=== PATIENT | female | born 1945 | race Caucasian/White ===

== ENCOUNTER 2018-06-12 08:59 | Emergency (ER) | payer MEDICAID ==
[~2018-06-12] VITALS: Ht 152.4 cm; Wt 72.6 kg
[~2018-06-12 08:59] MED LIST: ALBU8.5H2 IH; ALBU8.5H4 INH; ALBUTEROL; ALBUTEROL INH; ALPR1TAB7 PO; ALPR1TAB72 PO; ALPRAZOLAM PO; ARTHROTEC PO; AZTH250C PO; CALC-6 PO; CELE-63 PO; CLN.1T PO; CRESTOR40 MG PO; CYCL10TA9 PO; DICL1TAB27 PO; FENO48TA2 PO; FLUT16SP22 NS; FRSM20T PO; FURO20TA4 PO; FURO40TA4 PO; FUROSEMIDE PO; GEMF600T3 PO; GEMF600T8 PO; GLIM2TAB PO; GLIM4TAB PO; HYDR-3583 PO; INSU100I11 SC; INSU100V7 SQ; INSU300I SC; IRBE300T9 PO; LANS30CA PO; LEVO200T6 PO; LEVOTHYROXIN PO; LRT10T PO; LVT.025T PO; METF-399 PO; METF1000 PO; METO-333 PO; METO100T5 PO; METO25TA2 PO; MTP25TSR PO; NF-LOVAZAC PO; NFCHLORT25 PO; POLY17PO23 PO; PREVACID PO; SERT25TA PO
[2018-06-12] MEDS ORDERED: fentaNYL INJECTION 100 MCG/2 ML AMP IM ONE (09:15)
--- NOTE | 2018-06-12 09:19 | ED Fall/Injury ---
General Chief Complaint: Upper Extremity Stated Complaint: R HAND PAIN/SWELLING AFTER FALL Source: patient, family Exam Limitations: no limitations History of Present Illness Date Seen by Provider: Jun 12, 2018 Time Seen by Provider: 09:03 Initial Comments The patient presents to the ER by private conveyance with her significant other and chief complaint that around 10:00 last night she was getting up and tripped over a rug. She landed on her back and side and is now having some pain and swelling in her right wrist and right hand. She has no limitation to range of motion. She's not having any pain anywhere else. No history of fracture or surgery to the right hand or wrist. She is not on blood thinners but does take aspirin. She has not taken her medicines this morning because when she doesn't eat she wasn't sure she should be nothing by mouth. She has not checked her blood sugar today. She has a history of any cancer and total thyroidectomy. 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 She did take some Tylenol this morning with minimal relief. She's also use ice and elevation. She denies striking her head, loss of consciousness or pain in any of her other joints. Allergies and Home Medications Allergies Coded Allergies: promethazine (Verified Allergy, Severe, SEIZURE, NAUSEA, 07/19/08) duloxetine HCl (Verified Allergy, Mild, 05/28/11) escitalopram oxalate (Verified Allergy, Unknown, 09/22/13) niacin (Verified Allergy, Unknown, 09/22/13) olanzapine (Verified Allergy, Unknown, 09/22/13) ibuprofen (Verified Adverse Reaction, Mild, UNSET STOMACH, 09/22/13) lisinopril (Verified Adverse Reaction, Mild, HEADACHE, 09/22/13) tramadol (Verified Adverse Reaction, Mild, NAUSEATED, 09/22/13) Home Medications Albuterol Sulfate 8.5 Gm Hfa.aer.ad, 2 PUFF INH Q6H PRN for SHORTNESS OF BREATH, (Reported) Alprazolam 1 Mg Tablet, 1 MG PO TID PRN for ANXIETY, (Reported) Calcium Carbonate/Vitamin D3 1 Each Tablet, 1 TAB PO BID, (Reported) Celecoxib 200 Mg Capsule, 200 MG PO BID, (Reported) Fluticasone Propionate 16 Gm Naspr, 2 SPRAYS NS BID PRN for ALLERGIES, (Reported ) Furosemide 40 Mg Tablet, 40 MG PO EVERY OTHER DAY, (Reported) Gemfibrozil 600 Mg Tablet, 600 MG PO BID, (Reported) Glimepiride 4 Mg Tablet, 4 MG PO DAILY, (Reported) Insulin Glargine,Hum.rec.anlog 300 Unit/1 Ml Insuln.pen, 35 UNITS SC HS, ( Reported) Insulin Glulisine 100 Unit/1 Ml Insuln.pen, 10 UNITS SC BREAKFAST & LUNCH, ( Reported) Insulin Glulisine 100 Unit/1 Ml Insuln.pen, 14 UNITS SC WITH EVENING MEAL, ( Reported) Levothyroxine Sodium 200 Mcg Tablet, 200 MCG PO DAILY, (Reported) Metformin HCl 1,000 Mg Tablet, 1,000 MG PO BID, (Reported) Metoprolol Tartrate 25 Mg Tablet, 25 MG PO BID, (Reported) Polyethylene Glycol 17 Gm Pack, 17 GM PO EVERY OTHER DAY, (Reported) Patient Home Medication List Home Medication List Reviewed: Yes Review of Systems Review of Systems Constitutional: No chills, No fever Eyes: Denies Blindness, Denies Blurred Vision Ears, Nose, Mouth, Throat: denies ear pain, denies ear discharge Respiratory: No cough, No short of breath Cardiovascular: No chest pain, No edema Gastrointestinal: No abdominal pain, No constipation, No diarrhea Past Mljxrqi-Xerdff-Giebqp Hx Patient Social History Alcohol Use: Denies Use Recreational Drug Use: No Smoking Status: Never a Smoker Recent Foreign Travel: No Contact w/Someone Who Travel: No Immunizations Up To Date Tetanus Booster (TDap): Less than 5yrs Seasonal Allergies Seasonal Allergies: No Past Medical History 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 8.0oz. 76.213162iv; 33.1 BMI Method:Stated General Appearance: WD/WN, no apparent distress HEENT: PERRL/EOMI, normal ENT inspection, TMs normal, pharynx normal, other ( atraumatic head with negative goncalves sign, raccoon eyes or hemotympanum) Neck: non-tender, full range of motion, supple, normal inspection Cardiovascular: normal peripheral pulses, regular rate, rhythm, no edema Respiratory: chest non-tender, lungs clear, normal breath sounds, no respiratory distress, no accessory muscle use Peripheral Pulses: 2+ Radial Pulses (R), 2+ Radial Pulses (L) Gastrointestinal: normal bowel sounds, non tender, soft Extremities: normal inspection, normal capillary refill Neurologic/Psychiatric: alert, normal mood/affect, oriented x 3 Skin: normal color, warm/dry Progress/Results/Core Measures Results/Orders My Orders Orders - DEBO NOVA Wrist, Right, 3 Views Or More (06/12/18 09:10) Hand, Right, 3 Views (06/12/18 09:10) Fentanyl Injection (Sublimaze Injection (06/12/18 09:15) Medications Given in ED Current Medications Medications Dose Ordered Sig/Davey Route Start Time Stop Time Status Last Admin Dose Admin Fentanyl Citrate 75 mcg ONCE ONCE IM 06/12/18 09:15 06/12/18 09:16 DC 06/12/18 09:16 75 MCG Vital Signs/I&O 06/12/18 09:22 Temp 97.3 Pulse 76 B/P (MAP) 210/100 (136) Pulse Ox 96 O2 Delivery Room Air Progress Progress Note : Time: 09:20 Progress Note Patient remarks that her blood sugars been high in the 400s and 500s but she says been that way for years and she has plans follow up with Dr. ying with it. We've offered to test her blood sugar and check some blood work since this could contribute to falls but she does not think this is contributing since she' s had blood sugars ago up for the past several years like this. She does not always up like that just occasionally they do. She's declined any urine, blood, or Accu-Chek at this time. We've encouraged her to take her blood pressure medicines when she gets home and follow-up with primary care. Ice pack provided. Yamel 75 g since NSAIDs are inadvisable given her history of chronic kidney problems. X-ray of the wrist and hand. Diagnostic Imaging Diagonstic Imaging: Xray Plain Films/CT/US/NM/MRI: hand (right wrist and hand) Comments NAME: SHERI ROTHMAN [facility] REC#: [id number] PHYSICIAN: DEBO NOVA MD CC: TUYET STAFFORD; DEBO NOVA Page 1 of 1 RADIOLOGY REPORT [facility], [facility]. [place], [place] CC: TUYET STAFFORD; DEBO NOVA Page 1 of 1 RADIOLOGY REPORT NAME: SHERI ROTHMAN MED REC#: [id number] PT STATUS: REG ER : 1945 PHYSICIAN: DEBO NOVA MD ADMIT DATE: 06/12/18/ER Signed Date of Exam: 06/12/18 HAND, RIGHT, 3 VIEWS INDICATION: Right hand pain. COMPARISON: None. FINDINGS: 3 views of right hand demonstrate no fracture or dislocation. Articular surfaces are age-appropriate. No foreign body seen. IMPRESSION: No acute fracture or dislocation. Dictated by: Dictated on workstation # [id number] Dict: 06/12/18938 Trans: 06/12/18943 Interpreted by: TUYET STAFFORD Electronically signed by: TUYET STAFFORD 06/12/18943 NAME: SHERI ROTHMAN [facility] REC#: [id number] PHYSICIAN: DEBO NOVA MD CC: MARISA PROCTOR MD; DEBO NOVA Page 1 of 1 RADIOLOGY REPORT [facility]. [place], [place] CC: MARISA PROCTOR MD; DEBO NOVA Page 1 of 1 RADIOLOGY REPORT NAME: SHERI ROTHMAN [facility] REC#: [id number] PT STATUS: REG ER : 1945 PHYSICIAN: DEBO NOVA MD ADMIT DATE: 06/12/18/ER Signed Date of Exam: 06/12/18 WRIST, RIGHT, 3 VIEWS OR MORE EXAMINATION: Right wrist, 3 views. COMPARISON: None. HISTORY: 73-year-old female, right hand and wrist pain. History of fall. FINDINGS: There are advanced triscaphe degenerative changes. There is moderate osteoarthritis of the first carpometacarpal joint. There are mild distal radioulnar degenerative changes. There are vascular calcifications. There is no identified acute fracture. There is no identified abnormal bone alignment. IMPRESSION: 1. No identified acute bony abnormality of the right wrist. Dictated by: Dictated on workstation # [id number] Dict: 06/12/18938 Trans: 06/12/18946 Interpreted by: MARISA PROCTOR MD Electronically signed by: MARISA PROCTOR MD 06/12/18946 Reviewed: Reviewed by Me Departure Impression Primary Impression: Contusion of wrist Qualified Codes: S60.211A - Contusion of right wrist, initial encounter Additional Impression: Fall Qualified Codes: W19.XXXA - Unspecified fall, initial encounter Disposition: HOME, SELF-CARE Condition: Stable Departure-Patient Inst. Decision time for Depature: 10:32 Referrals: ANA MARIA YING MD (PCP/Family) Primary Care Physician Patient Instructions: Common Wrist Injuries (DC) Add. Discharge Instructions: Plan to follow up in 7-10 days for reexamination by the primary care provider. If it still hurting probably be reexamined and possibly reimaged. Use Tylenol for pain. You can use the tramadol 1 tablet every 6 hours as necessary for increased pain. Use ice and elevation as necessary for the first several days to help with swelling and pain. Wear the wrist brace. All discharge instructions reviewed with patient and/or family. Voiced understanding. Scripts Tramadol HCl (Tramadol HCl) 50 Mg Tablet 50 MG PO Q6H PRN for PAIN, #20 TAB 0 Refills Prov: DEBO NOVA 06/12/18 DEBO NOVA Jun 12, 2018 09:19
--- NOTE | 2018-06-12 09:43 | Diagnostic Imaging Report ---
INDICATION: Right hand pain. COMPARISON: None. FINDINGS: 3 views of right hand demonstrate no fracture or dislocation. Articular surfaces are age-appropriate. No foreign body seen. IMPRESSION: No acute fracture or dislocation. Dictated by: Dictated on workstation # [id number]
--- NOTE | 2018-06-12 09:45 | Diagnostic Imaging Report ---
EXAMINATION: Right wrist, 3 views. COMPARISON: None. HISTORY: 73-year-old female, right hand and wrist pain. History of fall. FINDINGS: There are advanced triscaphe degenerative changes. There is moderate osteoarthritis of the first carpometacarpal joint. There are mild distal radioulnar degenerative changes. There are vascular calcifications. There is no identified acute fracture. There is no identified abnormal bone alignment. IMPRESSION: 1. No identified acute bony abnormality of the right wrist. Dictated by: Dictated on workstation # [id number]
[2018-06-12] MEDS ORDERED: TRAM50TA2 PO (10:34)
[2018-06-12 10:42] VITALS: BP 173/92
== END 2018-06-12 10:42 | disposition home or self-care (01) ==
LOC: ER 08:59
DX: S60.211A Contusion of right wrist, initial encounter (principal); E03.9 Hypothyroidism, unspecified; E11.9 Type 2 diabetes mellitus without complications; F41.9 Anxiety disorder, unspecified; F32.9 Major depressive disorder, single episode, unspecified; Z90.89 Acquired absence of other organs; Z85.850 Personal history of malignant neoplasm of thyroid; Z88.8 Allergy status to other drugs, medicaments and biological substances; Z88.6 Allergy status to analgesic agent; Z79.51 Long term (current) use of inhaled steroids; Z79.4 Long term (current) use of insulin; Z87.440 Personal history of urinary (tract) infections; Z87.19 Personal history of other diseases of the digestive system; W01.0XXA Fall on same level from slipping, tripping and stumbling without subsequent striking against object, initial encounter
CPT/HCPCS: 73110; 73130; 96372

== ENCOUNTER 2020-01-03 19:56 | Emergency (ER) | payer MEDICAID ==
[~2020-01-03] VITALS: Ht 152 cm; Wt 73.0 kg
[~2020-01-03 19:56] MED LIST changes: -GLIM4TAB PO; +GLIM4TAB5 PO; +TRM50T PO
[2020-01-03 20:38] LABS: HEMATOCRIT 38 % (35-52); HEMOGLOBIN 12.7 G/DL (11.5-16.0); MEAN CORPUSCULAR HEMOGLOBIN 30 PG (25-34); MEAN CORPUSCULAR HGB CONC 33 G/DL (32-36); MEAN CORPUSCULAR VOLUME 92 FL (80-99); PLATELET COUNT 362 10^3/uL (130-400); WHITE BLOOD COUNT 10.5 10^3/uL (4.3-11.0)
[2020-01-03 20:39] LABS: BASOPHILS # (AUTO) 0.1 10^3/uL (0.0-0.1); BASOPHILS % (AUTO) 1 % (0-10); EOSINOPHILS # (AUTO) 0.1 10^3/uL (0.0-0.3); EOSINOPHILS % (AUTO) 1 % (0-10); LYMPHOCYTES # (AUTO) 3.7 X 10^3 (1.0-4.0); LYMPHOCYTES % (AUTO) 35 % (12-44); MEAN PLATELET VOLUME 10.1 FL (7.4-10.4); MONOCYTES # (AUTO) 0.7 X 10^3 (0.0-1.0); MONOCYTES % (AUTO) 7 % (0-12); NEUTROPHILS # (AUTO) 5.9 X 10^3 (1.8-7.8); NEUTROPHILS % (AUTO) 57 % (42-75)
--- NOTE | 2020-01-03 20:54 | Diagnostic Imaging Report ---
PROCEDURE: CT head wo r/o stroke. TECHNIQUE: Multiple contiguous axial images were obtained through the brain without the use of intravenous contrast. Auto Exposure Controls were utilized during the CT exam to meet ALARA standards for radiation dose reduction. INDICATION: Dizziness onset today confusion FINDINGS: Noncontrast CT scan of the head is compared to exam from 2012. Patient has developed some white matter changes consistent with microvascular disease. No focal areas of infarction are identified. There is no mass effect midline shift hemorrhage or extra-axial fluid collection. No evidence for ribbon sign or hyperdense MCA sign is present. Bone windows appear normal. IMPRESSION: There is a small vessel disease with no acute or focal findings. Dictated by: Dictated on workstation # [id number]
--- NOTE | 2020-01-03 20:59 | ED General ---
General Chief Complaint: Dizziness/Syncope Stated Complaint: DIZZY / NERVOUS Source of Information: Patient History of Present Illness Date Seen by Provider: Jan 03, 2020 Time Seen by Provider: 20:00 Initial Comments PT ARRIVES VIA POV FROM HOME C/O DIZZINESS AND FEELING ANXIOUS STATES "I JUST FEEL WEIRD" STATES SHE HAS BEEN FEELING THIS WAY SINCE 1744 TONIGHT STATES SHE IS TYPE 2 DIABETIC--BLOOD GLUCOSE 159 AT HOME, PRIOR TO ARRIVA. HAS HAD 12 UNITS OF INSULIN TODAY. NO FEVER NO CHEST PAIN NO SHORTNESS OF BREATH NO PALPITATIONS NO HEADACHE NO NAUSEA/VOMITING/DIARRHEA/ABDOMINAL PAIN NO URINARY SYMPTOMS NO SWELLING ANYWHERE NO FEVER/SWEATS/CHILLS NO PALPITATIONS STATES "THE LINES ON THE ROAD MOVED AROUND" PT HAS HISTORY OF HTN ALSO HAS HISTORY OF RENAL CANCER, DX 1985, AND HAS HAD LEFT NEPHRECTOMY. NO CHEMO OR RADIATION. 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 YING, [facility] Allergies and Home Medications Allergies Coded Allergies: promethazine (Verified Allergy, Severe, SEIZURE, NAUSEA, 07/19/08) duloxetine HCl (Verified Allergy, Mild, 05/28/11) escitalopram oxalate (Verified Allergy, Unknown, 09/22/13) niacin (Verified Allergy, Unknown, 09/22/13) olanzapine (Verified Allergy, Unknown, 09/22/13) ibuprofen (Verified Adverse Reaction, Mild, UNSET STOMACH, 09/22/13) lisinopril (Verified Adverse Reaction, Mild, HEADACHE, 09/22/13) tramadol (Verified Adverse Reaction, Mild, NAUSEATED, 09/22/13) Home Medications Albuterol Sulfate 8.5 Gm Hfa.aer.ad, 2 PUFF INH Q6H PRN for SHORTNESS OF BREATH, (Reported) Alprazolam 1 Mg Tablet, 1 MG PO TID PRN for ANXIETY, (Reported) Calcium Carbonate/Vitamin D3 1 Each Tablet, 1 TAB PO BID, (Reported) Celecoxib 200 Mg Capsule, 200 MG PO BID, (Reported) Fluticasone Propionate 16 Gm Naspr, 2 SPRAYS NS BID PRN for ALLERGIES, (Reported) Furosemide 40 Mg Tablet, 40 MG PO EVERY OTHER DAY, (Reported) Gemfibrozil 600 Mg Tablet, 600 MG PO BID, (Reported) Glimepiride 4 Mg Tablet, 4 MG PO DAILY, (Reported) Insulin Glargine,Hum.rec.anlog 300 Unit/1 Ml Insuln.pen, 35 UNITS SC HS, (Reported) Insulin Glulisine 100 Unit/1 Ml Insuln.pen, 10 UNITS SC BREAKFAST & LUNCH, (Reported) Insulin Glulisine 100 Unit/1 Ml Insuln.pen, 14 UNITS SC WITH EVENING MEAL, (Reported) Levothyroxine Sodium 200 Mcg Tablet, 200 MCG PO DAILY, (Reported) Metformin HCl 1,000 Mg Tablet, 1,000 MG PO BID, (Reported) Metoprolol Tartrate 25 Mg Tablet, 25 MG PO BID, (Reported) Polyethylene Glycol 17 Gm Pack, 17 GM PO EVERY OTHER DAY, (Reported) Tramadol HCl 50 Mg Tablet, 50 MG PO Q6H PRN for PAIN Prescribed by: DEOB NOVA on 06/12/18 1034 Patient Home Medication List Home Medication List Reviewed: Yes Review of Systems Review of Systems Constitutional: see HPI; No chills, No diaphoresis; dizziness; No fever, No malaise, No weakness EENTM: see HPI Respiratory: no symptoms reported Cardiovascular: no symptoms reported Gastrointestinal: no symptoms reported Genitourinary: no symptoms reported Musculoskeletal: no symptoms reported Skin: no symptoms reported Psychiatric/Neurological: No Symptoms Reported Hematologic/Lymphatic: No Symptoms Reported Immunological/Allergic: no symptoms reported Past Neavfyg-Okxaon-Tmpasg Hx Past Med/Social Hx: Reviewed and Corrections made Patient Social History Recent Foreign Travel: No Contact w/Someone Who Travel: No Recent Hopitalizations: Yes (HEART CATH) Immunizations Up To Date Tetanus Booster (TDap): Less than 5yrs Seasonal Allergies Seasonal Allergies: No Past Medical History Surgeries: Yes (GALLBLADDER,THYROID,KIDNEY, COLON, BREAST BONE REMOVED) Abdominal, Bowel Surgery, Gallbladder, Nephrectomy, Thyroidectomy Respiratory: Yes (SOB AT TIMES, USES INH) Cardiac: Yes High Cholesterol, Hypertension Neurological: No 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 Disorders: 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 Sexually Transmitted Disease: No Genitourinary: Yes (RENAL CANCER-S/P LEFT NEPHRECTOMY) UTI-Chronic Gastrointestinal: Yes (S/P COLON RESECTION/COLOSTOMY/TAKEDOWN FOR RUPTURED DIVERTICULITIS) Diverticulosis, Pancreatitis Musculoskeletal: Yes Degenerate Disk Disease, Arthritis, Chronic Back Pain Endocrine: Yes Hypothyroidsim, Diabetes, Non-Insulin dep HEENT: Yes Cataract, Glaucoma Cancer: Yes Kidney Did You Recieve Any Treatments: Yes What Type of Treatment Did You: Surgical Intervention Psychosocial: Yes Anxiety, Depression Integumentary: No Blood Disorders: No Adverse Reaction/Blood Tranf: No Family Medical History PSH: -LEFT NEPHRECTOMY 1985 FOR CANCER -COLON RESECTION WITH COLOSTOMY AND LATER TAKEDOWN FOR PERFORATED DIVERTICULITIS -CHOLECYSTECTOMY Physical Exam Vital Signs Vital Signs - First Documented 01/03/20 01/03/20 19:59 21:58 Temp 36.7 Pulse 59 Resp 16 B/P (MAP) 196/103 (134) Pulse Ox 97 O2 Delivery Room Air Capillary Refill : Height, Weight, BMI Height: 5'0.00" Weight: 160lbs. 8.0oz. 72.044746br; 33.1 BMI Method:Stated General Appearance: No Apparent Distress, WD/WN, Anxious HEENT: PERRL/EOMI, Normal ENT Inspection Neck: Normal Inspection Respiratory: Normal Breath Sounds, No Accessory Muscle Use, No Respiratory Distress Cardiovascular: Regular Rate, Rhythm, No Edema, No JVD, No Murmur, Normal Peripheral Pulses Gastrointestinal: Non Tender, Soft Back: Normal Inspection Extremity: Normal Capillary Refill, Normal Inspection, Normal Range of Motion, Non Tender, No Calf Tenderness, No Pedal Edema, Other (+1/4 BILATERAL PEDAL PULSES) Neurologic/Psychiatric: Alert, Oriented x3, No Motor/Sensory Deficits, 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 caro notified Progress Note : Progress Note PT HAD NO FURTHER COMPLAINTS DURING ER STAY 2149--HAVE ADVISED PT OF NEED FOR CT ANGIOGRAM OF HEAD, DUE TO HER SYMPTOMS. PT ADAMANTLY REFUSES ANY OTHER TESTS, AND WANTS TO LEAVE. STATES SHE "HAS ALREADY WAITED LONG ENOUGH AND WAITED TOO LONG, AND NEVER HAD TO WAIT THIS LONG IN AN ER IN MY LIFE" --AMA PAPERS SIGNED. ECG Initial ECG Impression Date: Jan 03, 2020 Initial ECG Impression Time: 20:24 Initial ECG Rate: 57 Initial ECG Rhythm: Normal Sinus Diagnostic Imaging Comments CT HEAD--PER RADIOLOGIST REPORT AT 2058 FINDINGS: Noncontrast CT scan of the head is compared to exam from 2011. Patient has developed some white matter changes consistent with microvascular disease. No focal areas of infarction are identified. There is no mass effect midline shift hemorrhage or extra-axial fluid collection. No evidence for ribbon sign or hyperdense MCA sign is present. Bone windows appear normal. IMPRESSION: There is a small vessel disease with no acute or focal findings Reviewed: Reviewed by Me Departure Impression Primary Impression: Left against medical advice Disposition: 07 AGAINST MEDICAL ADVICE Condition: Against Medical Advice Departure-Patient Inst. Referrals: SELF,ANA MARIA STEPHEN (PCP/Family) Primary Care Physician NICOL CARO DO Jan 03, 2020 20:59
[2020-01-03 21:07] LABS: INR 0.8 (0.8-1.4); PROTHROMBIN TIME PATIENT 11.4 SEC (12.2-14.7)
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
--- OUTSIDE RECORDS SUMMARY | 2020-01-03 21:07 | XMS REPORT | Encounter Summary ---
Author Author [facility] Organization [facility] Address Unknown Phone Unavailable Care Team Providers Care Posting Specialist Name Role Phone Pat Marie MD Unavailable Darrion Pardo MD Unavailable Aaron Caldwell MD Unavailable Santo Shields MD Unavailable Bony Del Toro MD PCP Unavailable Jacy Odonnell RN Unavailable Unavailable Mendez Nuñez MD Unavailable Reason for Visit * Reason Onset Date Comments Pre-Visit Planning 11/22/2019 Encounter Details Care Team Description Date Type Department Darshan Stephens MD [address] [place] [address] Pre-Visit Planning 11/22/2019 Telephone [facility] [address] [address] Social History Date Tobacco Use Types Packs/Day [...] / COVID-19? documented as of this encounter Functional Status Date of Assessment [...] impairment: No documented as of this encounter Plan of Treatment Not on filedocumented as of this encounter Visit Diagnoses Not on filedocumented in this encounter
--- OUTSIDE RECORDS SUMMARY | 2020-01-03 21:07 | XMS REPORT ---
Author Author [place] [employer] [facility] [email or web address]. [facility] [employer] Address [address] [place] [address] Care Team Providers Care Development Administrator Name Role Phone SELF, ANA MARIA Unavailable SELF, ANA MARIA J Unavailable Unavailable DEBO NOVA Unavailable Unavailable SARA STEPHEN, GRACIELA Santillan Unavailable Unavailable BENITA STEPHEN, BALBINA Morgan Unavailable Unavailable BENITA STEPHEN, BALBINA Morgan Unavailable Unavailable FEMI STEPHEN, COOPER Spear Unavailable Unavailable MARSHA STEPHEN, RAUDEL Negro Unavailable Unavailable MARSHA STEPHEN, RAUDEL Negro Unavailable Unavailable SELF, ANA MARIA Unavailable Unavailable Unavailable SELF, ANA MARIA J Unavailable Unavailable ANGIE CRAIG, NICOL Negro Unavailable Unavailable Unavailable Unavailable Unavailable Unavailable Unavailable Unavailable Unavailable Unavailable Allergies The data below is from unstructured sources No Information Encounters Encounter Date Encounter Type Encounter Diagnosis Care Provider Facility Start: Emergency department NICOL ADAMS DO [facility] 01-03-2020 patient visit [facility] Start: Patient encounter ANA MARIA J SELF [facility] 12-30-2019 procedure [facility] Start[facility] Patient encounter NA NA [facility] 11-21-2019 [facility] Start: Patient encounter NA NA [facility] 11-20-2019 procedure [facility] Start: Telephone encounter ANA MARIA SELF [facility] 09-06-2019 MAIN Start: Telephone encounter ANA MARIA SELF [facility] 09-02-2019 MAIN Start: Telephone encounter ANA MARIA SELF [facility] 07-14-2019 MAIN Start: Telephone encounter ANA MARIA SELF [facility] 07-08-2019 MAIN Start: Telephone encounter ANA MARIA SELF [facility] 07-07-2019 MAIN Start: Telephone encounter ANA MARIA SELF [facility] 07-05-2019 MAIN Start: Telephone encounter ANA MARIA SELF [facility] 06-09-2019 MAIN Start: Telephone encounter ANA MARIA SELF [facility] 05-27-2019 MAIN Start: Telephone encounter ANA MARIA SELF [facility] 2019 [facility] Start: [facility] encounter NA [facility] ([id number]) [facility] Acute cystitis ANA MARIA SELF [facility] 04-25-2019 MAIN without hematuria MAIN Start: Telephone encounter Type 2 diabetes ANA MARIA SELF [facility] 04-15-2019 mellitus with MAIN diabetic polyneuropathy Start: [facility] Dysuria MEG BRITT [facility] 03-28-2019 CARE CARE Start: Patient encounter NA NA [facility] ([id number]) Start: Telephone encounter AMITA BELL [facility] 03-22-2019 MAIN Start: Telephone encounter ANA MARIA SELF [facility] 03-14-2019 MAIN Start: Telephone encounter ANA MARIA SELF [facility] 03-10-2019 MAIN Start: Diabetic care Type 2 diabetes AMITA BELL [facility] 03-09-2019 education mellitus with MAIN diabetic polyneuropathy Start: [facility] Periapical abscess TK BERNO T [facility] 03-01-2019 CARE without sinus CARE Start: Patient encounter ANA MARIA SELF [facility] 03-01-2019 [facility] ([id number]) Start: Patient encounter NA NA [facility] 02-22-2019 [facility] ([id number]) Start: Telephone encounter Type 2 diabetes ANA MARIA SELF [facility] 02-17-2019 mellitus with MAIN diabetic polyneuropathy Start: Patient encounter NA NA [facility] 02-16-2019 [facility] ([id number]) [facility] Anxiety disorder, ANA MARIA SELF [facility] 02-16-2019 MAIN unspecified MAIN Start: Telephone encounter ANA MARIA SELF [facility] 02-16-2019 MAIN Start: Patient encounter NA NA [facility] 02-16-2019 [facility] ([id number]) Start: Telephone encounter ANA MARIA SELF [facility] 01-19-2019 MAIN Start: Telephone encounter ANA MARIA SELF [facility] 01-11-2019 MAIN Start: [facility] Other diseases of ANA MARIA SELF [facility] 01-06-2019 MAIN tongue MAIN Start: Patient encounter ANA [facility]ELF [facility] ([id number]) Start: Telephone encounter ANA MARIA SELF [facility] 12-17-2018 MAIN Start: Patient encounter ANA [facility]ELF [facility] 12-11-2018 [facility] ([id number]) Start: Patient encounter ANA MARIA SELF [facility] 12-11-2018 [facility] ([id number]) Start: [facility] Zoster without JOSHUAJin GONZALEZ [facility] 12-11-2018 CARE complications CARE Start: Telephone encounter ANA MARIA SELF [facility] 12-09-2018 MAIN Start: Telephone encounter ANA MARIA SELF [facility] 11-16-2018 MAIN Start: Patient encounter NA NA [facility] 11-04-2018 [facility] ([id number]) Start: [facility] Other abnormal and ANA MARIA SELF [facility] 11-04-2018 MAIN inconclusive findings MAIN on diagnostic imaging of breast Start: Telephone encounter Inconclusive ANA MARIA SELF [facility] 10-25-2018 mammogram MAIN Start: Patient encounter ANA MARIA SELF [facility] 10-20-2018 [facility] ([id number]) Start: Telephone encounter ANA MARIA SELF [facility] 10-19-2018 MAIN Start: Patient encounter ANA MARIA SELF [facility] 09-22-2018 [facility] ([id number]) Start: Diabetic care Type 2 diabetes AMITA BELL [facility] 09-22-2018 education mellitus with MAIN diabetic polyneuropathy Start: Telephone encounter Vitamin A deficiency, AMITA FLANNERY [facility] 09-16-2018 unspecified Start: Telephone encounter AMITA BELL [facility] [place] 09-13-2018 Start: Patient encounter ANA MARIA SELF [facility] 09-08-2018 [facility] ([id number]) Start: Diabetic care Type 2 diabetes AMITA BELL [facility] 09-08-2018 education mellitus with MAIN diabetic polyneuropathy Start: Telephone encounter ANA MARIA SELF [facility] 09-07-2018 MAIN Start: Patient encounter ANA [facility] SELF [facility] 08-[facility]-2018 [facility] ([id number]) Start: [facility] Essential (primary) ANA MARIA SELF [facility] 08-24-2018 MAIN hypertension MAIN Start: Telephone encounter ANA MARIA SELF [facility] 08-16-2018 MAIN Start: Emergency department DEBO NOVA Not Avai lable ([id number]) 06-12-2018 patient visit End: 06-12-2018 Start: Patient encounter DEBO NOVA Not Availab le ([id number]) 06-12-2018 procedure Start: Emergency department DEBO NOVA [facility] 06-12-2018 patient visit [facility] ([id number]) End: 06-12-2018 Start: Patient encounter GRACIELA RUIZ MD Not Availab le ([id number]) 09-21-2015 procedure Start: Patient encounter GRACIELA RUIZ MD [facility] 09-21-2015 procedure [facility] ([id number]) Start: Patient encounter GRACIELA RUIZ MD Not [facility]ail[facility] ([id number]) 09-18-2015 procedure Start: Patient encounter GRACIELA RUIZ MD [facility] 09-18-2015 procedure [facility] ([id number]) Start: Evaluation and RAUDEL LARSON MD [facility] 08-27-2015 management of [facility] inpatient ([id number]) End: 08-29-2015 Start: Patient encounter GRACIELA RUIZ MD Not [facility]ail[facility] ([id number]) 05-21-2015 procedure Start: Patient encounter GRACIELA RUIZ MD [facility] 05-21-2015 procedure [facility] ([id number]) Start: Patient encounter GRACIELA RUIZ MD Not Availab le ([id number]) 02-06-2015 procedure Start: Patient encounter GRACIELA RUIZ MD [facility] 02-06-2015 procedure [facility] ([id number]) Start: Patient encounter COOPER KAHN MD Not Avai lable ([id number]) 01-04-2014 procedure Start: Patient encounter COOPER KAHN MD [facility] 01-04-2014 procedure [facility] ([id number]) Start: Patient encounter COOPER KAHN MD Not [facility]ai lab ([id number]) 09-22-2013 procedure End: 09-22-2013 Start: Patient encounter COOPER KAHN MD [facility] 09-22-2013 procedure [facility] ([id number]) End: 09-22-2013 Start: Patient encounter COOPER KAHN MD Not Avai lable ([id number]) 09-21-2013 procedure Start: Patient encounter COOPER KAHN MD [facility] 09-21-2013 procedure [facility] ([id number]) Start: Evaluation and BALBINA JOY MD Not [facility] lab ([id number]) 05-29-2011 management of inpatient End: 06-04-2011 Start: Evaluation and BALBINA JOY MD [facility] 05-28-2011 management of [facility] inpatient ([id number]) End: 06-04-2011 Pre-operative COOPER KAHN MD [facility] unspecified ([id number]) Medical Equipment No Information Goals No Information Immunizations Immunizatio Immunization Notes Care Provider Facility n Date 06-17-2017 pneumococcal conjugate NA NA [facility] vaccine, 13 valent [facility] ([id number]) vaccine ; ANA MARIA SELF [place] [facility] Translations: [facility] ([id number]) [vaccine] Interventions No Information Medications Medication Drug Dates Sig Sig (Original) Class(es) (Normalized) Albuterol (Albuterol take 1 puff(s) Albuterol (Albu terol Sulfate Hfa) 8.5 Gm Sulfate Hfa) 8.5 Gm by inhalation Hfa.aer.ad 2 Puf f RESPIRATORY Hfa.aer.ad every six hours (INHALATION) Every 6 Hours as needed for (1 source) as needed Shortness Of Breath Albuterol (Proair Hfa) End: Albuterol (Pro air Hfa) 8.5 Gm 8.5 Gm Hfa.aer.ad, 90 06-05-2011 Hfa.aer.ad, 90 Mcg Respiratory Mcg Respiratory (Inhalation) Every 6 Hours as needed (Inhalation) Discontinued (1 source) Albuterol , 2 Puff End: Albuterol , 2 Puff Respiratory Respiratory (Inhalation) 05-29-2011 (Inhalation) As Needed Discontinued (1 source) Albuterol , Not End: Albuterol , Not Juan licable Discontinued Applicable 02-10-2008 (1 source) Alpazolam , 1 Mg Oral End: take 1 mg by Alpazol am , 1 Mg Oral Three Times A Day (1 source) 06-05-2011 mouth three Discontinued times daily calcium carbonate 1500 Vitamin D Calcium Carbona te/Vitamin D3 (Calcium mg / cholecalciferol 200 600 + Vit D 200 Tablet) 1 Each Tablet 1 unt oral tablet Tab ORAL Twice A Day (1 source) Clonidine Hcl (Catapres End: Clonidine Hcl (Catapres Tab) 0.1 Mg Tab, Tab) 0.1 Mg Tab, 1 Each 08-28-2015 1 Each Oral D aily Discontinued Oral (1 source) Cyclobenzaprine Hcl 10 End: Cyclobenzaprin e Hcl 10 Mg Tablet, 1 Each Mg Tablet, 1 Each Oral 09-22-2013 Oral Q8hr Prn Discontinued (1 source) Diclofenac End: take 1 tablet Diclofenac Sodi um/Misoprostol (Arthrotec Sodium/Misoprostol 08-28-2015 by mouth once 50 Ec Tabl et) 1 Each Tablet.dr, 1 Each (Arthrotec 50 Ec Tablet) daily Oral Daily Discontinued 1 Each Tablet.dr, 1 Each Oral (1 source) Fluticasone Propionate Fluticasone Propionate (Fl onase Nasal (Flonase Nasal [place]) 16 [place]) 16 Gm Naspr 2 Spr ays NOT Gm Naspr APPLICABLE Twice A Day as n eeded for (1 source) Allergies Furosemide (Lasix Tab) End: Furosemide (La six Tab) 20 Mg Tab, 20 Mg 20 Mg Tab, 20 Mg Oral 06-05-2011 Oral Q48hrs Dis continued (1 source) Furosemide 20 Mg Tablet, End: Furosemide 2 0 Mg Tablet, 1 Each Oral 1 Each Oral 08-28-2015 Every Other Day Dis continued (1 source) Gemfibrozil 600 Mg End: Gemfibrozil 600 Mg Tablet, 1 Each Oral Tablet, 1 Each Oral 08-28-2015 Twice A Day Disco ntinued (1 source) Lansoprazole (Prevacid) End: Lansoprazole (Prevacid) 30 Mg 30 Mg Capsule.dr 30 Mg 08-28-2015 Capsule.dr, 3 0 Mg Oral Daily Oral Discontinued (1 source) Levothyroxin , 125 Mcg End: take 125 ug by Levoth yroxin , 125 Mcg Oral Daily Oral 06-05-2011 mouth once Discontinued (1 source) daily Levothyroxine Sodium End: Levothyroxine So dium (Synthroid) 25 Mcg (Synthroid) 25 Mcg 06-05-2011 Tablet, 1 Each Ora l Daily Discontinued Tablet, 1 Each Oral (1 source) Levothyroxine Sodium End: Levothyroxine So dium (Synthroid) 25 Mcg (Synthroid) 25 Mcg 09-22-2013 Tablet, 2 Each Ora l Daily Discontinued Tablet, 2 Each Oral (1 source) Loratadine (Claritin) 10 End: Loratadine ( Claritin) 10 Mg Box, 1 Each Mg Box, 1 Each Oral 06-05-2011 Oral Daily Discon tinued (1 source) Metoprolol Succinate End: take 1 tablet Metoprol ol Succinate (Metoprolol (Metoprolol Succinate Xl 09-22-2013 by mouth once Succ inate Xl 100 Mg) 100 Mg Tab.sr.24h, 100 Mg) 100 Mg daily 1 Each Oral Daily D iscontinued Tab.sr.24h, 1 Each Oral (1 source) Metoprolol Succinate End: take 1 tablet Metoprol ol Succinate (Toprol Xl 25MG) 25 (Toprol Xl 25MG) 25 Mg 11-17-2011 by mouth four Mg Tab .sr.24h, 1 Each Oral Four Times Tab.sr.24h, 1 Each Oral times daily Daily Discon tinued (1 source) Cukcs-0-Lhdj Ethyl End: Zehui-3-Phnq Ethyl Esters (Lovaza) 1 Gm Esters (Lovaza) 1 Gm 08-28-2015 Capsule, 1 Each Oral Twice A Day With Capsule, 1 Each Oral Meals Discontinued (1 source) Polyethylene Glycol take 17 g by Polyethylene Gly col (Miralax 17 Gm (Miralax 17 Gm Packet) mouth every Packet) 17 Gm Pack 17 Gm ORAL Every 17 Gm Pack other day, then Other Day (1 source) take 17 g by mouth, then take 17 g by mouth traMADol hydrochloride Opioid Start: take 1 tablet T ramadol Hcl 50 Mg Tablet 50 Mg ORAL 50 mg oral tablet Agonist 06-12-2018 by mouth every Every 6 Hours as needed for Pain 20 Tab (1 source) six hours as 06/12/18 needed for pain Start: 06-12-2018 take 1 Tramadol Hcl tablet by 50 Mg Tablet mouth 50 Mg ORAL every six Every 6 Hours hours as as needed for needed for Pain 20 Tab pain 06/12/18 Payers No Information Plan of Treatment The data below is from unstructured sources Discharge Date 08/29/15 6:00pm Disposition 01 HOME, SELF-CARE Instructions/Education Provided Acut e Abdominal Pain (ED) Forms Provided PDI Medical Prescriptions See Medication Section Referrals (Unspecified) - Reason(s) for Referral: FOLLOW UP WITH YOUR PCP IN ONE WEEK. FOLLOW UP WITH DR RUIZ IN ONE WEEK Discharge Date 08/29/15 6:00pm Disposition 09 ADMITTED INPATIENT Instructions/Education Provided Acut e Abdominal Pain (ED) Forms Provided PDI Medical Prescriptions See Medication Section Referrals (Unspecified) - Reason(s) for Referral: FOLLOW UP WITH YOUR PCP IN ONE WEEK. FOLLOW UP WITH DR RUIZ IN ONE WEEK Discharge Date 06/12/18 10:42am Disposition 01 HOME, SELF-CARE Condition at Discharge Stable Instructions/Education Provided Comm on Wrist Injuries (DC) Prescriptions See Medication Section Referrals ANA MARIA YING MD Order Date: Primary Care Physician Address: [address] [place] [id number] Additional Instructions/Education Pl an to follow up in 7-10 days for reexamination by the primary care provider. If it still hurting probably be reexamined and possibly reimaged. Use Tylenol for pain. You can use the tramadol 1 tablet every 6 hours as necessary for increased pain. Use ice and elevation as necessary for the first several days to help with swelling and pain. Wear the wrist brace. All discharge instructions reviewed with patient and/or family. Voiced understanding. 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 ; Translations: [Malignant O ther Phone: renal pelvis neoplasm of unspecified kidney, [phone] (2 sources) except renal pelvis] 0 Chronic Chronic airway obstruction, not Chronic BALBINA obstructive elsewhere classified BENITA STEPHEN pulmonary disease and bronchiectas is (4 sources) Deficiency Iron deficiency anemia secondary to Chronic BALBINA and other blood loss (chronic) BENITA STEPHEN anemia (2 sources) Deficiency Iron deficiency anemia secondary to Episodic ANA MARIA SELF and other inadequate dietary iron intake ; Ot her Phone: anemia Translations: [Iron deficiency [phone] anemia secondary to inadequate 0 (1 source) dietary iron intake] Deficiency Other iron deficiency anemias ; Episodic ANA MARIA SELF and other Translations: [ - Iron deficiency O ther Phone: anemia anemia secondary to inadequate [phone] dietary iron intake D50.8] 0 (2 sources) Diabetes Diabetes mellitus without mention Chronic BALBINA mellitus of complication, type II or LUPE Spear MD with unspecified type, uncontrol led ; complication Translations: [Polyneuropat hy due s to type 2 diabetes mellitus ] (12 sources) Diabetes Type 2 diabetes mellitus without Chronic COOPER mellitus complications ; Translations: LUCIANO GRIFFIN MD without [Diabetes mellitus without mention complication of complication, type II or (8 sources) unspecified type, not state d as uncontrolled] Diabetes Other abnormal glucose ; Episodic MAX WELL SELF mellitus Translations: [ - Blood glucose Ot er Phone: without labile R73.09] [phone] complication 0 (1 source) Diseases of Other diseases of tongue ; Episodic M AXWELL SELF mouth; Translations: [ - Tongue lesion Ot er Phone: excluding K14.8] [phone] dental 0 (1 source) Disorders of Pure hyperglyceridemia ; Chronic CHELSEA HLEEN lipid Translations: [Hyperlipidemia] LETY GRAY MD metabolism (6 sources) Disorders of Periapical abscess without sinus ; Episodic ANA MARIA SELF teeth and Translations: [ - Tooth abscess Ot er Phone: jaw K04.7] [phone] (1 source) 0 Diverticulos Diverticulosis of colon (without Chronic BALBINA is and mention of hemorrhage) BENITA STEPHEN diverticulit is (4 sources) Esophageal Esophageal reflux ; Translations: Chronic BALBINA disorders [Reflux esophagitis] BENITA STEPHEN (8 sources) Essential Unspecified essential hypertension Chronic BALBINA hypertension ; Translations: [Essential BENITA STEPHEN (8 sources) hypertension] Genitourinar Personal history of urinary (tract) Episodic DEBO ROHINI y symptoms infections ; Translations: and [Dysuria] ill-defined conditions (6 sources) Mood Major depressive disorder, single Chronic RAUDEL disorders episode, unspecified ODGERS MD (2 sources) Mycoses Unspecified mycosis ; Translations: Episodic ANA MARIA SELF (1 source) [ - Fungus infection B49] Other Wander ne: Nutritional Vitamin A deficiency, unspecified ; Episodic ANA MARIA SELF deficiencies Translations: [ - Vitamin A Other P ute: (2 sources) deficiency E50.9] Other Other specified disorders of kidney Chronic RAUDEL diseases of and ureter MARSHA STEPHEN kidney and ureters (2 sources) Other Renal insufficiency ; Translations: Episodic ANA MARIA SELF diseases of [Renal insufficiency] Other Phone: kidney and [phone] ureters 0 (1 source) Other Disorder of kidney and ureter, Episodic ANA MARIA SELF diseases of unspecified ; Translations: [ - Oth er Phone: kidney and Renal insufficiency N28.9] [phone] ureters 0 (1 source) Other Hypoglycemia ; Translations: Chronic ANA MARIA SELF endocrine [Hypoglycemia associated with Other Phone: disorders diabetes] [phone] (1 source) 0 Other Restless legs ; Translations: Chronic ANA MARIA SELF hereditary [Restless leg syndrome] Other Phone : and [phone] degenerative 0 nervous system conditions (1 source) Other Restless legs syndrome ; Chronic MAX WELL SELF hereditary Translations: [ - Restless leg Othe r Phone: and syndrome G25.81] [phone] degenerative 0 nervous system conditions (1 source) Other Erythema annulare centrifugum ; Episodic ANA MARIA SELF inflammatory Translations: [ - Erythema annulare Other Phone: condition of L53.1] [phone] skin 0 (1 source) Other Skin sensation disturbance ; Episodic ANA MARIA SELF nervous Translations: [Tingling of both Oth er Phone: system feet] [phone] disorders 0 (1 source) Other Paresthesia of skin ; Translations: Episodic ANA MARIA SELF nervous [ - Tingling of both feet R20.2] Ot her Phone: system [phone] disorders 0 (2 sources) Other Arthropathy, unspecified, multiple Chronic BALBINA non-traumati sites BENITA STEPHEN c joint disorders (2 sources) Other Other abnormal and inconclusive Episodic ANA MARIA SELF screening findings on diagnostic imaging of O ther Phone: for breast ; Translations: [phone] suspected [Inconclusive mammogram] 0 conditions (not mental disorders or infectious disease) (4 sources) Other upper Unspecified voice and resonance Episodic ANA MARIA SELF respiratory disorder ; Translations: [ - Voice Other Phone: disease complaint R49.9] [phone] (1 source) 0 Pancreatic Chronic pancreatitis ; Chronic KATHL EEN disorders Translations: [Other chronic PATY MEANS MD (not pancreatitis] diabetes) (4 sources) Pancreatic Acute pancreatitis, unspecified ; K ATHLEEN disorders Translations: [Other chronic PATY MEANS MD (not pancreatitis] diabetes) (4 sources) Residual Obstructive sleep apnea Chronic MELISSA LONNIE codes; (adult)(pediatric) BENITA STEPHEN unclassified (2 sources) Residual Acquired absence of kidney ; Episodic GRACIELA SARA codes; Translations: [ - Single kidney unclassified Z90.5] (6 sources) Residual Absent kidney ; Translations: Episodic ANA MARIA SELF codes; [Single kidney] Other Phone: unclassified [phone] (1 source) 0 Residual Other general symptoms and signs ; Episodic ANA MARIA SELF codes; Translations: [ - Sensation of Othe r Phone: unclassified change in temperature R68.89] [phone] (1 source) 0 Spondylosis; Degeneration of intervertebral disc Chronic ANA MARIA SELF intervertebr ; Translations: [DDD (degenerative Other Phone: al disc disc disease), lumbar] [phone] disorders; 0 other back problems (1 source) Thyroid Hypothyroidism, unspecified ; Chronic RAUDEL disorders Translations: [Hypothyroidism] TIANNA PUGH MD (7 sources) Urinary Urinary tract infection, site not Episodic RAUDEL tract specified ; Translations: [Acute OD GRACE STEPHEN infections cystitis without hematuria] (4 sources) Viral Zoster without complications ; Episodic ANA MARIA SELF infection Translations: [ - Herpes zoster Oth er Phone: (1 source) without complication B02.9] [phone] Past or Other Problems Problem Problem Date Last Documented Episodic/Chr Provider Classificati Recorded Date onic on Allergic Allergy status to other drugs, Episodic DEBO ROHINI reactions medicaments and biological (8 sources) substances status ; Transla tions: [Allergy status to analgesic agent status] Cancer of Personal history of other malignant Episodic BALBINA kidney and neoplasm of kidney ; Translations: BENITA STEPHEN renal pelvis [Personal history of malign ant (4 sources) neoplasm of kidney] Cancer of Personal history of malignant Episodic DEBO ROHINI thyroid neoplasm of thyroid (4 sources) External Fall on same level from slipping, Episodic DEBO ROHINI cause codes: tripping and stumbling with out Fall subsequent striking against object, (1 source) initial encounter External Fall ; Translations: [Fall on same DEBO ROHINI cause codes: level from slipping, trippi ng and Fall stumbling without subsequen t (4 sources) striking against object, in itial encounter] Fluid and Hypopotassemia Episodic BALBINA electrolyte BENITA STEPHEN disorders (2 sources) Gastrointest Hemorrhage of rectum and anus Episodic BALBINA inal BENITA STEPHEN hemorrhage (4 sources) Hemorrhoids Internal hemorrhoids without Episodic BALBINA (2 sources) mention of complication BENITA STEPHEN Mood Major depressive disorder, single R ODNEY disorders episode, unspecified MARSHA STEPHEN (4 sources) Other [facility] (current) use of inhaled Episodic DEBO ROHINI aftercare steroids (4 sources) 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 Episodic DEBO ROHINI aftercare (4 sources) Other Long-term (current) use of other Episodic COOPER aftercare medications FEMI STEPHEN (2 sources) Other Cyst of kidney, acquired Episodic RAINA SARA diseases of MD kidney and ureters (6 sources) Other Unspecified disorder of kidney and Episodic GRACIELA SARA diseases of ureter MD kidney and ureters (2 sources) Other Personal history of other diseases Episodic DEBO ROHINI gastrointest of the digestive system inal disorders (4 sources) Other Effusion, left wrist Episodic DEBO W NANCY non-traumati c joint disorders (4 sources) Pancreatic Acute pancreatitis ; Translations: Episodic BALBINA disorders [Acute pancreatitis, unspecified] Beatris KIMBROUGH MD (not diabetes) (2 sources) Residual Acquired absence of other organs Episodic DEBO ROHINI codes; unclassified (4 sources) Residual Acquired absence of kidney Episodic K ATHLEEN codes; BENITA STEPHEN unclassified (2 sources) Residual Family history of malignant Episodic COOPER codes; neoplasm of gastrointestinal tract FEMI STEPHEN unclassified (2 sources) Superficial Contusion of wrist ; Translations: Episodic DEBO ROHINI injury; [Contusion of right wrist, initial contusion encounter] (5 sources) Procedures Date Procedure Procedure Detail Performing Cl inician Start: Mammography ANA MARIA SELF 10-20-2018 Start: Radiography of DEBO NOVA 06-12-2018 hand Work Phone: Start: Radiography of DEBO Bustamante ROHINI 06-12-2018 wrist Work Phone: Start: Colonoscopy BALBINA Tarango 06-04-2011 Start: ESOPHAGOGASTRODUOSukhdeep JOY MD 06-04-2011 ENOSCOPY [EGD] W/CLOSE Colonoscopy BALBINA JOY MD ESOPHAGOGASTRODUOSukhdeep JOY MD ENOSCOPY [EGD] W/CLOSE Results Test Name Value Interpreta Reference Facilit Date tion Range y Time not yet categorized on null BLO trace-intact Invalid Communi Interpreta ty tion Code [facility] (88901) Exp date 07/2019 Invalid Communi Interpreta ty tion Code [facility] (38775) KET clear~dark yellow~none~2+~neg~neg Invalid Communi Interpreta ty tion Code [facility] (91644) KET 04/2019~clear~yellow~no~> = 1000 Invalid Communi mg/dL~neg~neg Interpreta ty tion Code [facility] (43067) HORTENCIA neg~neg Invalid Communi Interpreta ty tion Code [facility] (28879) HORTENCIA Positive Invalid Communi Interpreta ty tion Code [facility] (25460) Lot # [id number] Invalid Communi Interpreta ty tion Code [facility] (64291) Lot # [id number] Invalid Communi Interpreta ty tion Code [facility] (55383) Lot # [id number] Invalid Communi Interpreta ty tion Code [facility] (74472) SG 1.025 Invalid Communi Interpreta ty tion Code [facility] (17096) SG 1.015 Invalid Communi Interpreta ty tion Code [facility] (29946) URO 0.2 Invalid Communi Interpreta ty tion Code [facility] (26959) laboratory on null pH (Bld) 5.5 [pH] Invalid Communi Interpreta ty tion Code [facility] (96834) pH (Bld) 5.0 [pH] Invalid Communi Interpreta ty tion Code [facility] (05142) Protein (U) 2+ Invalid Communi [Mass/Vol] Interpreta ty tion Code [facility] (29230) Protein (U) trace Invalid Communi [Mass/Vol] Interpreta ty tion Code [facility] (85010) laboratory on 2020-01-03 Basophils (Bld) 0.1 10*3/uL Negative 0.0-0.1 PENDING 01-02 [#/Vol] 10*3/uL LOCATIO 020 [facility] 16:17-0 (78800) 400 Basophils/100 WBC 1 % Negative 0-10 % PENDING 01-02 (Bld) [facility]ATIO 020 [facility] 16:17-0 (17764) 400 Eosinophils (Bld) 0.1 10*3/uL Negative 0.0-0.3 PENDING [#/Vol] 10*3/uL [facility]ATIO 020 [facility] 16:17-0 (58179) 400 Eosinophils/100 WBC 1 % Negative 0-10 % PENDING (Bld) LOCATIO 020 [facility] 16:17-0 (81574) 400 Erythrocyte 14.0 % Negative 10.0-14.5 PENDING distribution width % LOCATIO 020 (RBC) [Ratio] N S 16:17-0 (38653) 400 Glucose [Mass/Vol] 103 mg/dL Negative 70-110 PENDING 08- 8-2 mg/dL LOCATIO 020 N [facility] 16:21-0 (54320) 400 Hematocrit (Bld) 38 % Negative 35-52 % PENDING [Volume fraction] LOCATIO 020 [facility] 16:17-0 (28507) 400 Hemoglobin (Bld) 12.7 g/dL Negative 11.5-16.0 PENDING [Mass/Vol] g/dL LOCATIO 020 [facility] 16:17-0 (78451) 400 Lymphocytes (Bld) 3.7 10*3/uL Negative 1.0-4.0 PENDING 18-2 [#/Vol] 10*[address] 16:17-0 (44639) 400 Lymphocytes/100 WBC 35 % Negative 12-44 % PENDING 18-2 (Bld) [address] 16:17-0 (52567) 400 MCH (RBC) [Entitic 30 pg Negative 25-34 pg PENDING 08- 8-2 mass] [address] 16:17-0 (50342) 400 MCHC (RBC) 33 g/dL Negative 32-36 g/dL PENDING 18-2 [Mass/Vol] [address] 16:17-0 (86584) 400 MCV (RBC) [Entitic 92 Negative 80-99 PENDING - 8-2 vol] [foz_us] [address] 16:17-0 (83288) 400 Monocytes (Bld) 0.7 10*3/uL Negative 0.0-1.0 PENDING 01-02 -2 [#/Vol] 10*[address] 16:17-0 (49330) 400 Monocytes/100 WBC 7 % Negative 0-12 % PENDING 01-02 -2 (Bld) [address] 16:17-0 (56056) 400 Neutrophils (Bld) 5.9 10*3/uL Negative 1.8-7.8 PENDING -2 [#/Vol] 10*[address] 16:17-0 (74008) 400 Neutrophils/100 WBC 57 % Negative 42-75 % PENDING -2 (Bld) [address] 16:17-0 (45307) 400 Platelet mean volume 10.1 Negative 7.4-10.4 PENDING 18-2 (Bld) [Entitic vol] [foz_us] [address] 16:17-0 (92352) 400 Platelets (Bld) 362 10*3/uL Negative 130-400 PENDING 18 -2 [#/Vol] 10*3/uL [address] 16:17-0 (57805) 400 RBC (Bld) [#/Vol] 4.17 10*6/uL Low 4.35-5.85 PENDING 10*6/uL LOCATIO 020 N [facility] 16:17-0 (10011) 400 WBC (Bld) [#/Vol] 10.5 10*3/uL Negative 4.3-11.0 PENDING 10*3/uL LOCATIO 020 N [facility] 16:17-0 (70375) 400 laboratory on 2019-11-21 25-hydroxyvitamin D3 20 ng/mL Low 30-100 Commu ni [Mass/Vol] ng/mL [facility] (51298) Albumin DL <= 20 30.2 mg/dL Normal See Note: Communi mg/L (U) [Mass/Vol] mg/dL [facility] (56597) Albumin/Creatinine 115 High <30 mcg/mg Communi (U) [Mass ratio] creat [facility] (68751) Calcium [Mass/Vol] 9.3 mg/dL Normal 8.6-10.4 Communi mg/dL [facility] (50562) Chloride [Moles/Vol] 97 mmol/L Low 98-110 Commu ni mmol/L [facility] (65939) CO2 [Moles/Vol] 24 mmol/L Normal 20-32 Communi mmol/L [facility] (67401) Cobalamin (Vitamin 473 pg/mL Normal 200-1100 Communi B12) [Mass/Vol] pg/mL [facility] (39850) Creatinine (U) 262 mg/dL Normal 20-275 Communi [Mass/Vol] mg/dL [facility] (87165) Creatinine 1.44 mg/dL High 0.60-0.93 Communi [Mass/Vol] mg/dL [facility] (15561) Free T4 [Mass/Vol] 0.5 ng/dL Low 0.8-1.8 Communi ng/dL [facility] (96121) GFR/1.73 sq 41 mL/min/{1.73_m2} Low > OR = 60 Commun i M.predicted among mL/min/1.7 ty blacks MDRD 3m2 Health (S/P/Bld) [Vol Center rate/Area] [facility] (13659) GFR/1.73 sq 35 mL/min/{1.73_m2} Low > OR = 60 Commun i M.predicted MDRD mL/min/1.7 ty (S/P/Bld) [Vol 3m2 Health rate/Area] [facility] (10138) Glucose [Mass/Vol] 241 mg/dL High 65-99 Communi mg/dL ty [facility] (43548) HbA1c (Bld) [Mass 13.2 High <5.7 % of Communi fraction] total Hgb ty [facility] () Potassium 4.5 mmol/L Normal 3.5-5.3 Communi [Moles/Vol] mmol/L ty [facility] (78780) Sodium [Moles/Vol] 134 mmol/L Low 135-146 Communi mmol/L ty [facility] (87281) TSH Qn 40.64 m[IU]/L High 0.40-4.50 Communi mIU/L ty [facility] (84617) Urea nitrogen 23 mg/dL Normal 7-25 mg/dL Communi [Mass/Vol] ty [facility] (41501) Urea 16 mg/mg Normal 6-22 Communi nitrogen/Creatinine (calc) ty [Mass ratio] [facility] (86204) laboratory on 2019-11-20 Bacteria identified SEE NOTE Abnormal Communi Cx Nom (U) ty [facility] (17885) laboratory on 2019-04-25 Bacteria identified SEE NOTE Abnormal Communi Cx Nom (U) ty [facility] (74718) laboratory on 2019-03-28 Bacteria identified SEE NOTE Invalid Communi Cx Nom (U) Interpreta ty tion Code [facility] (60349) laboratory on 2019-02-16 Albumin [Mass/Vol] 3.8 g/dL Normal 3.6-5.1 Communi g/dL ty [facility] (91199) Albumin/Globulin 1.5 {ratio} Normal 1.0-2.5 Communi [Mass ratio] (calc) [facility] (55537) ALP [Catalytic 108 U/L Normal 33-130 U/L Communi activity/Vol] [facility] (21568) ALT [Catalytic 11 U/L Normal 6-29 U/L Communi activity/Vol] [facility] (46742) AST [Catalytic 13 U/L Normal 10-35 U/L Communi activity/Vol] [facility] (86196) Basophils (Bld) 0.064 10*3/uL Normal 0-200 Communi [#/Vol] cells/uL [facility] (82618) Basophils/100 WBC 0.7 % Normal % Communi (Bld) [facility] (84026) Bilirubin [Mass/Vol] 0.4 mg/dL Normal 0.2-1.2 Commu ni mg/dL [facility] (18530) Calcidiol [Mass/Vol] 9 ng/mL Low 30-100 Commu ni ng/mL [facility] (73443) Calcium [Mass/Vol] 9.1 mg/dL Normal 8.6-10.4 Communi mg/dL [facility] (43232) Chloride [Moles/Vol] 102 mmol/L Normal 98-110 Commu ni mmol/L [facility] (86885) Cholesterol 340 mg/dL High <200 mg/dL Communi [Mass/Vol] [facility] (12606) Cholesterol in HDL 45 mg/dL Low >50 mg/dL Communi [Mass/Vol] [facility] (58862) Cholesterol in LDL 0 mg/dL Invalid mg/dL Communi [Mass/Vol] Interpreta (calc) tion [facility] (14843) Cholesterol non HDL 295 mg/dL High <130 mg/dL Commun i [Mass/Vol] (calc) [facility] (45177) Cholesterol.total/Ch 7.6 {ratio} High <5.0 Commu ni olesterol in HDL (calc) ty [Mass ratio] [facility] (20799) CO2 [Moles/Vol] 24 mmol/L Normal 20-32 Communi mmol/L ty [facility] (65774) Cobalamin (Vitamin 380 pg/mL Normal 200-1100 Communi B12) [Mass/Vol] pg/mL ty [facility] (46933) Creatinine 1.42 mg/dL High 0.60-0.93 Communi [Mass/Vol] mg/dL ty [facility] (73632) Eosinophils (Bld) 0.248 10*3/uL Normal 15-500 Commun i [#/Vol] cells/uL ty [facility] (27526) Eosinophils/100 WBC 2.7 % Normal % Commun i (Bld) ty [facility] (47506) Erythrocyte 13.3 % Normal 11.0-15.0 Communi distribution width % ty (RBC) [Ratio] [facility] (74531) GFR/1.73 sq M 42 mL/min/{1.73_m2} Low > OR = 60 Comm uni predicted among mL/min/1.7 ty blacks MDRD 3m2 Health (S/P/Bld) [Vol Center rate/Area] [facility] (36287) GFR/1.73 sq 36 mL/min/{1.73_m2} Low > OR = 60 Commun i M.predicted MDRD mL/min/1.7 ty (S/P/Bld) [Vol 3m2 Health rate/Area] [facility] (99210) Globulin (S) 2.5 g/dL Normal 1.9-3.7 Communi [Mass/Vol] g/dL ty (calc) [facility] (47123) Glucose [Mass/Vol] 261 mg/dL High 65-99 Communi mg/dL ty [facility] (44645) HbA1c (Bld) [Mass 11.4 High <5.7 % of Communi fraction] total Hgb ty [facility] (20061) Hematocrit (Bld) 39.1 % Normal 35.0-45.0 Communi [Volume fraction] % [facility] (25897) Hemoglobin (Bld) 12.7 g/dL Normal 11.7-15.5 Communi [Mass/Vol] g/dL [facility] (89789) Lymphocytes (Bld) 2.245 10*3/uL Normal 850-3900 Commun i [#/Vol] cells/uL [facility] (43225) Lymphocytes/100 WBC 24.4 % Normal % Commun i (Bld) [facility] (65741) MCH (RBC) [Entitic 29.9 pg Normal 27.0-33.0 Communi mass] pg [facility] (19400) MCHC (RBC) 32.5 g/dL Normal 32.0-36.0 Communi [Mass/Vol] g/dL [facility] (76239) MCV (RBC) [Entitic 92.0 fL Normal 80.0-100.0 Communi vol] fL [facility] (65501) Monocytes (Bld) 0.386 10*3/uL Normal 200-950 Communi [#/Vol] cells/uL [facility] (56529) Monocytes/100 WBC 4.2 % Normal % Communi (Bld) [facility] (70685) Neutrophils (Bld) 6.256 10*3/uL Normal 7276-9132 Commun i [#/Vol] cells/uL [facility] (02861) Neutrophils/100 WBC 68 % Normal % Commun i (Bld) [facility] (35723) Platelet mean volume 10.5 fL Normal 7.5-12.5 Commu ni (Bld) [Entitic vol] fL [facility] (60983) Platelets (Bld) 348 10*3/uL Normal 140-400 Communi [#/Vol] Thousand/u ty L [facility] (38896) Potassium 4.6 mmol/L Normal 3.5-5.3 Communi [Moles/Vol] mmol/L ty [facility] (70225) Protein [Mass/Vol] 6.3 g/dL Normal 6.1-8.1 Communi g/dL ty [facility] (51938) RBC (Bld) [#/Vol] 4.25 10*6/uL Normal 3.80-5.10 Communi Million/uL ty [facility] (87326) Sodium [Moles/Vol] 137 mmol/L Normal 135-146 Communi mmol/L ty [facility] (85834) Triglyceride 871 mg/dL High <150 mg/dL Communi [Mass/Vol] [facility] () Urea nitrogen 20 mg/dL Normal 7-25 mg/dL Communi [Mass/Vol] [facility] (49137) Urea 14 mg/mg Normal 6-22 Communi nitrogen/Creatinine (calc) ty [Mass ratio] [facility] (24280) WBC (Bld) [#/Vol] 9.2 10*3/uL Normal 3.8-10.8 Communi Thousand/u ty [facility] () urinalysis on 2018-09-08 Albumin DL <= 20 8.2 mg/dL Normal See Note: Communi mg/L (U) [Mass/Vol] mg/dL [facility] () Creatinine (U) 135 mg/dL Normal 20-275 Communi [Mass/Vol] mg/dL ty [facility] (00801) other on 2018-09-08 % SATURATION 12 Normal 11-50 % Communi (calc) ty [facility] (49854) Calcidiol [Mass/Vol] 10 ng/mL Low 30-100 Commu ni ng/mL [facility] (64430) Cobalamin (Vitamin 303 pg/mL Normal 200-1100 Communi B12) [Mass/Vol] pg/mL [facility] (02017) Ferritin [Mass/Vol] 103 ng/mL Normal 20-288 Commun i ng/mL [facility] (31478) Folate [Mass/Vol] 8.9 ng/mL Normal ng/mL Communi ty [facility] (05861) IRON BINDING 379 Normal 250-450 Communi CAPACITY mcg/dL ty (calc) [facility] (60244) MICROALBUMIN/CREATIN 61 High <30 mcg/mg Commu ni INE RATIO, RANDOM creat ty URINE [facility] (35353) metabolic panel on 2018-09-08 Iron [Mass/Vol] 44 ug/dL Low 45-160 Communi mcg/dL ty [facility] (68428) other on 2018-08-24 Albumin/Globulin 1.7 Normal 1.0-2.5 Communi [Mass ratio] (calc) ty [facility] (01370) GFR/1.73 sq 34 mL/min/{1.73_m2} Low > OR = 60 Commun i M.predicted MDRD mL/min/1.7 ty (S/P/Bld) [Vol 3m2 Health rate/Area] [facility] (45134) Globulin (S) 2.3 Normal 1.9-3.7 Communi [Mass/Vol] g/dL ty (calc) [facility] (56780) metabolic panel on 2018-08-24 Albumin [Mass/Vol] 4.0 g/dL Normal 3.6-5.1 Communi g/dL ty [facility] (44422) ALP [Catalytic 111 U/L Normal 33-130 U/L Communi activity/Vol] ty [facility] (91810) ALT [Catalytic 8 U/L Normal 6-29 U/L Communi activity/Vol] ty [facility] (13731) AST [Catalytic 11 U/L Normal 10-35 U/L Communi activity/Vol] ty [facility] (50766) Bilirubin [Mass/Vol] 0.4 mg/dL Normal 0.2-1.2 Commu ni mg/dL ty [facility] (38546) Calcium [Mass/Vol] 9.1 mg/dL Normal 8.6-10.4 Communi mg/dL ty [facility] (04050) Chloride [Moles/Vol] 99 mmol/L Normal 98-110 Commu ni mmol/L ty [facility] (90274) CO2 [Moles/Vol] 25 mmol/L Normal 20-32 Communi mmol/L ty [facility] () Creatinine 1.51 mg/dL High 0.60-0.93 Communi [Mass/Vol] mg/dL ty [facility] () GFR/1.73 sq M 39 mL/min/{1.73_m2} Low > OR = 60 Comm uni predicted among mL/min/1.7 ty blacks MDRD [facility] (S/P/Bld) [Vol Center rate/Area] [facility] () Glucose [Mass/Vol] 292 mg/dL High 65-139 Communi mg/dL ty [facility] () HbA1c (Bld) [Mass 12.0 High <5.7 % of Communi fraction] total Hgb ty [facility] (51682) Potassium 5.0 mmol/L Normal 3.5-5.3 Communi [Moles/Vol] mmol/L ty [facility] (49022) Protein [Mass/Vol] 6.3 g/dL Normal 6.1-8.1 Communi g/dL ty [facility] (41745) Sodium [Moles/Vol] 133 mmol/L Low 135-146 Communi mmol/L ty [facility] (84780) Urea nitrogen 33 mg/dL High 7-25 mg/dL Communi [Mass/Vol] ty [facility] (02120) Urea 22 mg/mg Normal 6-22 Communi nitrogen/Creatinine (calc) ty [Mass ratio] [facility] (41642) Social History No Information Vital Signs The data below is from unstructured sources Vital Response Date/Time Temperature (Fahrenheit) 97.5 degree s F (97.6 - 99.5) 08/29/2015 7:06pm Temperature (Calculated Celsius) 36. 42760 degrees C (36.4 - 37.5) 08/29/2015 2:32pm Temperature Source Tympanic 08/29/2015 7:06pm Pulse Rate (adult) 54 bpm (60 - 90) 08/29/2015 7:06pm Respiratory Rate 16 bpm (12 - 24) 08/29/2015 7:06pm O2 Sat by Pulse Oximetry 98 % (88 - 100) 08/29/2015 7:06pm Blood Pressure 169/94 mm Hg 08/29/2015 7:06pm Blood Pressure Mean 119 mm Hg 08/29/2015 2:32pm Pain Pain Intensity 0 2015 2:32pm Height (Feet) 5 feet 04/2016 12:30am Height (Inches) 0.00 inches 08/28/2015 12:30am Height (Calculated Centimeters) 152. 300161 cm 08/28/2015 12:30am Weight (Pounds) 169 pounds 08/28/2015 12:30am Weight (Ounces) 8.0 oz 0 08/28/2015 12:30am Weight (Calculated Grams) 68955.907 gm 08/28/2015 12:30am Weight (Calculated Kilograms) 76.883 907 kilograms 08/28/2015 12:30am Calculated BMI 33.1 08/16 12:30am Vital Response Date/Time Temperature (Fahrenheit) 97.3 degree s F (97.6 - 99.5) 06/12/2018 9:22am Temperature (Calculated Celsius) 36. 88754 degrees C (36.4 - 37.5) 06/12/2018 9:22am Pulse Rate (adult) 76 bpm (60 - 90) 06/12/2018 9:22am O2 Sat by Pulse Oximetry 96 % (88 - 100) 06/12/2018 9:22am Blood Pressure 210/100 mm Hg 06/12/2018 9:22am Blood Pressure Mean 136 mm Hg (65 - 110) 06/12/2018 9:22am Pain Numeric Pain Scale 10-Worst Possible Pain 06/12/2018 9:22am Height (Feet) 5 feet 9:22am Height (Calculated Centimeters) 152. 562828 cm 06/12/2018 9:22am Weight (Pounds) 160 pounds 06/12/2018 9:22am Weight (Calculated Grams) 28381.78 gm 06/12/2018 9:22am Weight (Calculated Kilograms) 72.574 780 kilograms 06/12/2018 9:22am Weight Method Stated 9:22am Capillary Refill Capillary Refill Less Than 3 Seconds 06/12/2018 9:22am Height 5 ft 0 in 019 9:22am Weight 160 lb 06/12/2018 9:22am Body Mass Index 31.2 kg/m^2 06/12/2018 9:22am Functional Status The data below is from unstructured sources Query Response Date Fernando rded Patient Orientation Person Place Time Situation August 31, 2015 5:14pm Comprehension Ability Understands Co ncepts August 28, 2015 9:00am Query Response Date Fernando rded Patient Orientation Person Place Time Situation August 29, 2015 7:08pm Comprehension Ability Understands Co ncepts August 28, 2015 9:00am Mental Status No Information History general Narrative - Reported Note Date & Note Facility Type History general Narrative - Reported Type Medical Essential hypertension History Medical Type 2 diabetes mellitus wi th diabetic polyneuropathy, unspecified 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 Medical Anxiety History Medical Esophageal reflux History Medical Hypothyroidism (acquired) History Medical Renal insufficiency History Medical Hyperlipidemia History Medical Renal carcinoma History Medical DDD (degenerative disc dise ase), lumbar History Medical GERD (gastroesophageal refl ux disease) History Surgical cholecystectomy History Surgical colon resection History Surgical kidney left removed History Surgical tubal ligation History Surgical thyroidectomy History [facility] (71282) Advance Directives Directive Response Recor ded Date/Time Advance Directives No 12:30am Health Care Power of Wrapping Machine Operator No 08/28/15 12:30am Organ Donor No 08/28/15 12:30am Resuscitation Status Full Code 08/28/15 12:30am Directive Response Recor ded Date/Time Advance Directives No 9:10am Health Care Power of Wrapping Machine Operator No 06/12/18 9:10am Organ Donor No 06/12/18 9:10am Resuscitation Status Full Code 06/12/18 9:10am Discharge Instructions No hospital discharge instructions.No hospital discharge instructions.No hospital discharge instruction information available. Chief Complaint and Reason for Visit Chief Complaint Upper Extremity Reason for Visit Contusion of wrist Fall Additional Source Comments This clinical document has been generated using [employer] software that has been certified by the Office of the National Coordinator for Health Information Technology (ONC 15.99.04.3023.Diam.31.00.0.865527) and the National Committee for Multimedia Coordinator (NCQA, as an eMeasure certified technology). FOR RECORDS PERTAINING TO PATIENTS WHO ARE OR HAVE BEEN ENROLLED IN A CHEMICAL D EPENDENCY/SUBSTANCE ABUSE PROGRAM, SOME INFORMATION MAY BE OMITTED. This clinica l summary was aggregated from multiple sources. Caution should be exercised in using it in the provision of clinical care. This summary normalizes information from multiple sources, and as a consequence, information in this document may ma terially change the coding, format and clinical context of patient data. In kavon tion, data may be omitted in some cases. CLINICAL DECISIONS SHOULD BE BASED ON T HE PRIMARY CLINICAL RECORDS. [employer] provides no warranty or guara ntee of the accuracy or completeness of information in this document.The followi ng information is based on time limited clinical information UNRECOGNIZED CONTENT PROVIDED BELOW FOR UNRECOGNIZED SECTION REASON FOR VISIT xanax refill
--- OUTSIDE RECORDS SUMMARY | 2020-01-03 21:07 | XMS REPORT | Encounter Summary ---
Author Author [facility] Organization [facility] Address Unknown Phone Unavailable Care Team Providers Care Vendor Quality Supervisor Name Role Phone Pat Marie MD Unavailable Darrion Pardo MD Unavailable Aaron Caldwell MD Unavailable Santo Shields MD Unavailable Bony Del Toro MD PCP Unavailable Jacy Odonnell RN Unavailable Unavailable Mendez Nuñez MD Unavailable Reason for Referral * Radiology Services (Routine) Referred By Contact Referred To Contact Status Reason Specialty Diagnoses / Procedures Darshan Stephens MD [address] [place] [address] New Request Radiology Diagnoses Lumbar radiculopathy P rocedures FLUORO GUIDANCE FOR INJ RAD Reason for Visit * Radiology Services (Routine) Referred By Contact Referred To Contact Status Reason Specialty Diagnoses / Procedures Darshan Stephens MD [address] [place] [address] New Request Radiology Diagnoses Lumbar radiculopathy P rocedures FLUORO GUIDANCE FOR INJ RAD Encounter Details Care Team Description Date Type Department Darshan Stephens MD [address] [place], [place] [id number] 11/23/2019 [facility] [address] [id number] Social History Date Tobacco Use Types Packs/Day [...] impairment: No documented as of this encounter Medications at Time of Discharge Start Date End Date Medication Sig Dispensed Refills albuterol (VENTOLIN HFA, Inhale 2 0 PROAIR HFA) 90 Puffs by mcg/actuation inhaler mouth every 6 hours as needed for Wheezing. ALPRAZolam (XANAX) 1 mg Take 1 mg by 0 tablet mouth at bedtime as needed. aspirin 81 mg chewable Chew 81 mg by 0 tabletIndications: last mouth daily. dose 04/03/19 Take with food. Indications: last dose 04/03/19 11/20/2019 cefdinir (OMNICEF) 300 mg every 12 0 capsule hours. celecoxib (CELEBREX) 200 Take 200 mg 0 mg capsule by mouth twice daily. cyanocobalamin (VITAMIN Take 100 mcg 0 B-12) 100 mcg tablet by mouth daily. dexlansoprazole (+) Take 60 mg by 0 (DEXILANT) 60 mg capsule mouth daily. ergocalciferol (vitamin Take 50,000 0 D2) (VITAMIN D PO) Units by mouth every 7 days. ferrous sulfate (FEOSOL, Take 325 mg 0 FEROSUL) 325 mg (65 mg by mouth iron) tablet every 7 days. Take on an empty stomach at least 1 hour before or 2 hours after food. FLAXSEED OIL (OMEGA 3 PO) Take 4 Caps 0 by mouth daily. fluticasone (FLONASE) 50 Apply 2 0 mcg/actuation nasal spray Sprays to each nostril as directed daily. furosemide (LASIX) 40 mg Take 40 mg by 0 tablet mouth daily. 11/12/2018 gabapentin (NEURONTIN) Take one 90 capsule 1 300 mg capsule by capsuleIndications: mouth every 8 neuropathic pain hours. Pt will need an office appointment before any further refills Indications: Neuropathic Pain gemfibrozil (LOPID) 600 Take 600 mg 0 mg tablet by mouth twice daily. glimepiride (AMARYL) 4 mg Take 4 mg by 0 tablet mouth daily with breakfast. 06/17/2017 HYDROcodone/acetaminophen 0 (NORCO) 5/325 mg tablet 01/25/2018 HYDROcodone/acetaminophen Take one 50 tablet 0 (+) (NORCO) 10/325 mg tablet by tablet mouth every 12 hours as needed for Pain insulin aspart U-100 Inject 12 0 (NOVOLOG FLEXPEN U-100 Units under INSULIN) 100 unit/mL (3 the skin mL) injection PEN twice daily before meals. BEFORE BREAKFAST AND LUNCH insulin aspart U-100 Inject 16 0 (NOVOLOG FLEXPEN U-100 Units under INSULIN) 100 unit/mL (3 the skin mL) injection PEN daily with dinner. Insulin [place] Use as 0 (Disposable) 31 gauge x directed. 07/31" ndle LANCETS MISC Use as 0 directed. 10/19/2015 levothyroxine (SYNTHROID) 0 200 mcg tablet metFORMIN (GLUCOPHAGE) Take 1,000 mg 0 1,000 mg tablet by mouth twice daily with meals. metoclopramide (REGLAN) 5 Take 5 mg by 0 mg tablet mouth four times daily. 09/04/2015 metoprolol (LOPRESSOR) 50 0 mg tablet ondansetron (ZOFRAN) 4 mg Take 4 mg by 0 tablet mouth every 8 hours as needed for Nausea or Vomiting. 10/19/2015 TOUJEO SOLOSTAR 300 0 unit/mL (1.5 mL) inpn documented as of this encounter Plan of Treatment Not on filedocumented as of this encounter Procedures Comments Procedure Name Priority Date/Time Associated Diag nosis FLUORO GUIDANCE FOR INJ Routine 11/23/2019 Lumbar radiculopathy RAD 9:34 AM CDT documented in this encounter Results * FLUORO GUIDANCE FOR INJ RAD (11/23/2019 9:34 AM CDT) Specimen Narrative Performed At This order has been auto finalized and does not conta in a result. [facility] Performing Organization Address City/State/[facility] Ph one Number [facility] documented in this encounter Visit Diagnoses Diagnosis Lumbar radiculopathy Thoracic or lumbosacral neuritis or rad iculitis, unspecified documented in this encounter
--- OUTSIDE RECORDS SUMMARY | 2020-01-03 21:07 | XMS REPORT | Clinical Summary ---
Author Author [facility] Organization [facility] Address Unknown Phone Unavailable Care Team Providers Care Brush Hand Name Role Phone Pat Marie MD Unavailable Darrion Pardo MD Unavailable Aaron Caldwell MD Unavailable Santo Shields MD Unavailable Bony Del Toro MD PCP Unavailable Jacy Odonnell RN Unavailable Unavailable Mendez Nuñez MD Unavailable Source Comments Some departments are not documenting in the electronic medical record. If you d o not see the information that you expected, contact Release of Information in [facility] Information Management department at [phone] for further assistan ce in locating additional records.[facility] Allergies Comments Active Allergy Reactions Severity Noted Date Duloxetine UNKNOWN Low 07/12/2015 Escitalopram UNKNOWN Low 07/12/2015 Lisinopril HEADACHE Low 07/12/2015 Ibuprofen UNKNOWN Low 07/12/2015 Niacin RASH Medium 07/12/2015 Promethazine DIZZINESS Low 07/12/2015 Tramadol HEADACHE Low 07/12/2015 Olanzapine UNKNOWN Low 07/12/2015 Medications End Date Status Medication Sig Dispensed Refills Start Date Active gemfibrozil (LOPID) 600 Take 600 mg 0 mg tablet by mouth twice daily. Active ALPRAZolam (XANAX) 1 mg Take 1 mg by 0 tablet mouth at bedtime as needed. Active celecoxib (CELEBREX) 200 Take 200 mg 0 mg capsule by mouth twice daily. Active Insulin [place] Use as 0 (Disposable) 31 gauge x directed. 3/16" ndle Active LANCETS MISC Use as 0 directed. Active furosemide (LASIX) 40 mg Take 40 mg by 0 tablet mouth daily. Active glimepiride (AMARYL) 4 mg Take 4 mg by 0 tablet mouth daily with breakfast. Active metFORMIN (GLUCOPHAGE) Take 1,000 mg 0 1,000 mg tablet by mouth twice daily with meals. Active albuterol (VENTOLIN HFA, Inhale 2 0 PROAIR HFA) 90 Puffs by mcg/actuation inhaler mouth every 6 hours as needed for Wheezing. Active fluticasone (FLONASE) 50 Apply 2 0 mcg/actuation nasal spray Sprays to each nostril as directed daily. Active TOUJEO SOLOSTAR 300 0 unit/mL (1.5 mL) inpn 6 Active metoprolol (LOPRESSOR) 50 0 09/03/ mg tablet 6 Active FLAXSEED OIL (OMEGA 3 PO) Take 4 Caps 0 by mouth daily. Active levothyroxine (SYNTHROID) 0 200 mcg tablet 6 Active HYDROcodone/acetaminophen 0 (NORCO) 5/325 mg tablet 8 Active metoclopramide (REGLAN) 5 Take 5 mg by 0 mg tablet mouth four times daily. Active aspirin 81 mg chewable Chew 81 mg by 0 tabletIndications: last mouth daily. dose 04/03/19 Take with food. Indications: last dose 04/03/19 Active ondansetron (ZOFRAN) 4 mg Take 4 mg by 0 tablet mouth every 8 hours as needed for Nausea or Vomiting. Active dexlansoprazole (+) Take 60 mg by 0 (DEXILANT) 60 mg capsule mouth daily. Active HYDROcodone/acetaminophen Take one 50 tablet 0 (+) (NORCO) 10/325 mg tablet by 8 tablet mouth every 12 hours as needed for Pain Active gabapentin (NEURONTIN) Take one 90 capsule 1 300 mg capsule by 9 capsuleIndications: mouth every 8 neuropathic pain hours. Pt will need an office appointment before any further refills Indications: Neuropathic Pain Active insulin aspart U-100 Inject 12 0 (NOVOLOG FLEXPEN U-100 Units under INSULIN) 100 unit/mL (3 the skin mL) injection PEN twice daily before meals. BEFORE BREAKFAST AND LUNCH Active insulin aspart U-100 Inject 16 0 (NOVOLOG FLEXPEN U-100 Units under INSULIN) 100 unit/mL (3 the skin mL) injection PEN daily with dinner. Active ferrous sulfate (FEOSOL, Take 325 mg 0 FEROSUL) 325 mg (65 mg by mouth iron) tablet every 7 days. Take on an empty stomach at least 1 hour before or 2 hours after food. Active ergocalciferol (vitamin Take 50,000 0 D2) (VITAMIN D PO) Units by mouth every 7 days. Active cyanocobalamin (VITAMIN Take 100 mcg 0 B-12) 100 mcg tablet by mouth daily. Active cefdinir (OMNICEF) 300 mg every 12 0 07/0 capsule hours. 0 Active Problems Problem Noted Date Lumbar radiculopathy 10/28/2016 Renal cell carcinoma of right kidney 11/05/2015 Overview: 2008 - L radical nephrectomy for RCC ( [id number], FG2, negative margins), Dr. Correa 02/2010 - CT scan without R renal mass 01/24/15 - MRI with non-enhancing (<10HU) 2.8 R renal mass 02/06/15 - Negative DEVIN 05/21/15 - Negative DEVIN 08/27/15 - 2.4cm R renal mass (non-con C T) 08/29/15 - DEVIN with 2.5cm indeterminate R upper pole renal mass 10/01/15 - MRI with 2.8cm exophytic inde terminate mass in upper pole of R kidney concerning for RCC (non-contrast ) 11/05/15 - Referred to [facility]. Dr Shields 01/07/16 - MRI confirms enhancing upper pole mass with no interval growth, but some growth since 2014.01/28/16- Bio psy confirmed RCC, cryoablation performed. 06/19/16- Right upper pole renal mass has retained some shape and size, but MRI with contrast does not demonstrate enhancement. We will plan to keep a close eye on this and repeat an MRI wit h contrast in 3 months. 09/22/16- MRI demonstrates decrease in si ze of mass with no evidence of enhancement. Creatinine stable at 1.4. 12/22/16 - MRI stable, but will need clos e follow-up given questionable nodularity. Creatinine stable at 1.42. No symptoms 06/22/17 -- MRI without tumor recurrence noted. Well-ablated lesion. CXR normal. Creatinine 1.6 01/31/19 -- MRI read pending. Cr 1.61. Last Assessment & Plan: Ms. Newby is overall doing well with sta ble renal function. We reviewed her course and discussed the role of ongoin g surveillance imaging, particular due to her history of pT3a tumor. We wi ll call her with the final read of her MRI. 1. 1 year with MRI, Chest X-ray, BMP Myelopathy 07/12/2015 Spondylolisthesis 07/12/2015 Osteoarthritis of cervical spine with myelopathy Sacroiliitis 07/12/2015 Encounters Care Team Description Date Type Specialty Darshan Stephens MD 11/23/2019 Hospital Radiology Encounter Darshan Stephens MD Lumbar disc disease with radiculopathy 11/23/2019 Procedure visit Anesthesia Pain 11/23/2019 Travel Darshan Stephens MD Pre-Visit Planning 11/22/2019 Telephone Anesthesia Pain Darshan Stephens MD Lumbar radiculopathy (Primary Dx) 11/22/2019 Orders Only Anesthesia Pain from Last 3 Months Family History Medical History Relation Name Comments Cancer Father Hyperlipidemia Mother Stroke Mother Alcohol abuse Other second brother Relation Name Status Comments Brother Alive Father Mother Other second brother Sister Alive Social History Date Tobacco Use Types Packs/Day Years Used Never Smoker Smokeless Tobacco: Never Used Drinks/Week oz/Week Comments Alcohol Use 0 Standard drinks or equivalent 0.0 No Sex Assigned at Date Recorded Not on file Last Filed Vital Signs Reading Time Taken Comments Vital Sign 148/75 11/23/2019 9:52 AM CDT Blood Pressure 68 11/23/2019 9:06 AM CDT Pulse 36.6 C (97.9 F) 11/23/2019 9:06 AM CDT Temperature 15 11/23/2019 9:06 AM CDT Respiratory Rate 99% 11/23/2019 9:52 AM CDT Oxygen Saturation - - Inhaled Oxygen Concentration 75.3 kg (166 lb) 04/04/2019 10:37 AM 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 Weight 152.4 cm (5') 04/04/2019 10:37 AM 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 Height 32.42 04/04/2019 10:37 AM 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 Body Mass Index Plan of Treatment Health Maintenance Due Date Last Done Comments DILATED EYE EXAM 1962 DTAP/TDAP VACCINES (1 - 1962 Tdap) FOOT EXAM 1962 HBA1C 1962 HEPATITIS C SCREENING 1962 MICROALBUMIN 1962 PHYSICAL (COMPREHENSIVE) 1962 EXAM COLORECTAL CANCER 1994 SCREENING SHINGLES RECOMBINANT 1994 VACCINE (1 of 2) OSTEOPOROSIS 2009 SCREENING/MONITORING PNEUMONIA (PPSV23) 2009 VACCINE (1 of 1 - PPSV23) INFLUENZA VACCINE 02/16/2020 Procedures Comments Procedure Name Priority Date/Time Associated Diag nosis FLUORO GUIDANCE FOR INJ Routine 11/23/2019 Lumbar radiculopathy RAD 9:34 AM CDT [place] NJX ANES&/STRD W/IMG Routine 11/23/2019 Lumbar disc disease with TFRML EDRL LMBR/SAC EA LV 9:30 AM CDT radiculopat hy [place] NJX ANES&/STRD W/IMG Routine 11/23/2019 Lumbar disc disease with TFRML EDRL LMBR/SAC 1 LVL 9:30 AM CDT radiculopat hy from Last 3 Months Results * FLUORO GUIDANCE FOR INJ RAD (11/23/2019 9:34 AM CDT) Specimen Narrative Performed At This order has been auto finalized and does not conta in a result. [facility] Performing Organization Address City/State/[facility] Ph one Number [facility] * SNR/TF LMBR/SAC (11/23/2019 9:30 AM CDT) Narrative Performed At Darshan Stephens MD 11/23/2019 9:14 PM OTHER [facility] SNR/TF LMBR/SAC Procedure: transforaminal epidural Laterality: left Location: Lumbar/Sacral - L4-5 and L5-S 1 Consent: Consent obtained: written Consent given by: patient Risks discussed: allergic reaction, ble eding, infection, weakness and no change or worsening in pain Alternatives discussed: alternative pako atment [place] Protocol: Relevant documents: relevant documents present and [...] verify the correct patient, procedure, equipme nt, sales support associate and site/side marked as required Procedures Details: [...] injected at each location Performing Organization Address City/State[facility] Ph [facility] Number OTHER [facility] LAB from Last 3 Months Insurance Type Payer Benefit Subscriber ID Effective Phone Address Plan / Dates Group Medicaid UHC MEDICAID [place] UHC [id number] [id number] COMMUNITY resent PLAN [place] [id number] Advance Directives Patient Cigar Packer Explanation Type Date Recorded Advance 04/19/2015 10:54 AM Directive/DPOA
--- OUTSIDE RECORDS SUMMARY | 2020-01-03 21:07 | XMS REPORT | Encounter Summary ---
Author Author [facility] Organization [facility] Address Unknown Phone Unavailable Care Team Providers Care Merchandising Execution Manager Name Role Phone Pat Marie MD Unavailable Darrion Pardo MD Unavailable Aaron Caldwell MD Unavailable Santo Shields MD Unavailable Bony Del Toro MD PCP Unavailable Jacy Odonnell RN Unavailable Unavailable Mendez Nuñez MD Unavailable Encounter Details Care Team Description Date Type Department 11/23/2019 Travel Social History Date Tobacco Use Types Packs/Day [...]
--- OUTSIDE RECORDS SUMMARY | 2020-01-03 21:08 | XMS REPORT | Encounter Summary ---
Author Author [facility] Organization [facility] Address Unknown Phone Unavailable Care Team Providers Care Parer Name Role Phone Pat Marie MD Unavailable Darrion Pardo MD Unavailable Aaron Caldwell MD Unavailable Santo Shields MD Unavailable Bony Del Toro MD PCP Unavailable Jacy Odonnell RN Unavailable Unavailable Mendez Nuñez MD Unavailable Reason for Referral * Radiology Services (Routine) Referred By Contact Referred To Contact Status Reason Specialty Diagnoses / Procedures Darshan Stephens MD [address] [facility] [place] [address] New Request Radiology Diagnoses Lumbar radiculopathy P rocedures FLUORO GUIDANCE FOR INJ RAD Encounter Details Care Team Description Date Type Department Darshan Stephens MD [address] [place] [address] Lumbar radiculopathy (Primary Dx) 07/12/2019 Orders Only [facility] [address] [id number] Social History Date Tobacco Use Types Packs/Day Years Used Never Smoker Smokeless Tobacco: Never Used Drinks/Week oz/Week Comments Alcohol Use 0 Standard drinks or equivalent 0.0 No Sex Assigned at Date Recorded Not on file documented as of this encounter Functional Status [...] as of this encounter Plan of Treatment Order Schedule Name Type Priority Associated Diag noses Expected: 07/12/2019, Expires: 1 FLUORO GUIDANCE FOR INJ Imaging Routine Lumbar radiculopathy RAD documented as of this encounter Visit Diagnoses Diagnosis Lumbar radiculopathy Thoracic or lumbosacral neuritis or rad iculitis, unspecified documented in this encounter
--- OUTSIDE RECORDS SUMMARY | 2020-01-03 21:08 | XMS REPORT | Continuity of Care Document ---
Author Author [facility] Organization [employer] Address Unknown Phone Unavailable Allergies Active Description Code Type Severity Reaction Onset Reported/Identified Relationship to Patient Clinical Status Yes promethazine [id number] Drug Allergy Severe SEIZURE, NAUSEA 07/19/2008 [address] dulox[address] HCl [id number] Dr car Allergy Mild N/A 05/28/2011 Yes ibuprofen [id number] Drug Allergy Mild UNSET STOMACH 09/22/2013 Yes lisinopril [id number] Drug Allerg y Mild HEADACHE 09/22/2013 Yes tramadol [id number] Drug Allergy Mild NAUSEATED 09/22/2013 Yes escitalopram oxalate [id number] Drug Allergy Unknown N/A 09/22/2013 Yes niacin [id number] Drug Allergy Unknown N/A 09/22/2013 Yes olanzapine [id number] Drug Allerg y Unknown N/A 09/22/2013 Medications There is no data. Problems Date Dx Coded Attending Type Code Diagnosis Diagnosed By 06/04/2011 Ot 250.02 DANDRE B CAMRON WO COMPL, TYPE II OR UNSPEC TY 06/04/2011 Ot 272.1 PURE HYPERGLYCERIDEMIA 06/04/2011 Ot 276.8 HYPO POTASSEMIA 06/04/2011 Ot 280.0 CHR BLOOD LOSS ANEMIA 06/04/2011 Ot 327.23 OBS TRUCTIVE SLEEP APNEA (ADULT) (PEDIATR 06/04/2011 Ot 401.9 HYPE RTENSION NOS 06/04/2011 Ot 455.0 INT HEMORRHOID W/O COMPL 06/04/2011 Ot 496 CHR AI RWAY OBSTRUCT NEC 06/04/2011 Ot 530.81 ESO PHAGEAL REFLUX 06/04/2011 Ot 562.10 DIV ERTICULOSIS COLON (W/O MENT OF HEMORR 06/04/2011 Ot 569.3 RECT AL ANAL HEMORRHAGE 06/04/2011 Ot 577.0 ACUT E PANCREATITIS 06/04/2011 Ot 577.1 PHYSICIAN SUPPORT COORDINATOR DANNY PANCREATITIS 06/04/2011 Ot 716.99 ART HROPATHY NOS- MULT 06/04/2011 Ot V10.52 HX OF KIDNEY MALIGNANCY 06/04/[address] ABSENCE OF KIDNEY 11/17/2011 Ot 250.00 DANDRE B CAMRON WO COMPL, TYPE II OR UNSPEC TY 11/17/2011 Ot 401.9 HYPE RTENSION NOS 11/17/2011 Ot 780.4 DIZZ INESS AND GIDDINESS 11/17/2011 Ot 784.0 HEAD ACHE 11/17/2011 Ot 786.05 WIL RTNESS OF BREATH 11/17/2011 Ot V10.52 HX OF KIDNEY MALIGNANCY 09/22/2013 FEMI STEPHEN, COOPER Spear Ot 250.00 DIAB CAMRON WO COMPL, TYPE II OR UNSPEC TY 09/22/2013 COOPER KAHN MD Ot 272.1 PURE HYPERGLYCERIDEMIA 09/22/2013 COOPER KAHN MD Ot 401.9 HYPERTENSION NOS 09/22/2013 FEMI STEPHEN, COOPER Spear Ot 49 6 CHR AIRWAY OBSTRUCT NEC 09/22/2013 COOPER KAHN MD Ot 530.11 REFLUX ESOPHAGITIS 09/22/2013 COOPER KAHN MD S Ot 530.81 ESOPHAGEAL REFLUX 09/22/2013 COOPER KAHN MD S Ot 562.10 DIVERTICULOSIS COLON (W/O MENT OF HEMORR 09/22/2013 COOPER KAHN MD Ot 569.3 RECTAL ANAL HEMORRHAGE 09/22/2013 COOPER KAHN MD Ot 577.1 CHRONIC PANCREATITIS 09/22/2013 COOPER KAHN MD Ot V16.0 FAMILY HX-GI MALIGNANCY 09/22/2013 COOPER KAHN MD Ot V58.69 OTH MED,LT,CURRENT USE 06/06/2015 GRACIELA RUIZ MD Ot N28.1 06/06/2015 GRACIELA RUIZ MD Ot Z90.5 08/28/2015 RAUDEL LARSON MD Ot K85 .9 08/28/2015 RAUDEL LARSON MD Ot N39 .0 08/29/2015 RAUDEL LARSON MD Ot E03 .9 HYPOTHYROIDISM, UNSPECIFIED 08/29/2015 RAUDEL LARSON MD Ot E11 .9 TYPE 2 DIABETES MELLITUS WITHOUT COMPLIC 08/29/2015 RAUDEL LARSON MD Ot F32 .9 MAJOR DEPRESSIVE DISORDER, SINGLE EPISOD 08/29/2015 RAUDEL LARSON MD Ot F41 .9 ANXIETY DISORDER, UNSPECIFIED 08/29/2015 RAUDEL LARSON MD Ot K85 .9 ACUTE PANCREATITIS, UNSPECIFIED 08/29/2015 RAUDEL LARSON MD Ot K86 .1 OTHER CHRONIC PANCREATITIS 08/29/2015 RAUDEL LARSON MD Ot N28 .1 CYST OF KIDNEY, ACQUIRED 08/29/2015 RAUDEL LARSON MD Ot N28.89 OTHER SPECIFIED DISORDERS OF KIDNEY AND 08/29/2015 RAUDEL LARSON MD Ot N39 .0 URINARY TRACT INFECTION, SITE NOT SPECIF 08/29/2015 RAUDEL LARSON MD Ot Z85.528 PERSONAL HISTORY OF OTHER MALIGNANT NEOP 08/29/2015 RAUDEL LARSON MD Ot Z90 .5 ACQUIRED ABSENCE OF KIDNEY 08/31/2015 RAUDEL LARSNO MD Ot E03 .9 HYPOTHYROIDISM, UNSPECIFIED 08/31/2015 RAUDEL LARSON MD Ot E11 .9 TYPE 2 DIABETES MELLITUS WITHOUT COMPLIC 08/31/2015 RAUDEL LARSON MD Ot F32 .9 MAJOR DEPRESSIVE DISORDER, SINGLE EPISOD 08/31/2015 RAUDEL LARSON MD Ot F41 .9 ANXIETY DISORDER, UNSPECIFIED 08/31/2015 RAUDEL LARSON MD Ot K85 .9 ACUTE PANCREATITIS, UNSPECIFIED 08/31/2015 RAUDEL LARSON MD Ot K86 .1 OTHER CHRONIC PANCREATITIS 08/31/2015 RAUDEL LARSON MD Ot N28 .1 CYST OF KIDNEY, ACQUIRED 08/31/2015 RAUDEL LARSON MD Ot N39 .0 URINARY TRACT INFECTION, SITE NOT SPECIF 08/31/2015 RAUDEL LARSON MD Ot Z85.528 PERSONAL HISTORY OF OTHER MALIGNANT NEOP 08/31/2015 RAUDEL LARSON MD Ot Z90 .5 ACQUIRED ABSENCE OF KIDNEY 09/18/2015 COOPER KAHN MD Ot V72.84 EXAM PRE-OPERATIVE NOS 09/18/2015 COOPER KAHN MD Ot V72.84 EXAM PRE-OPERATIVE NOS 09/18/2015 GRACIELA RUIZ MD Ot 593.9 RENAL URETERAL DIS NOS 09/18/2015 GRACIELA RUIZ MD Ot N28.1 CYST OF KIDNEY, ACQUIRED 09/18/2015 GRACIELA RUIZ MD Ot Z90.5 ACQUIRED ABSENCE OF KIDNEY 10/04/2015 GRACIELA RUIZ MD Ot N28.1 CYST OF KIDNEY, ACQUIRED 10/09/2015 GRACIELA RUIZ MD, Ot N28.1 CYST OF KIDNEY, ACQUIRED 06/12/2018 DEBO NOVA MD Ot E03. 9 HYPOTHYROIDISM, UNSPECIFIED 06/12/2018 DEBO NOVA MD Ot E11. 9 TYPE 2 DIABETES MELLITUS WITHOUT COMPLIC 06/12/2018 DEBO NOVA MD Ot F32. 9 MAJOR DEPRESSIVE DISORDER, SINGLE EPISOD 06/12/2018 DEBO NOVA MD Ot F41. 9 ANXIETY DISORDER, UNSPECIFIED 06/12/2018 DEBO NOVA MD Ot M25.432 EFFUSION, LEFT WRIST 06/12/2018 DEBO NOVA MD Ot S60.211A CONTUSION OF RIGHT WRIST, INITIAL ENCOUN 06/12/2018 DEBO NOVA MD Ot W01.0XXA FALL SAME LEV FROM SLIP/TRIP W/O STRIKE 06/12/2018 DEBO NOVA MD Ot Z79. 4 DETENTION (CURRENT) USE OF INSULIN 06/12/2018 DEBO NOVA MD Ot Z79. 51 RETAIL INVENTORY CONTROL CLERK (CURRENT) USE OF INHALED STERO 06/12/2018 DEBO NOVA MD Ot Z85.850 PERSONAL HISTORY OF MALIGNANT NEOPLASM O 06/12/2018 DEBO NOVA MD Ot Z87. 19 PERSONAL HISTORY OF OTHER DISEASES OF TH 06/12/2018 DEBO NOVA MD Ot Z87.440 PERSONAL HISTORY OF URINARY (TRACT) INFE 06/12/2018 DEBO NOVA MD Ot Z88. 6 ALLERGY STATUS TO ANALGESIC AGENT STATUS 06/12/2018 DEBO NOVA MD Ot Z88. 8 ALLERGY STATUS TO OTH DRUG/MEDS/BIOL SUB 06/12/2018 DEBO NOVA MD Ot Z90. 89 ACQUIRED ABSENCE OF OTHER ORGANS 06/14/2018 COOPER KAHN MD Ot V72.84 EXAM PRE-OPERATIVE NOS 06/14/2018 COOPER KAHN MD Ot V72.84 EXAM PRE-OPERATIVE NOS 06/14/2018 GRACIELA RUIZ MD Ot 593.9 RENAL URETERAL DIS NOS 06/14/2018 GRACIELA RUIZ MD Ot N28.1 CYST OF KIDNEY, ACQUIRED 06/14/2018 GRACIELA RUIZ MD Ot Z90.5 ACQUIRED ABSENCE OF KIDNEY 06/14/2018 SARA STEPHEN, GRACIELA Santillan Ot N28.1 CYST OF KIDNEY, ACQUIRED 06/14/2018 SARA STEPHEN, GRACIELA Santillan Ot N28.1 CYST OF KIDNEY, ACQUIRED 06/15/2018 DEBO NOVA MD Ot E03. 9 HYPOTHYROIDISM, UNSPECIFIED 06/15/2018 DEBO NOVA MD Ot E11. 9 TYPE 2 DIABETES MELLITUS WITHOUT COMPLIC 06/15/2018 DEBO NOVA MD Ot F32. 9 MAJOR DEPRESSIVE DISORDER, SINGLE EPISOD 06/15/2018 DEBO NOVA MD Ot F41. 9 ANXIETY DISORDER, UNSPECIFIED 06/15/2018 DEBO NOVA MD Ot M25.432 EFFUSION, LEFT WRIST 06/15/2018 DEBO NOVA MD Ot S60.211A CONTUSION OF RIGHT WRIST, INITIAL ENCOUN 06/15/2018 DEBO NOVA MD Ot W01.0XXA FALL SAME LEV FROM SLIP/TRIP W/O STRIKE 06/15/2018 DEBO NOVA MD Ot Z79. 4 DETENTION (CURRENT) USE OF INSULIN 06/15/2018 DEBO NOVA MD Ot Z79. 51 RETAIL INVENTORY CONTROL CLERK (CURRENT) USE OF INHALED STERO 06/15/2018 DEBO NOVA MD Ot Z85.850 PERSONAL HISTORY OF MALIGNANT NEOPLASM O 06/15/2018 DEBO NOVA MD Ot Z87. 19 PERSONAL HISTORY OF OTHER DISEASES OF TH 06/15/2018 DEBO NOVA MD Ot Z87.440 PERSONAL HISTORY OF URINARY (TRACT) INFE 06/15/2018 DEBO NOVA MD, Ot Z88. 6 ALLERGY STATUS TO ANALGESIC AGENT STATUS 06/15/2018 DEBO NOVA MD Ot Z88. 8 ALLERGY STATUS TO OTH DRUG/MEDS/BIOL SUB 06/15/2018 DEBO NOVA MD Ot Z90. 89 ACQUIRED ABSENCE OF OTHER ORGANS 06/18/2018 DEBO NOVA MD Ot E03. 9 HYPOTHYROIDISM, UNSPECIFIED 06/18/2018 DEBO NOVA MD Ot E11. 9 TYPE 2 DIABETES MELLITUS WITHOUT COMPLIC 06/18/2018 DEBO NOVA MD Ot F32. 9 MAJOR DEPRESSIVE DISORDER, SINGLE EPISOD 06/18/2018 DEBO NOVA MD Ot F41. 9 ANXIETY DISORDER, UNSPECIFIED 06/18/2018 DEBO NOVA MD Ot M25.432 EFFUSION, LEFT WRIST 06/18/2018 DEBO NOVA MD Ot S60.211A CONTUSION OF RIGHT WRIST, INITIAL ENCOUN 06/18/2018 DEBO NOVA MD Ot W01.0XXA FALL SAME LEV FROM SLIP/TRIP W/O STRIKE 06/18/2018 DEBO NOVA MD, Ot Z79. 4 DETENTION (CURRENT) USE OF INSULIN 06/18/2018 DEBO NOVA MD, Ot Z79. 51 DETENTION (CURRENT) USE OF INHALED STERO 06/18/2018 DEBO NOVA MD, Ot Z85.850 PERSONAL HISTORY OF MALIGNANT NEOPLASM O 06/18/2018 DEBO NOVA MD, Ot Z87. 19 PERSONAL HISTORY OF OTHER DISEASES OF TH 06/18/2018 DEBO NOVA MD, Ot Z87.440 PERSONAL HISTORY OF URINARY (TRACT) INFE 06/18/2018 DEBO NOVA MD, Ot Z88. 6 ALLERGY STATUS TO ANALGESIC AGENT STATUS 06/18/2018 DEBO NOVA MD, Ot Z88. 8 ALLERGY STATUS TO OTH DRUG/MEDS/BIOL SUB 06/18/2018 DEBO NOVA MD, Ot Z90. 89 ACQUIRED ABSENCE OF OTHER ORGANS 11/05/2018 COOPER KAHN MD Ot V72.84 EXAM PRE-OPERATIVE NOS 11/05/2018 COOPER KAHN MD Ot V72.84 EXAM PRE-OPERATIVE NOS 11/05/2018 GRACIELA RUIZ MD Ot 593.9 RENAL URETERAL DIS NOS 11/05/2018 GRACIELA RUIZ MD, Ot N28.1 CYST OF KIDNEY, ACQUIRED 11/05/2018 GRACIELA RUIZ MD Ot Z90.5 ACQUIRED ABSENCE OF KIDNEY 11/05/2018 GRACIELA RUIZ MD Ot N28.1 CYST OF KIDNEY, ACQUIRED 11/05/2018 GRACIELA RUIZ MD, Ot N28.1 CYST OF KIDNEY, ACQUIRED Procedures Code Description Performed By Per formed On 45.16 ESOP HAGOGASTRODUODENOSCOPY [EGD] W/CLOSE 06/04/2011 45.23 COLO NOSCOPY 06/04/2011 Results Test Result Range A1C - 08/24/18 11:00 HEMOGLOBIN A1c 12.0 % of total Hgb <5.7 MICROALBUMIN/CREATININE RATIO, URINE - 0 09/08/18 11:25 CREATININE, RANDOM URINE 135 mg/dL 20-27 5 MICROALBUMIN 8.2 mg/dL See Note: MICROALBUMIN/CREATININE RATIO, RANDOM URINE 61 mcg /mg creat <30 VITAMIN D, 25-H - 09/08/18 11:25 VITAMIN D,25-OH,TOTAL,IA 10 ng/mL 30-10 0 VITAMIN B12/FOLATE, SERUM PANEL - 11:30 VITAMIN B12 303 pg/mL 200-1100 FOLATE, SERUM 8.9 ng/mL NRG LIPID PANEL - 02/16/19 10:57 CHOLESTEROL, TOTAL 340 mg/dL <200 HDL CHOLESTEROL 45 mg/dL >50 TRIGLYCERIDES 871 mg/dL <150 LDL-CHOLESTEROL mg/dL (calc) NRG CHOL/HDLC RATIO 7.6 (calc) <5.0 NON HDL CHOLESTEROL 295 mg/dL (calc) <13 0 CMP - 02/16/19 10:57 GLUCOSE 261 mg/dL 65-99 UREA NITROGEN (BUN) 20 mg/dL 7-25 CREATININE 1.42 mg/dL 0.60-0.93 eGFR NON-AFR. JAPANESE 36 mL/min/1.73m2 > OR = 60 eGFR 42 mL/min/1.73m2 > OR = 60 BUN/CREATININE RATIO 14 (calc) 6-22 SODIUM 137 mmol/L 135-146 POTASSIUM 4.6 mmol/L 3.5-5.3 CHLORIDE 102 mmol/L 98-110 CARBON DIOXIDE 24 mmol/L 20-32 CALCIUM 9.1 mg/dL 8.6-10.4 PROTEIN, TOTAL 6.3 g/dL 6.1-8.1 ALBUMIN 3.8 g/dL 3.6-5.1 GLOBULIN 2.5 g/dL (calc) 1.9-3.7 ALBUMIN/GLOBULIN RATIO 1.5 (calc) 1.0-2. 5 BILIRUBIN, TOTAL 0.4 mg/dL 0.2-1.2 ALKALINE PHOSPHATASE 108 U/L 33-130 AST 13 U/L 10-35 ALT 11 U/L 6-29 CBC - 02/16/19 10:57 WHITE BLOOD CELL COUNT 9.2 Thousand/uL 3 .8-10.8 RED BLOOD CELL COUNT 4.25 Million/uL 3.8 0-5.10 HEMOGLOBIN 12.7 g/dL 11.7-15.5 HEMATOCRIT 39.1 % 35.0-45.0 MCV 92.0 fL 80.0-100.0 MCH 29.9 pg 27.0-33.0 MCHC 32.5 g/dL 32.0-36.0 RDW 13.3 % 11.0-15.0 PLATELET COUNT 348 Thousand/uL 140-400 MPV 10.5 fL 7.5-12.5 ABSOLUTE NEUTROPHILS 6256 cells/uL 1500- 7800 ABSOLUTE LYMPHOCYTES 2245 cells/uL 850-3 900 ABSOLUTE MONOCYTES 386 cells/uL 200-950 ABSOLUTE EOSINOPHILS 248 cells/uL 15-500 ABSOLUTE BASOPHILS 64 cells/uL 0-200 NEUTROPHILS 68 % NRG LYMPHOCYTES 24.4 % NRG MONOCYTES 4.2 % NRG EOSINOPHILS 2.7 % NRG BASOPHILS 0.7 % NRG VITAMIN D, 25-H - 02/16/19 10:57 VITAMIN D,25-OH,TOTAL,IA 9 ng/mL 30-10 0 A1C - 02/16/19 10:57 HEMOGLOBIN A1c 11.4 % of total Hgb <5.7 VITAMIN B12 - 02/16/19 10:57 VITAMIN B12 380 pg/mL 200-1100 CULTURE, URINE - 03/28/19 09:08 CULTURE, URINE, ROUTINE SEE NOTE NRG CULTURE, URINE - 04/25/19 15:24 CULTURE, URINE, ROUTINE SEE NOTE NRG CULTURE, URINE - 11/20/19 15:18 CULTURE, URINE, ROUTINE SEE NOTE NRG A1C - 11/21/19 09:24 HEMOGLOBIN A1c 13.2 % of total Hgb <5.7 VITAMIN B12 - 11/21/19 09:24 VITAMIN B12 473 pg/mL 200-1100 Encounters ACCT No. Visit Date/Time Discharge Status Pt. Type Provider Facility Loc./Unit Complaint [id number] 12/30/2019 09:45:00 12/30/2019 23:59:5 9 CLS Outpatient SELF, ANA MARIA Luna [facility] [id number] 11/21/2019 09:15:00 Document Registration [id number] 11/20/2019 15:00:00 Document Registration [id number] 04/25/2019 14:00:00 Document Registration [id number] 03/28/2019 08:15:00 Document Registration [id number] 02/16/2019 09:30:00 Document Registration [id number] 09/08/2018 10:00:00 Document Registration [id number] 08/24/2018 10:30:00 Document Registration [id number] 11/10/2018 15:32:00 019 23:59:59 CLS Preadmit DAREK STEPHEN, KRISTAN Aguero [facility] SPASMODIC DYSPHONIA [id number] 11/05/2018 08:29:00 019 23:59:59 CLS Preadmit KRISTAN OSWALD MD [facility] RAD FS LEFT NECK MASS [id number] 06/12/2018 08:59:00 10:42:00 DIS Emergency ROHINI STEPHEN, DEBO Bustamante [facility] ER R HAND PAIN/SWELLING AF TER FALL [id number] 09/21/2015 10:34:00 016 23:59:59 CLS Outpatient GRACIELA RUIZ MD [facility] RAD RT RENAL CYST [id number] 09/18/2015 07:39:00 016 23:59:59 CLS Outpatient GRACIELA RUIZ MD [facility] RAD R RENAL CYST [id number] 08/27/2015 23:30:00 016 18:00:00 DIS Inpatient MARSHA STEPHEN, RAUDEL Negro [facility] 4TH ABD PAIN-N/V,PANCREATIT IS,UTI [id number] 05/21/2015 11:56:00 016 23:59:59 CLS Outpatient GRACIELA RUIZ MD [facility] RAD RIGHT RENAL CYST,HISTOR Y OF RENAL CARCENOMA [id number] 02/06/2015 09:15:00 015 23:59:59 CLS Outpatient GRACIELA RUIZ MD [facility] RAD RIGHT RENAL MASS [id number] 01/04/2014 07:35:00 014 23:59:59 CLS Outpatient COOPER KAHN MD [facility] PREOP GERD [id number] 09/22/2013 05:44:00 014 10:00:00 DIS Outpatient FEMI STEPHEN, COOPER [facility] GERD;BLOOD IN STOOL [id number] 09/21/2013 08:56:00 014 23:59:59 CLS Outpatient COOPER KAHN MD [facility] PREOP GERD;BLOOD IN STOOL [id number] 11/17/2011 15:12:00 Document Registration [id number] 05/28/2011 23:15:00 Document Registration
--- OUTSIDE RECORDS SUMMARY | 2020-01-03 21:08 | XMS REPORT ---
Author Author DEONNA Pat ANA MARIA [facility] MAIN Address [address] [place] [address] Care Team Providers Care Poolroom/Poolhall Manager Name Role Phone ANA MARIA YING Unavailable PROBLEMS Type Condition ICD9-CM Code UVW77-WP Code Onset Dates Condition S tatus SNOMED Code Problem Essential hypertension I10 Active 68012108 Problem Esophageal reflux K21.9 Active 24 9645393 Problem Restless leg syndrome G25.81 Active 47779501 Problem Hyperlipidemia E78.5 Active 28865 004 Problem GERD (gastroesophageal reflux disease) K21.9 Active 818989082 Problem Anxiety F41.9 Active 29803150 Problem DDD (degenerative disc disease), lumbar M51.36 Active 57974921 Problem Iron deficiency anemia secondary to inadequate d ietary iron intake D50.8 Active 468342971 Problem Hypothyroidism (acquired) E03.9 Acti ve 80864012 Problem Hypoglycemia associated with diabetes E11.649 Active 985270157 Problem Renal insufficiency N28.9 Active 753410784 Problem Type 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, unspecified penitentiary insulin use status E11.42 Active 7137 34553 Problem Renal carcinoma C64.9 Active 9384 9006 Problem Tingling of both feet R20.2 Active 92745113 Problem Single kidney Z90.5 Active 076184 007 ALLERGIES No Information ENCOUNTERS Encounter Location Date Diagnosis [address] [id number] [place] [address] Aug, [address] [id number] [address] Aug, [address] [id number] [place] [address] Jun, [address] [id number] [place] [address] Jun, [facility] [address] [id number] [place] [address] Jun, [facility] [place] [address] [id number] [place] [address] Jun, [facility] [place] [address] [id number] [place] [address] May, [facility] [address] [id number] [place] [address] May, [facility] [place] [address] [id number] [place] [address] May, [facility] [place] [address] [id number] [place] [address] May, [facility] [address] [id number] [place] [address] May, [facility] [place] [address] [id number] [place] [address] Apr, [facility] [address] [id number] [place] [address] Apr, [facility] [address] [id number] [place] [address] Apr, Acute cystitis without hemat uria N30.00 [facility] [place] [address] [id number], [place] [address] Mar, Type 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, unspecified penitentiary insulin use status E11.42 [facility] [address] [facility] [id number] 100KS [place] [address] Mar, Dysuria R30.0 ; Urinary trac t infection, site not specified N39.0 and Hematuria, unspecified R31.9 [facility] [address] [id number] [place] [address] Mar, [facility] [address] [id number] [place] [address] Feb, [address] [id number] [place] [address] Feb, [address] [id number] [place] [address] Feb, Type 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, unspecified meterman insulin use status E11.42 ; Hypoglycemia associated with diabetes E11.649 ; Blood glucose labile R73.09 ; Renal insufficiency N28.9 ; Renal carcinoma C64.9 ; Single kidney Z90.5 ; Tingling of both feet R20.2 and Erythema annulare L53.1 [facility] [address] [facility] [id number] 100[address] [place] [address] Feb, Tooth abscess K04.[address] 340 [id number] [address] Feb, Type 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, unspecified meterman insulin use status E11.[address] [id number], [place] [address] Feb, [address] [id number], [place] [address] Feb, Anxiety F41.9 ; Type 2 diabe marko mellitus with diabetic polyneuropathy, unspecified meterman insulin use status E11.42 ; Essential hypertension I10 ; Fungus infection B49 ; Vitamin A deficiency E50.9 and Iron deficiency anemia secondary to inadequate dietary iron intake D50.8 [facility] [address] [id number], [place] [address] Jan, [address] [id number], [place] [address] Dec, [address] [id number], [place] [address] Dec, Tongue lesion K14.8 ; Type 2 diabetes mellitus with diabetic polyneuropathy, unspecified meterman insulin use status E11.42 and Essential hypertension I10 [facility] [address] [id number] [place] [address] Dec, [facility] [address] [facility] [id number] 100[address] [place] [address] Nov, Herpes zoster without compli cation B02.9 [facility] [address] [id number] [place] [address] Nov, [facility] [address] [id number] [place] [address] Nov, [address] [id number], [place] [address] Oct, Abnormal mammogram R92.8 [facility] [address] [id number], [place] [address] Oct, Breast density R92.2 and Abn ormal mammogram R92.[address] [id number], [place] [address] Oct, Screening mammogram, encount er for Z12.31 [facility] [address] [id number], [place] [address] Oct, [address] [id number] [place] [address] September, Type 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, unspecified meterman insulin use status E11.42 [facility] [address] [id number] [place] [address] September, Vitamin A deficiency E50.9 and Iron defi ciency anemia secondary to inadequate dietary iron intake D50.8 [facility] [address] [id number] [place] [address] September, [facility] [place] [address] [id number] [place] [address] Aug, [facility] [address] [id number] [address] Aug, Type 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, unspecified penitentiary insulin use status E11.42 ; Single kidney Z90.5 ; Sensation of change in temperature R68.89 ; Tingling of both feet R20.2 and Voice complaint R49.[address] [id number] [place] [address] Aug, [address] [id number] [place] [address] Aug, Essential hypertension I10 ; Type 2 diabetes mellitus with diabetic polyneuropathy, unspecified meterman insulin use status E11.42 ; Hyperlipidemia E78.5 and Restless leg syndrome G25.[address] [id number] [place] [address] Aug, IMMUNIZATIONS No Known Immunizations SOCIAL HISTORY Never Assessed REASON FOR VISIT xanax refill PLAN OF CARE VITAL SIGNS MEDICATIONS Medication Instructions Dosage Frequency Start Date End Date Duration S tatus Xanax 1 MG Orally TID PRN 1 tablet Aug, 28 days Active RESULTS No Results PROCEDURES No Known procedures INSTRUCTIONS MEDICATIONS ADMINISTERED No Known Medications MEDICAL (GENERAL) HISTORY Type Description Date Medical History Essential hypertension Medical History Type 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, unspecified penitentiary insulin use status Medical History Anxiety Medical History Esophageal reflux Medical History Hypothyroidism (acquired) Medical History Renal insufficiency Medical History Hyperlipidemia Medical History Renal carcinoma Medical History DDD (degenerative disc disease), lumbar Medical History GERD (gastroesophageal reflux disease) Surgical History cholecystectomy Surgical History colon resection Surgical History kidney left removed Surgical History tubal ligation Surgical History thyroidectomy
--- OUTSIDE RECORDS SUMMARY | 2020-01-03 21:08 | XMS REPORT | Encounter Summary ---
Author Author [facility] Organization [facility] Address Unknown Phone Unavailable Care Team Providers Care Program Management Intern Name Role Phone Pat Marie MD Unavailable Darrion Pardo MD Unavailable Aaron Caldwell MD Unavailable Santo Shields MD Unavailable Bony Del Toro MD PCP Unavailable Jacy Odonnell RN Unavailable Unavailable Mendez Nuñez MD Unavailable Reason for Referral * Radiology Services (Routine) Referred By Contact Referred To Contact Status Reason Specialty Diagnoses / Procedures Darshan Stephens MD [address] [facility] [place] [address] New Request Radiology Diagnoses Lumbar radiculopathy P rocedures [facility] RAD Encounter Details Care Team Description Date Type Department Darshan Stephens MD [address] [place] [address] Lumbar radiculopathy (Primary Dx) 11/22/2019 Orders Only [facility] [address] [id number] Social History Date Tobacco Use Types Packs/Day [...] Not on filedocumented as of this encounter Results * [facility]O [facility]ANCE FOR INJ RAD (11/23/2019 9:34 AM CDT) Specimen Narrative Performed At This order has been auto finalized and does not conta in a result. [facility] Performing Organization Address City/State/Zipcode Ph one Number [facility] documented in this encounter Visit Diagnoses Diagnosis Lumbar radiculopathy Thoracic or lumbosacral neuritis or rad iculitis, unspecified documented in this encounter
[2020-01-03 21:13] LABS: ALANINE AMINOTRANSFERASE 19 U/L (0-55); ALBUMIN 3.8 GM/DL (3.2-4.5); ALKALINE PHOSPHATASE 112 U/L (40-136); BILIRUBIN,TOTAL 0.3 MG/DL (0.1-1.0); BUN/CREATININE RATIO 19; CALCIUM 8.7 MG/DL (8.5-10.1); CARBON DIOXIDE 23 MMOL/L (21-32); CHLORIDE 103 MMOL/L (98-107); CREATININE SERUM 1.49 MG/DL (0.60-1.30); GFR ESTIMATED 34; GLUCOSE 100 MG/DL (70-105); POTASSIUM 4.3 MMOL/L (3.6-5.0); SODIUM 137 MMOL/L (135-145); TSH (THYROID ANALYZER) 33.69 UIU/ML (0.35-4.94)
[2020-01-03] MEDS ORDERED: hydrALAZINE (APESOLINE) 20 MG/ML VIAL IV ONE (21:15)
[2020-01-03 21:27] LABS: TOTAL PROTEIN 6.9 GM/DL (6.4-8.2)
[2020-01-03 21:30] LABS: BILIRUBIN,URINE NEGATIVE (NEGATIVE); CLARITY,URINE SL CLOUDY; COLOR,URINE YELLOW; GLUCOSE, URINE (UA) 2+ (NEGATIVE); KETONES,URINE NEGATIVE (NEGATIVE); LEUKOCYTE ESTERASE ,URINE 1+ (NEGATIVE); NITRITE,URINE NEGATIVE (NEGATIVE); PH,URINE 5.5 (5-9); PROTEIN,URINE TRACE (NEGATIVE)
--- NOTE | 2020-01-03 21:36 | Diagnostic Imaging Report ---
INDICATION: Confusion with onset today. FINDINGS: Frontal view of the chest demonstrates the lungs to be clear. The heart, mediastinum and pulmonary vascularity are normal. IMPRESSION: Normal portable chest. Dictated by: Dictated on workstation # [id number]
[2020-01-03 21:48] LABS: FREE T4 (FREE THYROXINE) 0.51 NG/DL (0.70-1.48)
[2020-01-03 21:54] LABS: SQUAMOUS EPITHELIAL CELL,UR 25-50 /HPF
[2020-01-03 21:55] LABS: BACTERIA,URINE FEW /HPF
--- NOTE | 2020-01-03 21:55 | NUR ---
DR. ADAMS STATES PT TOLD HER THAT SHE WANTED TO LEAVE AND "HAS NEVER WAITED SO LONG IN AN ER IN HER LIFE." DISCUSSED WITH PT BENEFITS OF STAYING AND POSSIBLE RISKS. PT STILL REQUESTS TO LEAVE AMA.
[2020-01-03 21:57] LABS: AMPHETAMINE SCREEN, URINE NEGATIVE (NEGATIVE); BARBITURATE SCREEN URINE NEGATIVE (NEGATIVE); BENZODIAZEPINES SCREEN URINE NEGATIVE (NEGATIVE); CANNABINOID SCREEN, URINE NEGATIVE (NEGATIVE); COCAINE SCREEN URINE NEGATIVE (NEGATIVE); METHADONE STAT NEGATIVE (NEGATIVE); METHAMPHETAMINE SCREEN URINE S NEGATIVE (NEGATIVE); OPIATE SCREEN URINE NEGATIVE (NEGATIVE); OXYCODONE STAT NEGATIVE (NEGATIVE); PROPOXYPHENE STAT NEGATIVE (NEGATIVE); TRICYCLIC ANTIDEPRESSANTS SCRE NEGATIVE (NEGATIVE)
[2020-01-03 21:58] VITALS: BP 152/82
== END 2020-01-03 22:03 | disposition left against medical advice (07) ==
LOC: EDUNIT# 19:56 → ER 19:57
DX: R42 Dizziness and giddiness (principal); I10 Essential (primary) hypertension; E11.9 Type 2 diabetes mellitus without complications; E78.00 Pure hypercholesterolemia, unspecified; E03.9 Hypothyroidism, unspecified; G89.29 Other chronic pain; M54.9 Dorsalgia, unspecified; F41.9 Anxiety disorder, unspecified; F32.9 Major depressive disorder, single episode, unspecified; Z90.5 Acquired absence of kidney; Z85.528 Personal history of other malignant neoplasm of kidney; Z79.4 Long term (current) use of insulin; Z79.890 Hormone replacement therapy; Z79.51 Long term (current) use of inhaled steroids; Z88.6 Allergy status to analgesic agent; Z88.8 Allergy status to other drugs, medicaments and biological substances; Z88.5 Allergy status to narcotic agent
CPT/HCPCS: 36415; 70450; 71045; 80053; 80306; 81000; 82962; 83735; 84439; 84443; 84484; 85025; 85610; 85730; 87088; 93005; 93041

== ENCOUNTER → 2020-07-17 | Outpatient (CLI) | payer MEDICAID ==
[~2020-07-17] MED LIST changes: -CALC-6 PO; +CALC1TAB84 PO; -GEMF600T8 PO; +GEMF600T88 PO
--- NOTE | 2020-07-17 15:23 | Diagnostic Imaging Report ---
INDICATION: Peripheral vascular disease, cold feet. EXAMINATION: Ankle-brachial index. FINDINGS: Blood pressures were recorded in the brachial arteries and in the left and right posterior tibial and dorsalis pedis arteries at the ankle. The ankle brachial index on the right is 1.08. The ankle brachial index on the left is 0.83. IMPRESSION: Mild to moderate peripheral arterial disease in the left leg. Dictated by: Dictated on workstation # [id number]
--- NOTE | 2020-07-17 17:31 | Diagnostic Imaging Report ---
PROCEDURE: US Bilateral lower extremity arterial. TECHNIQUE: Multiple real-time grayscale images are obtained through both lower extremity arterial systems with color Doppler imaging and color Doppler spectral analysis. INDICATION: Decreased pedal pulses FINDINGS: There is no focal bilateral lower extremity arterial occlusive segment. Right leg: There was normal high resistive triphasic waveform at the common femoral and proximal SFA. Beyond that level, there is mildly diminished resistance through the popliteal with bi-phasicity of the waveform. Below the knee, there is monophasic form in the dorsalis pedis and posterior tibials which were patent through the ankle and forefoot. Left leg: There is diminished resistance with bi-phasicity of the waveform at the common femoral artery. There is diminished resistance of biphasic waveforms throughout the SFA into the popliteal. At and beyond the popliteal there are low resistive monophasic waveforms. There is slow monophasic flow within the posterior tibial and dorsalis pedis at the lower calf and ankle. IMPRESSION: Findings of diffuse atherosclerotic disease with no segmental occlusion or focal high-grade stenosis apparent. Dictated by: Dictated on workstation # [id number]
== END ==
LOC: RAD 12:00
PROVIDERS: ATTEND Nurse Practitioner
DX: I70.202 Unspecified atherosclerosis of native arteries of extremities, left leg (principal); R09.89 Other specified symptoms and signs involving the circulatory and respiratory systems
CPT/HCPCS: 93922; 93925

== ENCOUNTER 2021-08-17 14:34 | Emergency (ER) | payer MEDICAID ==
[~2021-08-17] VITALS: Ht 152.4 cm; Wt 82.5 kg
--- NOTE | 2021-08-17 15:10 | ED Back Pain ---
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 PT REPORTS "LIGHTLY" HITTING HEAD DURING FALL, REPORTS SHE LANDED ON HER BACK. PT A&OX4. Source of Information: Patient Exam Limitations: No Limitations ([employer] MED STUDENT) History of Present Illness Date Seen by Provider: Aug 17, 2021 Time Seen by Provider: 14:50 Initial Comments Mrs. Rothman is a 76yo female with PMH L nephrectomy, and DMII that presents to ED today due to back, thigh pain. She states this pain started about 3 weeks ago. It is a sharp pain in her back and thigh that radiates between the two locations. Pain feels like a pulled muscle, she rates the pain a 20/10. She does have pain medication at home prescribed to her by Dr. Del Toro but she does not remember the name. Walking makes the pain worse. She also states that she has swelling in her legs. The pain is also making her weak, due to the weakness she ended up falling this morning. States she lightly hit her head, no LOC, is not on a blood thinner. She does not have hx of kidney stone but she does have a mass on her R kidney. Followed by a Dr. Shields at , states that she believes the mass is stable but hasn't been able to keep her yearly appointment with him. ([employer] MED STUDENT) Allergies and Home Medications Allergies Coded Allergies: promethazine (Verified Allergy, Severe, SEIZURE, NAUSEA, 07/19/08) duloxetine HCl (Verified Allergy, Mild, 05/28/11) escitalopram oxalate (Verified Allergy, Unknown, 09/22/13) niacin (Verified Allergy, Unknown, 09/22/13) olanzapine (Verified Allergy, Unknown, 09/22/13) ibuprofen (Verified Adverse Reaction, Mild, UNSET STOMACH, 09/22/13) lisinopril (Verified Adverse Reaction, Mild, HEADACHE, 09/22/13) tramadol (Verified Adverse Reaction, Mild, NAUSEATED, 09/22/13) Patient Home Medication List Home Medication List Reviewed: Yes (KASSIE SHEN MD) Albuterol Sulfate (Albuterol Sulfate Hfa) 8.5 Gm Hfa.aer.ad, 2 PUFF INH Q6H PRN for SHORTNESS OF BREATH, (Reported) Entered as Reported by: MEG GREEN on 11/17/11 152 Alprazolam (Alprazolam) 1 Mg Tablet, 1 MG PO TID PRN for ANXIETY, (Reported) Entered as Reported by: SAMIR GALLOWAY on 08/28/15812 Calcium Carbonate/Vitamin D3 (Calcium 600 + Vit D 200 Tablet) 1 Each Tablet, 1 TAB PO BID, (Reported) Entered as Reported by: SAMIR GALLOWAY on 08/28/15825 Cefdinir (Cefdinir) 300 Mg Capsule, 300 MG PO BID Prescribed by: KASSIE ANDREWS on 08/17/211813 Celecoxib (Celecoxib) 200 Mg Capsule, 200 MG PO BID, (Reported) Entered as Reported by: SAMIR GALLOWAY on 08/28/15822 Fluticasone Propionate (Flonase Nasal [place]) 16 Gm Naspr, 2 SPRAYS NS BID PRN for ALLERGIES, (Reported) Entered as Reported by: MEG GREEN on 11/17/11 152 Furosemide (Furosemide) 40 Mg Tablet, 40 MG PO EVERY OTHER DAY, (Reported) Entered as Reported by: SAMIR GALLOWAY on 08/28/15812 Gemfibrozil (Gemfibrozil) 600 Mg Tablet, 600 MG PO BID, (Reported) Entered as Reported by: SAMIR GALLOWAY on 08/28/15812 Glimepiride (Glimepiride) 4 Mg Tablet, 4 MG PO DAILY, (Reported) Entered as Reported by: SAMIR GALLOWAY on 08/28/15822 Hydrocodone/Acetaminophen (Hydrocodone-Acetamin 5-325 mg) 1 Each Tablet, 0.5-1 TAB PO Q6H PRN for PAIN-SEVERE (8-10) Prescribed by: KASSIE ANDREWS on 08/17/211813 Insulin Glargine,Hum.rec.anlog (Toujeo Solostar) 300 Unit/1 Ml Insuln.pen, 35 UNITS SC HS, (Reported) Entered as Reported by: SAMIR GALLOWAY on 08/28/15822 Insulin Glulisine (Apidra Solostar) 100 Unit/1 Ml Insuln.pen, 10 UNITS SC BREAKFAST & LUNCH, (Reported) Entered as Reported by: SAMIR GALLOWAY on 08/28/15 08 Insulin Glulisine (Apidra Solostar) 100 Unit/1 Ml Insuln.pen, 14 UNITS SC WITH EVENING MEAL, (Reported) Entered as Reported by: SAMIR GALLOWAY on 08/28/15 08 Levothyroxine Sodium (Levothyroxine Sodium) 200 Mcg Tablet, 200 MCG PO DAILY, (Reported) Entered as Reported by: SAMIR GALLOWAY on 08/28/15 08 Metformin HCl (Metformin HCl) 1,000 Mg Tablet, 1,000 MG PO BID, (Reported) Entered as Reported by: SAMIR GALLOWAY on 08/28/15 08 Metoprolol Tartrate (Metoprolol Tartrate) 25 Mg Tablet, 25 MG PO BID, (Reported) Entered as Reported by: SAMIR GALLOWAY on 08/28/15822 Polyethylene Glycol (Miralax 17 Gm Packet) 17 Gm Pack, 17 GM PO EVERY OTHER DAY, (Reported) Entered as Reported by: MEG GREEN on 11/17/11 1524 Tramadol HCl (Tramadol HCl) 50 Mg Tablet, 50 MG PO Q6H PRN for PAIN Prescribed by: DEBO NOVA on 06/12/18 1034 Review of Systems Constitutional: No chills, No fever EENTM: No hearing loss, No vision loss Respiratory: No cough, No short of breath Cardiovascular: No chest pain; edema; No palpitations Gastrointestinal: No abdominal pain, No constipation, No diarrhea, No nausea, No vomiting Genitourinary: No dysuria, No hematuria Musculoskeletal: back pain (R side mid back), other (R hip/gluteal/thigh pain) Skin: No lesions, No rash Psychiatric/Neurological: Denies Headache, Denies Numbness ([employer] STUDENT) Past Nltdyqr-Axyzkg-Vqzvdt Hx Patient Social History Tobacco Use?: No Use of E-Cig and/or Vaping dev: No Substance use?: No Alcohol Use?: No ([employer] STUDENT) Immunizations Up To Date Tetanus Booster (TDap): Less than 5yrs Influenza Vaccine Up-to-Date: No; Not Current First/Initial COVID19 Vaccinat: NONE Second COVID19 Vaccination Cas: NONE Third COVID19 Vaccination Date: NONE COVID19 Vaccine Elevator Tender: NONE ([employer] Dingleph[employer] STUDENT) Seasonal Allergies Seasonal Allergies: No ([employer]ingleph[employer] STUDENT) Past Medical History Surgeries: Yes (GALLBLADDER,THYROID,KIDNEY, COLON, BREAST BONE REMOVED) Abdominal, Bowel Surgery, Gallbladder, Nephrectomy, Thyroidectomy Respiratory: Yes (SOB AT TIMES, USES INH) Cardiac: Yes High Cholesterol, Hypertension Neurological: No 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 Disorders: No RN STAFFING History: Menopausal Sexually Transmitted Disease: No Genitourinary: Yes (RENAL CANCER-S/P LEFT NEPHRECTOMY) UTI-Chronic Gastrointestinal: Yes (S/P COLON RESECTION/COLOSTOMY/TAKEDOWN FOR RUPTURED DIVERTICULITIS) Diverticulosis, Pancreatitis Musculoskeletal: Yes Degenerate Disk Disease, Arthritis, Chronic Back Pain Endocrine: Yes Diabetes, Insulin dep, Hypothyroidsim, Diabetes, Non-Insulin dep HEENT: Yes Cataract, Glaucoma Cancer: Yes Kidney Did You Recieve Any Treatments: Yes What Type of Treatment Did You: Surgical Intervention Psychosocial: Yes Anxiety, Depression Integumentary: No Blood Disorders: No Adverse Reaction/Blood Tranf: No ([employer] D[employer] STUDENT) Family Medical History PSH: -LEFT NEPHRECTOMY 1985 FOR CANCER -COLON RESECTION WITH COLOSTOMY AND LATER TAKEDOWN FOR PERFORATED DIVERTICULITIS -CHOLECYSTECTOMY ([employer] Dingleph[employer] STUDENT) Physical Exam Vital Signs Vital Signs - First Documented 08/17/21 14:42 Temp 36.2 Pulse 84 Resp 20 B/P (MAP) 159/78 (105) Pulse Ox 99 O2 Delivery Room Air (KASSIE SHEN MD) Vital Signs Capillary Refill : Less Than 3 Seconds ([employer] Dingle[employer] STUDENT) Height, Weight, BMI Height: 5'0.00" Weight: 160lbs. 8.0oz. 72.440360ah; 35.00 BMI Method:Stated General Appearance: No Apparent Distress, WD/WN HEENT: PERRL/EOMI, Pharynx Normal, Moist Mucous Membranes Cardiovascular: Regular Rate, Rhythm, No Edema, No Murmur, Normal Peripheral Pulses Respiratory: Chest Non Tender, Lungs Clear, Normal Breath Sounds Peripheral Pulses: 2+ Radial Pulses (R), 2+ Radial Pulses (L) Gastrointestinal: Normal Bowel Sounds, Non Tender, Soft Back: No Vertebral Tenderness, Other (R mid back tenderness to palpation) Extremity: Non Tender, No Calf Tenderness, No Pedal Edema, Other (No tenderness to palpation of thigh, states there is tenderness in piriformis area) Neurologic/Psychiatric: Alert, Oriented x3, Normal Mood/Affect Skin: Normal Color, Warm/Dry ([employer] MED STUDENT) Progress/Results/Core Measures Results/Orders Lab Results Laboratory Tests Test 08/17/21 16:54 Range/Units Urine Color YELLOW Urine Clarity CLEAR Urine pH 6.0 5-9 Urine Specific [place] 1.025 H 1.016-1.022 Urine Protein 2+ H NEGATIVE Urine Glucose (UA) TRACE H NEGATIVE Urine Ketones NEGATIVE NEGATIVE Urine Nitrite POSITIVE H NEGATIVE Urine Bilirubin NEGATIVE NEGATIVE Urine Urobilinogen 0.2 < = 1.0 MG/DL Urine Leukocyte Esterase NEGATIVE NEGATIVE Urine RBC (Auto) NEGATIVE NEGATIVE Urine RBC NONE /HPF Urine WBC 5-10 H /HPF Urine Squamous Epithelial Cells 2-5 /HPF Urine Renal Epithelial Cells NONE /HPF Urine Crystals NONE /LPF Urine Bacteria LARGE H /HPF Urine Casts NONE /LPF Urine Mucus NEGATIVE /LPF Urine Culture Indicated YES (KASSIE SHEN MD) My Orders Orders - KASSIE SHEN MD Morphine Injection (Morphine Injection (08/17/21 15:39) Ct Thoracic/Lumbar Spine Wo (08/17/21 15:40) Ct Pelvis Wo (08/17/21 15:40) Ceftriaxone (Rocephin) (08/17/21 17:45) Lidocaine 1% Inj 20 Ml (Xylocaine 1% Inj (08/17/21 17:45) Lidocaine 1% Inj 50 Ml (Xylocaine 1% Inj (08/17/21 17:45) (KASSIE SHEN MD) Medications Given in ED (KASSIE SHEN MD) Vital Signs/I&O 08/17/21 08/17/21 14:42 18:20 Temp 36.2 Pulse 84 70 Resp 20 20 B/P (MAP) 159/78 (105) 160/93 Pulse Ox 99 98 O2 Delivery Room Air Room Air (KASSIE SHEN MD) Blood Pressure Mean: 105 Progress Progress Note : Progress Note Patient was treated with an injection of morphine with significant improvement in her pain and mood. CT scan of the spine and pelvis revealed no acute injury. She did have significant arthritic changes. Urinary tract infection was identified and treated with Rocephin injection. See discharge instructions for further discussion. (KASSIE SHEN MD) Diagnostic Imaging Diagonstic Imaging: CT Comments CT thoracic and lumbar spine viewed by me and report reviewed. See report below: NAME: SHERI ROTHMAN [facility] REC#: [id number] PT STATUS: REG ER : 1945 PHYSICIAN: KASSIE SHEN MD ADMIT DATE: 08/17/21/ER Draft Date of Exam:08/17/21 CT THORACIC/LUMBAR SPINE WO PROCEDURE: CT thoracic and lumbar spine without contrast. TECHNIQUE: Multiple contiguous axial images were obtained through the thoracic and lumbar spine without the use of intravenous contrast. Sagittal and coronal reformations were then performed. All CT scans use one or more of the following dose optimizing techniques: automated exposure control, MA and/or KvP adjustment based on a patient size and exam type, or iterative reconstruction. Indication: Mid to low back pain and radiculopathy for 3 weeks, worse today after fall. Comparison: None. Discussion: Severe atherosclerotic plaque noted throughout the aorta in its major divisions. Complex partially calcified nodule arising from the right kidney, indeterminate though concerning for malignancy. This nodule measures 1.6 x 1.6 cm. Recommend dedicated renal mass protocol CT or MRI to further evaluate on a nonemergent basis. The left kidney appears to be surgically absent. Degenerative disc disease noted diffusely throughout the thoracic and lumbar spine, mild. There is advanced facet arthropathy within the lower lumbar spine. This contributes to grade 1 anterolisthesis of L5 on S1. No acute fracture identified. Impression: 1. Advanced degenerative disease noted within the lower lumbar spine. No fracture within the thoracic and lumbar spine otherwise. 2. Suspicious-appearing nodule within the right kidney, recommend dedicated imaging. Dictated on workstation # [id number] Dict: 08/17/21 1615 Trans: 08/17/21 1622 CV [id number] Interpreted by: ALEXANDER SHAW MD Diagonstic Imaging: CT Plain Films/CT/US/NM/MRI: pelvis Comments CT pelvis viewed by me and report reviewed. See report below: NAME: SHERI ROTHMAN [facility] REC#: [id number] PT STATUS: REG ER : 1945 PHYSICIAN: KASSIE SHEN MD ADMIT DATE: 08/17/21/ER Draft Date of Exam:08/17/21 CT PELVIS WO Procedure: CT pelvis without contrast. Technique: Multiple contiguous axial images were obtained through the pelvis without the use of intravenous contrast. Sagittal and coronal reformations were performed. Auto Exposure Controls were utilized during the CT exam to meet ALARA standards for radiation dose reduction. Indication: Pelvic pain after fall. Comparison: CT of abdomen and pelvis 08/27/2015. Discussion: There is no sacral fracture identified. Advanced facet arthropathy contributes to grade 1 anterolisthesis of L5 on S1. The pelvis is intact. Mild degenerative disease noted within the bilateral hip joints. No dislocation. Uterus is surgically absent. Bladder is mostly decompressed. Soft tissues are unremarkable. Impression: 1. Chronic changes as discussed. No acute abnormality identified within the pelvis. Dictated on workstation # [id number] Dict: 08/17/21 1618 Trans: 08/17/21 1622 [facility] [id number] Interpreted by: ALEXANDER SHAW MD (KASSIE SHEN MD) Departure Impression Primary Impression: Back pain Qualified Codes: M54.9 - Dorsalgia, unspecified Additional Impressions: Fall on same level Qualified Codes: W18.30XA - Fall on same level, unspecified, initial encounter Urinary tract infection Qualified Codes: N39.0 - Urinary tract infection, site not specified Disposition: 01 HOME, SELF-CARE Condition: Improved Departure-Patient Inst. Referrals: SELFANA MARIA MD (PCP/Family) Primary Care Physician Patient Instructions: Low Back Pain in Adults, Urinary Tract Infection, Adult ED Add. Discharge Instructions: Drink plenty of clear liquids to stay well-hydrated. Complete your antibiotic as prescribed. For mild pain you may take Tylenol (acetaminophen) up to 1000 mg every 6 hours as needed. For more severe pain take hydrocodone as prescribed. Please be advised that hydrocodone can cause drowsiness, so use with caution. Hydrocodone may also cause constipation, so you may wish to take a stool softener such as Colace purchased [id number] to help prevent constipation. Follow-up with your primary care provider early next week. Discuss further treatment options for your back pain. You should also discuss further evaluation of your back pain which may include MRI of the spine. At your follow-up appointment also review urine culture results to ensure the antibiotic you are taking is most appropriate for the type of bladder infection you have. Call with questions or concerns. Return to the ER if you have worsening symptoms despite following these instructions. All discharge instructions reviewed with patient and/or family. Voiced understanding. Scripts Hydrocodone/Acetaminophen (Hydrocodone-Acetamin 5-325 mg) 1 Each Tablet 0.5-1 TAB PO Q6H PRN for PAIN-SEVERE (8-10), #10 TAB Prov: KASSIE SHEN MD 08/17/21 Cefdinir (Cefdinir) 300 Mg Capsule 300 MG PO BID, #14 CAP Prov: KASSIE SHEN MD 08/17/21 Medical Student Attestation and Attending Note: I have personally interviewed and examined this patient along with Supa Willis, MS 4. I have reviewed student documentation including history, physical, and assessments. I agree with the documentation except where otherwise noted. Exam: General: Alert, oriented, mild acute distress secondary to pain, well developed HEENT: Normocephalic and atraumatic Heart: Regular rate and rhythm without murmur Lungs: Clear to auscultation bilaterally with normal effort Abdomen: Soft, nontender, nondistended, normal bowel sounds Extremities: Tenderness in the right buttock. No significant pain with rotation of the hips. Minor pain in general with range of motion of the lower extremities without any specific focal pain. Neuropsych: Alert, oriented, no focal deficits Skin: Warm and dry without rashes (KASSIE SHEN MD) Copy Copies To 1: SELFANA MARIA MD, DEREK MED STUDENT Aug 17, 2021 15:09 KASSIE SHEN MD Aug 17, 2021 16:27
[2021-08-17] MEDS ORDERED: morphine INJ 10 MG/ML 1ML (SYR OR VIAL) IM STA (15:39)
--- NOTE | 2021-08-17 16:22 | Diagnostic Imaging Report ---
Procedure: CT thoracic and lumbar spine without contrast. Technique: Multiple contiguous axial images were obtained through the thoracic and lumbar spine without the use of intravenous contrast. Sagittal and coronal reformations were then performed. All CT scans use one or more of the following dose optimizing techniques: automated exposure control, MA and/or KvP adjustment based on a patient size and exam type, or iterative reconstruction. Indication: Mid to low back pain and radiculopathy for 3 weeks, worse today after fall. Comparison: None. Discussion: Severe atherosclerotic plaque noted throughout the aorta in its major divisions. Complex partially calcified nodule arising from the right kidney, indeterminate though concerning for malignancy. This nodule measures 1.6 x 1.6 cm. Recommend dedicated renal mass protocol CT or MRI to further evaluate on a nonemergent basis. The left kidney appears to be surgically absent. Degenerative disc disease noted diffusely throughout the thoracic and lumbar spine, mild. There is advanced facet arthropathy within the lower lumbar spine. This contributes to grade 1 anterolisthesis of L5 on S1. No acute fracture identified. Impression: 1. Advanced degenerative disease noted within the lower lumbar spine. No fracture within the thoracic and lumbar spine otherwise. 2. Suspicious-appearing nodule within the right kidney, recommend dedicated imaging. Dictated by: Dictated on workstation # [id number]
--- NOTE | 2021-08-17 16:23 | Diagnostic Imaging Report ---
Procedure: CT pelvis without contrast. Technique: Multiple contiguous axial images were obtained through the pelvis without the use of intravenous contrast. Sagittal and coronal reformations were performed. Auto Exposure Controls were utilized during the CT exam to meet ALARA standards for radiation dose reduction. Indication: Pelvic pain after fall. Comparison: CT of abdomen and pelvis 08/27/2015. Discussion: There is no sacral fracture identified. Advanced facet arthropathy contributes to grade 1 anterolisthesis of L5 on S1. The pelvis is intact. Mild degenerative disease noted within the bilateral hip joints. No dislocation. Uterus is surgically absent. Bladder is mostly decompressed. Soft tissues are unremarkable. Impression: 1. Chronic changes as discussed. No acute abnormality identified within the pelvis. Dictated by: Dictated on workstation # [id number]
[2021-08-17 16:59] LABS: BILIRUBIN,URINE NEGATIVE (NEGATIVE); CLARITY,URINE CLEAR; COLOR,URINE YELLOW; GLUCOSE, URINE (UA) TRACE (NEGATIVE); KETONES,URINE NEGATIVE (NEGATIVE); LEUKOCYTE ESTERASE ,URINE NEGATIVE (NEGATIVE); NITRITE,URINE POSITIVE (NEGATIVE); PROTEIN,URINE 2+ (NEGATIVE)
[2021-08-17 17:12] LABS: BACTERIA,URINE LARGE /HPF
[2021-08-17] MEDS ORDERED: ACHD5005 PO ×2 (17:41→18:14)
[2021-08-17] MEDS ORDERED: CEFD300C3 PO ×2 (17:41→18:14)
[2021-08-17] MEDS ORDERED: LIDOCAINE 1% INJ 20 ML VIAL INJ ONE (17:45)
[2021-08-17] MEDS ORDERED: cefTRIAXone 1,000 MG VIAL IM ONE (17:45)
[2021-08-17] MEDS ORDERED: LIDOCAINE 1% INJ 50 ML (XYLOCAINE) VIAL IJ ONE (17:45)
[2021-08-17 18:20] VITALS: BP 160/93
== END 2021-08-17 18:20 | disposition home or self-care (01) ==
LOC: EDUNIT# 14:34 → ER 14:37
DX: N39.0 Urinary tract infection, site not specified (principal); M54.6 Pain in thoracic spine; Z90.5 Acquired absence of kidney
CPT/HCPCS: 72128; 72131; 72192; 81000; 87077; 87088

== ENCOUNTER 2021-08-19 23:07 | Emergency (ER) | payer MEDICAID ==
[~2021-08-19 23:07] MED LIST changes: +ACHD5005 PO; +CEFD300C3 PO
[2021-08-19 23:41] LABS: BILIRUBIN,URINE NEGATIVE (NEGATIVE); CLARITY,URINE CLEAR; COLOR,URINE YELLOW; GLUCOSE, URINE (UA) 1+ (NEGATIVE); KETONES,URINE NEGATIVE (NEGATIVE); LEUKOCYTE ESTERASE ,URINE NEGATIVE (NEGATIVE); NITRITE,URINE NEGATIVE (NEGATIVE); PH,URINE 5.5 (5-9); PROTEIN,URINE 1+ (NEGATIVE)
[2021-08-19] MEDS ORDERED: fentaNYL INJ 100 MCG/2 ML AMP IVP STA (23:41)
[2021-08-19] MEDS ORDERED: ORPHENADRINE 60 MG/2 ML (NORFLEX) AMP (ED ONLY) IV STA (23:41)
[2021-08-19 23:48] LABS: BACTERIA,URINE NEGATIVE /HPF
[2021-08-20 00:15] LABS: BASOPHILS % (AUTO) 1 % (0-10); EOSINOPHILS # (AUTO) 0.2 10^3/uL (0.0-0.3); EOSINOPHILS % (AUTO) 2 % (0-10); HEMATOCRIT 35 % (35-52); LYMPHOCYTES # (AUTO) 3.4 10^3/uL (1.0-4.0); LYMPHOCYTES % (AUTO) 42 % (12-44); MEAN CORPUSCULAR HEMOGLOBIN 29 pg (25-34); MEAN CORPUSCULAR HGB CONC 32 g/dL (32-36); MEAN CORPUSCULAR VOLUME 93 fL (80-99); MEAN PLATELET VOLUME 10.2 fL (9.0-12.2); MONOCYTES # (AUTO) 0.4 10^3/uL (0.0-1.0); MONOCYTES % (AUTO) 5 % (0-12); NEUTROPHILS % (AUTO) 50 % (42-75); PLATELET COUNT 268 10^3/uL (130-400); WHITE BLOOD COUNT 8.1 10^3/uL (4.3-11.0)
[2021-08-20 00:24] LABS: ALBUMIN 3.9 GM/DL (3.2-4.5)
[2021-08-20 00:25] LABS: POTASSIUM 3.9 MMOL/L (3.6-5.0)
--- NOTE | 2021-08-20 00:25 | ED Back Pain ---
General Chief Complaint: Abdominal/GI Problems Stated Complaint: LOWER RT BACK PAIN Nursing Triage Note: TO ED VIA POV AND AMBULATORY TO ROOM 6 WITH C/O BACK PAIN. SEEN HERE 08/17 FOR SAME COMPLAINT. LAST TOOK PAIN MEDICINE AT 1900. HAS NOT GONE TO PCP FOR THIS PAIN THAT HAS PRESENTED FOR A MONTH STATING, "HE'S HARD TO GET IN TO". Source of Information: Patient, Old Records History of Present Illness Date Seen by Provider: Aug 19, 2021 Time Seen by Provider: 23:24 Initial Comments PT ARRIVES VIA POV FROM HOME C/O RIGHT FLANK PAIN X 3 WEEKS--PT STATES "IT'S MY KIDNEY" RATES PAIN "06/03" PT WAS SEEN HERE 08/17/21 FOR SAME, HAD CT OF THORACIC AND LUMBAR SPINE AND BONY PELVIS, AND UA DONE DX WITH UTI AND GIVEN RX FOR CEFDINIR AND HYDROCODONE TOOK 1 HYDROCODONE THIS MORNING AND ONE AROUND 1900 TONIGHT HAS NOT TAKEN ANYTHING ELSE FOR PAIN PAIN IS WORSE WITH ANY MOVEMENTS NO ABDOMINAL PAIN NO NAUSEA/VOMITING/DIARRHEA/CONSTIPATION NO URINARY SYMPTOMS STATES PAIN DOES GO DOWN BOTH OF HER LEGS AT TIMES. NO PARESTHESIAS OR MOTOR DEFICITS NO LOSS OF BOWEL OR BLADDER CONTROL NO INJURY OR UNUSUAL ACTIVITY PT HAS HAD PRIOR LEFT NEPHRECTOMY IN 1985 FOR RENAL CANCER, NO CHEMO OR RADIATION PT STATES SHE HAS SPOTS ON HER RIGHT KIDNEY THAT "THEY'VE BEEN WATCHING"- PT STATES IT IS CANCEROUS ALSO, BUT IS NOT RECEIVING ANY TREATMENT--IS FOLLOWED AT ALSO HAS BEEN DX WITH PERIPHERAL VASCULAR DISEASE--"POOR CIRCULATION TO MY FEET" BUT NO INTERVENTION DONE ALSO HAS HISTORY OF CHRONIC BACK PAIN AND HAS BEEN FOLLOWED AT [facility] HAS NOT ATTEMPTED TO CONTACT HER PCP, DR. YING, FOR THIS PROBLEM AT ANY TIME AND DOES NOT HAVE ANY SCHEDULED APPOINTMENTS. PAIN IS NOT ANY DIFFERENT TONIGHT. Allergies and Home Medications Allergies Coded Allergies: promethazine (Verified Allergy, Severe, SEIZURE, NAUSEA, 07/19/08) duloxetine HCl (Verified Allergy, Mild, 05/28/11) escitalopram oxalate (Verified Allergy, Unknown, 09/22/13) niacin (Verified Allergy, Unknown, 09/22/13) olanzapine (Verified Allergy, Unknown, 09/22/13) ibuprofen (Verified Adverse Reaction, Mild, UNSET STOMACH, 09/22/13) lisinopril (Verified Adverse Reaction, Mild, HEADACHE, 09/22/13) tramadol (Verified Adverse Reaction, Mild, NAUSEATED, 09/22/13) Patient Home Medication List Home Medication List Reviewed: Yes Albuterol Sulfate (Albuterol Sulfate Hfa) 8.5 Gm Hfa.aer.ad, 2 PUFF INH Q6H PRN for SHORTNESS OF BREATH, (Reported) Entered as Reported by: MEG GREEN on 11/17/11 152 Alprazolam (Alprazolam) 1 Mg Tablet, 1 MG PO TID PRN for ANXIETY, (Reported) Entered as Reported by: SAMIR GALLOWAY on 08/28/15812 Calcium Carbonate/Vitamin D3 (Calcium 600 + Vit D 200 Tablet) 1 Each Tablet, 1 TAB PO BID, (Reported) Entered as Reported by: SAMIR GALLOWAY on 08/28/15825 Cefdinir (Cefdinir) 300 Mg Capsule, 300 MG PO BID Prescribed by: KASSIE ANDREWS on 08/17/211813 Celecoxib (Celecoxib) 200 Mg Capsule, 200 MG PO BID, (Reported) Entered as Reported by: SAMIR GALLOWAY on 08/28/15822 Fluticasone Propionate (Flonase Nasal [place]) 16 Gm Naspr, 2 SPRAYS NS BID PRN for ALLERGIES, (Reported) Entered as Reported by: MEG GREEN on 11/17/11 152 Furosemide (Furosemide) 40 Mg Tablet, 40 MG PO EVERY OTHER DAY, (Reported) Entered as Reported by: SAMIR GALLOWAY on 08/28/15812 Gemfibrozil (Gemfibrozil) 600 Mg Tablet, 600 MG PO BID, (Reported) Entered as Reported by: SAMIR GALLOWAY on 08/28/15812 Glimepiride (Glimepiride) 4 Mg Tablet, 4 MG PO DAILY, (Reported) Entered as Reported by: SAMIR GALLOWAY on 08/28/15822 Hydrocodone/Acetaminophen (Hydrocodone-Acetamin 5-325 mg) 1 Each Tablet, 0.5-1 TAB PO Q6H PRN for PAIN-SEVERE (8-10) Prescribed by: KASSIE ANDREWS on 08/17/211813 Insulin Glargine,Hum.rec.anlog (Toujeo Solostar) 300 Unit/1 Ml Insuln.pen, 35 UNITS SC HS, (Reported) Entered as Reported by: SAMIR GALLOWAY on 08/28/15822 Insulin Glulisine (Apidra Solostar) 100 Unit/1 Ml Insuln.pen, 10 UNITS SC BREAKFAST & LUNCH, (Reported) Entered as Reported by: SAMIR GALLOWAY on 08/28/15822 Insulin Glulisine (Apidra Solostar) 100 Unit/1 Ml Insuln.pen, 14 UNITS SC WITH EVENING MEAL, (Reported) Entered as Reported by: SAMIR GALLOWAY on 08/28/15822 Levothyroxine Sodium (Levothyroxine Sodium) 200 Mcg Tablet, 200 MCG PO DAILY, (Reported) Entered as Reported by: SAMIR GALLOWAY on 08/28/15812 Metformin HCl (Metformin HCl) 1,000 Mg Tablet, 1,000 MG PO BID, (Reported) Entered as Reported by: SAMIR GALLOWAY on 08/28/15822 Metoprolol Tartrate (Metoprolol Tartrate) 25 Mg Tablet, 25 MG PO BID, (Reported) Entered as Reported by: SAMIR GALLOWAY on 08/28/15822 Orphenadrine Citrate (Orphenadrine Citrate) 100 Mg Tablet.er, 100 MG PO TID Prescribed by: NICOL ADAMS on 08/20/21 0208 Polyethylene Glycol (Miralax 17 Gm Packet) 17 Gm Pack, 17 GM PO EVERY OTHER DAY, (Reported) Entered as Reported by: MEG GREEN on 11/17/11 1524 Tramadol HCl (Tramadol HCl) 50 Mg Tablet, 50 MG PO Q6H PRN for PAIN Prescribed by: DEBO NOVA on 06/12/18 1034 Review of Systems Constitutional: no symptoms reported Respiratory: no symptoms reported Cardiovascular: no symptoms reported Gastrointestinal: no symptoms reported Genitourinary: no symptoms reported Musculoskeletal: see HPI, back pain Skin: no symptoms reported Psychiatric/Neurological: No Symptoms Reported Past Ekidpbd-Pbapsc-Cjmese Hx Patient Social History Tobacco Use?: No Substance use?: No Alcohol Use?: No Immunizations Up To Date Tetanus Booster (TDap): Less than 5yrs First/Initial COVID19 Vaccinat: NONE Second COVID19 Vaccination Cas: NONE Third COVID19 Vaccination Date: NONE Seasonal Allergies Seasonal Allergies: No Past Medical History Surgeries: Yes (GALLBLADDER,THYROID,KIDNEY, COLON, BREAST BONE REMOVED) Abdominal, Bowel Surgery, Gallbladder, Nephrectomy, Thyroidectomy Respiratory: Yes (SOB AT TIMES, USES INH) Cardiac: Yes High Cholesterol, Hypertension, Peripheral Vascular Neurological: No 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 Disorders: No 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 Sexually Transmitted Disease: No Genitourinary: Yes (RENAL CANCER-S/P LEFT NEPHRECTOMY) UTI-Chronic Gastrointestinal: Yes (S/P COLON RESECTION/COLOSTOMY/[place] FOR RUPTURED DIV ERTICULITIS) Diverticulosis, Pancreatitis Musculoskeletal: Yes Degenerate Disk Disease, Arthritis, Chronic Back Pain Endocrine: Yes Diabetes, Insulin dep, Hypothyroidsim, Diabetes, Non-Insulin dep HEENT: Yes Cataract, Glaucoma Cancer: Yes Kidney Did You Recieve Any Treatments: Yes What Type of Treatment Did You: Surgical Intervention LEFT NEPHRECTOMY 1985--NO CHEMO OR RADIATION Psychosocial: Yes Anxiety, Depression Integumentary: No Blood Disorders: No Adverse Reaction/Blood Tranf: No Family Medical History PSH: -LEFT NEPHRECTOMY 1985 FOR CANCER -COLON RESECTION WITH COLOSTOMY AND LATER TAKEDOWN FOR PERFORATED DIVERTICULITIS -CHOLECYSTECTOMY Physical Exam Vital Signs Vital Signs - First Documented 08/19/21 23:25 Temp 37.0 Pulse 75 Resp 18 B/P (MAP) 178/94 (122) Pulse Ox 98 O2 Delivery Room Air Capillary Refill : Less Than 3 Seconds Height, Weight, BMI Height: 5'0.00" Weight: 160lbs. 8.0oz. 72.047222hc; 35.00 BMI Method:Stated General Appearance: WD/WN, Other (WALKS AND MOVES SLOWLY WITH ASSIST) Neck: Normal Inspection Cardiovascular: Regular Rate, Rhythm Respiratory: Normal Breath Sounds, No Accessory Muscle Use, No Respiratory Distress Gastrointestinal: Non Tender, Soft Back: Other (DIFFUSE MID AND LOWER BACK TENDERNESS, BUT IS MOST TENDER IN RIGHT FLANK AND RIGHT CVA AREA. NO RASH TO AREA. DTR'S INTACT. EQUIVOCAL STRAIGHT LEG RAISING BILATEALLY. ) Extremity: Pedal Edema (1+ BILATERALLY), Other (FEET WARM AND WITH GOOD CAPILLARY REFILL. PULSES +1/4 BILATERALLY) Neurologic/Psychiatric: Alert, Oriented x3, No Motor/Sensory Deficits, Normal Mood/Affect, bill distributor II-XII Norm as Tested Skin: Normal Color, Warm/Dry; No Rash Progress/Results/Core Measures Results/Orders Lab Results Laboratory Tests Test 08/19/21 23:25 08/20/21 00:04 Range/Units Urine Color YELLOW Urine Clarity CLEAR Urine pH 5.5 5-9 Urine Specific [place] >=1.030 1.016-1.022 Urine Protein 1+ H NEGATIVE Urine Glucose (UA) 1+ H NEGATIVE Urine Ketones NEGATIVE NEGATIVE Urine Nitrite NEGATIVE NEGATIVE Urine Bilirubin NEGATIVE NEGATIVE Urine Urobilinogen 0.2 < = 1.0 MG/DL Urine Leukocyte Esterase NEGATIVE NEGATIVE Urine RBC (Auto) NEGATIVE NEGATIVE Urine RBC NONE /HPF Urine WBC NONE /HPF Urine Squamous Epithelial Cells 2-5 /HPF Urine Crystals NONE /LPF Urine Bacteria NEGATIVE /HPF Urine Casts NONE /LPF Urine Mucus NEGATIVE /LPF Urine Culture Indicated NO White Blood Count 8.1 4.3-11.0 10^3/uL Red Blood Count 3.74 L 3.80-5.11 10^6/uL Hemoglobin 11.0 L 11.5-16.0 g/dL Hematocrit 35 35-52 % Mean Corpuscular Volume 93 80-99 fL Mean Corpuscular Hemoglobin 29 25-34 pg Mean Corpuscular Hemoglobin Concent 32 32-36 g/dL Red Cell Distribution Width 13.7 10.0-14.5 % Platelet Count 268 130-400 10^3/uL Mean Platelet Volume 10.2 9.0-12.2 fL Immature Granulocyte % (Auto) 1 % Neutrophils (%) (Auto) 50 42-75 % Lymphocytes (%) (Auto) 42 12-44 % Monocytes (%) (Auto) 5 0-12 % Eosinophils (%) (Auto) 2 0-10 % Basophils (%) (Auto) 1 0-10 % Neutrophils # (Auto) 4.0 1.8-7.8 10^3/uL Lymphocytes # (Auto) 3.4 1.0-4.0 10^3/uL Monocytes # (Auto) 0.4 0.0-1.0 10^3/uL Eosinophils # (Auto) 0.2 0.0-0.3 10^3/uL Basophils # (Auto) 0.0 0.0-0.1 10^3/uL Immature Granulocyte # (Auto) 0.1 0.0-0.1 10^3/uL Sodium Level 139 135-145 MMOL/L Potassium Level 3.9 3.6-5.0 MMOL/L Chloride Level 102 98-107 MMOL/L Carbon Dioxide Level 23 21-32 MMOL/L Anion Gap 14 5-14 MMOL/L Blood Urea Nitrogen 30 H 7-18 MG/DL Creatinine 1.80 H 0.60-1.30 MG/DL Estimat Glomerular Filtration Rate 29 BUN/Creatinine Ratio 17 Glucose Level 96 70-105 MG/DL Calcium Level 9.6 8.5-10.1 MG/DL Corrected Calcium 9.7 8.5-10.1 MG/DL Total Bilirubin 0.3 0.1-1.0 MG/DL Aspartate Amino Transf (AST/SGOT) 13 5-34 U/L Alanine Aminotransferase (ALT/SGPT) 12 0-55 U/L Alkaline Phosphatase 108 40-136 U/L Total Protein 6.7 6.4-8.2 GM/DL Albumin 3.9 3.2-4.5 GM/DL My Orders Orders - NICOL ADAMS DO Monitor-Rhythm Ecg Trace Only (08/19/21 23:30) Ua Culture If Indicated (08/19/21 23:30) Ed Iv/Invasive Line Start (08/19/21 23:41) Cbc With Automated Diff (08/19/21 23:41) Comprehensive Metabolic Panel (08/19/21 23:41) Fentanyl Inj (Sublimaze Injection) (08/19/21 23:41) Orphenadrine Inj (Ed Only) (Norflex Inje (08/19/21 23:41) Ct Abd/Pelvis Wo(Kidney Stone) (08/20/21 00:01) Hydrocodone/Apap 7.5/325 Tab (Lortab 7. (08/20/21 01:35) Vital Signs/I&O 08/19/21 08/20/21 23:25 02:10 Temp 37.0 37.0 Pulse 75 77 Resp 18 16 B/P (MAP) 178/94 (122) 186/97 Pulse Ox 98 96 O2 Delivery Room Air Room Air Blood Pressure Mean: 122 Progress Progress Note : Progress Note GIVEN FENTANYL AND NORFLEX AND PO HYDROCODONE FOR PAIN WITH SOME IMPROVEMENT IN PAIN DISCUSSED WITH PT AND FAMILY MEMBER THAT SHE CAN TAKE HER PAIN MEDICATION MORE OFTEN THAN EVERY 12 HOURS, AND THAT SHE SHOULD NOT WAIT UNTIL PAIN BECOMES UNBEARABLE BEFORE TAKING MEDIATION. Diagnostic Imaging Comments CT ABDOMEN/PELVIS--NO ACUTE PROCESS, NON-OBSTRUCTIVE 2 MM CALCULUS IN SUPERIOR POLE OF RIGHT KIDNEY. NO DILATION OF RIGHT RENAL COLLECTING SYSTEM. PARTIALLY CALCIFIED 1.8 CM MASS IN THE SEVERE POLE OF RIGHT KIDNEY-FINDINGS CONCERNING FOR MALIGNANCY. LEFT NEPHRECTOMY CHANGES. MILD BLADDER WALL THICKENING. OTHER CHRONIC FINDINGS. PER [facility] VIA FAX AT [phone] Reviewed: Reviewed by Me Departure Impression Primary Impression: Right flank pain Additional Impressions: Chronic back pain Chronic renal insufficiency CHRONIC RIGHT RENAL MASS Disposition: 01 HOME, SELF-CARE Condition: Stable Departure-Patient Inst. Decision time for Depature: 02:05 Referrals: ANA MARIA YING MD (PCP/Family) Primary Care Physician Patient Instructions: Low Back Pain ED, Flank Pain ED Add. Discharge Instructions: INCREASE YOUR FLUID INTAKE TAKE YOUR HYDROCODONE EVERY 4 HOURS FOR PAIN MOIST HEAT TO AREA AT 20 MINUTE INTERVALS FOLLOW UP WITH DR. YING THIS WEEK FOR FURTHER CARE--CALL THIS MORNING FOR APPOINTMENT All discharge instructions reviewed with patient and/or family. Voiced understanding. Scripts Orphenadrine Citrate (Orphenadrine Citrate) 100 Mg Tablet.er 100 MG PO TID, #15 TAB Prov: NICOL ADAMS DO 08/20/21 NICOL ADAMS DO Aug 20, 2021 00:25
[2021-08-20 00:26] LABS: CALCIUM 9.6 MG/DL (8.5-10.1)
[2021-08-20 00:27] LABS: TOTAL PROTEIN 6.7 GM/DL (6.4-8.2)
[2021-08-20 00:29] LABS: BILIRUBIN,TOTAL 0.3 MG/DL (0.1-1.0)
[2021-08-20 00:31] LABS: CREATININE SERUM 1.8 MG/DL (0.60-1.30)
[2021-08-20] MEDS ORDERED: HYDROcodone/APAP 7.5 MG/325 MG (LORTAB, LORCET PLUS) TABLET PO STA (01:35)
[2021-08-20] MEDS ORDERED: ORPH100T PO (02:08)
[2021-08-20 02:10] VITALS: BP 186/97
--- NOTE | 2021-08-20 08:32 | Diagnostic Imaging Report ---
PROCEDURE: CT urinary tract, rule out kidney stone. TECHNIQUE: Multiple contiguous axial images were obtained through the abdomen and pelvis without the use of intravenous contrast. Auto Exposure Controls were utilized during the CT exam to meet ALARA standards for radiation dose reduction. INDICATION: Right flank pain FINDINGS: Exophytic mass posteriorly off the upper pole of the right kidney decreased in size now partially calcified measures 1.7 x 1.4 cm today, previously 2.4 x 2.0 cm. This is likely a treated tumor but its evaluation limited by the absence of vascular contrast. Nonobstructing stone within the right upper pole calyx of 1 to 2 mm new from prior. No hydroureteronephrosis. The left kidney absent. No mass or fluid collection in the left nephrectomy bed. The adrenal glands are unremarkable. The spleen unremarkable. The unopacified pancreas appeared nonfocal and nonacute. The unopacified liver unremarkable. There is atherosclerotic aortoiliac disease without aneurysm. There is no small or large bowel obstruction. There is no abdominal pelvic mesenteric or retroperitoneal adenopathy. Urinary bladder grossly unremarkable. There are postsurgical changes to the sigmoid without apparent complication. No acute or suspect bony lesion. The lung base is nonacute. IMPRESSION: 1. Exophytic right upper pole renal mass decreased in size now partially calcified presumed on a posttreatment basis of a neoplasm. Its evaluation limited by the absence of contrast. 2. Nonobstructing right upper pole renal calculus, absent left kidney, no lymphadenopathy. No bowel, biliary or urinary tract obstruction. No focal inflammatory process or acute-appearing abnormalities. Dictated by: Dictated on workstation # [id number]
== END 2021-08-20 02:18 | disposition home or self-care (01) ==
LOC: EDUNIT# 23:07 → ER 23:10
DX: E11.22 Type 2 diabetes mellitus with diabetic chronic kidney disease (principal); I12.9 Hypertensive chronic kidney disease with stage 1 through stage 4 chronic kidney disease, or unspecified chronic kidney disease; N18.9 Chronic kidney disease, unspecified; Z90.5 Acquired absence of kidney
CPT/HCPCS: 36415; 74176; 80053; 81000; 85025; 93041

== ENCOUNTER 2021-10-12 15:03 | Emergency (ER) | payer MEDICAID ==
[~2021-10-12] VITALS: Ht 152 cm; Wt 81.0 kg
[~2021-10-12 15:03] MED LIST changes: +ORPH100T PO
[2021-10-12 15:47] LABS: BILIRUBIN,URINE NEGATIVE (NEGATIVE); CLARITY,URINE CLEAR; COLOR,URINE YELLOW; GLUCOSE, URINE (UA) NEGATIVE (NEGATIVE); KETONES,URINE NEGATIVE (NEGATIVE); LEUKOCYTE ESTERASE ,URINE TRACE (NEGATIVE); NITRITE,URINE NEGATIVE (NEGATIVE); PH,URINE 5.5 (5-9); PROTEIN,URINE 2+ (NEGATIVE)
--- NOTE | 2021-10-12 15:49 | ED GU-Female ---
General Chief Complaint: - 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 Stated Complaint: HX 1 KIDNEY/UTI Source: patient Exam Limitations: no limitations History of Present Illness Date Seen by Provider: October 12, 2021 Time Seen by Provider: 15:44 Initial Comments Patient is a 76-year-old female presents ED for evaluation for urinary tract infection. She states about a week ago was diagnosed with UTI on 02 October. Patient was seen at [facility]. Patient Was given a dose of Levaquin but took 1 dose as it was making her sick. [facility] was contacted from patient and states she needed to take the Levaquin but refused to take the medication. She was limited to what antibiotics secondary to her kidney function. [facility] called today and patient states she was having chills some mild dizziness with continued urinary symptoms. She reports suprapubic discomfort over the past 5 days. Frequent urination not able to empty her bladder. Denies any flank pain, fever, headache, vomiting, diarrhea. History of kidney cancer with left nephrectomy. She does have a known cancer to her right kidney currently being managed at . They are not currently treating this at this time according to patient. Patient was recommended come to ED as her urine grew out E. coli. She states she did feel nauseous this past week but that has improved. Denies chest pain, cough, shortness of breath, headache, visual changes. Patient is hypertensive on arrival. Allergies and Home Medications Allergies Coded Allergies: promethazine (Verified Allergy, Severe, SEIZURE, NAUSEA, 07/19/08) duloxetine HCl (Verified Allergy, Mild, 05/28/11) escitalopram oxalate (Verified Allergy, Unknown, 09/22/13) niacin (Verified Allergy, Unknown, 09/22/13) olanzapine (Verified Allergy, Unknown, 09/22/13) ibuprofen (Verified Adverse Reaction, Mild, UNSET STOMACH, 09/22/13) lisinopril (Verified Adverse Reaction, Mild, HEADACHE, 09/22/13) tramadol (Verified Adverse Reaction, Mild, NAUSEATED, 09/22/13) Patient Home Medication List Home Medication List Reviewed: Yes Albuterol Sulfate (Albuterol Sulfate Hfa) 8.5 Gm Hfa.aer.ad, 2 PUFF INH Q6H PRN for SHORTNESS OF BREATH, (Reported) Entered as Reported by: MEG GREEN on 11/17/11 2264 Alprazolam (Alprazolam) 1 Mg Tablet, 1 MG PO TID PRN for ANXIETY, (Reported) Entered as Reported by: SAMIR GALLOWAY on 08/28/15812 Calcium Carbonate/Vitamin D3 (Calcium 600 + Vit D 200 Tablet) 1 Each Tablet, 1 TAB PO BID, (Reported) Entered as Reported by: SAMIR GALLOWAY on 08/28/15825 Cefdinir (Cefdinir) 300 Mg Capsule, 300 MG PO BID Prescribed by: KASSIE ANDREWS on 08/17/211813 Celecoxib (Celecoxib) 200 Mg Capsule, 200 MG PO BID, (Reported) Entered as Reported by: SAMIR GALLOWAY on 08/28/15822 Cephalexin (Cephalexin) 500 Mg Tablet, 500 MG PO BID Prescribed by: KIRSTEN FORD on 10/12/21 1649 Fluticasone Propionate (Flonase Nasal [place]) 16 Gm Naspr, 2 SPRAYS NS BID PRN for ALLERGIES, (Reported) Entered as Reported by: MEG GREEN on 11/17/11 1524 Furosemide (Furosemide) 40 Mg Tablet, 40 MG PO EVERY OTHER DAY, (Reported) Entered as Reported by: SAMIR GALLOWAY on 08/28/15812 Gemfibrozil (Gemfibrozil) 600 Mg Tablet, 600 MG PO BID, (Reported) Entered as Reported by: SAMIR GALLOWAY on 08/28/15812 Glimepiride (Glimepiride) 4 Mg Tablet, 4 MG PO DAILY, (Reported) Entered as Reported by: SAMIR GALLOWAY on 08/28/15822 Hydrocodone/Acetaminophen (Hydrocodone-Acetamin 5-325 mg) 1 Each Tablet, 0.5-1 TAB PO Q6H PRN for PAIN-SEVERE (8-10) Prescribed by: KASSIE ANDREWS on 08/17/211813 Insulin Glargine,Hum.rec.anlog (Toujeo Solostar) 300 Unit/1 Ml Insuln.pen, 35 UNITS SC HS, (Reported) Entered as Reported by: SAMIR GALLOWAY on 08/28/15822 Insulin Glulisine (Apidra Solostar) 100 Unit/1 Ml Insuln.pen, 10 UNITS SC BREAKFAST & LUNCH, (Reported) Entered as Reported by: SAMIR GALLOWAY on 08/28/15822 Insulin Glulisine (Apidra Solostar) 100 Unit/1 Ml Insuln.pen, 14 UNITS SC WITH EVENING MEAL, (Reported) Entered as Reported by: SAMIR GALLOWAY on 08/28/15822 Levothyroxine Sodium (Levothyroxine Sodium) 200 Mcg Tablet, 200 MCG PO DAILY, (Reported) Entered as Reported by: SAMIR GALLOWAY on 08/28/15 08 Metformin HCl (Metformin HCl) 1,000 Mg Tablet, 1,000 MG PO BID, (Reported) Entered as Reported by: SAMIR GALLOWAY on 08/28/15822 Metoprolol Tartrate (Metoprolol Tartrate) 25 Mg Tablet, 25 MG PO BID, (Reported) Entered as Reported by: SAMIR GALLOWAY on 08/28/15822 Orphenadrine Citrate (Orphenadrine Citrate) 100 Mg Tablet.er, 100 MG PO TID Prescribed by: NICOL ADAMS on 08/20/21 0208 Polyethylene Glycol (Miralax 17 Gm Packet) 17 Gm Pack, 17 GM PO EVERY OTHER DAY, (Reported) Entered as Reported by: MEG GREEN on 11/17/11 1524 Tramadol HCl (Tramadol HCl) 50 Mg Tablet, 50 MG PO Q6H PRN for PAIN Prescribed by: DEBO NOVA on 06/12/18 1034 Review of Systems Review of Systems Constitutional: chills, weakness EENTM: No hearing loss, No ear pain, No blurred vision, No vision loss, No throat pain, No throat swelling Respiratory: No cough, No short of breath, No wheezing Gastrointestinal: abdominal pain; No diarrhea; nausea; No vomiting Genitourinary: dysuria, frequency; denies flank pain, denies hematuria Musculoskeletal: No back pain, No joint pain Skin: No change in color, No change in hair/nails All Other Systemes Reviewed Negative Unless Noted: Yes Past Leakrds-[place]-Lrynsl Hx Immunizations Up To Date Tetanus Booster (TDap): Less than 5yrs First/Initial COVID19 Vaccinat: NONE Second COVID19 Vaccination Cas: NONE Third COVID19 Vaccination Date: NONE Seasonal Allergies Seasonal Allergies: No Past Medical History Surgeries: Yes (GALLBLADDER,THYROID,KIDNEY, COLON, BREAST BONE REMOVED) Abdominal, Bowel Surgery, Gallbladder, Nephrectomy, Thyroidectomy Respiratory: Yes (SOB AT TIMES, USES INH) Cardiac: Yes High Cholesterol, Hypertension, Peripheral Vascular Neurological: No 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 Disorders: 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 Sexually Transmitted Disease: No Genitourinary: Yes (RENAL CANCER-S/P LEFT NEPHRECTOMY) UTI-Chronic Gastrointestinal: Yes (S/P COLON RESECTION/COLOSTOMY/TAKEDOWN FOR RUPTURED DIVERTICULITIS) Diverticulosis, Pancreatitis Musculoskeletal: Yes Degenerate Disk Disease, Arthritis, Chronic Back Pain Endocrine: Yes Diabetes, Insulin dep, Hypothyroidsim, Diabetes, Non-Insulin dep HEENT: Yes Cataract, Glaucoma Cancer: Yes Kidney Did You Recieve Any Treatments: Yes What Type of Treatment Did You: Surgical Intervention Psychosocial: Yes Anxiety, Depression Integumentary: No Blood Disorders: No Adverse Reaction/Blood Tranf: No Family Medical History PSH: -LEFT NEPHRECTOMY 1985 FOR CANCER -COLON RESECTION WITH COLOSTOMY AND LATER TAKEDOWN FOR PERFORATED DIVERTICULITIS -CHOLECYSTECTOMY Physical Exam Vital Signs Vital Signs - First Documented 10/12/21 15:35 Temp 36.4 Pulse 83 Resp 16 B/P (MAP) 200/98 (132) Pulse Ox 95 O2 Delivery Room Air Capillary Refill : Height, Weight, BMI Height: 5'0.00" Weight: 160lbs. 8.0oz. [id number]; 35.00 BMI Method:Stated General Appearance: WD/WN, no apparent distress HEENT: PERRL/EOMI, normal ENT inspection, TMs normal, pharynx normal Neck: non-tender, full range of motion, supple, normal inspection Cardiovascular: regular rate, rhythm, no edema, no gallop Respiratory: chest non-tender, lungs clear, normal breath sounds, no respiratory distress Gastrointestinal: normal bowel sounds, non tender, soft, no organomegaly Back: normal inspection Extremities: normal range of motion, non-tender, no pedal edema Neurologic/Psychiatric: equal opportunity assistant II-XII nml as tested, no motor/sensory deficits, alert, normal mood/affect Skin: normal color Progress/Results/Core Measures Suspected Sepsis SIRS Temperature: Pulse: Respiratory Rate: Laboratory Tests 10/12/21 16:00: White Blood Count 9.8 Blood Pressure / Mean: Laboratory Tests 10/12/21 16:00: Creatinine 1.70H, Platelet Count 313, Total Bilirubin 0.3 Results/Orders Lab Results Laboratory Tests Test 10/12/21 15:29 10/12/21 16:00 Range/Units Urine Color YELLOW Urine Clarity CLEAR Urine pH 5.5 5-9 Urine Specific [place] 1.025 H 1.016-1.022 Urine Protein 2+ H NEGATIVE Urine Glucose (UA) NEGATIVE NEGATIVE Urine Ketones NEGATIVE NEGATIVE Urine Nitrite NEGATIVE NEGATIVE Urine Bilirubin NEGATIVE NEGATIVE Urine Urobilinogen 0.2 < = 1.0 MG/DL Urine Leukocyte Esterase TRACE H NEGATIVE Urine RBC (Auto) NEGATIVE NEGATIVE Urine RBC NONE /HPF Urine WBC 10-25 H /HPF Urine Squamous Epithelial Cells 5-10 /HPF Urine Crystals NONE /LPF Urine Bacteria MODERATE H /HPF Urine Casts NONE /LPF Urine Mucus NEGATIVE /LPF Urine Culture Indicated YES White Blood Count 9.8 4.3-11.0 10^3/uL Red Blood Count 3.70 L 3.80-5.11 10^6/uL Hemoglobin 11.0 L 11.5-16.0 g/dL Hematocrit 34 L 35-52 % Mean Corpuscular Volume 91 80-99 fL Mean Corpuscular Hemoglobin 30 25-34 pg Mean Corpuscular Hemoglobin Concent 33 32-36 g/dL Red Cell Distribution Width 13.9 10.0-14.5 % Platelet Count 313 130-400 10^3/uL Mean Platelet Volume 10.5 9.0-12.2 fL Immature Granulocyte % (Auto) 1 % Neutrophils (%) (Auto) 61 42-75 % Lymphocytes (%) (Auto) 31 12-44 % Monocytes (%) (Auto) 6 0-12 % Eosinophils (%) (Auto) 2 0-10 % Basophils (%) (Auto) 1 0-10 % Neutrophils # (Auto) 5.9 1.8-7.8 10^3/uL Lymphocytes # (Auto) 3.0 1.0-4.0 10^3/uL Monocytes # (Auto) 0.6 0.0-1.0 10^3/uL Eosinophils # (Auto) 0.2 0.0-0.3 10^3/uL Basophils # (Auto) 0.1 0.0-0.1 10^3/uL Immature Granulocyte # (Auto) 0.1 0.0-0.1 10^3/uL Sodium Level 135 135-145 MMOL/L Potassium Level 4.6 3.6-5.0 MMOL/L Chloride Level 100 98-107 MMOL/L Carbon Dioxide Level 20 L 21-32 MMOL/L Anion Gap 15 H 5-14 MMOL/L Blood Urea Nitrogen 39 H 7-18 MG/DL Creatinine 1.70 H 0.60-1.30 MG/DL Estimat Glomerular Filtration Rate 31 BUN/Creatinine Ratio 23 Glucose Level 198 H 70-105 MG/DL Calcium Level 9.3 8.5-10.1 MG/DL Corrected Calcium 9.5 8.5-10.1 MG/DL Total Bilirubin 0.3 0.1-1.0 MG/DL Aspartate Amino Transf (AST/SGOT) 13 5-34 U/L Alanine Aminotransferase (ALT/SGPT) 12 0-55 U/L Alkaline Phosphatase 108 40-136 U/L Total Protein 6.7 6.4-8.2 GM/DL Albumin 3.8 3.2-4.5 GM/DL My Orders Orders - LUCILA PINEDA Ua Culture If Indicated (10/12/21 15:22) Cbc With Automated Diff (10/12/21 15:41) Comprehensive Metabolic Panel (10/12/21 15:41) Iv/Invasive Line Insertion .IV start (10/12/21 15:42) Urine Culture (10/12/21 15:29) Ceftriaxone 1 Gm Pre-Mix (Rocephin 1 Gm (10/12/21 16:47) Vital Signs/I&O 10/12/21 15:35 Temp 36.4 Pulse 83 Resp 16 B/P (MAP) 200/98 (132) Pulse Ox 95 O2 Delivery Room Air Capillary Refill : Departure Communication (PCP) Patient with a solitary kidney. History of kidney cancer with left kidney nephrectomy. Currently being managed by for potential cancer of her right kidney. Creatinine 1.70 with a BUN of 39. Stable kidney function. Normal white blood count. Hemoglobin 11. Does have a known UTI. Was given Rocephin here. Does not appear toxic. Hypertensive but states she is on blood pressure medication. Refused any treatment but did improve without medication. Patient is noncompliant with antibiotics. Patient was discussed with [facility] who discharged patient with Levaquin but was refusing taking medication. We will try Keflex for 7 days. She was given dose of Rocephin here. Outpatient follow-up with PCP in 4 to 5 days with reevaluation with urinalysis. If any worsening symptoms return back to ED. No vomiting, fever, chest pain, shortness of breath, headache, visual changes. She has very minimal suprapubic tenderness. Does not appear toxic Impression Primary Impression: UTI (urinary tract infection) Disposition: 01 HOME, SELF-CARE Condition: Stable Departure-Patient Inst. Decision time for Depature: 16:49 Referrals: SELF,ANA MARIA STEPHEN (PCP/Family) Primary Care Physician Patient Instructions: Urinary Tract Infection, Adult (DC) Add. Discharge Instructions: Need to follow-up with your primary care physician in 4 to 5 days for reevaluation with urinalysis. If any worsening symptoms return back to ED. All discharge instructions reviewed with patient and/or family. Voiced understanding. Scripts Cephalexin (Cephalexin) 500 Mg Tablet 500 MG PO BID for 7 Days, #14 TAB Prov: LUCILA PINEDA 10/12/21 LUCILA PINEDA October 12, 2021 15:49
[2021-10-12 15:57] LABS: BACTERIA,URINE MODERATE /HPF
[2021-10-12 16:16] LABS: BASOPHILS # (AUTO) 0.1 10^3/uL (0.0-0.1); BASOPHILS % (AUTO) 1 % (0-10); EOSINOPHILS # (AUTO) 0.2 10^3/uL (0.0-0.3); EOSINOPHILS % (AUTO) 2 % (0-10); HEMATOCRIT 34 % (35-52); LYMPHOCYTES % (AUTO) 31 % (12-44); MEAN CORPUSCULAR HEMOGLOBIN 30 pg (25-34); MEAN CORPUSCULAR HGB CONC 33 g/dL (32-36); MEAN CORPUSCULAR VOLUME 91 fL (80-99); MEAN PLATELET VOLUME 10.5 fL (9.0-12.2); MONOCYTES # (AUTO) 0.6 10^3/uL (0.0-1.0); MONOCYTES % (AUTO) 6 % (0-12); NEUTROPHILS # (AUTO) 5.9 10^3/uL (1.8-7.8); NEUTROPHILS % (AUTO) 61 % (42-75); PLATELET COUNT 313 10^3/uL (130-400); WHITE BLOOD COUNT 9.8 10^3/uL (4.3-11.0)
[2021-10-12 16:19] LABS: ALBUMIN 3.8 GM/DL (3.2-4.5)
[2021-10-12 16:20] LABS: POTASSIUM 4.6 MMOL/L (3.6-5.0)
[2021-10-12 16:21] LABS: CALCIUM 9.3 MG/DL (8.5-10.1)
[2021-10-12 16:22] LABS: TOTAL PROTEIN 6.7 GM/DL (6.4-8.2)
[2021-10-12 16:24] LABS: BILIRUBIN,TOTAL 0.3 MG/DL (0.1-1.0)
[2021-10-12 16:25] LABS: CREATININE SERUM 1.7 MG/DL (0.60-1.30)
[2021-10-12] MEDS ORDERED: cefTRIAXone 1 GM PRE-MIX 50 ML IV STA (16:47)
[2021-10-12] MEDS ORDERED: CEPH500T PO (16:49)
[2021-10-12 17:25] VITALS: BP 195/106
== END 2021-10-12 17:24 | disposition home or self-care (01) ==
LOC: EDUNIT# 15:03 → ER 15:04
DX: N39.0 Urinary tract infection, site not specified (principal); T36.8X6A Underdosing of other systemic antibiotics, initial encounter; I10 Essential (primary) hypertension; E11.9 Type 2 diabetes mellitus without complications; Q60.0 Renal agenesis, unilateral; Z91.128 Patient's intentional underdosing of medication regimen for other reason; Z85.528 Personal history of other malignant neoplasm of kidney; Z90.5 Acquired absence of kidney; Z79.4 Long term (current) use of insulin; Z79.899 Other long term (current) drug therapy
CPT/HCPCS: 36415; 80053; 81000; 85025; 87088

== ENCOUNTER 2021-10-14 12:36 | Emergency (ER) | payer MEDICAID ==
[~2021-10-14] VITALS: Ht 152 cm; Wt 78.0 kg
[~2021-10-14 12:36] MED LIST changes: +CEPH500T PO
--- NOTE | 2021-10-14 13:11 | ED Abdominal Pain ---
General Chief Complaint: Abdominal/GI Problems Stated Complaint: ABD PAIN History of Present Illness Date Seen by Provider: October 14, 2021 Time Seen by Provider: 12:53 Initial Comments 76-year-old female brought in by EMS due to worsening abdominal pain since 2 AM this morning. Patient states she has been having some abdominal pain the past couple days. Patient denies any fever or chills. Just has pain in the epigastric area. Patient states it radiates up into her chest. Patient was just in the other day and she said they gave her medicine but she is unsure what medication she had was given. She states may be taking because some problems. Patient denies any nausea or vomiting. Patient states that eating does not make it better or drinking does not make it better. She is try to eat and drink a little bit this morning with no relief. She did not come in earlier due to not wanting to wake people up. No radiation of pain. No pain with urination. Last bowel movement was a normal bowel movement yesterday. No blood in the bowel or blood in the urine. No pain or swelling of the legs. No difficulty breathing. Does have a history of diabetes hypertension and hypothyroidism. Patient was seen 2 days ago for you worsening UTI. Patient had been diagnosed with a UTI by her primary care and given Levaquin due to her history of kidney insufficiency. Patient does have a history of kidney cancer and had a kidney removed so she has 1 kidney. Her GFR that day was 31. Patient had taken 1 dose of the Levaquin and then stopped taking it. The kidney infection worsened. The patient was brought to the ER and she was given a shot of Rocephin and then sent out with Keflex. Timing/Duration: 12 Hours Severity/Quality: Moderate, Dull Location: Epigastric Radiation: No Radiation Activities at Onset: None Modifying Factors: Improves With Eating (no change in symptoms) Associated Symptoms: No Back Pain, No Chest Pain, No Diaphoresis Allergies and Home Medications Allergies Coded Allergies: promethazine (Verified Allergy, Severe, SEIZURE, NAUSEA, 07/19/08) duloxetine HCl (Verified Allergy, Mild, 05/28/11) escitalopram oxalate (Verified Allergy, Unknown, 09/22/13) niacin (Verified Allergy, Unknown, 09/22/13) olanzapine (Verified Allergy, Unknown, 09/22/13) ibuprofen (Verified Adverse Reaction, Mild, UNSET STOMACH, 09/22/13) lisinopril (Verified Adverse Reaction, Mild, HEADACHE, 09/22/13) tramadol (Verified Adverse Reaction, Mild, NAUSEATED, 09/22/13) Patient Home Medication List Home Medication List Reviewed: Yes Albuterol Sulfate (Albuterol Sulfate Hfa) 8.5 Gm Hfa.aer.ad, 2 PUFF INH Q6H PRN for SHORTNESS OF BREATH, (Reported) Entered as Reported by: MEG GREEN on 11/17/11 1524 Alprazolam (Alprazolam) 1 Mg Tablet, 1 MG PO TID PRN for ANXIETY, (Reported) Entered as Reported by: SAMIR GALLOWAY on 08/28/15 08 Calcium Carbonate/Vitamin D3 (Calcium 600 + Vit D 200 Tablet) 1 Each Tablet, 1 TAB PO BID, (Reported) Entered as Reported by: SAMIR GALLOWAY on 08/28/15 0826 Cefdinir (Cefdinir) 300 Mg Capsule, 300 MG PO BID Prescribed by: KASSIE ANDREWS on 08/17/21 1814 Celecoxib (Celecoxib) 200 Mg Capsule, 200 MG PO BID, (Reported) Entered as Reported by: SAMIR GALLOWAY on 08/28/15 0823 Cephalexin (Cephalexin) 500 Mg Tablet, 500 MG PO BID Prescribed by: KIRSTEN FORD on 10/12/21 1649 Famotidine (Acid Tap Grinder (FAMOTIDINE)) 10 Mg Tablet, 10 MG PO BID PRN for heartburn Prescribed by: Ritesh Gaston on 10/14/21 1513 Fluticasone Propionate (Flonase Nasal Vance) 16 Gm Naspr, 2 SPRAYS NS BID PRN for ALLERGIES, (Reported) Entered as Reported by: MEG GREEN on 11/17/11 1524 Furosemide (Furosemide) 40 Mg Tablet, 40 MG PO EVERY OTHER DAY, (Reported) Entered as Reported by: SAMIR GALLOWAY on 08/28/15 08 Gemfibrozil (Gemfibrozil) 600 Mg Tablet, 600 MG PO BID, (Reported) Entered as Reported by: SAMIR GALLOWAY on 08/28/15 08 Glimepiride (Glimepiride) 4 Mg Tablet, 4 MG PO DAILY, (Reported) Entered as Reported by: SAMIR GALLOWAY on 08/28/15822 Hydrocodone/Acetaminophen (Hydrocodone-Acetamin 5-325 mg) 1 Each Tablet, 0.5-1 TAB PO Q6H PRN for PAIN-SEVERE (8-10) Prescribed by: KASSIE ANDREWS on 08/17/21 181 Insulin Glargine,Hum.rec.anlog (Toujeo Solostar) 300 Unit/1 Ml Insuln.pen, 35 UNITS SC HS, (Reported) Entered as Reported by: SAMIR GALLOWAY on 08/28/15822 Insulin Glulisine (Apidra Solostar) 100 Unit/1 Ml Insuln.pen, 10 UNITS SC BREAKFAST & LUNCH, (Reported) Entered as Reported by: SAMIR GALLOWAY on 08/28/15822 Insulin Glulisine (Apidra Solostar) 100 Unit/1 Ml Insuln.pen, 14 UNITS SC WITH EVENING MEAL, (Reported) Entered as Reported by: SAMIR GALLOWAY on 08/28/15822 Levothyroxine Sodium (Levothyroxine Sodium) 200 Mcg Tablet, 200 MCG PO DAILY, (Reported) Entered as Reported by: SAMIR GALLOWAY on 08/28/15812 Metformin HCl (Metformin HCl) 1,000 Mg Tablet, 1,000 MG PO BID, (Reported) Entered as Reported by: SAMIR GALLOWAY on 08/28/15822 Metoprolol Tartrate (Metoprolol Tartrate) 25 Mg Tablet, 25 MG PO BID, (Reported) Entered as Reported by: SAMIR GALLOWAY on 08/28/15822 Omeprazole (Omeprazole) 20 Mg Capsule.dr, 20 MG PO DAILY PRN for heartburn Prescribed by: Ritesh Gaston on 10/14/21 1513 Orphenadrine Citrate (Orphenadrine Citrate) 100 Mg Tablet.er, 100 MG PO TID Prescribed by: NICOL ADAMS on 08/20/21 0208 Polyethylene Glycol (Miralax 17 Gm Packet) 17 Gm Pack, 17 GM PO EVERY OTHER DAY, (Reported) Entered as Reported by: MEG GREEN on 11/17/11 1524 Tramadol HCl (Tramadol HCl) 50 Mg Tablet, 50 MG PO Q6H PRN for PAIN Prescribed by: DEBO NOVA on 06/12/18 1034 Review of Systems Review of Systems Constitutional: No chills, No fever Gastrointestinal: Abdominal Pain; Denies Blood Streaked Stools, Denies Constipated, Denies Diarrhea, Denies Difficulty Swallowing, Denies Nausea, Denies Rectal Bleeding, Denies Vomiting Genitourinary: Denies Burning, Denies Discharge Past Kprhvvl-Coepqs-Gihxqe Hx Patient Social History Tobacco Use?: No Use of E-Cig and/or Vaping dev: No Substance use?: No Alcohol Use?: No Pt feels they are or have been: No Immunizations Up To Date Tetanus Booster (TDap): Less than 5yrs First/Initial COVID19 Vaccinat: NONE Second COVID19 Vaccination Cas: NONE Third COVID19 Vaccination Date: NONE Seasonal Allergies Seasonal Allergies: No Past Medical History Surgery/Hospitalization HX: KIDNEY REMOVAL, [facility], KIDNEY [place] Surgeries: Yes (GALLBLADDER,THYROID,KIDNEY, COLON, BREAST BONE REMOVED) Abdominal, Bowel Surgery, Gallbladder, Nephrectomy, Thyroidectomy Respiratory: Yes (SOB AT TIMES, USES INH) Cardiac: Yes High Cholesterol, Hypertension, Peripheral Vascular Neurological: No 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 Disorders: No [employer] History: Menopausal Sexually Transmitted Disease: No Genitourinary: Yes (RENAL CANCER-S/P LEFT NEPHRECTOMY) UTI-Chronic Gastrointestinal: Yes (S/P COLON RESECTION/COLOSTOMY/TAKEDOWN FOR RUPTURED DIVERTICULITIS) Diverticulosis, Pancreatitis Musculoskeletal: Yes Degenerate Disk Disease, Arthritis, Chronic Back Pain Endocrine: Yes Diabetes, Insulin dep, Hypothyroidsim, Diabetes, Non-Insulin dep HEENT: Yes Cataract, Glaucoma Cancer: Yes Kidney Did You Recieve Any Treatments: Yes What Type of Treatment Did You: Surgical Intervention Psychosocial: Yes Anxiety, Depression Integumentary: No Blood Disorders: No Adverse Reaction/Blood Tranf: No Family Medical History PSH: -LEFT NEPHRECTOMY 1985 FOR CANCER -COLON RESECTION WITH COLOSTOMY AND LATER TAKEDOWN FOR PERFORATED DIVERTICULITIS -CHOLECYSTECTOMY Physical Exam Vital Signs Vital Signs - First Documented 10/14/21 13:02 Temp 36.7 Pulse 78 Resp 20 B/P (MAP) 175/98 (123) Pulse Ox 97 O2 Delivery Room Air Capillary Refill : Height/Weight/BMI Height: 5'0.00" Weight: 160lbs. 8.0oz. 72.514679ox; 35.00 BMI Method:Stated General Appearance: mild distress HEENT: PERRL/EOMI Neck: non-tender, full range of motion Respiratory: chest non-tender, lungs clear, normal breath sounds Cardiovascular: regular rate, rhythm, no edema, no murmur Gastrointestinal: abnormal bowel sounds, guarding, tenderness Progress/Results/Core Measures Results/Orders Lab Results Laboratory Tests Test 10/14/21 12:56 10/14/21 13:20 Range/Units White Blood Count 9.5 4.3-11.0 10^3/uL Red Blood Count 4.09 3.80-5.11 10^6/uL Hemoglobin 12.1 11.5-16.0 g/dL Hematocrit 37 35-52 % Mean Corpuscular Volume 91 80-99 fL Mean Corpuscular Hemoglobin 30 25-34 pg Mean Corpuscular Hemoglobin Concent 33 32-36 g/dL Red Cell Distribution Width 13.7 10.0-14.5 % Platelet Count 335 130-400 10^3/uL Mean Platelet Volume 10.5 9.0-12.2 fL Immature Granulocyte % (Auto) 1 % Neutrophils (%) (Auto) 62 42-75 % Lymphocytes (%) (Auto) 29 12-44 % Monocytes (%) (Auto) 5 0-12 % Eosinophils (%) (Auto) 2 0-10 % Basophils (%) (Auto) 1 0-10 % Neutrophils # (Auto) 5.8 1.8-7.8 10^3/uL Lymphocytes # (Auto) 2.8 1.0-4.0 10^3/uL Monocytes # (Auto) 0.5 0.0-1.0 10^3/uL Eosinophils # (Auto) 0.2 0.0-0.3 10^3/uL Basophils # (Auto) 0.1 0.0-0.1 10^3/uL Immature Granulocyte # (Auto) 0.1 0.0-0.1 10^3/uL Sodium Level 136 135-145 MMOL/L Potassium Level 4.2 3.6-5.0 MMOL/L Chloride Level 99 98-107 MMOL/L Carbon Dioxide Level 21 21-32 MMOL/L Anion Gap 16 H 5-14 MMOL/L Blood Urea Nitrogen 41 H 7-18 MG/DL Creatinine 1.95 H 0.60-1.30 MG/DL Estimat Glomerular Filtration Rate 26 BUN/Creatinine Ratio 21 Glucose Level 185 H 70-105 MG/DL Calcium Level 9.6 8.5-10.1 MG/DL Corrected Calcium 9.6 8.5-10.1 MG/DL Total Bilirubin 0.3 0.1-1.0 MG/DL Aspartate Amino Transf (AST/SGOT) 14 5-34 U/L Alanine Aminotransferase (ALT/SGPT) 12 0-55 U/L Alkaline Phosphatase 106 40-136 U/L Total Protein 7.0 6.4-8.2 GM/DL Albumin 4.0 3.2-4.5 GM/DL Amylase Level 118 25-125 U/L Lipase 88 H 8-78 U/L Urine Color YELLOW Urine Clarity CLEAR Urine pH 5.5 5-9 Urine Specific Fabens >=1.030 1.016-1.022 Urine Protein 1+ H NEGATIVE Urine Glucose (UA) 2+ H NEGATIVE Urine Ketones NEGATIVE NEGATIVE Urine Nitrite NEGATIVE NEGATIVE Urine Bilirubin NEGATIVE NEGATIVE Urine Urobilinogen 0.2 < = 1.0 MG/DL Urine Leukocyte Esterase NEGATIVE NEGATIVE Urine RBC (Auto) NEGATIVE NEGATIVE Urine RBC NONE /HPF Urine WBC NONE /HPF Urine Squamous Epithelial Cells 2-5 /HPF Urine Crystals NONE /LPF Urine Bacteria TRACE /HPF Urine Casts NONE /LPF Urine Mucus NEGATIVE /LPF Urine Culture Indicated NO My Orders Orders - RITESH GASTON MD Ekg Tracing (10/14/21 13:05) Comprehensive Metabolic Panel (10/14/21 13:05) Lipase (10/14/21 13:05) Amylase (10/14/21 13:05) Ua Culture If Indicated (10/14/21 13:05) Acute Abd Series (10/14/21 13:05) Cbc With Automated Diff (10/14/21 13:05) Acetaminophen Tablet/Caplet (Tylenol T (10/14/21 14:00) Lidocaine 2% Viscous 15 Ml (Xylocaine Vi (10/14/21 14:15) Antacid Suspension (Mylanta Suspension (10/14/21 14:15) will give gi cocktail. patient having headache. will give tylenol for this. Medications Given in ED Current Medications Medications Dose Ordered Sig/Davey Route Start Time Stop Time Status Last Admin Dose Admin Acetaminophen 650 mg ONCE ONCE PO 10/14/21 14:00 10/14/21 14:02 DC 10/14/21 14:14 650 MG Al Hydrox/Mg Hydrox/Simethicone 30 ml ONCE ONCE PO 10/14/21 14:15 10/14/21 14:16 DC 10/14/21 14:14 30 ML Lidocaine HCl 15 ml ONCE ONCE PO 10/14/21 14:15 10/14/21 14:16 DC 10/14/21 14:14 15 ML Vital Signs/I&O 10/14/21 13:02 Temp 36.7 Pulse 78 Resp 20 B/P (MAP) 175/98 (123) Pulse Ox 97 O2 Delivery Room Air Progress Progress Note #1: Time: 14:14 Progress Note patient still feeling miserable. Lab results and xray results given. will give GI cocktail for abdominal pain and tylenol for headache. xray does not show any free air or bowel obstruction. lipase slightly elevated at 88. Progress Note #2: Time: 14:56 Progress Note Patient feeling somewhat better. States the pain is easing up. Still just pain in the epigastric area. Patient is not on any PPIs. Bowel sounds are the same as they were earlier. Still little hyperactive. Patient still has epigastric tenderness but it is decreased from previous. Initial ECG Impression Date: October 14, 2021 Initial ECG Impression Time: 14:07 Initial ECG Rate: 70 Initial ECG Intervals: Normal Initial ECG Comparisson: No Previous ECG Available Comment Pacemaker working. old injury. no acute st elevation or depression. Departure Impression Primary Impression: Epigastric abdominal pain Additional Impression: UTI (urinary tract infection) Qualified Codes: N30.00 - Acute cystitis without hematuria Disposition: HOME, SELF-CARE Condition: Stable Departure-Patient Inst. Decision time for Depature: 15:15 Referrals: SELFANA MARIA MD (PCP/Family) Primary Care Physician Patient Instructions: Abdominal Pain, Adult ED, Dyspepsia, Famotidine, Omeprazole Add. Discharge Instructions: Drink plenty of water. Take medications as prescribed. If patient notices any blood in the bowel she is to return to ER. If pain becomes severe she is to return to ER. Otherwise follow-up with primary care physician. continue antibiotics for UTI that were previously given. All discharge instructions reviewed with patient and/or family. Voiced understanding. Scripts Famotidine (Acid Tap Grinder (FAMOTIDINE)) 10 Mg Tablet 10 MG PO BID PRN for heartburn for 14 Days, #28 TAB 0 Refills Prov: RITESH GASTON MD 10/14/21 Omeprazole (Omeprazole) 20 Mg Capsule. 20 MG PO DAILY PRN for heartburn, #14 CAP 0 Refills Prov: RITESH GASTON MD 10/14/21 RITESH GASTON MD October 14, 2021 13:10
[2021-10-14 13:23] LABS: BASOPHILS # (AUTO) 0.1 10^3/uL (0.0-0.1); BASOPHILS % (AUTO) 1 % (0-10); EOSINOPHILS # (AUTO) 0.2 10^3/uL (0.0-0.3); EOSINOPHILS % (AUTO) 2 % (0-10); HEMATOCRIT 37 % (35-52); HEMOGLOBIN 12.1 g/dL (11.5-16.0); LYMPHOCYTES # (AUTO) 2.8 10^3/uL (1.0-4.0); LYMPHOCYTES % (AUTO) 29 % (12-44); MEAN CORPUSCULAR HEMOGLOBIN 30 pg (25-34); MEAN CORPUSCULAR HGB CONC 33 g/dL (32-36); MEAN CORPUSCULAR VOLUME 91 fL (80-99); MEAN PLATELET VOLUME 10.5 fL (9.0-12.2); MONOCYTES # (AUTO) 0.5 10^3/uL (0.0-1.0); MONOCYTES % (AUTO) 5 % (0-12); NEUTROPHILS # (AUTO) 5.8 10^3/uL (1.8-7.8); NEUTROPHILS % (AUTO) 62 % (42-75); PLATELET COUNT 335 10^3/uL (130-400); POTASSIUM 4.2 MMOL/L (3.6-5.0); WHITE BLOOD COUNT 9.5 10^3/uL (4.3-11.0)
[2021-10-14 13:25] LABS: CALCIUM 9.6 MG/DL (8.5-10.1)
[2021-10-14 13:27] LABS: BILIRUBIN,TOTAL 0.3 MG/DL (0.1-1.0)
[2021-10-14 13:29] LABS: CREATININE SERUM 1.95 MG/DL (0.60-1.30)
[2021-10-14 13:32] LABS: BILIRUBIN,URINE NEGATIVE (NEGATIVE); CLARITY,URINE CLEAR; COLOR,URINE YELLOW; GLUCOSE, URINE (UA) 2+ (NEGATIVE); KETONES,URINE NEGATIVE (NEGATIVE); LEUKOCYTE ESTERASE ,URINE NEGATIVE (NEGATIVE); NITRITE,URINE NEGATIVE (NEGATIVE); PH,URINE 5.5 (5-9); PROTEIN,URINE 1+ (NEGATIVE)
--- NOTE | 2021-10-14 13:48 | Diagnostic Imaging Report ---
INDICATION: Abdominal pain. TIME OF EXAM: 1:32 PM Heart size normal. Cardiac pacemaker remains in place. Lungs are clear. There is no free air. Bowel gas pattern appears nonobstructed. There are surgical clips left abdomen. No pathologic calcifications are seen. IMPRESSION: No acute abnormality is identified. Dictated by: Dictated on workstation # [id number]
[2021-10-14 13:49] LABS: BACTERIA,URINE TRACE /HPF
[2021-10-14] MEDS ORDERED: ACETAMINOPHEN 325 MG TABLET PO ONE (14:00)
[2021-10-14] MEDS ORDERED: ANTACID SUSP 30 ML UDC (MYLANTA) PO ONE (14:15)
[2021-10-14] MEDS ORDERED: LIDOCAINE 2% VISCOUS 15 ML UDC PO ONE (14:15)
[2021-10-14] MEDS ORDERED: OMEP20CA18 PO (15:13)
[2021-10-14] MEDS ORDERED: FAMO-144 PO (15:13)
[2021-10-14 15:38] VITALS: BP 160/93
== END 2021-10-14 15:38 | disposition home or self-care (01) ==
LOC: EDUNIT# 12:36 → ER 12:38
DX: N30.00 Acute cystitis without hematuria (principal); E11.9 Type 2 diabetes mellitus without complications; Z95.0 Presence of cardiac pacemaker; Z79.4 Long term (current) use of insulin; Z85.528 Personal history of other malignant neoplasm of kidney; Z87.19 Personal history of other diseases of the digestive system; Z90.49 Acquired absence of other specified parts of digestive tract; Z90.5 Acquired absence of kidney
CPT/HCPCS: 36415; 74022; 80053; 81000; 82150; 83690; 85025; 93005

== ENCOUNTER → 2021-10-24 | Outpatient (CLI) | payer MEDICAID ==
[~2021-10-24] MED LIST changes: +FAMO-144 PO; +OMEP20CA18 PO
--- NOTE | 2021-10-24 12:08 | Diagnostic Imaging Report ---
INDICATION: Low back pain radiating into the right leg. TIME OF EXAM: 11:47 AM 3 views lumbar spine were obtained. FINDINGS: Curvature of lumbar spine is normal. There is grade 1 spondylolisthesis of L5 on S1. Vertebral body heights are maintained. No acute compression fracture is seen. There is some generalized degenerative disc and facet disease with variable disc space narrowing. The abdominal aorta is heavily calcified. Multiple surgical clips left abdomen are noted. IMPRESSION: Generalized lumbar spondylosis with grade 1 spondylolisthesis L5 on S1. No acute bony abnormality is detected. Dictated by: Dictated on workstation # [id number]
== END ==
LOC: RAD FS 11:31
PROVIDERS: ATTEND Family Medicine
DX: M43.17 Spondylolisthesis, lumbosacral region (principal); M47.26 Other spondylosis with radiculopathy, lumbar region
CPT/HCPCS: 72100

== ENCOUNTER 2021-11-14 11:01 | Emergency (ER) | payer MEDICAID ==
[~2021-11-14] VITALS: Ht 165.1 cm; Wt 81.6 kg
[2021-11-14] MEDS ORDERED: morphine INJ 10 MG/ML 1ML (SYR OR VIAL) IVP STA ×2 (11:47→14:31)
[2021-11-14 12:27] LABS: BASOPHILS # (AUTO) 0.1 10^3/uL (0.0-0.1); BASOPHILS % (AUTO) 1 % (0-10); EOSINOPHILS # (AUTO) 0.1 10^3/uL (0.0-0.3); EOSINOPHILS % (AUTO) 1 % (0-10); HEMATOCRIT 34 % (35-52); HEMOGLOBIN 10.7 g/dL (11.5-16.0); LYMPHOCYTES # (AUTO) 2.2 10^3/uL (1.0-4.0); LYMPHOCYTES % (AUTO) 24 % (12-44); MEAN CORPUSCULAR HEMOGLOBIN 30 pg (25-34); MEAN CORPUSCULAR HGB CONC 32 g/dL (32-36); MEAN CORPUSCULAR VOLUME 93 fL (80-99); MEAN PLATELET VOLUME 10.3 fL (9.0-12.2); MONOCYTES # (AUTO) 0.4 10^3/uL (0.0-1.0); MONOCYTES % (AUTO) 5 % (0-12); NEUTROPHILS # (AUTO) 6.1 10^3/uL (1.8-7.8); NEUTROPHILS % (AUTO) 69 % (42-75); PLATELET COUNT 348 10^3/uL (130-400); WHITE BLOOD COUNT 8.9 10^3/uL (4.3-11.0)
[2021-11-14 12:28] LABS: BILIRUBIN,URINE NEGATIVE (NEGATIVE); CLARITY,URINE CLEAR; COLOR,URINE ORANGE; GLUCOSE, URINE (UA) 3+ (NEGATIVE); KETONES,URINE NEGATIVE (NEGATIVE); LEUKOCYTE ESTERASE ,URINE NEGATIVE (NEGATIVE); NITRITE,URINE NEGATIVE (NEGATIVE); PROTEIN,URINE 2+ (NEGATIVE)
[2021-11-14 12:36] LABS: ALBUMIN 4.1 GM/DL (3.2-4.5); POTASSIUM 4.7 MMOL/L (3.6-5.0)
[2021-11-14 12:37] LABS: CALCIUM 9.2 MG/DL (8.5-10.1)
[2021-11-14 12:38] LABS: TOTAL PROTEIN 6.9 GM/DL (6.4-8.2)
[2021-11-14 12:40] LABS: BILIRUBIN,TOTAL 0.4 MG/DL (0.1-1.0)
[2021-11-14 12:42] LABS: CREATININE SERUM 1.71 MG/DL (0.60-1.30)
[2021-11-14 12:43] LABS: BACTERIA,URINE NEGATIVE /HPF; WBC,URINE RARE /HPF
--- NOTE | 2021-11-14 13:46 | Diagnostic Imaging Report ---
PROCEDURE: CT urinary tract, rule out kidney stone. TECHNIQUE: Multiple contiguous axial images were obtained through the abdomen and pelvis without the use of intravenous contrast. Auto Exposure Controls were utilized during the CT exam to meet ALARA standards for radiation dose reduction. INDICATION: Right-sided back pain with right leg radiculopathy. History of renal cancer. COMPARISON: 08/20/2021. FINDINGS: The heart is stable in size. Small amount of bibasilar atelectasis is present. Stable partially calcified cyst in the superior pole of the right kidney measuring 1.7 cm. No hydronephrosis in the right kidney. No perinephric fat stranding. No evidence renal calculi. The left kidney is surgically absent. No evidence of mass within the surgical bed of the left nephrectomy site. The liver, spleen, pancreas, and adrenal glands have a normal noncontrast CT appearance. There is no pathologically enlarged mesenteric or retroperitoneal adenopathy. Midline ventral hernia is seen containing a portion of transverse colon. The bowel loops are nondilated. Prior surgical changes are seen in the sigmoid colon. There is no free fluid or free air. No acute osseous abnormalities. There is grade 1 anterolisthesis of L5 on S1. There is calcified aortic and iliac atherosclerotic plaque without aneurysm. The urinary bladder is mildly distended. There is no free air, loculated collection, or adenopathy in the pelvis. IMPRESSION: 1. Stable partially calcified cyst in the superior pole of the right kidney. No perinephric fat stranding. No hydronephrosis. 2. Stable left-sided nephrectomy changes. No mass is seen within the surgical bed. 3. Ventral hernia is seen containing a portion of transverse colon, similar to the prior exam. No associated obstruction or significant inflammatory changes. 4. Grade 1 anterolisthesis of L5 on S1. No acute fractures identified. Dictated by: Dictated on workstation # [id number]
--- NOTE | 2021-11-14 13:51 | Diagnostic Imaging Report ---
PROCEDURE: CT lumbar spine without contrast. TECHNIQUE: Multiple contiguous axial images were obtained through the lumbar spine without the use of intravenous contrast. Sagittal and coronal reformations were then performed. Auto Exposure Controls were utilized during the CT exam to meet ALARA standards for radiation dose reduction. INDICATION: Low back pain with right leg radiculopathy. COMPARISON: 08/17/2021. FINDINGS: No acute fracture or dislocation is seen in the lumbar spine. There is lumbarization of the S1 vertebral body. Grade 1 anterolisthesis of L5 on S1 is noted. No evidence of acute fracture in the lumbar spine and included pelvis. The bilateral SI joints demonstrate normal alignment. No suspicious focal osseous lesions are seen. No evidence of acute spinal canal stenosis. Degenerative changes are seen in the lumbar spine with disc bulges and facet hypertrophy. These are most prominent at the L5-S1 level with a large disc bulge causing severe spinal canal stenosis. This is similar to the prior exam. The paraspinal soft tissues are unremarkable. IMPRESSION: 1. No acute fracture or dislocation of the lumbar spine. 2. Grade 1 anterolisthesis of L5 on S1, similar to the prior exam. 3. Prominent disc bulge at the L5-S1 level results in severe spinal canal stenosis. Consider surgical consultation to further evaluate. Dictated by: Dictated on workstation # [id number]
[2021-11-14] MEDS ORDERED: OXYC1TAB87 PO (14:54)
--- NOTE | 2021-11-14 14:54 | ED Back Pain ---
General Chief Complaint: Back Problems Stated Complaint: BACK,R LEG PAIN, HX KIDNEY CA Nursing Triage Note: PT TO ROOM FT3 WITH WALKER WITH C/O RIGHT LOWER BACK PAIN THAT RADIATES TO RIGHT LEG STARTING YESTERDAY. PT STATES SHE WAS SEEN BY DR DEL TORO YESTERDAY FOR THIS C/O AND HER GABAPENTIN WAS INCREASED. PT STATES DR DEL TORO INSTRUCTED HER TO RETURN IF THIS DID NOT RELEAVE THE PAIN. PT STATES THE GABAPENTIN DID NOT WORK. PT STATES SHE DID NOT CONTACT DR DEL TORO FOR FOLLOW-UP. PT REPORTS HX OF KIDNEY CANCER AND THAT THE LEFT KIDNEY WAS REMOVED. PT REPORTS BEING TOLD THAT SHE NOW HAS CANCER IN HER RIGHT KIDNEY. Source of Information: Patient Exam Limitations: No Limitations History of Present Illness Date Seen by Provider: Nov 14, 2021 Time Seen by Provider: 11:47 Initial Comments This is 76-year-old woman presents to the emergency room ambulatory with a walker complaining of right lower back pain radiating into the groin and thigh. This is a chronic issue but much exacerbated today. She was seen in the clinic and her gabapentin dose was increased. She believes this to be ineffective. She was also seen recently in the emergency department in a facility in [place]. She reports a kidney stone was found at that time. Pain has worsened since then. Patient has a history of left nephrectomy due to renal cancer. There is concern that she has now renal cancer on the right as well. She has specialists at [facility] including Dr. Stephens and pain management for her back pain and Dr. Shields in urology. She also sees Dr. Perez for cardiology in the [facility]. Dr. Del Toro is her primary care provider in [place]. Patient lives in [place]. She is presently hollering in distress due to her pain. Daughter reports the patient has also recently required admission for blood sugar control. Allergies and Home Medications Allergies Coded Allergies: promethazine (Verified Allergy, Severe, SEIZURE, NAUSEA, 07/19/08) duloxetine HCl (Verified Allergy, Mild, 05/28/11) escitalopram oxalate (Verified Allergy, Unknown, 09/22/13) niacin (Verified Allergy, Unknown, 09/22/13) olanzapine (Verified Allergy, Unknown, 09/22/13) ibuprofen (Verified Adverse Reaction, Mild, UNSET STOMACH, 09/22/13) lisinopril (Verified Adverse Reaction, Mild, HEADACHE, 09/22/13) tramadol (Verified Adverse Reaction, Mild, NAUSEATED, 09/22/13) Patient Home Medication List Home Medication List Reviewed: Yes Albuterol Sulfate (Albuterol Sulfate Hfa) 8.5 Gm Hfa.aer.ad, 2 PUFF INH Q6H PRN for SHORTNESS OF BREATH, (Reported) Entered as Reported by: MEG GREEN on 11/17/11 1524 Alprazolam (Alprazolam) 1 Mg Tablet, 1 MG PO TID PRN for ANXIETY, (Reported) Entered as Reported by: SAMIR GALLOWAY on 08/28/15812 Calcium Carbonate/Vitamin D3 (Calcium 600 + Vit D 200 Tablet) 1 Each Tablet, 1 TAB PO BID, (Reported) Entered as Reported by: SAMIR GALLOWAY on 08/28/15 08 Cefdinir (Cefdinir) 300 Mg Capsule, 300 MG PO BID Prescribed by: KASSIE ANDREWS on 08/17/21 1814 Celecoxib (Celecoxib) 200 Mg Capsule, 200 MG PO BID, (Reported) Entered as Reported by: SAMIR GALLOWAY on 08/28/15822 Cephalexin (Cephalexin) 500 Mg Tablet, 500 MG PO BID Prescribed by: KIRSTEN FORD on 10/12/21 1649 Famotidine (Acid Molding Engineer (FAMOTIDINE)) 10 Mg Tablet, 10 MG PO BID PRN for heartburn Prescribed by: Ritesh Wilhelm on 10/14/21 1513 Fluticasone Propionate (Flonase Nasal [place]) 16 Gm Naspr, 2 SPRAYS NS BID PRN for ALLERGIES, (Reported) Entered as Reported by: MEG GREEN on 11/17/11 1524 Furosemide (Furosemide) 40 Mg Tablet, 40 MG PO EVERY OTHER DAY, (Reported) Entered as Reported by: SAMIR GALLOWAY on 08/28/15812 Gemfibrozil (Gemfibrozil) 600 Mg Tablet, 600 MG PO BID, (Reported) Entered as Reported by: SAMIR GALLOWAY on 08/28/15812 Glimepiride (Glimepiride) 4 Mg Tablet, 4 MG PO DAILY, (Reported) Entered as Reported by: SAMIR GALLOWAY on 08/28/15822 Hydrocodone/Acetaminophen (Hydrocodone-Acetamin 5-325 mg) 1 Each Tablet, 0.5-1 TAB PO Q6H PRN for PAIN-SEVERE (8-10) Prescribed by: KASSIE ANDREWS on 08/17/21 181 Insulin Glargine,Hum.rec.anlog (Toujeo Solostar) 300 Unit/1 Ml Insuln.pen, 35 UNITS SC HS, (Reported) Entered as Reported by: SAMIR GALLOWAY on 08/28/15822 Insulin Glulisine (Apidra Solostar) 100 Unit/1 Ml Insuln.pen, 10 UNITS SC BREAKFAST & LUNCH, (Reported) Entered as Reported by: SAMIR GALLOWAY on 08/28/15822 Insulin Glulisine (Apidra Solostar) 100 Unit/1 Ml Insuln.pen, 14 UNITS SC WITH EVENING MEAL, (Reported) Entered as Reported by: SAMIR GALLOWAY on 08/28/15822 Levothyroxine Sodium (Levothyroxine Sodium) 200 Mcg Tablet, 200 MCG PO DAILY, (Reported) Entered as Reported by: SAMIR GALLOWAY on 08/28/15812 Metformin HCl (Metformin HCl) 1,000 Mg Tablet, 1,000 MG PO BID, (Reported) Entered as Reported by: SAMIR GALLOWAY on 08/28/15822 Metoprolol Tartrate (Metoprolol Tartrate) 25 Mg Tablet, 25 MG PO BID, (Reported) Entered as Reported by: SAMIR GALLOWAY on 08/28/15822 Omeprazole (Omeprazole) 20 Mg Capsule.dr, 20 MG PO DAILY PRN for heartburn Prescribed by: Ritesh Wilhelm on 10/14/21 1513 Orphenadrine Citrate (Orphenadrine Citrate) 100 Mg Tablet.er, 100 MG PO TID Prescribed by: NICOL ADAMS on 08/20/21 0208 Oxycodone HCl/Acetaminophen (Percocet 5-325 mg Tablet) 1 Each Tablet, 1 TAB PO Q4H PRN for PAIN-MODERATE (5-7) Prescribed by: KASSIE ANDREWS on 11/14/21 1455 Polyethylene Glycol (Miralax 17 Gm Packet) 17 Gm Pack, 17 GM PO EVERY OTHER DAY, (Reported) Entered as Reported by: MEG GREEN on 11/17/11 1524 Tramadol HCl (Tramadol HCl) 50 Mg Tablet, 50 MG PO Q6H PRN for PAIN Prescribed by: DEBO NOVA on 06/12/18 1034 Review of Systems Constitutional: no symptoms reported EENTM: no symptoms reported Respiratory: no symptoms reported Cardiovascular: no symptoms reported Gastrointestinal: no symptoms reported Genitourinary: see HPI : No Musculoskeletal: see HPI Skin: no symptoms reported Psychiatric/Neurological: See HPI Past Hhzhpbh-Vbadmo-Lxwhnv Hx Patient Social History Tobacco Use?: No Smoking Status: Never a Smoker Smokeless Tobacco Frequency: Never a User Use of E-Cig and/or Vaping dev: No Use of E-Cig and/or Vaping Ethan: Never a User Substance use?: No Alcohol Use?: No Pt feels they are or have been: No Immunizations Up To Date Tetanus Booster (TDap): Less than 5yrs First/Initial COVID19 Vaccinat: NONE Second COVID19 Vaccination Cas: NONE Third COVID19 Vaccination Date: NONE Seasonal Allergies Seasonal Allergies: No Past Medical History Surgery/Hospitalization HX: KIDNEY REMOVAL, [facility], KIDNEY [place] Surgeries: Yes (GALLBLADDER,THYROID,KIDNEY, COLON, BREAST BONE REMOVED, loop recorder) Abdominal, Bowel Surgery, Gallbladder, Nephrectomy, Pacemaker, Thyroidectomy Respiratory: Yes (SOB AT TIMES, USES INH) Cardiac: Yes High Cholesterol, Hypertension, Peripheral Vascular Neurological: No 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 Disorders: No 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 Sexually Transmitted Disease: No Genitourinary: Yes (RENAL CANCER-S/P LEFT NEPHRECTOMY) Kidney Stones, Renal Failure (Chronic kidney disease), UTI-Chronic Gastrointestinal: Yes (S/P COLON RESECTION/COLOSTOMY/TAKEDOWN FOR RUPTURED DIVERTICULITIS) Diverticulosis, Pancreatitis Musculoskeletal: Yes Degenerate Disk Disease, Arthritis, Chronic Back Pain Endocrine: Yes Diabetes, Insulin dep, Hypothyroidsim, Diabetes, Non-Insulin dep HEENT: Yes Cataract, Glaucoma Cancer: Yes Kidney Did You Recieve Any Treatments: Yes What Type of Treatment Did You: Surgical Intervention Psychosocial: Yes Anxiety, Depression Integumentary: No Blood Disorders: No Adverse Reaction/Blood Tranf: No Family Medical History PSH: -LEFT NEPHRECTOMY 1985 FOR CANCER -COLON RESECTION WITH COLOSTOMY AND LATER TAKEDOWN FOR PERFORATED DIVERTICULITIS -CHOLECYSTECTOMY Physical Exam Vital Signs Vital Signs - First Documented 11/14/21 11/14/21 11:06 15:04 Temp 36.9 Pulse 85 Resp 16 B/P (MAP) 180/117 (138) Pulse Ox 98 O2 Delivery Room Air Capillary Refill : Less Than 3 Seconds Height, Weight, BMI Height: 5'0.00" Weight: 160lbs. 8.1oz. [id number]; 29.00 BMI Method:Stated General Appearance: WD/WN, Moderate Distress HEENT: PERRL/EOMI, Normal ENT Inspection Neck: Normal Inspection Cardiovascular: Regular Rate, Rhythm, No Edema, No Murmur Respiratory: Lungs Clear, Normal Breath Sounds Gastrointestinal: Normal Bowel Sounds, Non Tender, Soft Extremity: Normal Inspection, No Pedal Edema, Other (Sensitivity in the right thigh. No significant tenderness to palpation or pain with rotation of the hip.) Neurologic/Psychiatric: Alert, Oriented x3, Normal Mood/Affect, promotions executive producer II-XII Norm as Tested, Motor Weakness (Generalized weakness of the lower extremities, equal bilaterally) Skin: Normal Color, Warm/Dry Progress/Results/Core Measures Results/Orders Lab Results Laboratory Tests Test 11/14/21 11:20 11/14/21 12:08 11/14/21 13:47 Range/Units Urine Color ORANGE Urine Clarity CLEAR Urine pH 6.0 5-9 Urine Specific Bath 1.020 1.016-1.022 Urine Protein 2+ H NEGATIVE Urine Glucose (UA) 3+ H NEGATIVE Urine Ketones NEGATIVE NEGATIVE Urine Nitrite NEGATIVE NEGATIVE Urine Bilirubin NEGATIVE NEGATIVE Urine Urobilinogen 0.2 < = 1.0 MG/DL Urine Leukocyte Esterase NEGATIVE NEGATIVE Urine RBC (Auto) NEGATIVE NEGATIVE Urine RBC NONE /HPF Urine WBC RARE /HPF Urine Squamous Epithelial Cells 5-10 /HPF Urine Crystals NONE /LPF Urine Bacteria NEGATIVE /HPF Urine Casts NONE /LPF Urine Mucus NEGATIVE /LPF Urine Culture Indicated NO White Blood Count 8.9 4.3-11.0 10^3/uL Red Blood Count 3.61 L 3.80-5.11 10^6/uL Hemoglobin 10.7 L 11.5-16.0 g/dL Hematocrit 34 L 35-52 % Mean Corpuscular Volume 93 80-99 fL Mean Corpuscular Hemoglobin 30 25-34 pg Mean Corpuscular Hemoglobin Concent 32 32-36 g/dL Red Cell Distribution Width 13.8 10.0-14.5 % Platelet Count 348 130-400 10^3/uL Mean Platelet Volume 10.3 9.0-12.2 fL Immature Granulocyte % (Auto) 1 % Neutrophils (%) (Auto) 69 42-75 % Lymphocytes (%) (Auto) 24 12-44 % Monocytes (%) (Auto) 5 0-12 % Eosinophils (%) (Auto) 1 0-10 % Basophils (%) (Auto) 1 0-10 % Neutrophils # (Auto) 6.1 1.8-7.8 10^3/uL Lymphocytes # (Auto) 2.2 1.0-4.0 10^3/uL Monocytes # (Auto) 0.4 0.0-1.0 10^3/uL Eosinophils # (Auto) 0.1 0.0-0.3 10^3/uL Basophils # (Auto) 0.1 0.0-0.1 10^3/uL Immature Granulocyte # (Auto) 0.1 0.0-0.1 10^3/uL Sodium Level 137 135-145 MMOL/L Potassium Level 4.7 3.6-5.0 MMOL/L Chloride Level 99 98-107 MMOL/L Carbon Dioxide Level 25 21-32 MMOL/L Anion Gap 13 5-14 MMOL/L Blood Urea Nitrogen 36 H 7-18 MG/DL Creatinine 1.71 H 0.60-1.30 MG/DL Estimat Glomerular Filtration Rate 30 BUN/Creatinine Ratio 21 Glucose Level 282 H 70-105 MG/DL Calcium Level 9.2 8.5-10.1 MG/DL Corrected Calcium 9.1 8.5-10.1 MG/DL Total Bilirubin 0.4 0.1-1.0 MG/DL Aspartate Amino Transf (AST/SGOT) 12 5-34 U/L Alanine Aminotransferase (ALT/SGPT) 16 0-55 U/L Alkaline Phosphatase 115 40-136 U/L Total Protein 6.9 6.4-8.2 GM/DL Albumin 4.1 3.2-4.5 GM/DL Glucometer 207 H 70-110 MG/DL My Orders Orders - KASSIE SHEN MD Ed Iv/Invasive Line Start (11/14/21 11:47) Cbc With Automated Diff (11/14/21 11:47) Comprehensive Metabolic Panel (11/14/21 11:47) Ua Culture If Indicated (11/14/21 11:47) Morphine Injection (Morphine Injection (11/14/21 11:47) Ct Abd/Pelvis Wo(Kidney Stone) (11/14/21 13:08) Ct Lumbar Spine Wo (11/14/21 13:08) General/Regular (11/14/21 Lunch) Accucheck Stat ONCE (11/14/21 13:21) Morphine Injection (Morphine Injection (11/14/21 14:31) Vital Signs/I&O 11/14/21 11/14/21 11:06 15:04 Temp 36.9 Pulse 85 84 Resp 16 17 B/P (MAP) 180/117 (138) 144/75 Pulse Ox 98 O2 Delivery Room Air Room Air Blood Pressure Mean: 138 FSBG Bedside Testing Finger Stick Blood Glucose: 207 Blood Glucose Action Taken: rn notified Progress Progress Note : Time: 07:31 Progress Note Patient was given morphine to control her pain which worked well. I reviewed her medical history in the chart and with patient and daughter. The source of her pain could be from multiple sources including possible ureteral stone, lumbar spine disease, or even metastatic disease given her cancer history. We discussed MRI is an option but she has a pacemaker. They do not have information on the details of brand or MRI compatibility. I spoke with the MRI department. MRI could be arranged but is not possible today due to lack of information and the appropriate personnel to make arrangements. In lieu of MRI we obtained CT scan of both the abdomen/pelvis as well as the lumbar spine. She demonstrated severe lumbar stenosis at L5/S1 as well as degenerative disease. She had a calcified cyst on the right kidney and it appears a tiny stone within the kidney. No definite stones were seen within the ureter and there was no significant hydronephrosis. I discussed these findings with the patient and her daughter. I believe most of her pain is coming from lumbar back disease. I have advised close follow-up with her urologist and bridge painter helper. She was prescribed Percocet for pain control. Labs were fairly unremarkable except for hyperglycemia and elevated creatinine from chronic kidney disease. NSAID medications are to be avoided due to her chronic kidney disease and unilateral kidney. Steroids should be avoided due to recent problems with hyperglycemia and diabetes control. Imaging studies were clouded to [facility] and a disk was provided to the patient. Diagnostic Imaging Diagonstic Imaging: CT Plain Films/CT/US/NM/MRI: abdomen, pelvis Comments CT abdomen pelvis viewed by me and report reviewed. See report below: NAME: SHERI ROTHMAN [facility] REC#: [id number] PT STATUS: REG ER : 1945 PHYSICIAN: KASSIE SHEN MD ADMIT DATE: 11/14/21/ER Signed Date of Exam:11/14/21 CT ABD/PELVIS WO(KIDNEY STONE) PROCEDURE: CT urinary tract, rule out kidney stone. TECHNIQUE: Multiple contiguous axial images were obtained through the abdomen and pelvis without the use of intravenous contrast. Auto Exposure Controls were utilized during the CT exam to meet ALARA standards for radiation dose reduction. INDICATION: Right-sided back pain with right leg radiculopathy. History of renal cancer. COMPARISON: 08/20/2021. FINDINGS: The heart is stable in size. Small amount of bibasilar atelectasis is present. Stable partially calcified cyst in the superior pole of the right kidney measuring 1.7 cm. No hydronephrosis in the right kidney. No perinephric fat stranding. No evidence renal calculi. The left kidney is surgically absent. No evidence of mass within the surgical bed of the left nephrectomy site. The liver, spleen, pancreas, and adrenal glands have a normal noncontrast CT appearance. There is no pathologically enlarged mesenteric or retroperitoneal adenopathy. Midline ventral hernia is seen containing a portion of transverse colon. The bowel loops are nondilated. Prior surgical changes are seen in the sigmoid colon. There is no free fluid or free air. No acute osseous abnormalities. There is grade 1 anterolisthesis of L5 on S1. There is calcified aortic and iliac atherosclerotic plaque without aneurysm. The urinary bladder is mildly distended. There is no free air, loculated collection, or adenopathy in the pelvis. IMPRESSION: 1. Stable partially calcified cyst in the superior pole of the right kidney. No perinephric fat stranding. No hydronephrosis. 2. Stable left-sided nephrectomy changes. No mass is seen within the surgical bed. 3. Ventral hernia is seen containing a portion of transverse colon, similar to the prior exam. No associated obstruction or significant inflammatory changes. 4. Grade 1 anterolisthesis of L5 on S1. No acute fractures identified. Dictated by: Dictated on workstation # Autrement ([id number] Dict: 11/14/21 1336 Trans: 11/14/21 1348 [id number] Interpreted by: OPAL HENDERSON DO Electronically signed by: OPAL HENDERSON DO 11/14/21 1348 Diagonstic Imaging: CT Plain Films/CT/US/NM/MRI: other (lumbar) Comments CT lumbar spine viewed by me and report reviewed. See report below: NAME: SHERI ROTHMAN [facility] REC#: [id number] PT STATUS: REG ER : 1945 PHYSICIAN: KASSIE SHEN MD ADMIT DATE: 11/14/21/ER Signed Date of Exam:11/14/21 CT LUMBAR SPINE WO PROCEDURE: CT lumbar spine without contrast. TECHNIQUE: Multiple contiguous axial images were obtained through the lumbar spine without the use of intravenous contrast. Sagittal and coronal reformations were then performed. Auto Exposure Controls were utilized during the CT exam to meet ALARA standards for radiation dose reduction. INDICATION: Low back pain with right leg radiculopathy. COMPARISON: 08/17/2021. FINDINGS: No acute fracture or dislocation is seen in the lumbar spine. There is lumbarization of the S1 vertebral body. Grade 1 anterolisthesis of L5 on S1 is noted. No evidence of acute fracture in the lumbar spine and included pelvis. The bilateral SI joints demonstrate normal alignment. No suspicious focal osseous lesions are seen. No evidence of acute spinal canal stenosis. Degenerative changes are seen in the lumbar spine with disc bulges and facet hypertrophy. These are most prominent at the L5-S1 level with a large disc bulge causing severe spinal canal stenosis. This is similar to the prior exam. The paraspinal soft tissues are unremarkable. IMPRESSION: 1. No acute fracture or dislocation of the lumbar spine. 2. Grade 1 anterolisthesis of L5 on S1, similar to the prior exam. 3. Prominent disc bulge at the L5-S1 level results in severe spinal canal stenosis. Consider surgical consultation to further evaluate. Dictated by: Dictated on workstation # [id number] Dict: 11/14/21 1344 Trans: 11/14/21 1406 [id number] Interpreted by: OPAL HENDERSON DO Electronically signed by: OPAL HENDERSON DO 11/14/21 1406 Departure Impression Primary Impression: Lumbar spinal stenosis Qualified Codes: M48.062 - Spinal stenosis, lumbar region with neurogenic claudication Additional Impressions: Lumbar radiculopathy Disc bulge L5-S1 Disposition: 01 HOME, SELF-CARE Condition: Improved Departure-Patient Inst. Decision time for Depature: 14:49 Referrals: ANA MARIA DEL TORO MD (PCP/Family) Primary Care Physician Patient Instructions: Spinal Stenosis Add. Discharge Instructions: Please follow-up with your magneto specialist as soon as possible. Please call them today. Informed them the CT images have been clouded to the [facility]ology system. Use your Percocet as prescribed for pain control. Watch for constipation and take stool softeners or mild laxatives as needed. Please contact your kidney specialist as soon as possible and share the details of this visit with them. It may be helpful to walk with a cane or walker for support while you are experiencing this more intense pain and weakness of your leg. Return to the emergency room if you are having worsening symptoms. All discharge instructions reviewed with patient and/or family. Voiced understanding. Scripts Oxycodone HCl/Acetaminophen (Percocet 5-325 mg Tablet) 1 Each Tablet 1 TAB PO Q4H PRN for PAIN-MODERATE (5-7) MDD 6 TABS, #20 TAB Prov: KASSIE SHEN MD 11/14/21 Copy Copies To 1: ANA MARIA DEL TORO MD, JOSHUA T MD Nov 14, 2021 14:54
[2021-11-14 15:04] VITALS: BP 144/75
[2021-11-15] MEDS ORDERED: AMIT25TA9 PO (10:28)
[2021-11-15] MEDS ORDERED: OXC10TCR PO (10:28)
[2021-11-15] MEDS ORDERED: NALO4SPR NS (10:28)
[2021-11-15] MEDS ORDERED: OXYC-710 PO (15:16)
== END 2021-11-14 15:04 | disposition home or self-care (01) ==
LOC: EDUNIT# 11:01 → ER 11:03
DX: M48.07 Spinal stenosis, lumbosacral region (principal); M51.17 Intervertebral disc disorders with radiculopathy, lumbosacral region; E11.9 Type 2 diabetes mellitus without complications; Z79.4 Long term (current) use of insulin; Z85.528 Personal history of other malignant neoplasm of kidney; Z90.5 Acquired absence of kidney; Z28.310 Unvaccinated for COVID-19
CPT/HCPCS: 36415; 72131; 74176; 80053; 81000; 82947; 85025

== ENCOUNTER 2021-11-15 06:27 | Emergency (ER) | payer MEDICAID ==
[~2021-11-15 06:27] MED LIST changes: +OXYC1TAB87 PO
[2021-11-15] MEDS ORDERED: morphine INJ 10 MG/ML 1ML (SYR OR VIAL) IVP STA (06:33)
[2021-11-15] MEDS ORDERED: ORPHENADRINE 60 MG/2 ML (NORFLEX) AMP (ED ONLY) IV ONE (06:45)
[2021-11-15] MEDS ORDERED: NS IV 500 ML 500 ML IV ONE (06:45)
[2021-11-15] MEDS ORDERED: ALPRAZolam 0.25 MG (XANAX) TAB PO ONE (07:00)
--- NOTE | 2021-11-15 10:25 | ED Back Pain ---
General Chief Complaint: Back Problems Stated Complaint: BACK PAIN Nursing Triage Note: PT REPORTS BACK PAIN THAT HAS INCREASED SINCE BEING SEEN HERE YESTERDAY. PT DENIES TAKING THE PAIN MEDICATION PRESCRIBED TO HER YESTERDAY. PT GIVEN 100MCG OF FENTANYL IN ROUTE BY EMS, REPORTS THIS DID NOT HELP HER PAIN. PT REPRTING WEARING A MASK IS MAKING HER BACK PAIN WORSE. Source of Information: Patient Exam Limitations: No Limitations History of Present Illness Date Seen by Provider: Nov 15, 2021 Time Seen by Provider: 06:29 Initial Comments This 76-year-old woman known to me from her ER visit yesterday presents to the emergency room via EMS with complaints of severe right lower back pain. She had imaging yesterday including CT of the abdomen and pelvis as well as CT of the lumbar spine. Severe lumbar spinal stenosis at L5-S1 as well as spondylolisthesis at L5-S1 was noted. This is likely the source of her pain. She last took Percocet that was prescribed yesterday around 23:00. She has not taken any pain medication this morning. She additionally takes gabapentin which she does not believe is very effective. She has pain radiating into her right thigh and waxing and waning weakness of the right leg. She sees Dr. Stephens for pain management at [facility] and Dr. Shields at [facility] for her urology problems. She has history of left nephrectomy due to renal cancer. There is question of renal cancer in her right kidney now. She appears in acute distress and is hollering from pain. She received fentanyl 50 mcg IV x2 by EMS in route but has not had a significant reduction in pain. She is also quite anxious and reports a sensation of dyspnea, but she is moving air quite well and has oxygen saturations in the high 90s on room air. Allergies and Home Medications Allergies Coded Allergies: promethazine (Verified Allergy, Severe, SEIZURE, NAUSEA, 07/19/08) duloxetine HCl (Verified Allergy, Mild, 05/28/11) escitalopram oxalate (Verified Allergy, Unknown, 09/22/13) niacin (Verified Allergy, Unknown, 09/22/13) olanzapine (Verified Allergy, Unknown, 09/22/13) ibuprofen (Verified Adverse Reaction, Mild, UNSET STOMACH, 09/22/13) lisinopril (Verified Adverse Reaction, Mild, HEADACHE, 09/22/13) tramadol (Verified Adverse Reaction, Mild, NAUSEATED, 09/22/13) Patient Home Medication List Home Medication List Reviewed: Yes Albuterol Sulfate (Albuterol Sulfate Hfa) 8.5 Gm Hfa.aer.ad, 2 PUFF INH Q6H PRN for SHORTNESS OF BREATH, (Reported) Entered as Reported by: MEG GREEN on 11/17/11 1524 Alprazolam (Alprazolam) 1 Mg Tablet, 1 MG PO TID PRN for ANXIETY, (Reported) Entered as Reported by: SAMIR GALLOWAY on 08/28/15 0813 Amitriptyline HCl (Amitriptyline HCl) 25 Mg Tablet, 25 MG PO HS Prescribed by: KASSIE ANDREWS on 11/15/21 1028 Calcium Carbonate/Vitamin D3 (Calcium 600 + Vit D 200 Tablet) 1 Each Tablet, 1 TAB PO BID, (Reported) Entered as Reported by: SAMIR GALLOWAY on 08/28/15 0826 Cefdinir (Cefdinir) 300 Mg Capsule, 300 MG PO BID Prescribed by: KASSIE ANDREWS on 08/17/21 1814 Celecoxib (Celecoxib) 200 Mg Capsule, 200 MG PO BID, (Reported) Entered as Reported by: SAMIR GALLOWAY on 08/28/15 08 Cephalexin (Cephalexin) 500 Mg Tablet, 500 MG PO BID Prescribed by: KIRSTEN FORD on 10/12/21 1649 Famotidine (Acid Senior Courtroom Clerk (FAMOTIDINE)) 10 Mg Tablet, 10 MG PO BID PRN for heartburn Prescribed by: Ritesh Wilhelm on 10/14/21 1513 Fluticasone Propionate (Flonase Nasal [place]) 16 Gm Naspr, 2 SPRAYS NS BID PRN for ALLERGIES, (Reported) Entered as Reported by: MEG GREEN on 11/17/11 1524 Furosemide (Furosemide) 40 Mg Tablet, 40 MG PO EVERY OTHER DAY, (Reported) Entered as Reported by: SAMIR GALLOWAY on 08/28/15812 Gemfibrozil (Gemfibrozil) 600 Mg Tablet, 600 MG PO BID, (Reported) Entered as Reported by: SAMIR GALLOWAY on 08/28/15812 Glimepiride (Glimepiride) 4 Mg Tablet, 4 MG PO DAILY, (Reported) Entered as Reported by: SAMIR GALLOWAY on 08/28/15822 Hydrocodone/Acetaminophen (Hydrocodone-Acetamin 5-325 mg) 1 Each Tablet, 0.5-1 TAB PO Q6H PRN for PAIN-SEVERE (8-10) Prescribed by: KASSIE ANDREWS on 08/17/21 181 Insulin Glargine,Hum.rec.anlog (Toujeo Solostar) 300 Unit/1 Ml Insuln.pen, 35 UNITS SC HS, (Reported) Entered as Reported by: SAMIR GALLOWAY on 08/28/15822 Insulin Glulisine (Apidra Solostar) 100 Unit/1 Ml Insuln.pen, 10 UNITS SC BREAKFAST & LUNCH, (Reported) Entered as Reported by: SAMIR GALLOWAY on 08/28/15822 Insulin Glulisine (Apidra Solostar) 100 Unit/1 Ml Insuln.pen, 14 UNITS SC WITH EVENING MEAL, (Reported) Entered as Reported by: SAMIR GALLOWAY on 08/28/15822 Levothyroxine Sodium (Levothyroxine Sodium) 200 Mcg Tablet, 200 MCG PO DAILY, (Reported) Entered as Reported by: SAMIR GALLOWAY on 08/28/15812 Metformin HCl (Metformin HCl) 1,000 Mg Tablet, 1,000 MG PO BID, (Reported) Entered as Reported by: SAMIR GALLOWAY on 08/28/15822 Metoprolol Tartrate (Metoprolol Tartrate) 25 Mg Tablet, 25 MG PO BID, (Reported) Entered as Reported by: SAMIR GALLOWAY on 08/28/15822 Naloxone HCl (Narcan) 4 Mg/Actuation [place], 2 MG NS UD Prescribed by: KASSIE ANDREWS on 11/15/21 1028 Omeprazole (Omeprazole) 20 Mg Capsule.dr, 20 MG PO DAILY PRN for heartburn Prescribed by: Ritesh Wilhelm on 10/14/21 1513 Orphenadrine Citrate (Orphenadrine Citrate) 100 Mg Tablet.er, 100 MG PO TID Prescribed by: NICOL ADAMS on 08/20/21 0208 Oxycodone HCl (Oxycontin) 10 Mg Tab.er.12h, 10 MG PO BID Prescribed by: KASSIE ANDREWS on 11/15/21 1028 Oxycodone HCl/Acetaminophen (Percocet 5-325 mg Tablet) 1 Each Tablet, 1 TAB PO Q4H PRN for PAIN-MODERATE (5-7) Prescribed by: KASSIE ANDREWS on 11/14/21 1455 Polyethylene Glycol (Miralax 17 Gm Packet) 17 Gm Pack, 17 GM PO EVERY OTHER DAY, (Reported) Entered as Reported by: MEG GREEN on 11/17/11 1524 Tramadol HCl (Tramadol HCl) 50 Mg Tablet, 50 MG PO Q6H PRN for PAIN Prescribed by: DEBO NOVA on 06/12/18 1034 Review of Systems Constitutional: no symptoms reported EENTM: no symptoms reported Respiratory: see HPI Cardiovascular: no symptoms reported Gastrointestinal: no symptoms reported Genitourinary: incontinence : No Musculoskeletal: see HPI Skin: no symptoms reported Psychiatric/Neurological: See HPI Past Bmytmqb-Wmzscg-Kzppbi Hx Patient Social History Tobacco Use?: No Use of E-Cig and/or Vaping dev: No Substance use?: No Alcohol Use?: No Immunizations Up To Date Tetanus Booster (TDap): Less than 5yrs First/Initial COVID19 Vaccinat: NONE Second COVID19 Vaccination Cas: NONE Third COVID19 Vaccination Date: NONE Seasonal Allergies Seasonal Allergies: No Past Medical History Surgery/Hospitalization HX: UNKNOWN PT STATED "ITS IN MY CHART I CANT ANSWER YOU IM IN TO MUCH PAIN" Surgeries: Yes (GALLBLADDER,THYROID,KIDNEY, COLON, BREAST BONE REMOVED) Abdominal, Bowel Surgery, Gallbladder, Nephrectomy, Thyroidectomy Respiratory: Yes (SOB AT TIMES, USES INH) Cardiac: Yes High Cholesterol, Hypertension, Peripheral Vascular Neurological: No 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 Disorders: No 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: 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 Sexually Transmitted Disease: No Genitourinary: Yes (RENAL CANCER-S/P LEFT NEPHRECTOMY) UTI-Chronic Gastrointestinal: Yes (S/P COLON RESECTION/COLOSTOMY/TAKEDOWN FOR RUPTURED DIVERTICULITIS) Diverticulosis, Pancreatitis Musculoskeletal: Yes Degenerate Disk Disease, Arthritis, Chronic Back Pain Endocrine: Yes Diabetes, Insulin dep, Hypothyroidsim, Diabetes, Non-Insulin dep HEENT: Yes Cataract, Glaucoma Cancer: Yes Kidney Did You Recieve Any Treatments: Yes What Type of Treatment Did You: Surgical Intervention Psychosocial: Yes Anxiety, Depression Integumentary: No Blood Disorders: No Adverse Reaction/Blood Tranf: No Family Medical History PSH: -LEFT NEPHRECTOMY 1985 FOR CANCER -COLON RESECTION WITH COLOSTOMY AND LATER TAKEDOWN FOR PERFORATED DIVERTICULITIS -CHOLECYSTECTOMY Physical Exam Vital Signs Vital Signs - First Documented 11/15/21 06:34 Temp 35.7 Pulse 77 Resp 24 B/P (MAP) 177/97 (123) Pulse Ox 100 O2 Delivery Room Air Capillary Refill : Height, Weight, BMI Height: 5'0.00" Weight: 160lbs. 8.0oz. 72.511851la; 29.00 BMI Method:Stated General Appearance: WD/WN, Moderate Distress, Obese HEENT: PERRL/EOMI, Normal ENT Inspection Neck: Normal Inspection Cardiovascular: Regular Rate, Rhythm, No Edema, No Murmur Respiratory: Lungs Clear, Normal Breath Sounds, No Accessory Muscle Use Gastrointestinal: Normal Bowel Sounds, Non Tender, Soft Back: Other (Tenderness in the lower lumbar spine region and paraspinous region) Extremity: Normal Inspection, No Pedal Edema, Other (Hypersensitivity in the right proximal thigh. No tenderness to palpation or pain with rotation of the right hip. Distal exam unremarkable) Neurologic/Psychiatric: Alert, Oriented x3, Normal Mood/Affect, jazz singer II-XII Norm as Tested, Motor Weakness (Generalized weakness of the lower extremities) Skin: Normal Color, Warm/Dry Progress/Results/Core Measures Results/Orders My Orders Orders - KASSIE SHEN MD Morphine Injection (Morphine Injection (11/15/21 06:33) Orphenadrine Inj (Ed Only) (Norflex Inje (11/15/21 06:45) Ed Iv/Invasive Line Start (11/15/21 06:33) Ns Iv 500 Ml (Sodium Chloride 0.9%) (11/15/21 06:45) Alprazolam Tablet (Xanax Tablet) (11/15/21 07:00) Medications Given in ED Current Medications Medications Dose Ordered Sig/Davey Route Start Time Stop Time Status Last Admin Dose Admin Alprazolam 0.25 mg ONCE ONCE PO 11/15/21 07:00 11/15/21 07:01 DC 11/15/21 06:59 0.25 MG Orphenadrine Citrate 60 mg ONCE ONCE IV 11/15/21 06:45 11/15/21 06:46 DC 11/15/21 06:41 60 MG Sodium Chloride 500 ml @ 0 mls/hr Q0M ONCE IV 11/15/21 06:45 11/15/21 06:46 DC 11/15/21 06:40 0 MLS/HR Vital Signs/I&O 11/15/21 11/15/21 06:34 10:39 Temp 35.7 Pulse 77 70 Resp 24 17 B/P (MAP) 177/97 (123) 146/58 Pulse Ox 100 98 O2 Delivery Room Air Room Air Blood Pressure Mean: 123 Progress Progress Note : Progress Note Fentanyl given in route was not very effective for her pain. She was additionally given morphine 4 mg IV which did calm her pain. Morphine worked well yesterday as well. She was quite anxious and complaining of shortness of breath although she was clearly moving air well and oxygenating well. She appeared to have mild hyperventilation. She was given a Xanax 0.25 mg. Family reports she does have chronic problems with anxiety. We had discussion about trying to discern between emotional distress with anxiety and physical pain. Patient eventually fell asleep for a brief period of time and had an oxygen desaturation all the way down to 58%. This resolved with nasal cannula. Eventually, nasal cannula was only required temporarily. Oxygen saturations returned to high 90s on room air prior to discharge. This patient has a complex history with her diabetes, severe spinal stenosis, chronic kidney disease, and potential new neoplasm in the right kidney. She needs close coordination between her specialists. She needs referral to a neurosurgeon or spine surgeon if she is a surgical candidate. I contacted Dr. Stephens's office and coordinated a follow-up visit in the clinic this afternoon at 1:00. Patient's ER visit was prolonged due to staff tending to a critical emergency during her visit. She was discharged with her daughter and son-in-law. She took one of her own Percocet prior to leaving to help control pain while in the car. I recommended trying a long-acting opioid such as OxyContin. Due to technical problems with the electronic medical record software, I was unable to print or send the OxyContin for the patient. I advised her to discuss this with the pain management team. I did also recommend amitriptyline which may help her with depression and anxiety as well as radicular pain. Because of the patient's hypoxic event in the ER, I am hesitant to prescribe any sedating anxiolytics. I also prescribed and reviewed use of Narcan. Departure Impression Primary Impression: Lumbar spinal stenosis Qualified Codes: M48.062 - Spinal stenosis, lumbar region with neurogenic claudication Additional Impressions: Lumbar radiculopathy Spondylolisthesis at L5-S1 level Chronic kidney disease Qualified Codes: N18.9 - Chronic kidney disease, unspecified Anxiety Disposition: 01 HOME, SELF-CARE Condition: Improved Departure-Patient Inst. Decision time for Depature: 10:20 Referrals: ANA MARIA YING MD (PCP/Family) Primary Care Physician Patient Instructions: Spinal Stenosis, Radiculopathy Add. Discharge Instructions: Drink plenty of clear liquids to stay well-hydrated. Try the long-acting morphine (OxyContin) for background pain control. And then use Percocet for acute for breakthrough pain in addition to the OxyContin. Until you fill this medication, you may increase Percocet 5/325 mg to a maximum of 2 tablets every 3 hours as needed. Follow-up with Dr. Stephens's office at 1:00 this afternoon. Start amitriptyline at bedtime to help with depression and nerve pain. These new medications may all cause sedation. Please use them with caution. Please obtain a pulse oximeter to check oxygen saturations while on these medications. Narcan is also being prescribed to use if there is concern for narcotic overdose with respiratory suppression. If this occurs, use the Narcan as directed and call 911. Please review this treatment plan with the pain management team at Dr. Stephens's office. You may fill these medications if they are agreeable to this plan. Return to the emergency room if you have worsening symptoms despite following these instructions such as escalating pain, worsening control of bowel or bladder, worsening weakness of the legs, etc. Also follow-up with your urologist, Dr. Shields, as soon as possible. All discharge instructions reviewed with patient and/or family. Voiced understanding. Scripts Naloxone HCl (Narcan) 4 Mg/Actuation [place] 2 MG NS UD, #1 SPRAY [place] 1 mg in each nostril for suspected opioid overdose or respiratory suppression with low oxygen. Call 911 if given. Prov: KASSIE SHEN MD 11/15/21 Amitriptyline HCl (Amitriptyline HCl) 25 Mg Tablet 25 MG PO HS, #10 TAB Prov: KASSIE SHEN MD 11/15/21 Oxycodone HCl (Oxycontin) 10 Mg Tab.er.12h 10 MG PO BID, #20 TAB Prov: KASSIE SHEN MD 11/15/21 Copy Copies To 1: SELF,KASSIE COTTER MD, MD Nov 15, 2021 10:25
[2021-11-15] MEDS ORDERED: AMIT25TA9 PO (10:28)
[2021-11-15] MEDS ORDERED: NALO4SPR NS (10:28)
[2021-11-15] MEDS ORDERED: OXC10TCR PO (10:28)
[2021-11-15 10:39] VITALS: BP 146/58
[2021-11-15] MEDS ORDERED: OXYC-710 PO (15:16)
== END 2021-11-15 10:40 | disposition home or self-care (01) ==
LOC: EDUNIT# 06:27 → ER 06:29
DX: I12.9 Hypertensive chronic kidney disease with stage 1 through stage 4 chronic kidney disease, or unspecified chronic kidney disease (principal); N18.9 Chronic kidney disease, unspecified; E11.22 Type 2 diabetes mellitus with diabetic chronic kidney disease; M48.07 Spinal stenosis, lumbosacral region; M54.17 Radiculopathy, lumbosacral region; M43.17 Spondylolisthesis, lumbosacral region; F41.9 Anxiety disorder, unspecified; Z87.19 Personal history of other diseases of the digestive system; Z85.528 Personal history of other malignant neoplasm of kidney; Z90.5 Acquired absence of kidney; Z79.4 Long term (current) use of insulin; Z28.310 Unvaccinated for COVID-19

== ENCOUNTER 2021-11-20 23:25 | Emergency (ER) | payer MEDICAID ==
[~2021-11-20 23:25] MED LIST changes: +AMIT25TA9 PO; +NALO4SPR NS; +OXC10TCR PO; +OXYC-710 PO
[2021-11-20 23:54] VITALS: BP 179/98
[2021-11-21 01:54] LABS: BILIRUBIN,URINE NEGATIVE (NEGATIVE); COLOR,URINE YELLOW; GLUCOSE, URINE (UA) NEGATIVE (NEGATIVE); KETONES,URINE NEGATIVE (NEGATIVE); LEUKOCYTE ESTERASE ,URINE NEGATIVE (NEGATIVE); NITRITE,URINE NEGATIVE (NEGATIVE); PH,URINE 5.5 (5-9); PROTEIN,URINE 1+ (NEGATIVE)
[2021-11-21 02:01] LABS: BACTERIA,URINE TRACE /HPF; CLARITY,URINE SL CLOUDY; WBC,URINE 0-2 /HPF
--- NOTE | 2021-11-21 02:10 | ED GI ---
General Chief Complaint: Abdominal/GI Problems Stated Complaint: RT SIDE PAIN TO GROIN Nursing Triage Note: pt reports constipation. reports being seen here on 11/15 and being given pain medications. reports she has been taking miralax but has not had any bowel movements. reports RLQ pain Allergies and Home Medications Allergies Coded Allergies: promethazine (Verified Allergy, Severe, SEIZURE, NAUSEA, 07/19/08) duloxetine HCl (Verified Allergy, Mild, 05/28/11) escitalopram oxalate (Verified Allergy, Unknown, 09/22/13) niacin (Verified Allergy, Unknown, 09/22/13) olanzapine (Verified Allergy, Unknown, 09/22/13) ibuprofen (Verified Adverse Reaction, Mild, UNSET STOMACH, 09/22/13) lisinopril (Verified Adverse Reaction, Mild, HEADACHE, 09/22/13) tramadol (Verified Adverse Reaction, Mild, NAUSEATED, 09/22/13) Patient Home Medication List Albuterol Sulfate (Albuterol Sulfate Hfa) 8.5 Gm Hfa.aer.ad, 2 PUFF INH Q6H PRN for SHORTNESS OF BREATH, (Reported) Entered as Reported by: MEG GREEN on 11/17/11 1524 Alprazolam (Alprazolam) 1 Mg Tablet, 1 MG PO TID PRN for ANXIETY, (Reported) Entered as Reported by: SAMIR GALLOWAY on 08/28/15 0813 Amitriptyline HCl (Amitriptyline HCl) 25 Mg Tablet, 25 MG PO HS Prescribed by: KASSIE ANDREWS on 11/15/21 1028 Calcium Carbonate/Vitamin D3 (Calcium 600 + Vit D 200 Tablet) 1 Each Tablet, 1 TAB PO BID, (Reported) Entered as Reported by: SAMIR GALLOWAY on 08/28/15 0826 Cefdinir (Cefdinir) 300 Mg Capsule, 300 MG PO BID Prescribed by: KASSIE ANDREWS on 08/17/21 1814 Celecoxib (Celecoxib) 200 Mg Capsule, 200 MG PO BID, (Reported) Entered as Reported by: SAMIR GALLOWAY on 08/28/15 0823 Cephalexin (Cephalexin) 500 Mg Tablet, 500 MG PO BID Prescribed by: KIRSTEN FORD on 10/12/21 1649 Famotidine (Acid Dental Financial Coordinator (FAMOTIDINE)) 10 Mg Tablet, 10 MG PO BID PRN for heartburn Prescribed by: Ritesh Wilhelm on 10/14/21 1513 Fluticasone Propionate (Flonase Nasal [place]) 16 Gm Naspr, 2 SPRAYS NS BID PRN f or ALLERGIES, (Reported) Entered as Reported by: MEG GREEN on 11/17/11 1524 Furosemide (Furosemide) 40 Mg Tablet, 40 MG PO EVERY OTHER DAY, (Reported) Entered as Reported by: SAMIR GALLOWAY on 08/28/15812 Gemfibrozil (Gemfibrozil) 600 Mg Tablet, 600 MG PO BID, (Reported) Entered as Reported by: SAMIR GALLOWAY on 08/28/15812 Glimepiride (Glimepiride) 4 Mg Tablet, 4 MG PO DAILY, (Reported) Entered as Reported by: SAMIR GALLOWAY on 08/28/15822 Hydrocodone/Acetaminophen (Hydrocodone-Acetamin 5-325 mg) 1 Each Tablet, 0.5-1 TAB PO Q6H PRN for PAIN-SEVERE (8-10) Prescribed by: KASSIE ANDREWS on 08/17/21 181 Insulin Glargine,Hum.rec.anlog (Toujeo Solostar) 300 Unit/1 Ml Insuln.pen, 35 UNITS SC HS, (Reported) Entered as Reported by: SAMIR GALLOWAY on 08/28/15822 Insulin Glulisine (Apidra Solostar) 100 Unit/1 Ml Insuln.pen, 10 UNITS SC BREAKFAST & LUNCH, (Reported) Entered as Reported by: SAMIR GALLOWAY on 08/28/15822 Insulin Glulisine (Apidra Solostar) 100 Unit/1 Ml Insuln.pen, 14 UNITS SC WITH EVENING MEAL, (Reported) Entered as Reported by: SAMIR GALLOWAY on 08/28/15822 Levothyroxine Sodium (Levothyroxine Sodium) 200 Mcg Tablet, 200 MCG PO DAILY, (Reported) Entered as Reported by: SAMIR GALLOWAY on 08/28/15812 Metformin HCl (Metformin HCl) 1,000 Mg Tablet, 1,000 MG PO BID, (Reported) Entered as Reported by: SAMIR GALLOWAY on 4/12/16 0823 Metoprolol Tartrate (Metoprolol Tartrate) 25 Mg Tablet, 25 MG PO BID, (Reported) Entered as Reported by: SAMIR GALLOWAY on 08/28/15 0823 Naloxone HCl (Narcan) 4 Mg/Actuation [place], 2 MG NS UD Prescribed by: KASSIE ANDREWS on 11/15/21 1028 Omeprazole (Omeprazole) 20 Mg Capsule.dr, 20 MG PO DAILY PRN for heartburn Prescribed by: Ritesh Wilhelm on 10/14/21 1513 Orphenadrine Citrate (Orphenadrine Citrate) 100 Mg Tablet.er, 100 MG PO TID Prescribed by: NICOL ADAMS on 08/20/21 0208 Oxycodone HCl (Oxycodone HCl ER) 10 Mg Tab.er.12h, 10 MG PO BID Prescribed by: KASSIE ANDREWS on 11/15/21 1517 Oxycodone HCl/Acetaminophen (Percocet 5-325 mg Tablet) 1 Each Tablet, 1 TAB PO Q4H PRN for PAIN-MODERATE (5-7) Prescribed by: KASSIE ANDREWS on 11/14/21 1455 Polyethylene Glycol (Miralax 17 Gm Packet) 17 Gm Pack, 17 GM PO EVERY OTHER DAY, (Reported) Entered as Reported by: MEG GREEN on 11/17/11 1524 Tramadol HCl (Tramadol HCl) 50 Mg Tablet, 50 MG PO Q6H PRN for PAIN Prescribed by: DEBO NOVA on 06/12/18 1034 Past Esmhepa-Tvokug-Nycndj Hx Patient Social History Tobacco Use?: No Substance use?: No Alcohol Use?: No Immunizations Up To Date Tetanus Booster (TDap): Less than 5yrs First/Initial COVID19 Vaccinat: NONE Second COVID19 Vaccination Cas: NONE Third COVID19 Vaccination Date: NONE Seasonal Allergies Seasonal Allergies: No Past Medical History Surgery/Hospitalization HX: UNKNOWN PT STATED "ITS IN MY CHART I CANT ANSWER YOU IM IN TO MUCH PAIN" Surgeries: Yes (GALLBLADDER,THYROID,KIDNEY, COLON, BREAST BONE REMOVED) Abdominal, Bowel Surgery, Gallbladder, Nephrectomy, Thyroidectomy Respiratory: Yes (SOB AT TIMES, USES INH) Cardiac: Yes High Cholesterol, Hypertension, Peripheral Vascular Neurological: No 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 Sexually Transmitted Disease: No Genitourinary: Yes (RENAL CANCER-S/P LEFT NEPHRECTOMY) UTI-Chronic Gastrointestinal: Yes (S/P COLON RESECTION/COLOSTOMY/TAKEDOWN FOR RUPTURED DIVERTICULITIS) Diverticulosis, Pancreatitis Musculoskeletal: Yes Degenerate Disk Disease, Arthritis, Chronic Back Pain Endocrine: Yes Diabetes, Insulin dep, Hypothyroidsim, Diabetes, Non-Insulin dep HEENT: Yes Cataract, Glaucoma Cancer: Yes Kidney Did You Recieve Any Treatments: Yes What Type of Treatment Did You: Surgical Intervention Psychosocial: Yes Anxiety, Depression Integumentary: No Blood Disorders: No Adverse Reaction/Blood Tranf: No Family Medical History PSH: -LEFT NEPHRECTOMY 1985 FOR CANCER -COLON RESECTION WITH COLOSTOMY AND LATER TAKEDOWN FOR PERFORATED DIVERTICULITIS -CHOLECYSTECTOMY Physical Exam Vital Signs Vital Signs - First Documented 11/20/21 23:54 Pulse 85 Resp 16 B/P (MAP) 179/98 (125) Pulse Ox 97 O2 Delivery Room Air Capillary Refill : Height/Weight/BMI Height: 5'0.00" Weight: 160lbs. 8.0oz. 72.232432au; 29.00 BMI Method:Stated Progress/Results/Core Measures Results/Orders Lab Results Laboratory Tests Test 11/21/21 01:40 Range/Units Urine Color YELLOW Urine Clarity SL CLOUDY Urine pH 5.5 5-9 Urine Specific Severance >=1.030 1.016-1.022 Urine Protein 1+ H NEGATIVE Urine Glucose (UA) NEGATIVE NEGATIVE Urine Ketones NEGATIVE NEGATIVE Urine Nitrite NEGATIVE NEGATIVE Urine Bilirubin NEGATIVE NEGATIVE Urine Urobilinogen 0.2 < = 1.0 MG/DL Urine Leukocyte Esterase NEGATIVE NEGATIVE Urine RBC (Auto) NEGATIVE NEGATIVE Urine RBC NONE /HPF Urine WBC 0-2 /HPF Urine Squamous Epithelial Cells 10-25 H /HPF Urine Crystals NONE /LPF Urine Bacteria TRACE /HPF Urine Casts NONE /LPF Urine Mucus NEGATIVE /LPF Urine Culture Indicated NO My Orders Orders - NICOL ADAMS DO Ua Culture If Indicated (11/21/21 00:01) Abdomen/Kub 1[place] (11/21/21 00:18) Ct Abd/Pelvis Wo(Kidney Stone) (11/21/21 00:18) Vital Signs/I&O 11/20/21 23:54 Pulse 85 Resp 16 B/P (MAP) 179/98 (125) Pulse Ox 97 O2 Delivery Room Air Blood Pressure Mean: 125 Departure Impression Primary Impression: Constipation Disposition: 01 HOME, SELF-CARE Condition: Stable Departure-Patient Inst. Decision time for Depature: 02:09 Referrals: SELF,ANA MARIA STEPHEN (PCP/Family) Primary Care Physician Patient Instructions: Constipation, Adult ED Add. Discharge Instructions: USE FLEET'S ENEMAS AND DULCOLAX SUPPOSITORIES UNTIL YOU HAVE A BOWEL MOVEMENT USE MIRALAX EVERY HOUR UNTIL YOU HAVE A BM, THEN USE AT LEAST ONCE DAILY---YOU MAY INCREASE THE DOSE NEEDED FOR BM CONTINUE YOUR OTHER MEDICATIONS PRESCRIBED FOLLOW UP WITH YOUR DR IN 2-3 DAYS IF NO BETTER All discharge instructions reviewed with patient and/or family. Voiced understanding. NICOL ADAMS DO Nov 21, 2021 02:10
--- NOTE | 2021-11-21 07:01 | Diagnostic Imaging Report ---
CT ABD/PELVIS WO(KIDNEY STONE) TECHNIQUE: Unenhanced CT imaging of the abdomen and pelvis was performed. 2-D reformats are created and submitted for interpretation. Automatic exposure controls were utilized to optimize patient dose. INDICATION: Flank pain COMPARISON: 11/14/2021 FINDINGS: Evaluation of the abdominal viscera is suboptimal without contrast. Lower chest: There is a small amount of atelectasis in the medial aspect the right lung base. Calcified granuloma in the right lower lobe. Peritoneum: No free intraperitoneal air or fluid. Liver and biliary system: Unenhanced liver is normal. Cholecystectomy. No biliary duct dilatation. Spleen and Pancreas: Spleen is normal. Unenhanced pancreas is grossly normal. Adrenals: Normal. tract: Left nephrectomy. No right renal or ureteral stones. Vascular calcifications are present in the right renal hilum. A small focus of fat necrosis adjacent upper pole right kidney is unchanged. Urinary bladder is normal. Status post hysterectomy. No adnexal mass. GI tract: Stomach is decompressed. No bowel obstruction. No colitis or diverticulitis. Stable postoperative changes with anastomotic staple line in the rectosigmoid colon. Appendectomy. Vasculature and Lymph nodes: Normal caliber aorta. No abdominal or pelvic lymphadenopathy. Musculoskeletal: No concerning osseous lesion. IMPRESSION: 1. Left nephrectomy. 2. No right-sided hydronephrosis or urinary tract calculi. 3. Findings are in agreement with the preliminary report. Dictated by: Dictated on workstation # [id number]
--- NOTE | 2021-11-21 07:52 | Diagnostic Imaging Report ---
ABDOMEN/KUB 1VIEW INDICATION: Abdominal pain COMPARISON: CT abdomen pelvis performed earlier same day TECHNIQUE: AP view the abdomen FINDINGS: Numerous pelvic phleboliths are present. No urinary tract calculi are appreciated. Vascular calcifications are present. Surgical clips from left nephrectomy. Degenerative changes within the lumbar spine. Partially imaged pacemaker leads. IMPRESSION: No radiographic abnormality to account for patient's pain. Dictated by: Dictated on workstation # [id number]
[2021-11-22] MEDS ORDERED: ONDA4TAB11 SL (10:56)
== END 2021-11-21 02:30 | disposition home or self-care (01) ==
LOC: EDUNIT# 23:25 → ER 23:30
DX: K59.00 Constipation, unspecified (principal); E11.9 Type 2 diabetes mellitus without complications; Z85.528 Personal history of other malignant neoplasm of kidney; Z90.49 Acquired absence of other specified parts of digestive tract; Z90.5 Acquired absence of kidney; Z93.3 Colostomy status; Z79.4 Long term (current) use of insulin; Z28.310 Unvaccinated for COVID-19
CPT/HCPCS: 74018; 74176; 81000; 99281

== ENCOUNTER 2021-11-22 08:42 | Emergency (ER) | payer MEDICAID ==
[~2021-11-22] VITALS: Ht 152 cm; Wt 81.0 kg
[2021-11-22] MEDS ORDERED: ONDANSETRON 4 MG/2 ML (SDV) Z0FRAN IVP ONE (09:00)
[2021-11-22] MEDS ORDERED: NS IV 1000 ML 1,000 ML IV SCH (09:00)
[2021-11-22 09:12] LABS: BASOPHILS % (AUTO) 0 % (0-10); EOSINOPHILS # (AUTO) 0.1 10^3/uL (0.0-0.3); EOSINOPHILS % (AUTO) 1 % (0-10); HEMATOCRIT 34 % (35-52); HEMOGLOBIN 11.1 g/dL (11.5-16.0); LYMPHOCYTES # (AUTO) 1.5 10^3/uL (1.0-4.0); LYMPHOCYTES % (AUTO) 22 % (12-44); MEAN CORPUSCULAR HEMOGLOBIN 30 pg (25-34); MEAN CORPUSCULAR HGB CONC 33 g/dL (32-36); MEAN CORPUSCULAR VOLUME 92 fL (80-99); MEAN PLATELET VOLUME 10.4 fL (9.0-12.2); MONOCYTES # (AUTO) 0.5 10^3/uL (0.0-1.0); MONOCYTES % (AUTO) 7 % (0-12); NEUTROPHILS # (AUTO) 4.7 10^3/uL (1.8-7.8); NEUTROPHILS % (AUTO) 69 % (42-75); PLATELET COUNT 305 10^3/uL (130-400); WHITE BLOOD COUNT 6.9 10^3/uL (4.3-11.0)
[2021-11-22 09:20] LABS: ALBUMIN 3.9 GM/DL (3.2-4.5)
[2021-11-22 09:21] LABS: POTASSIUM 3.9 MMOL/L (3.6-5.0)
[2021-11-22 09:22] LABS: CALCIUM 9.3 MG/DL (8.5-10.1)
[2021-11-22 09:23] LABS: TOTAL PROTEIN 6.8 GM/DL (6.4-8.2)
[2021-11-22 09:25] LABS: BILIRUBIN,TOTAL 0.5 MG/DL (0.1-1.0)
[2021-11-22 09:27] LABS: CREATININE SERUM 1.72 MG/DL (0.60-1.30)
[2021-11-22 09:30] LABS: MAGNESIUM 2.1 MG/DL (1.6-2.4)
[2021-11-22 09:51] LABS: FREE T4 (FREE THYROXINE) 1.14 NG/DL (0.70-1.48)
--- NOTE | 2021-11-22 09:53 | Diagnostic Imaging Report ---
Clinical indications: Patient with no BM for 10 days. Exam: CT exam of the abdomen and pelvis is performed without IV or oral contrast using stone protocol. Coronal and sagittal reformatted images were created. Auto Exposure Controls were utilized during the CT exam to meet ALARA standards for radiation dose reduction. Comparisons: CT scan of the abdomen and pelvis without contrast dated 11/21/2021. CT scan of the abdomen and pelvis without contrast dated 08/27/2015. Findings: Stable mild bibasilar atelectasis or scarring. There are degenerative spurs involving both hips. There is lower lumbar spine facet arthropathy. There are degenerative spurs involving the visualized lower thoracic spine and lumbar spine. The liver, spleen, pancreas, and adrenal glands are stable with no significant interval abnormality. Left nephrectomy changes are again noted. Stable complex exophytic area involving the upper portion right kidney with amorphous calcification associated with it. Patient was noted to have a 2.4 cm cyst in this region on the prior CT scan dated 08/27/2015, but now this area has decreased in size and demonstrates calcification. Vascular calcifications are seen involving the right kidney. There is a nonobstructive stone involving the upper portion of the right kidney. There is no right hydronephrosis. Bladder is fluid-filled and grossly unremarkable. There are anastomotic sutures seen in the sigmoid colon region. There are large amounts of stool in the rectum which has increased in the interim. There is no intestinal obstruction. There is a moderate amount of air-fluid levels with liquid stool throughout the rest of the colon which has progressed in interim. There is no intra-abdominal free air or free fluid. The remainder of this exam shows no significant interval change compared to the prior study of comparison. IMPRESSION: 1: There is large amounts of stool in the rectum which has increased in interim. There is no intestinal obstruction. There is a moderate amount of air-fluid levels with liquid stool seen throughout the colon which is slightly progressed. 2: The remainder of this exam shows no significant interval change compared to the prior study of comparison. Dictated by: Dictated on workstation # [id number]
[2021-11-22] MEDS ORDERED: morphine INJ 10 MG/ML 1ML (SYR OR VIAL) IVP STA (10:33)
[2021-11-22] MEDS ORDERED: ONDA4TAB11 SL (10:56)
--- NOTE | 2021-11-22 10:56 | ED Abdominal Pain ---
General Chief Complaint: Abdominal/GI Problems Stated Complaint: ANXIETY Nursing Triage Note: pt to rm 7 by cr co ems with cc of anxiety, no bm for 10 days. Source of Information: Patient, EMS, Family, Old Records Exam Limitations: No Limitations History of Present Illness Date Seen by Provider: Nov 22, 2021 Time Seen by Provider: 08:53 Initial Comments This is 76-year-old woman presents to the emergency room with initial complaint of anxiety and hyperglycemia when EMS was activated. She is calm on arrival and now has primary complaint of abdominal pain, low back pain, and constipation with no bowel movement for 10 days. They tried at least 3 doses of MiraLAX yesterday as well as Senokot without relief. They have not tried any suppositories or enemas. She could not tolerate any further MiraLAX yesterday because she started to have nausea and vomiting. She is presently under treatment for severe lumbar spinal stenosis for which she is scheduled to receive injection therapy by Dr. Stephens at [facility]. She is also being worked up for possible right renal neoplasm. She had a prior left nephrectomy due to cancer. Patient is known to me from 2 prior recent ER visits. She has not taken any of her pain medication today. Allergies and Home Medications Allergies Coded Allergies: promethazine (Verified Allergy, Severe, SEIZURE, NAUSEA, 07/19/08) duloxetine HCl (Verified Allergy, Mild, 05/28/11) escitalopram oxalate (Verified Allergy, Unknown, 09/22/13) niacin (Verified Allergy, Unknown, 09/22/13) olanzapine (Verified Allergy, Unknown, 09/22/13) ibuprofen (Verified Adverse Reaction, Mild, UNSET STOMACH, 09/22/13) lisinopril (Verified Adverse Reaction, Mild, HEADACHE, 09/22/13) tramadol (Verified Adverse Reaction, Mild, NAUSEATED, 09/22/13) Patient Home Medication List Home Medication List Reviewed: Yes Albuterol Sulfate (Albuterol Sulfate Hfa) 8.5 Gm Hfa.aer.ad, 2 PUFF INH Q6H PRN for SHORTNESS OF BREATH, (Reported) Entered as Reported by: MEG GREEN on 11/17/11 1524 Alprazolam (Alprazolam) 1 Mg Tablet, 1 MG PO TID PRN for ANXIETY, (Reported) Entered as Reported by: SAMIR GALLOWAY on 08/28/15812 Amitriptyline HCl (Amitriptyline HCl) 25 Mg Tablet, 25 MG PO HS Prescribed by: KASSIE ANDREWS on 11/15/21 1028 Calcium Carbonate/Vitamin D3 (Calcium 600 + Vit D 200 Tablet) 1 Each Tablet, 1 TAB PO BID, (Reported) Entered as Reported by: SAMIR GALLOWAY on 08/28/15 08 Cefdinir (Cefdinir) 300 Mg Capsule, 300 MG PO BID Prescribed by: KASSIE ANDREWS on 08/17/211813 Celecoxib (Celecoxib) 200 Mg Capsule, 200 MG PO BID, (Reported) Entered as Reported by: SAMIR GALLOWAY on 08/28/15822 Cephalexin (Cephalexin) 500 Mg Tablet, 500 MG PO BID Prescribed by: KIRSTEN FORD on 10/12/21 1649 Famotidine (Acid Gas Appliance Mechanic (FAMOTIDINE)) 10 Mg Tablet, 10 MG PO BID PRN for heartburn Prescribed by: Ritesh Wilhelm on 10/14/21 1513 Fluticasone Propionate (Flonase Nasal [place]) 16 Gm Naspr, 2 SPRAYS NS BID PRN for ALLERGIES, (Reported) Entered as Reported by: MEG GREEN on 11/17/11 152 Furosemide (Furosemide) 40 Mg Tablet, 40 MG PO EVERY OTHER DAY, (Reported) Entered as Reported by: SAMIR GALLOWAY on 08/28/15812 Gemfibrozil (Gemfibrozil) 600 Mg Tablet, 600 MG PO BID, (Reported) Entered as Reported by: SAMIR GALLOWAY on 08/28/15812 Glimepiride (Glimepiride) 4 Mg Tablet, 4 MG PO DAILY, (Reported) Entered as Reported by: SAMIR GALLOWAY on 08/28/15822 Hydrocodone/Acetaminophen (Hydrocodone-Acetamin 5-325 mg) 1 Each Tablet, 0.5-1 TAB PO Q6H PRN for PAIN-SEVERE (8-10) Prescribed by: KASSIE ANDREWS on 08/17/211813 Insulin Glargine,Hum.rec.anlog (Touandre Solostar) 300 Unit/1 Ml Insuln.pen, 35 UNITS SC HS, (Reported) Entered as Reported by: SAMIR GALLOWAY on 08/28/15822 Insulin Glulisine (Apidra Solostar) 100 Unit/1 Ml Insuln.pen, 10 UNITS SC BREAKFAST & LUNCH, (Reported) Entered as Reported by: SAMIR GALLOWAY on 08/28/15822 Insulin Glulisine (Apidra Solostar) 100 Unit/1 Ml Insuln.pen, 14 UNITS SC WITH EVENING MEAL, (Reported) Entered as Reported by: SAMIR GALLOWAY on 08/28/15822 Levothyroxine Sodium (Levothyroxine Sodium) 200 Mcg Tablet, 200 MCG PO DAILY, (Reported) Entered as Reported by: SAMIR GALLOWAY on 08/28/15812 Metformin HCl (Metformin HCl) 1,000 Mg Tablet, 1,000 MG PO BID, (Reported) Entered as Reported by: SAMIR GALLOWAY on 08/28/15822 Metoprolol Tartrate (Metoprolol Tartrate) 25 Mg Tablet, 25 MG PO BID, (Reported) Entered as Reported by: SAMIR GALLOWAY on 08/28/15822 Naloxone HCl (Narcan) 4 Mg/Actuation [place], 2 MG NS UD Prescribed by: KASSIE ANDREWS on 11/15/21 1028 Omeprazole (Omeprazole) 20 Mg Capsule.dr, 20 MG PO DAILY PRN for heartburn Prescribed by: Ritesh Wilhelm on 10/14/21 1513 Ondansetron (Ondansetron Odt) 4 Mg Tab.rapdis, 4 MG SL Q4H PRN for NAUSEA/VOMITING Prescribed by: KASSIE ANDREWS on 11/22/21 1056 Orphenadrine Citrate (Orphenadrine Citrate) 100 Mg Tablet.er, 100 MG PO TID Prescribed by: NICOL ADAMS on 08/20/21 0208 Oxycodone HCl (Oxycodone HCl ER) 10 Mg Tab.er.12h, 10 MG PO BID Prescribed by: KASSIE ANDREWS on 11/15/21 1517 Oxycodone HCl/Acetaminophen (Percocet 5-325 mg Tablet) 1 Each Tablet, 1 TAB PO Q4H PRN for PAIN-MODERATE (5-7) Prescribed by: KASSIE ANDREWS on 11/14/21 1455 Polyethylene Glycol (Miralax 17 Gm Packet) 17 Gm Pack, 17 GM PO EVERY OTHER DAY, (Reported) Entered as Reported by: MEG GREEN on 11/17/11 1524 Tramadol HCl (Tramadol HCl) 50 Mg Tablet, 50 MG PO Q6H PRN for PAIN Prescribed by: DEBO NOVA on 06/12/18 1034 Review of Systems Review of Systems Constitutional: no symptoms reported EENTM: No Symptoms Reported Respiratory: No Symptoms Reported Cardiovascular: No Symptoms Reported Gastrointestinal: See HPI Genitourinary: See HPI Musculoskeletal: see HPI Skin: no symptoms reported Psychiatric/Neurological: Other (Lower extremity weakness and pain secondary to lumbar spinal stenosis) Endocrine: See HPI Hematologic/Lymphatic: No Symptoms Reported Past Iridiaj-Gyhnlp-Zclrry Hx Patient Social History Tobacco Use?: No Substance use?: No Alcohol Use?: No Immunizations Up To Date Tetanus Booster (TDap): Less than 5yrs First/Initial COVID19 Vaccinat: NONE Second COVID19 Vaccination Cas: NONE Third COVID19 Vaccination Date: NONE Seasonal Allergies Seasonal Allergies: No Past Medical History Surgery/Hospitalization HX: appendix, gallbladder, lt kidney removed due to ca, ca in rt kidney Surgeries: Yes (GALLBLADDER,THYROID,KIDNEY, COLON, BREAST BONE REMOVED) Abdominal, Bowel Surgery, Gallbladder, Nephrectomy, Thyroidectomy Respiratory: Yes (SOB AT TIMES, USES INH) Cardiac: Yes High Cholesterol, Hypertension, Peripheral Vascular Neurological: No : No 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 Disorders: No NON DESTRUCTIVE TESTING SPECIALIST History: Menopausal Sexually Transmitted Disease: No Genitourinary: Yes (RENAL CANCER-S/P LEFT NEPHRECTOMY) UTI-Chronic Gastrointestinal: Yes (S/P COLON RESECTION/COLOSTOMY/TAKEDOWN FOR RUPTURED DIVERTICULITIS) Diverticulosis, Pancreatitis Musculoskeletal: Yes Degenerate Disk Disease, Arthritis, Chronic Back Pain Endocrine: Yes Diabetes, Insulin dep, Hypothyroidsim, Diabetes, Non-Insulin dep HEENT: Yes Cataract, Glaucoma Cancer: Yes Kidney Did You Recieve Any Treatments: Yes What Type of Treatment Did You: Surgical Intervention Psychosocial: Yes Anxiety, Depression Integumentary: No Blood Disorders: No Adverse Reaction/Blood Tranf: No Family Medical History PSH: -LEFT NEPHRECTOMY 1985 FOR CANCER -COLON RESECTION WITH COLOSTOMY AND LATER TAKEDOWN FOR PERFORATED DIVERTICULITIS -CHOLECYSTECTOMY Physical Exam Vital Signs Vital Signs - First Documented 11/22/21 08:54 Temp 36.1 Pulse 87 Resp 18 B/P (MAP) 188/113 (138) Pulse Ox 98 O2 Delivery Room Air Capillary Refill : Height/Weight/BMI Height: 5'0.00" Weight: 160lbs. 8.0oz. 72.765211ek; 35.00 BMI Method:Stated General Appearance: WD/WN, no apparent distress HEENT: PERRL/EOMI, normal ENT inspection Neck: normal inspection Respiratory: lungs clear, normal breath sounds, no respiratory distress Cardiovascular: regular rate, rhythm, no edema, no murmur Gastrointestinal: normal bowel sounds, soft, tenderness (Generalized but more prominent in the right lower quadrant) Extremities: normal inspection, no pedal edema Neurologic/Psychiatric: opener II-XII nml as tested, alert, oriented x 3, motor w eakness (Lower extremities), other (Anxious) Skin: normal color, warm/dry Progress/Results/Core Measures Results/Orders Lab Results Laboratory Tests Test 11/22/21 08:58 11/22/21 09:02 Range/Units Glucometer 174 H 70-110 MG/DL White Blood Count 6.9 4.3-11.0 10^3/uL Red Blood Count 3.67 L 3.80-5.11 10^6/uL Hemoglobin 11.1 L 11.5-16.0 g/dL Hematocrit 34 L 35-52 % Mean Corpuscular Volume 92 80-99 fL Mean Corpuscular Hemoglobin 30 25-34 pg Mean Corpuscular Hemoglobin Concent 33 32-36 g/dL Red Cell Distribution Width 13.5 10.0-14.5 % Platelet Count 305 130-400 10^3/uL Mean Platelet Volume 10.4 9.0-12.2 fL Immature Granulocyte % (Auto) 1 % Neutrophils (%) (Auto) 69 42-75 % Lymphocytes (%) (Auto) 22 12-44 % Monocytes (%) (Auto) 7 0-12 % Eosinophils (%) (Auto) 1 0-10 % Basophils (%) (Auto) 0 0-10 % Neutrophils # (Auto) 4.7 1.8-7.8 10^3/uL Lymphocytes # (Auto) 1.5 1.0-4.0 10^3/uL Monocytes # (Auto) 0.5 0.0-1.0 10^3/uL Eosinophils # (Auto) 0.1 0.0-0.3 10^3/uL Basophils # (Auto) 0.0 0.0-0.1 10^3/uL Immature Granulocyte # (Auto) 0.1 0.0-0.1 10^3/uL Sodium Level 138 135-145 MMOL/L Potassium Level 3.9 3.6-5.0 MMOL/L Chloride Level 101 98-107 MMOL/L Carbon Dioxide Level 25 21-32 MMOL/L Anion Gap 12 5-14 MMOL/L Blood Urea Nitrogen 29 H 7-18 MG/DL Creatinine 1.72 H 0.60-1.30 MG/DL Estimat Glomerular Filtration Rate 30 BUN/Creatinine Ratio 17 Glucose Level 166 H 70-105 MG/DL Calcium Level 9.3 8.5-10.1 MG/DL Corrected Calcium 9.4 8.5-10.1 MG/DL Magnesium Level 2.1 1.6-2.4 MG/DL Total Bilirubin 0.5 0.1-1.0 MG/DL Aspartate Amino Transf (AST/SGOT) 43 H 5-34 U/L Alanine Aminotransferase (ALT/SGPT) 42 0-55 U/L Alkaline Phosphatase 162 H 40-136 U/L Total Protein 6.8 6.4-8.2 GM/DL Albumin 3.9 3.2-4.5 GM/DL Lipase 7 L 8-78 U/L Thyroid Stimulating Hormone (TSH) 13.22 H 0.35-4.94 UIU/ML Free Thyroxine 1.14 0.70-1.48 NG/DL My Orders Orders - KASSIE SHEN MD Cbc With Automated Diff (11/22/21 08:59) Comprehensive Metabolic Panel (11/22/21 08:59) Magnesium (11/22/21 08:59) Ed Iv/Invasive Line Start (11/22/21 08:59) Ns Iv 1000 Ml (Sodium Chloride 0.9%) (11/22/21 09:00) Ondansetron Injection (Zofran Injectio (11/22/21 09:00) Ct Abdomen/Pelvis Wo (11/22/21 09:00) Lipase (11/22/21 09:03) Thyroid Stimulating Hormone (11/22/21 09:06) Free T4 (Free Thyroxine) (11/22/21 09:06) Morphine Injection (Morphine Injection (11/22/21 10:33) Medications Given in ED Current Medications Medications Dose Ordered Sig/Davey Route Start Time Stop Time Status Last Admin Dose Admin Ondansetron HCl 8 mg ONCE ONCE IVP 11/22/21 09:00 11/22/21 09:01 DC 11/22/21 09:15 8 MG Vital Signs/I&O 11/22/21 11/22/21 11/22/21 08:54 10:39 11:44 Temp 36.1 36.1 36.1 Pulse 87 74 Resp 18 18 B/P (MAP) 188/113 (138) 139/73 Pulse Ox 98 98 O2 Delivery Room Air Room Air Blood Pressure Mean: 138 FSBG Bedside Testing Finger Stick Blood Glucose: 174 Blood Glucose Action Taken: NURSE AND DOC NOTIFIED Progress Progress Note : Progress Note Patient was interviewed and examined upon arrival. Report received from EMS. Patient's primary issue today is pain control, abdominal pain, and constipation. CT abdomen and pelvis was obtained partially because patient could not stand for an upright abdominal film and partially to rule out bowel obstruction. Patient was found to have distal constipation and liquidy stool in the proximal colon. Treatment with suppository and/or enema was recommended. She received a liter of IV fluid. She had not taken any pain medication today. She was treated with morphine 4 mg IV followed by a Percocet. See discharge instruc tions for further discussion. Zofran was given for nausea and was prescribed. Diagnostic Imaging Diagonstic Imaging: CT Plain Films/CT/US/NM/MRI: abdomen, pelvis Comments CT scan viewed by me and report reviewed. See report below: NAME: [facility] REC#: [id number] PT STATUS: DEP ER : [id number] PHYSICIAN: KASSIE SHEN MD ADMIT DATE: 11/22/21/ER Signed Date of Exam:11/22/21 CT ABDOMEN/PELVIS WO Clinical indications: Patient with no BM for 10 days. Exam: CT exam of the abdomen and pelvis is performed without IV or oral contrast using stone protocol. Coronal and sagittal reformatted images were created. Auto Exposure Controls were utilized during the CT exam to meet ALARA standards for radiation dose reduction. Comparisons: CT scan of the abdomen and pelvis without contrast dated 11/21/2021. CT scan of the abdomen and pelvis without contrast dated 08/27/2015. Findings: Stable mild bibasilar atelectasis or scarring. There are degenerative spurs involving both hips. There is lower lumbar spine facet arthropathy. There are degenerative spurs involving the visualized lower thoracic spine and lumbar spine. The liver, spleen, pancreas, and adrenal glands are stable with no significant interval abnormality. Left nephrectomy changes are again noted. Stable complex exophytic area involving the upper portion right kidney with amorphous calcification associated with it. Patient was noted to have a 2.4 cm cyst in this region on the prior CT scan dated 08/27/2015, but now this area has decreased in size and demonstrates calcification. Vascular calcifications are seen involving the right kidney. There is a nonobstructive stone involving the upper portion of the right kidney. There is no right hydronephrosis. Bladder is fluid-filled and grossly unremarkable. There are anastomotic sutures seen in the sigmoid colon region. There are large amounts of stool in the rectum which has increased in the interim. There is no intestinal obstruction. There is a moderate amount of air-fluid levels with liquid stool throughout the rest of the colon which has progressed in interim. There is no intra-abdominal free air or free fluid. The remainder of this exam shows no significant interval change compared to the prior study of comparison. IMPRESSION: 1: There is large amounts of stool in the rectum which has increased in interim. There is no intestinal obstruction. There is a moderate amount of air-fluid levels with liquid stool seen throughout the colon which is slightly progressed. 2: The remainder of this exam shows no significant interval change compared to the prior study of comparison. Dictated by: Dictated on workstation # [id number] Dict: 11/22/21 0943 Trans: 11/22/211717 [facility] [id number] Interpreted by: EFRAIN GONZALEZ MD Electronically signed by: EFRAIN GONZALEZ MD 11/22/211717 Departure Impression Primary Impression: Constipation Qualified Codes: K59.00 - Constipation, unspecified Additional Impressions: Nausea and vomiting Qualified Codes: R11.2 - Nausea with vomiting, unspecified Chronic back pain Qualified Codes: M54.42 - Lumbago with sciatica, left side; M54.41 - Lumbago with sciatica, right side; G89.29 - Other chronic pain Lumbar spinal stenosis Qualified Codes: M48.062 - Spinal stenosis, lumbar region with neurogenic claudication Disposition: 01 HOME, SELF-CARE Condition: Improved Departure-Patient Inst. Decision time for Depature: 10:53 Referrals: ANA MARIA YING MD (PCP/Family) Primary Care Physician Patient Instructions: Chronic Pain, Constipation in Adults Add. Discharge Instructions: Continue to drink plenty of clear liquids. You may continue using a stool softener and daily doses of MiraLAX to prevent constipation. Also eat plenty of fruits, vegetables, and whole grains. Avoid excessive meats, cheeses, processed foods, and fast foods. Suppositories and/or enemas may be helpful to clear the harder stool near the rectum. Follow package instructions. Use Zofran (ondansetron) as prescribed for nausea vomiting. Keep your follow-up appointments with your specialists and follow-up with your primary care provider soon as possible. Since you missed to the morning dose of the long-acting pain medication, use your short acting pain medications until it is time to take your evening dose. Call your doctors with questions or concerns. Return to the ER if you have worsening symptoms despite following these instructions. All discharge instructions reviewed with patient and/or family. Voiced understanding. Scripts Ondansetron (Ondansetron Odt) 4 Mg Tab.rapdis 4 MG SL Q4H PRN for NAUSEA/VOMITING, #10 TAB 1 Refill Prov: KASSIE SHEN MD 11/22/21 Copy Copies To 1: ANA MARIA YING MD, JOSHUA T MD Nov 22, 2021 10:56
[2021-11-22 11:44] VITALS: BP 139/73
== END 2021-11-22 11:44 | disposition home or self-care (01) ==
LOC: EDUNIT# 08:42 → ER 08:53
DX: R11.2 Nausea with vomiting, unspecified (principal); K59.00 Constipation, unspecified; M48.062 Spinal stenosis, lumbar region with neurogenic claudication; M54.41 Lumbago with sciatica, right side; M54.42 Lumbago with sciatica, left side; G89.29 Other chronic pain; F41.9 Anxiety disorder, unspecified; E11.9 Type 2 diabetes mellitus without complications; Z79.4 Long term (current) use of insulin; Z28.310 Unvaccinated for COVID-19
CPT/HCPCS: 36415; 74176; 80053; 82947; 83690; 83735; 84439; 84443; 85025

== ENCOUNTER 2021-11-23 23:29 | Emergency (ER) | payer MEDICAID ==
[~2021-11-23] VITALS: Ht 152 cm; Wt 81.0 kg
[~2021-11-23 23:29] MED LIST changes: +ONDA4TAB11 SL
[2021-11-24] MEDS ORDERED: ORPHENADRINE 60 MG/2 ML (NORFLEX) AMP (ED ONLY) IM STA (00:33)
[2021-11-24] MEDS ORDERED: morphine INJ 10 MG/ML 1ML (SYR OR VIAL) IVP STA (00:33)
--- NOTE | 2021-11-24 00:42 | ED Back Pain ---
General Chief Complaint: Back Problems Stated Complaint: LOW BACK PAIN Nursing Triage Note: WORSENED CHRONIC LOWER BACK PAIN. BULDGING DISC Source of Information: Patient, Family Exam Limitations: Other (behavior/belligerance) History of Present Illness Date Seen by Provider: Nov 24, 2021 Time Seen by Provider: 00:15 Initial Comments Patient is a 76-year-old female who presents to the emergency department with a chief complaint of low back pain. She apparently has a history of severe spinal stenosis and is scheduled to be seen at [facility] on Thursday for spine injections. She has had multiple prior visits to this ER and other ERs for pain control. Her family is present with her, they are her primary urgent care since the end of October. She is quite hostile and belligerent, cursing at this provider because I am not giving her pain medications without doing a history or physical exam. She at one point became so hostile she decided she was going to leave without any treatment. Her family intervened and convinced her to let me examine her. She remained hostile making multiple unkind/rude statements. I was able to elicit that she is not having any problems with incontinence. She has been constipated for a week. No fevers, chills, productive cough. No rashes. She states this pain starts in her low back and radiates up between her shoulder blades. She requires assistance with standing and walking. She denies weakness. No nausea or vomiting. No URI symptoms. Family states that they have not been giving her her immediate pain release narcotics because they make her so sleepy. She is not awake enough to eat and her sugars are affected. They are only giving her her sustained release medications. Family also points out that she has had some increased swelling in her lower extremities. Review of systems primarily obtained from the family members at bedside because the patient refuses to talk. H/o of solitary Kidney - due to prior kidney cancer. Timing/Duration: Constant, Getting Worse Severity: Severe Pain/Injury Location: Back Radiation: Other (between shoulder blades) Modifying Factors: Worse With Movement Associated Symptoms: No numbness in legs/feet, No tingling in legs/feet, No sensory/motor loss; lower back pain; No loss of bladder control, No loss of bowel control Allergies and Home Medications Allergies Coded Allergies: promethazine (Verified Allergy, Severe, SEIZURE, NAUSEA, 07/19/08) duloxetine HCl (Verified Allergy, Mild, 05/28/11) escitalopram oxalate (Verified Allergy, Unknown, 09/22/13) niacin (Verified Allergy, Unknown, 09/22/13) olanzapine (Verified Allergy, Unknown, 09/22/13) ibuprofen (Verified Adverse Reaction, Mild, UNSET STOMACH, 09/22/13) lisinopril (Verified Adverse Reaction, Mild, HEADACHE, 09/22/13) tramadol (Verified Adverse Reaction, Mild, NAUSEATED, 09/22/13) Patient Home Medication List Home Medication List Reviewed: Yes Albuterol Sulfate (Albuterol Sulfate Hfa) 8.5 Gm Hfa.aer.ad, 2 PUFF INH Q6H PRN for SHORTNESS OF BREATH, (Reported) Entered as Reported by: MEG GREEN on 11/17/11 1524 Alprazolam (Alprazolam) 1 Mg Tablet, 1 MG PO TID PRN for ANXIETY, (Reported) Entered as Reported by: SAMIR GALLOWAY on 08/28/15 0813 Amitriptyline HCl (Amitriptyline HCl) 25 Mg Tablet, 25 MG PO HS Prescribed by: KASSIE ANDREWS on 11/15/21 1028 Calcium Carbonate/Vitamin D3 (Calcium 600 + Vit D 200 Tablet) 1 Each Tablet, 1 TAB PO BID, (Reported) Entered as Reported by: SAMIR GALLOWAY on 08/28/15 0826 Cefdinir (Cefdinir) 300 Mg Capsule, 300 MG PO BID Prescribed by: KASSIE ANDREWS on 08/17/21 1814 Celecoxib (Celecoxib) 200 Mg Capsule, 200 MG PO BID, (Reported) Entered as Reported by: SAMIR GALLOWAY on 08/28/15 0823 Cephalexin (Cephalexin) 500 Mg Tablet, 500 MG PO BID Prescribed by: KIRSTEN FORD on 10/12/21 1649 Famotidine (Acid Merchandising Team Lead (FAMOTIDINE)) 10 Mg Tablet, 10 MG PO BID PRN for heartb urn Prescribed by: Ritesh Wilhelm on 10/14/21 1513 Fluticasone Propionate (Flonase Nasal [place]) 16 Gm Naspr, 2 SPRAYS NS BID PRN for ALLERGIES, (Reported) Entered as Reported by: MEG GREEN on 11/17/11 1524 Furosemide (Furosemide) 40 Mg Tablet, 40 MG PO EVERY OTHER DAY, (Reported) Entered as Reported by: SAMIR GALLOWAY on 08/28/15812 Gemfibrozil (Gemfibrozil) 600 Mg Tablet, 600 MG PO BID, (Reported) Entered as Reported by: SAMIR GALLOWAY on 08/28/15812 Glimepiride (Glimepiride) 4 Mg Tablet, 4 MG PO DAILY, (Reported) Entered as Reported by: SAMIR GALLOWAY on 08/28/15822 Hydrocodone/Acetaminophen (Hydrocodone-Acetamin 5-325 mg) 1 Each Tablet, 0.5-1 TAB PO Q6H PRN for PAIN-SEVERE (8-10) Prescribed by: KASSIE ANDREWS on 08/17/211813 Insulin Glargine,Hum.rec.anlog (Toujeo Solostar) 300 Unit/1 Ml Insuln.pen, 35 UNITS SC HS, (Reported) Entered as Reported by: SAMIR GALLOWAY on 08/28/15822 Insulin Glulisine (Apidra Solostar) 100 Unit/1 Ml Insuln.pen, 10 UNITS SC BREAKFAST & LUNCH, (Reported) Entered as Reported by: SAMIR GALLOWAY on 08/28/15822 Insulin Glulisine (Apidra Solostar) 100 Unit/1 Ml Insuln.pen, 14 UNITS SC WITH EVENING MEAL, (Reported) Entered as Reported by: SAMIR GALLOWAY on 08/28/15822 Levothyroxine Sodium (Levothyroxine Sodium) 200 Mcg Tablet, 200 MCG PO DAILY, (Reported) Entered as Reported by: SAMIR GALLOWAY on 08/28/15812 Metformin HCl (Metformin HCl) 1,000 Mg Tablet, 1,000 MG PO BID, (Reported) Entered as Reported by: SAMIR GALLOWAY on 08/28/15822 Metoprolol Tartrate (Metoprolol Tartrate) 25 Mg Tablet, 25 MG PO BID, (Reported) Entered as Reported by: SAMIR GALLOWAY on 08/28/15822 Naloxone HCl (Narcan) 4 Mg/Actuation [place], 2 MG NS UD Prescribed by: KASSIE ANDREWS on 11/15/21 1028 Omeprazole (Omeprazole) 20 Mg Capsule.dr, 20 MG PO DAILY PRN for heartburn Prescribed by: Ritesh Wilhelm on 10/14/21 1513 Ondansetron (Ondansetron Odt) 4 Mg Tab.rapdis, 4 MG SL Q4H PRN for NAUSEA/VOMITING Prescribed by: KASSIE ANDREWS on 11/22/21 1056 Orphenadrine Citrate (Orphenadrine Citrate) 100 Mg Tablet.er, 100 MG PO TID Prescribed by: NICOL ADAMS on 08/20/21 0208 Oxycodone HCl (Oxycodone HCl ER) 10 Mg Tab.er.12h, 10 MG PO BID Prescribed by: KASSIE ANDREWS on 11/15/21 1517 Oxycodone HCl/Acetaminophen (Percocet 5-325 mg Tablet) 1 Each Tablet, 1 TAB PO Q4H PRN for PAIN-MODERATE (5-7) Prescribed by: KASSIE ANDREWS on 11/14/21 1455 Polyethylene Glycol (Miralax 17 Gm Packet) 17 Gm Pack, 17 GM PO EVERY OTHER DAY, (Reported) Entered as Reported by: MEG GREEN on 11/17/11 1524 Tramadol HCl (Tramadol HCl) 50 Mg Tablet, 50 MG PO Q6H PRN for PAIN Prescribed by: DEBO NOVA on 06/12/18 1034 Review of Systems Constitutional: see HPI EENTM: no symptoms reported Respiratory: no symptoms reported Cardiovascular: no symptoms reported Gastrointestinal: no symptoms reported Genitourinary: no symptoms reported Musculoskeletal: back pain Skin: no symptoms reported All Other Systems Reviewed Negative Unless Noted: Yes Past Fzlbrzv-Yzqkql-Iphyzn Hx Patient Social History Tobacco Use?: No Substance use?: No Alcohol Use?: No Pt feels they are or have been: No Immunizations Up To Date Tetanus Booster (TDap): Less than 5yrs First/Initial COVID19 Vaccinat: NONE Second COVID19 Vaccination Cas: NONE Third COVID19 Vaccination Date: NONE Seasonal Allergies Seasonal Allergies: No Past Medical History Surgery/Hospitalization HX: appendix, gallbladder, lt kidney removed due to ca, ca in rt kidney Surgeries: Yes (GALLBLADDER,THYROID,KIDNEY, COLON, BREAST BONE REMOVED) Abdominal, Bowel Surgery, Gallbladder, Nephrectomy, Thyroidectomy Respiratory: Yes (SOB AT TIMES, USES INH) Cardiac: Yes High Cholesterol, Hypertension, Peripheral Vascular Neurological: No 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 Disorders: No 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 Sexually Transmitted Disease: No Genitourinary: Yes (RENAL CANCER-S/P LEFT NEPHRECTOMY) UTI-Chronic Gastrointestinal: Yes (S/P COLON RESECTION/COLOSTOMY/TAKEDOWN FOR RUPTURED DIVERTICULITIS) Diverticulosis, Pancreatitis Musculoskeletal: Yes Degenerate Disk Disease, Arthritis, Chronic Back Pain Endocrine: Yes Diabetes, Insulin dep, Hypothyroidsim, Diabetes, Non-Insulin dep HEENT: Yes Cataract, Glaucoma Cancer: Yes Kidney Did You Recieve Any Treatments: Yes What Type of Treatment Did You: Surgical Intervention Psychosocial: Yes Anxiety, Depression Integumentary: No Blood Disorders: No Adverse Reaction/Blood Tranf: No Family Medical History PSH: -LEFT NEPHRECTOMY 1985 FOR CANCER -COLON RESECTION WITH COLOSTOMY AND LATER TAKEDOWN FOR PERFORATED DIVERTICULITIS -CHOLECYSTECTOMY Physical Exam Vital Signs Vital Signs - First Documented 11/23/21 23:56 Temp 36.9 Pulse 80 Resp 20 B/P (MAP) 131/73 (92) Pulse Ox 98 O2 Delivery Room Air Capillary Refill : Less Than 3 Seconds Height, Weight, BMI Height: 5'0.00" Weight: 160lbs. 8.0oz. 72.426436km; 35.00 BMI Method:Stated General Appearance: WD/WN, Mild Distress HEENT: PERRL/EOMI Neck: Normal Inspection Cardiovascular: Regular Rate, Rhythm Respiratory: Lungs Clear, Normal Breath Sounds, No Accessory Muscle Use, No Respiratory Distress Gastrointestinal: Non Tender, Soft Back: Other (diffuse tenderness over the entire spine) Extremity: Normal Inspection, Normal Range of Motion, Pedal Edema (2+ bilateral ) Neurologic/Psychiatric: Alert, Oriented x3, No Motor/Sensory Deficits, Other (patient will not allow testing of patellar or achilles reflexes; denies saddle anethesia; normal dorsiflexion of the great toes) Skin: Normal Color, Warm/Dry Progress/Results/Core Measures Results/Orders My Orders Orders - VERNON FLYNN MD Morphine Injection (Morphine Injection (11/24/21 00:33) Orphenadrine Inj (Ed Only) (Norflex Inje (11/24/21 00:33) Vital Signs/I&O 11/23/21 11/24/21 23:56 00:55 Temp 36.9 Pulse 80 72 Resp 20 B/P (MAP) 131/73 (92) 111/69 Pulse Ox 98 99 O2 Delivery Room Air Blood Pressure Mean: 92 Departure Impression Primary Impression: Low back pain Qualified Codes: M54.50 - Low back pain, unspecified; G89.29 - Other chronic pain Additional Impression: Constipation Qualified Codes: K59.00 - Constipation, unspecified Disposition: HOME, SELF-CARE Condition: Stable Departure-Patient Inst. Decision time for Depature: 00:43 Referrals: ANA MARIA YING MD (PCP/Family) Primary Care Physician Patient Instructions: MANAGING YOUR CHRONIC PAIN Add. Discharge Instructions: Take your pain medications on a scheduled basis, even if you have to take the immediate release pain medications a little farther apart, perhaps 7 hours instead of 4-6. Jzcr-znw-usmuhfa magnesium citrate or Dulcolax tablets or suppositories may help with your constipation. Chronic narcotics cause severe constipation. You also may try fleets enemas to help get your bowels moving. Increase your intake of plain water to help keep stools softened. If you develop fever, rash, loss of bowel or bladder function please return to the emergency department for reevaluation VERNON FLYNN MD Nov 24, 2021 00:42
[2021-11-24 00:55] VITALS: BP 111/69
== END 2021-11-24 00:57 | disposition home or self-care (01) ==
LOC: EDUNIT# 23:29 → ER 23:30
DX: G89.29 Other chronic pain (principal); M54.50 Low back pain, unspecified; K59.00 Constipation, unspecified; E11.9 Type 2 diabetes mellitus without complications; Q60.0 Renal agenesis, unilateral; Z85.528 Personal history of other malignant neoplasm of kidney; Z79.4 Long term (current) use of insulin; Z28.310 Unvaccinated for COVID-19
CPT/HCPCS: 99282

== ENCOUNTER 2021-11-27 11:58 | Emergency (ER) | payer MEDICAID ==
[~2021-11-27] VITALS: Ht 152.4 cm; Wt 72.6 kg
[2021-11-27] MEDS ORDERED: morphine INJ 10 MG/ML 1ML (SYR OR VIAL) IM STA (13:32)
[2021-11-27] MEDS ORDERED: ORPHENADRINE 60 MG/2 ML (NORFLEX) AMP (ED ONLY) IM STA (13:32)
--- NOTE | 2021-11-27 13:57 | ED Back Pain ---
General Chief Complaint: Back Problems Stated Complaint: PAIN, Nursing Triage Note: Patient states that this pain started "early this morning" but doesn't remember an exact time. The patient took norco at 0700, oxycotin and tylenol at 0945, and norco again at 1045. Caregiver states that the patient did doze off slightly after taking these meds, then woke up with 10/10 pain in her back and right leg. This patient has only one kidney on the right side, bulging disks, and cancer that has not b een treated yet. History of Present Illness Date Seen by Provider: Nov 27, 2021 Time Seen by Provider: 12:15 Initial Comments 76 year old female presents for chronic low back and right leg pain that is chronic. She had an epidural injection 11/25/21 at [facility], the correctional program specialist did not provide her a Rx for pain management. She took [place] at 0 710 45 this morning followed by an OxyContin at 945 this morning. She stopped her gabapentin approximately 2 weeks ago because after increasing the dose from 300 mg to 400 mg she was having GI side effects. She has not followed up with her primary care provider. She denies any falls or injuries. Her symptoms are unchanged she is just tired of dealing with the pain. She denies any bladder or bowel incontinence or retention. Her daughter in law is present and reports taking over her care since November 14. This is her 6th visit to this ED since November 14. With notations that she is also going to other EDs in the area. During history, patient demanding pain medicine or "I am just leaving" Timing/Duration: Getting Worse, Intermittent Severity: Severe Pain/Injury Location: Back, Lower Extremity (right leg) Associated Symptoms: muscle spasms; No fever, No weakness, No numbness in legs/feet, No tingling in legs/feet, No sensory/motor loss; lower back pain; No loss of bladder control, No loss of bowel control Allergies and Home Medications Allergies Coded Allergies: promethazine (Verified Allergy, Severe, SEIZURE, NAUSEA, 07/19/08) duloxetine HCl (Verified Allergy, Mild, 05/28/11) escitalopram oxalate (Verified Allergy, Unknown, 09/22/13) niacin (Verified Allergy, Unknown, 09/22/13) olanzapine (Verified Allergy, Unknown, 09/22/13) ibuprofen (Verified Adverse Reaction, Mild, UNSET STOMACH, 09/22/13) lisinopril (Verified Adverse Reaction, Mild, HEADACHE, 09/22/13) tramadol (Verified Adverse Reaction, Mild, NAUSEATED, 09/22/13) Patient Home Medication List Home Medication List Reviewed: Yes Albuterol Sulfate (Albuterol Sulfate Hfa) 8.5 Gm Hfa.aer.ad, 2 PUFF INH Q6H PRN for SHORTNESS OF BREATH, (Reported) Entered as Reported by: MEG GREEN on 11/17/11 1524 Alprazolam (Alprazolam) 1 Mg Tablet, 1 MG PO TID PRN for ANXIETY, (Reported) Entered as Reported by: SAMIR GALLOWAY on 08/28/15 0813 Amitriptyline HCl (Amitriptyline HCl) 25 Mg Tablet, 25 MG PO HS Prescribed by: KASSIE ANDREWS on 11/15/21 1028 Calcium Carbonate/Vitamin D3 (Calcium 600 + Vit D 200 Tablet) 1 Each Tablet, 1 TAB PO BID, (Reported) Entered as Reported by: SAMIR GALLOWAY on 08/28/15 0826 Cefdinir (Cefdinir) 300 Mg Capsule, 300 MG PO BID Prescribed by: KASSIE ANDREWS on 08/17/21 1814 Celecoxib (Celecoxib) 200 Mg Capsule, 200 MG PO BID, (Reported) Entered as Reported by: SAMIR GALLOWAY on 08/28/15 0823 Cephalexin (Cephalexin) 500 Mg Tablet, 500 MG PO BID Prescribed by: KIRSTEN FORD on 10/12/21 1649 Famotidine (Acid Senior Business Consultant (FAMOTIDINE)) 10 Mg Tablet, 10 MG PO BID PRN for heartburn Prescribed by: Ritesh Wilhelm on 10/14/21 1513 Fluticasone Propionate (Flonase Nasal [place]) 16 Gm Naspr, 2 SPRAYS NS BID PRN for ALLERGIES, (Reported) Entered as Reported by: MEG GREEN on 11/17/11 1524 Furosemide (Furosemide) 40 Mg Tablet, 40 MG PO EVERY OTHER DAY, (Reported) Entered as Reported by: SAMIR GALLOWAY on 08/28/15 0813 Gemfibrozil (Gemfibrozil) 600 Mg Tablet, 600 MG PO BID, (Reported) Entered as Reported by: SAMIR GALLOWAY on 08/28/15812 Glimepiride (Glimepiride) 4 Mg Tablet, 4 MG PO DAILY, (Reported) Entered as Reported by: SAMIR GALLOWAY on 08/28/15822 Hydrocodone/Acetaminophen (Hydrocodone-Acetamin 5-325 mg) 1 Each Tablet, 0.5-1 TAB PO Q6H PRN for PAIN-SEVERE (8-10) Prescribed by: KASSIE ANDREWS on 08/17/211813 Insulin Glargine,Hum.rec.anlog (Toujeo Solostar) 300 Unit/1 Ml Insuln.pen, 35 UNITS SC HS, (Reported) Entered as Reported by: SAMIR GALLOWAY on 08/28/15822 Insulin Glulisine (Apidra Solostar) 100 Unit/1 Ml Insuln.pen, 10 UNITS SC BREAKFAST & LUNCH, (Reported) Entered as Reported by: SAMIR GALLOWAY on 08/28/15822 Insulin Glulisine (Apidra Solostar) 100 Unit/1 Ml Insuln.pen, 14 UNITS SC WITH EVENING MEAL, (Reported) Entered as Reported by: SAMIR GALLOWAY on 08/28/15822 Levothyroxine Sodium (Levothyroxine Sodium) 200 Mcg Tablet, 200 MCG PO DAILY, (Reported) Entered as Reported by: SAMIR GALLOWAY on 08/28/15812 Metformin HCl (Metformin HCl) 1,000 Mg Tablet, 1,000 MG PO BID, (Reported) Entered as Reported by: SAMIR GALLOWAY on 08/28/15822 Metoprolol Tartrate (Metoprolol Tartrate) 25 Mg Tablet, 25 MG PO BID, (Reported) Entered as Reported by: SAMIR GALLOWAY on 08/28/15822 Naloxone HCl (Narcan) 4 Mg/Actuation [place], 2 MG NS UD Prescribed by: KASSIE ANDREWS on 11/15/21 1028 Omeprazole (Omeprazole) 20 Mg Capsule.dr, 20 MG PO DAILY PRN for heartburn Prescribed by: Ritesh Wilhelm on 10/14/21 1513 Ondansetron (Ondansetron Odt) 4 Mg Tab.rapdis, 4 MG SL Q4H PRN for NAUSEA/VOMITING Prescribed by: KASSIE ANDREWS on 11/22/21 1056 Orphenadrine Citrate (Orphenadrine Citrate) 100 Mg Tablet.er, 100 MG PO TID Prescribed by: NICOL ADAMS on 08/20/21 0208 Oxycodone HCl (Oxycodone HCl ER) 10 Mg Tab.er.12h, 10 MG PO BID Prescribed by: KASSIE ANDREWS on 11/15/21 1517 Oxycodone HCl/Acetaminophen (Percocet 5-325 mg Tablet) 1 Each Tablet, 1 TAB PO Q4H PRN for PAIN-MODERATE (5-7) Prescribed by: KASSIE ANDREWS on 11/14/21 1455 Polyethylene Glycol (Miralax 17 Gm Packet) 17 Gm Pack, 17 GM PO EVERY OTHER DAY, (Reported) Entered as Reported by: MEG GREEN on 11/17/11 1524 Tramadol HCl (Tramadol HCl) 50 Mg Tablet, 50 MG PO Q6H PRN for PAIN Prescribed by: DEBO NOVA on 06/12/18 1034 Review of Systems Constitutional: no symptoms reported, see HPI Musculoskeletal: see HPI, back pain, muscle cramps All Other Systems Reviewed Negative Unless Noted: Yes Past Invcywp-Duuosi-Djkhxu Hx Patient Social History Tobacco Use?: No Smoking Status: Never a Smoker Substance use?: No Alcohol Use?: No Immunizations Up To Date Tetanus Booster (TDap): Less than 5yrs First/Initial COVID19 Vaccinat: Denies Second COVID19 Vaccination Cas: NONE Third COVID19 Vaccination Date: NONE Seasonal Allergies Seasonal Allergies: No Past Medical History Surgery/Hospitalization HX: Caregiver states that this patient had iohexoL and triamcinolone acetonide on the 25 of November. 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 Sexually Transmitted Disease: No Genitourinary: Yes (RENAL CANCER-S/P LEFT NEPHRECTOMY) UTI-Chronic Gastrointestinal: Yes (S/P COLON RESECTION/COLOSTOMY/TAKEDOWN FOR RUPTURED DIVERTICULITIS) Diverticulosis, Pancreatitis Musculoskeletal: Yes Degenerate Disk Disease, Arthritis, Chronic Back Pain Endocrine: Yes Diabetes, Insulin dep, Hypothyroidsim, Diabetes, Non-Insulin dep HEENT: Yes Cataract, Glaucoma Cancer: Yes Kidney Did You Recieve Any Treatments: Yes What Type of Treatment Did You: Surgical Intervention Psychosocial: Yes Anxiety, Depression Integumentary: No Blood Disorders: No Adverse Reaction/Blood Tranf: No Family Medical History Reviewed Nursing Family Hx PSH: -LEFT NEPHRECTOMY 1985 FOR CANCER -COLON RESECTION WITH COLOSTOMY AND LATER TAKEDOWN FOR PERFORATED DIVERTICULITIS -CHOLECYSTECTOMY Physical Exam Vital Signs Vital Signs - First Documented 11/27/21 11/27/21 12:07 14:15 Temp 36.5 Pulse 71 Resp 28 B/P (MAP) 189/97 (127) Pulse Ox 99 O2 Delivery Room Air Capillary Refill : Less Than 3 Seconds Height, Weight, BMI Height: 5'0.00" Weight: 160lbs. 8.0oz. 72.821726mz; 31.00 BMI Method:Stated General Appearance: WD/WN, Mild Distress (secondary to pain) Neck: Full Range of Motion, Normal Inspection, Non Tender Cardiovascular: Regular Rate, Rhythm, No Murmur, Normal Peripheral Pulses Respiratory: Chest Non Tender, Lungs Clear, Normal Breath Sounds Gastrointestinal: Normal Bowel Sounds, Non Tender, Soft Extremity: Normal Capillary Refill, Pedal Edema (2+ chronic), Other (Power V/V L4-S1. Pain with SLR. ) Neurologic/Psychiatric: Alert, Oriented x3, No Motor/Sensory Deficits, Normal Mood/Affect Skin: Normal Color, Warm/Dry Progress/Results/Core Measures Results/Orders My Orders Orders - FERN FLORES EMERGENCY MEDICAL TECHNICIAN BASIC Orphenadrine Inj (Ed Only) (Norflex Inje (11/27/21 13:32) Morphine Injection (Morphine Injection (11/27/21 13:32) Vital Signs/I&O 11/27/21 11/27/21 12:07 14:15 Temp 36.5 36.5 Pulse 71 73 Resp 28 22 B/P (MAP) 189/97 (127) 176/104 Pulse Ox 99 O2 Delivery Room Air Room Air Blood Pressure Mean: 127 Progress Progress Note : Time: 12:15 Progress Note Patient seen and evaluated, discussed her pain medication already taken today and risk of giving additional pain medicine and respiratory distress. Stressed to the patient and her [id number] that proper management of her symptoms needs to be done by her pain specialist who is done her epidural injections or her primary care provider. Patient became verbally aggressive stating she would just leave if we were not going to take care of her or give her pain medicine. 1300 patient given morphine 5 mg IM and Norflex 60 mg IM. 1350 patient reports improvement in her symptoms after the injections. Discharge instructions and careful follow-up with her specialist encouraged. Departure Impression Primary Impression: Back pain Qualified Codes: M54.41 - Lumbago with sciatica, right side; G89.29 - Other chronic pain Additional Impression: Lumbar radiculopathy Disposition: HOME, SELF-CARE Condition: Stable Departure-Patient Inst. Decision time for Depature: 13:50 Referrals: JAYRO,LOCAL PHYSICIAN (PCP) Primary Care Physician WALLY NG APRN (Family) Primary Care Physician Patient Instructions: MANAGING YOUR CHRONIC PAIN, Low Back Pain (DC) Add. Discharge Instructions: Follow-up with your pain specialist at [facility] for treatment options. Keep your appointment with your primary care provider for medication management. Return to the emergency department for new, urgent healthcare problems. The Emergency Dept can not manage your chronic health conditions, unless there is an exacerbation and we will only prescribe short term medications. All discharge instructions reviewed with patient and/or family. Voiced understanding. FERN FLORES Nov 27, 2021 13:57
[2021-11-27 14:15] VITALS: BP 176/104
[2021-11-28] MEDS ORDERED: MORP30TA PO (14:24)
== END 2021-11-27 14:15 | disposition home or self-care (01) ==
LOC: EDUNIT# 11:58 → ER 12:00
DX: M54.16 Radiculopathy, lumbar region (principal); E11.9 Type 2 diabetes mellitus without complications; Z87.39 Personal history of other diseases of the musculoskeletal system and connective tissue; Z28.310 Unvaccinated for COVID-19; Z79.4 Long term (current) use of insulin
CPT/HCPCS: 99284

== ENCOUNTER 2021-11-28 11:02 | Emergency (ER) | payer MEDICAID ==
[2021-11-28] MEDS ORDERED: MORP30TA PO (14:24)
== END 2021-11-28 11:15 | disposition left against medical advice (07) ==
LOC: EDUNIT# 11:02 → ER 11:03
DX: M54.9 Dorsalgia, unspecified (principal); J98.9 Respiratory disorder, unspecified

== ENCOUNTER 2021-11-28 11:37 | Emergency (ER) | payer MEDICAID ==
[~2021-11-28] VITALS: Ht 152.4 cm; Wt 81.2 kg
[2021-11-28] MEDS ORDERED: morphine IMMEDIATE RELEASE 15 MG TABLET PO ONE (12:45)
--- NOTE | 2021-11-28 12:47 | ED Back Pain ---
General Chief Complaint: Back Problems Stated Complaint: BACK PAIN Source of Information: Patient Exam Limitations: No Limitations History of Present Illness Date Seen by Provider: Nov 28, 2021 Time Seen by Provider: 12:43 Initial Comments This is a 76-year-old female who presented to the ER via POV with her caregiver for chronic low back pain and right hip pain. She had an epidural injection 11/25/21 at [facility], the biomedical equipment specialist did not provide her a Rx for pain management. States that at this appointment she received injection in both her left and right sides, was told that her pain may worsen before it gets better and they feel that this is the cause of her increased pain today. She has not received any additional medication for pain management. She typically takes OxyContin twice a day as well as oxycodone in between. She is able to get some relief with OxyContin but has recently been coming to the emergency department for morphine injections. This is her 7th visit to this ED since November 14. With notations that she is also going to other EDs in the area. States pain is her typical chronic back and right leg pain. She took an oxycodone 5/325 a couple hours prior to arrival but this is not helping. No fever, chills, cough, shortness of breath, nausea, vomiting, abdominal pain. Allergies and Home Medications Allergies Coded Allergies: promethazine (Verified Allergy, Severe, SEIZURE, NAUSEA, 07/19/08) duloxetine HCl (Verified Allergy, Mild, 05/28/11) escitalopram oxalate (Verified Allergy, Unknown, 09/22/13) niacin (Verified Allergy, Unknown, 09/22/13) olanzapine (Verified Allergy, Unknown, 09/22/13) ibuprofen (Verified Adverse Reaction, Mild, UNSET STOMACH, 09/22/13) lisinopril (Verified Adverse Reaction, Mild, HEADACHE, 09/22/13) tramadol (Verified Adverse Reaction, Mild, NAUSEATED, 09/22/13) Patient Home Medication List Home Medication List Reviewed: Yes Albuterol Sulfate (Albuterol Sulfate Hfa) 8.5 Gm Hfa.aer.ad, 2 PUFF INH Q6H PRN for SHORTNESS OF BREATH, (Reported) Entered as Reported by: MEG GREEN on 11/17/11 5694 Alprazolam (Alprazolam) 1 Mg Tablet, 1 MG PO TID PRN for ANXIETY, (Reported) Entered as Reported by: SAMIR GALLOWAY on 08/28/15812 Amitriptyline HCl (Amitriptyline HCl) 25 Mg Tablet, 25 MG PO HS Prescribed by: KASSIE ANDREWS on 11/15/21 1028 Calcium Carbonate/Vitamin D3 (Calcium 600 + Vit D 200 Tablet) 1 Each Tablet, 1 TAB PO BID, (Reported) Entered as Reported by: SAMIR GALLOWAY on 08/28/15 08 Cefdinir (Cefdinir) 300 Mg Capsule, 300 MG PO BID Prescribed by: KASSIE ANDREWS on 08/17/211813 Celecoxib (Celecoxib) 200 Mg Capsule, 200 MG PO BID, (Reported) Entered as Reported by: SAMIR GALLOWAY on 08/28/15822 Cephalexin (Cephalexin) 500 Mg Tablet, 500 MG PO BID Prescribed by: KIRSTEN FORD on 10/12/21 1649 Famotidine (Acid Oncologist (FAMOTIDINE)) 10 Mg Tablet, 10 MG PO BID PRN for heartburn Prescribed by: Ritesh Wilhelm on 10/14/21 1513 Fluticasone Propionate (Flonase Nasal [place]) 16 Gm Naspr, 2 SPRAYS NS BID PRN for ALLERGIES, (Reported) Entered as Reported by: MEG GREEN on 11/17/11 152 Furosemide (Furosemide) 40 Mg Tablet, 40 MG PO EVERY OTHER DAY, (Reported) Entered as Reported by: SAMIR GALLOWAY on 08/28/15812 Gemfibrozil (Gemfibrozil) 600 Mg Tablet, 600 MG PO BID, (Reported) Entered as Reported by: SAMIR GALLOWAY on 08/28/15812 Glimepiride (Glimepiride) 4 Mg Tablet, 4 MG PO DAILY, (Reported) Entered as Reported by: SAMIR GALLOWAY on 08/28/15822 Hydrocodone/Acetaminophen (Hydrocodone-Acetamin 5-325 mg) 1 Each Tablet, 0.5-1 TAB PO Q6H PRN for PAIN-SEVERE (8-10) Prescribed by: KASSIE ANDREWS on 08/17/211813 Insulin Glargine,Hum.rec.anlog (Toujeo Solostar) 300 Unit/1 Ml Insuln.pen, 35 UNITS SC HS, (Reported) Entered as Reported by: SAMIR GALLOWAY on 08/28/15822 Insulin Glulisine (Apidra Solostar) 100 Unit/1 Ml Insuln.pen, 10 UNITS SC BREAKFAST & LUNCH, (Reported) Entered as Reported by: SAMIR GALLOWAY on 08/28/15822 Insulin Glulisine (Apidra Solostar) 100 Unit/1 Ml Insuln.pen, 14 UNITS SC WITH EVENING MEAL, (Reported) Entered as Reported by: SAMIR GALLOWAY on 08/28/15822 Levothyroxine Sodium (Levothyroxine Sodium) 200 Mcg Tablet, 200 MCG PO DAILY, (Reported) Entered as Reported by: SAMIR GALLOWAY on 08/28/15812 Metformin HCl (Metformin HCl) 1,000 Mg Tablet, 1,000 MG PO BID, (Reported) Entered as Reported by: SAMIR GALLOWAY on 08/28/15822 Metoprolol Tartrate (Metoprolol Tartrate) 25 Mg Tablet, 25 MG PO BID, (Reported) Entered as Reported by: SAMIR GALLOWAY on 08/28/15822 Morphine Sulfate (Morphine Sulfate IR Tablet) 30 Mg Tablet, 30 MG PO Q12H PRN for PAIN-SEVERE (8-10) Prescribed by: MONET MAN on 11/28/21 1424 Naloxone HCl (Narcan) 4 Mg/Actuation [place], 2 MG NS UD Prescribed by: KASSIE ANDREWS on 11/15/21 1028 Omeprazole (Omeprazole) 20 Mg Capsule.dr, 20 MG PO DAILY PRN for heartburn Prescribed by: Ritesh Wilhelm on 10/14/21 1513 Ondansetron (Ondansetron Odt) 4 Mg Tab.rapdis, 4 MG SL Q4H PRN for NAUSEA/VOMITING Prescribed by: KASSIE ANDREWS on 11/22/21 1056 Orphenadrine Citrate (Orphenadrine Citrate) 100 Mg Tablet.er, 100 MG PO TID Prescribed by: NICOL ADMAS on 08/20/21 0208 Oxycodone HCl (Oxycodone HCl ER) 10 Mg Tab.er.12h, 10 MG PO BID Prescribed by: KASSIE ANDREWS on 11/15/21 1517 Oxycodone HCl/Acetaminophen (Percocet 5-325 mg Tablet) 1 Each Tablet, 1 TAB PO Q4H PRN for PAIN-MODERATE (5-7) Prescribed by: KASSIE ANDREWS on 11/14/21 1455 Polyethylene Glycol (Miralax 17 Gm Packet) 17 Gm Pack, 17 GM PO EVERY OTHER DAY, (Reported) Entered as Reported by: MEG GREEN on 11/17/11 1524 Tramadol HCl (Tramadol HCl) 50 Mg Tablet, 50 MG PO Q6H PRN for PAIN Prescribed by: DEBO NOVA on 06/12/18 1034 Review of Systems Constitutional: no symptoms reported EENTM: no symptoms reported Respiratory: no symptoms reported Cardiovascular: no symptoms reported Gastrointestinal: no symptoms reported Genitourinary: no symptoms reported Musculoskeletal: see HPI Skin: no symptoms reported Psychiatric/Neurological: No Symptoms Reported Past Yigxpki-Thchmh-Qpnqnn Hx Immunizations Up To Date Tetanus Booster (TDap): Less than 5yrs First/Initial COVID19 Vaccinat: Denies Second COVID19 Vaccination Cas: NONE Third COVID19 Vaccination Date: NONE Seasonal Allergies Seasonal Allergies: No Past Medical History Surgery/Hospitalization HX: Caregiver states that this patient had iohexoL and triamcinolone acetonide on the 25 of November. 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 Sexually Transmitted Disease: No Genitourinary: Yes (RENAL CANCER-S/P LEFT NEPHRECTOMY) UTI-Chronic Gastrointestinal: Yes (S/P COLON RESECTION/COLOSTOMY/TAKEDOWN FOR RUPTURED DIVERTICULITIS) Diverticulosis, Pancreatitis Musculoskeletal: Yes Degenerate Disk Disease, Arthritis, Chronic Back Pain Endocrine: Yes Diabetes, Insulin dep, Hypothyroidsim, Diabetes, Non-Insulin dep HEENT: Yes Cataract, Glaucoma Cancer: Yes Kidney Did You Recieve Any Treatments: Yes What Type of Treatment Did You: Surgical Intervention Psychosocial: Yes Anxiety, Depression Integumentary: No Blood Disorders: No Adverse Reaction/Blood Tranf: No Family Medical History PSH: -LEFT NEPHRECTOMY 1985 FOR CANCER -COLON RESECTION WITH COLOSTOMY AND LATER TAKEDOWN FOR PERFORATED DIVERTICULITIS -CHOLECYSTECTOMY Physical Exam Vital Signs Vital Signs - First Documented 11/28/21 12:10 Temp 36.4 Pulse 74 Resp 18 B/P (MAP) 181/94 (123) Pulse Ox 99 O2 Delivery Room Air Capillary Refill : Height, Weight, BMI Height: 5'0.00" Weight: 160lbs. 8.0oz. 72.874343ys; 31.00 BMI Method:Stated General Appearance: No Apparent Distress, WD/WN, Anxious HEENT: PERRL/EOMI, Normal ENT Inspection, Pharynx Normal Neck: Full Range of Motion, Normal Inspection, Supple Cardiovascular: Regular Rate, Rhythm, Normal Peripheral Pulses Respiratory: Lungs Clear, Normal Breath Sounds Gastrointestinal: Normal Bowel Sounds, Non Tender, Soft Back: Vertebral Tenderness (diffuse lumbar and right hip tenderness) Neurologic/Psychiatric: Alert, Oriented x3, No Motor/Sensory Deficits Skin: Normal Color, Warm/Dry Progress/Results/Core Measures Results/Orders My Orders Orders - MONET MAN APRN Morphine Immediate Release Tab (Morphine (11/28/21 12:45) Medications Given in ED Current Medications Medications Dose Ordered Sig/Davey Route Start Time Stop Time Status Last Admin Dose Admin Morphine Sulfate 30 mg ONCE ONCE PO 11/28/21 12:45 11/28/21 12:47 DC 11/28/21 13:16 30 MG Vital Signs/I&O 11/28/21 11/28/21 12:10 14:33 Temp 36.4 36.6 Pulse 74 76 Resp 18 18 B/P (MAP) 181/94 (123) 168/84 Pulse Ox 99 99 O2 Delivery Room Air Room Air Progress Progress Note : Progress Note Patient examined and in no acute distress. She is very anxious and moaning constantly in pain. She has achieved good results with morphine injections in the past. We will go ahead and trial her on some MS immediate release 30mg to see if she has any improvement of symptoms. Shortly after receiving morphine states that she is feeling much improved, she is smiling and states that she is able to tolerate the pain now. States that she does achieve better results with the morphine over the OxyContin that she typically takes. We will go ahead and prescribe her a few days dosing of the morphine and strongly encouraged her to follow-up with a PCP for further pain management. Verbalized understanding. Departure Impression Primary Impression: Lumbago with sciatica, right side Disposition: 01 HOME, SELF-CARE Condition: Improved Departure-Patient Inst. Decision time for Depature: 14:22 Referrals: JAYRO,LOCAL PHYSICIAN (PCP) Primary Care Physician WALLY NG APRN (Family) Primary Care Physician Patient Instructions: Low Back Pain ED, Sciatica ED Add. Discharge Instructions: Plan: 1. Follow up with PCP for pain management. 2. Return for any new, concerning, or worsening symptoms. All discharge instructions reviewed with patient and/or family. Voiced understanding. Scripts Morphine Sulfate (Morphine Sulfate IR Tablet) 30 Mg Tablet 30 MG PO Q12H PRN for PAIN-SEVERE (8-10), #10 TAB 0 Refills Prov: MONET MAN APRN 11/28/21 MONET MAN APRN Nov 28, 2021 12:47
[2021-11-28] MEDS ORDERED: morphine ER 30 MG (MS CONTIN) TAB PO ONE (13:15)
[2021-11-28] MEDS ORDERED: MORP30TA PO (14:24)
[2021-11-28 14:33] VITALS: BP 168/84
== END 2021-11-28 14:34 | disposition home or self-care (01) ==
LOC: EDUNIT# 11:37 → ER 11:39
DX: M54.41 Lumbago with sciatica, right side (principal); E11.9 Type 2 diabetes mellitus without complications; Z88.5 Allergy status to narcotic agent; Z88.6 Allergy status to analgesic agent; Z79.4 Long term (current) use of insulin; Z79.891 Long term (current) use of opiate analgesic; Z28.310 Unvaccinated for COVID-19
CPT/HCPCS: 99283

== ENCOUNTER 2021-11-29 06:38 | Emergency (ER) | payer MEDICAID ==
[~2021-11-29 06:38] MED LIST changes: +MORP30TA PO
--- NOTE | 2021-11-29 07:11 | ED General ---
General Stated Complaint: LOW BLOOD SUGAR,DIZZY,SOA Source of Information: Patient Exam Limitations: No Limitations History of Present Illness Date Seen by Provider: Nov 29, 2021 Time Seen by Provider: 06:57 Initial Comments Patient to the ER by private conveyance in a wheelchair with chief complaint that she had a low blood sugar this morning since she woke up about 5. She ate some toast with jam. She says her sugar was 119. She says if she gets below 200 she feels terrible. She slumped over in her wheelchair shortly after being checked in so staff went out and checked her blood sugar in the lobby. It was 109. She told staff that if no one was going to help her then she does not even need to be brought back. Nursing staff brought her back from the lobby in a wheelchair and assisted her with 2 person to get into the bed. This provider met her in the room and proceeded to take her history and she said that she wanted a fan before she would continue with the interview. Staff informed her we do not have fans in the ER for infection control reasons and the patient then asked that the blood pressure cuff be taken off because she was going to [place] where she can get back injections and promptly stood up and walked out unassisted. Walked behind the patient to the lobby to make sure she was stable. Observe the patient on the camera and she did not appear to have any gait instability on her exiting of the lobby. Allergies and Home Medications Allergies Coded Allergies: promethazine (Verified Allergy, Severe, SEIZURE, NAUSEA, 07/19/08) duloxetine HCl (Verified Allergy, Mild, 05/28/11) escitalopram oxalate (Verified Allergy, Unknown, 09/22/13) niacin (Verified Allergy, Unknown, 09/22/13) olanzapine (Verified Allergy, Unknown, 09/22/13) ibuprofen (Verified Adverse Reaction, Mild, UNSET STOMACH, 09/22/13) lisinopril (Verified Adverse Reaction, Mild, HEADACHE, 09/22/13) tramadol (Verified Adverse Reaction, Mild, NAUSEATED, 09/22/13) Patient Home Medication List Home Medication List Reviewed: Yes Albuterol Sulfate (Albuterol Sulfate Hfa) 8.5 Gm Hfa.aer.ad, 2 PUFF INH Q6H PRN for SHORTNESS OF BREATH, (Reported) Entered as Reported by: MEG GREEN on 11/17/11 1524 Alprazolam (Alprazolam) 1 Mg Tablet, 1 MG PO TID PRN for ANXIETY, (Reported) Entered as Reported by: SAMIR GALLOWAY on 08/28/15812 Amitriptyline HCl (Amitriptyline HCl) 25 Mg Tablet, 25 MG PO HS Prescribed by: KASSIE ANDREWS on 11/15/21 1028 Calcium Carbonate/Vitamin D3 (Calcium 600 + Vit D 200 Tablet) 1 Each Tablet, 1 TAB PO BID, (Reported) Entered as Reported by: SAMIR GALLOWAY on 08/28/15 08 Cefdinir (Cefdinir) 300 Mg Capsule, 300 MG PO BID Prescribed by: KASSIE ANDREWS on 08/17/21 1814 Celecoxib (Celecoxib) 200 Mg Capsule, 200 MG PO BID, (Reported) Entered as Reported by: SAMIR GALLOWAY on 08/28/15822 Cephalexin (Cephalexin) 500 Mg Tablet, 500 MG PO BID Prescribed by: KIRSTEN FORD on 10/12/21 1649 Famotidine (Acid Media Promoter (FAMOTIDINE)) 10 Mg Tablet, 10 MG PO BID PRN for heartburn Prescribed by: Ritesh Wilhelm on 10/14/21 1513 Fluticasone Propionate (Flonase Nasal [place]) 16 Gm Naspr, 2 SPRAYS NS BID PRN for ALLERGIES, (Reported) Entered as Reported by: MEG GREEN on 11/17/11 1524 Furosemide (Furosemide) 40 Mg Tablet, 40 MG PO EVERY OTHER DAY, (Reported) Entered as Reported by: SAMIR GALLOWAY on 08/28/15812 Gemfibrozil (Gemfibrozil) 600 Mg Tablet, 600 MG PO BID, (Reported) Entered as Reported by: SAMIR GALLOWAY on 08/28/15812 Glimepiride (Glimepiride) 4 Mg Tablet, 4 MG PO DAILY, (Reported) Entered as Reported by: SAMIR GALLOWAY on 08/28/15822 Hydrocodone/Acetaminophen (Hydrocodone-Acetamin 5-325 mg) 1 Each Tablet, 0.5-1 TAB PO Q6H PRN for PAIN-SEVERE (8-10) Prescribed by: KASSIE ANDREWS on 08/17/21 1814 Insulin Glargine,Hum.rec.anlog (Toujeo Solostar) 300 Unit/1 Ml Insuln.pen, 35 UNITS SC HS, (Reported) Entered as Reported by: SAMIR GALLOWAY on 08/28/15822 Insulin Glulisine (Apidra Solostar) 100 Unit/1 Ml Insuln.pen, 10 UNITS SC BREAKFAST & LUNCH, (Reported) Entered as Reported by: SAMIR GALLOWAY on 08/28/15822 Insulin Glulisine (Apidra Solostar) 100 Unit/1 Ml Insuln.pen, 14 UNITS SC WITH EVENING MEAL, (Reported) Entered as Reported by: SAIMR GALLOWAY on 08/28/15822 Levothyroxine Sodium (Levothyroxine Sodium) 200 Mcg Tablet, 200 MCG PO DAILY, (Reported) Entered as Reported by: SAMIR GALLOWAY on 08/28/15812 Metformin HCl (Metformin HCl) 1,000 Mg Tablet, 1,000 MG PO BID, (Reported) Entered as Reported by: SAMIR GALLOWAY on 08/28/15822 Metoprolol Tartrate (Metoprolol Tartrate) 25 Mg Tablet, 25 MG PO BID, (Reported) Entered as Reported by: SAMIR GALLOWAY on 08/28/15822 Morphine Sulfate (Morphine Sulfate IR Tablet) 30 Mg Tablet, 30 MG PO Q12H PRN for PAIN-SEVERE (8-10) Prescribed by: MONET MAN on 11/28/21 1424 Naloxone HCl (Narcan) 4 Mg/Actuation [place], 2 MG NS UD Prescribed by: KASSIE ANDREWS on 11/15/21 1028 Omeprazole (Omeprazole) 20 Mg Capsule.dr, 20 MG PO DAILY PRN for heartburn Prescribed by: Ritesh Wilhelm on 10/14/21 1513 Ondansetron (Ondansetron Odt) 4 Mg Tab.rapdis, 4 MG SL Q4H PRN for NAUSEA/VOMITING Prescribed by: KASSIE ANDREWS on 11/22/21 1056 Orphenadrine Citrate (Orphenadrine Citrate) 100 Mg Tablet.er, 100 MG PO TID Prescribed by: NICOL ADAMS on 08/20/21 0208 Oxycodone HCl (Oxycodone HCl ER) 10 Mg Tab.er.12h, 10 MG PO BID Prescribed by: KASSIE ANDREWS on 11/15/21 1517 Oxycodone HCl/Acetaminophen (Percocet 5-325 mg Tablet) 1 Each Tablet, 1 TAB PO Q4H PRN for PAIN-MODERATE (5-7) Prescribed by: KASSIE ANDREWS on 11/14/21 1455 Polyethylene Glycol (Miralax 17 Gm Packet) 17 Gm Pack, 17 GM PO EVERY OTHER DAY, (Reported) Entered as Reported by: MEG GREEN on 11/17/11 1524 Tramadol HCl (Tramadol HCl) 50 Mg Tablet, 50 MG PO Q6H PRN for PAIN Prescribed by: DEBO NOVA on 06/12/18 1034 Review of Systems Review of Systems Constitutional: see HPI (Patient declined to participate in a medical history or interview.) Past Uqfizva-Lpxkri-Ehsadc Hx Immunizations Up To Date Tetanus Booster (TDap): Less than 5yrs First/Initial COVID19 Vaccinat: Denies Second COVID19 Vaccination Cas: NONE Third COVID19 Vaccination Date: NONE Seasonal Allergies Seasonal Allergies: No Past Medical History Surgery/Hospitalization HX: Caregiver states that this patient had iohexoL and triamcinolone acetonide on the 25 of November. 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 Sexually Transmitted Disease: No Genitourinary: Yes (RENAL CANCER-S/P LEFT NEPHRECTOMY) UTI-Chronic Gastrointestinal: Yes (S/P COLON RESECTION/COLOSTOMY/TAKEDOWN FOR RUPTURED DIVERTICULITIS) Diverticulosis, Pancreatitis Musculoskeletal: Yes Degenerate Disk Disease, Arthritis, Chronic Back Pain Endocrine: Yes Diabetes, Insulin dep, Hypothyroidsim, Diabetes, Non-Insulin dep HEENT: Yes Cataract, Glaucoma Cancer: Yes Kidney Did You Recieve Any Treatments: Yes What Type of Treatment Did You: Surgical Intervention Psychosocial: Yes Anxiety, Depression Integumentary: No Blood Disorders: No Adverse Reaction/Blood Tranf: No Family Medical History PSH: -LEFT NEPHRECTOMY 1985 FOR CANCER -COLON RESECTION WITH COLOSTOMY AND LATER TAKEDOWN FOR PERFORATED DIVERTICULITIS -CHOLECYSTECTOMY Physical Exam Vital Signs Capillary Refill : Height, Weight, BMI Height: 5'0.00" Weight: 160lbs. 8.0oz. 72.444813fr; 34.00 BMI Method:Stated General Appearance: No Apparent Distress, Chronically ill, Other (Whimpering on arrival) HEENT: Pharynx Normal, Other (Pupils 3 mm bilateral, symmetric) Respiratory: No Accessory Muscle Use, No Respiratory Distress Neurologic/Psychiatric: Alert, Oriented x3 Progress/Results/Core Measures Suspected Sepsis SIRS Temperature: Pulse: Respiratory Rate: Blood Pressure / Mean: Results/Orders Lab Results Laboratory Tests Test 11/29/21 06:52 Range/Units Glucometer 109 70-110 MG/DL My Orders Orders - DEBO NOVA Accucheck Stat ONCE (11/29/21 06:51) Vital Signs/I&O Capillary Refill : Progress Note : Time: 07:13 Progress Note Patient is alert and oriented and able to walk under her own power. Her blood sugar was not in a dangerous level. An appropriate plan would be to work her up with labs, urine and get her something to eat and monitor her sugar however we would not even able to complete an entire medical physical history or exam. The patient's ability to hop out of the bed and walked out of the ER unassisted indicates that she is acceptable to discharge AGAINST MEDICAL ADVICE. We did encourage her to follow-up with someone and she stated she would be following up with an ER in [place] where she would get pain injections. She had never mentioned her pain during the medical interview nor was it part of her chief complaint. Departure Impression Primary Impression: Poor glycemic control Disposition: 01 HOME, SELF-CARE Condition: Stable Departure-Patient Inst. Decision time for Depature: 07:25 Referrals: NO,LOCAL PHYSICIAN (PCP) Primary Care Physician WALLY NG APRN (Family) Primary Care Physician Patient Instructions: High Blood Sugar, Adult (DC) Add. Discharge Instructions: Follow-up with your primary care provider. Return to the emergency room for emergent condition such as low blood sugar, chest pain, shortness of air etc. DEBO NOVA Nov 29, 2021 07:11
== END 2021-11-29 07:02 | disposition left against medical advice (07) ==
LOC: EDUNIT# 06:38 → ER 06:40
DX: E11.65 Type 2 diabetes mellitus with hyperglycemia (principal); Z79.4 Long term (current) use of insulin; Z28.310 Unvaccinated for COVID-19
CPT/HCPCS: 82947

== ENCOUNTER 2021-12-02 11:45 | Emergency (ER) | payer MEDICAID | END 2021-12-02 11:50 | disposition left against medical advice (07) | LOC: EDUNIT# 11:49 → ER 11:50 | DX: M54.9 Dorsalgia, unspecified (principal) ==

== ENCOUNTER 2022-06-01 01:08 | Inpatient (IN) | payer MEDICAID ==
[~2022-06-01] VITALS: Ht 157.5 cm; Wt 82.1 kg
[2022-06-01] MEDS ORDERED: LACTATED RINGERS 1,000 ML IV ONE (01:30)
[2022-06-01 01:41] LABS: BASOPHILS % (AUTO) 1 % (0-10); EOSINOPHILS # (AUTO) 0.1 10^3/uL (0.0-0.3); EOSINOPHILS % (AUTO) 2 % (0-10); HEMATOCRIT 41 % (35-52); HEMOGLOBIN 13.4 g/dL (11.5-16.0); LYMPHOCYTES # (AUTO) 2.7 10^3/uL (1.0-4.0); LYMPHOCYTES % (AUTO) 36 % (12-44); MEAN CORPUSCULAR HEMOGLOBIN 29 pg (25-34); MEAN CORPUSCULAR HGB CONC 32 g/dL (32-36); MEAN CORPUSCULAR VOLUME 89 fL (80-99); MEAN PLATELET VOLUME 10.2 fL (9.0-12.2); MONOCYTES # (AUTO) 0.3 10^3/uL (0.0-1.0); MONOCYTES % (AUTO) 4 % (0-12); NEUTROPHILS # (AUTO) 4.2 10^3/uL (1.8-7.8); NEUTROPHILS % (AUTO) 57 % (42-75); PLATELET COUNT 306 10^3/uL (130-400); WHITE BLOOD COUNT 7.4 10^3/uL (4.3-11.0)
[2022-06-01 01:48] LABS: ALBUMIN 4.4 GM/DL (3.2-4.5); CHLORIDE 101 MMOL/L (98-107); POTASSIUM 3.2 MMOL/L (3.6-5.0); SODIUM 139 MMOL/L (135-145)
[2022-06-01 01:49] LABS: CALCIUM 9.7 MG/DL (8.5-10.1)
[2022-06-01 01:50] LABS: GLUCOSE 115 MG/DL (70-105)
[2022-06-01 01:51] LABS: TOTAL PROTEIN 7.8 GM/DL (6.4-8.2)
[2022-06-01 01:52] LABS: BILIRUBIN,TOTAL 0.2 MG/DL (0.1-1.0); CARBON DIOXIDE 23 MMOL/L (21-32)
[2022-06-01 01:53] LABS: INR 0.8 (0.8-1.4)
[2022-06-01 01:54] LABS: ALKALINE PHOSPHATASE 113 U/L (40-136); CREATININE SERUM 1.93 MG/DL (0.60-1.30); GFR ESTIMATED 26
[2022-06-01 01:55] LABS: BUN/CREATININE RATIO 17
--- NOTE | 2022-06-01 01:55 | Diagnostic Imaging Report ---
INDICATION: Altered mental status, tachycardia. EXAMINATION: Frontal chest was obtained at 1:35 a.m. COMPARISON: 01/03/2020. The heart is mildly enlarged. There is a new pacemaker device in place compared to the prior study. There is no pneumothorax or pleural fluid. There is no focal infiltrate. IMPRESSION: New pacemaker compared to the previous study. Cardiomegaly with poor inspiration. No focal infiltrate or pleural fluid. Dictated by: Dictated on workstation # [id number]
[2022-06-01 01:57] LABS: ALANINE AMINOTRANSFERASE 13 U/L (0-55); MAGNESIUM 2.3 MG/DL (1.6-2.4)
[2022-06-01 01:58] LABS: LIPASE 68 U/L (8-78)
[2022-06-01 02:22] LABS: FREE T4 (FREE THYROXINE) < 0.40 NG/DL (0.70-1.48)
[2022-06-01 02:27] LABS: BILIRUBIN,URINE NEGATIVE (NEGATIVE); CLARITY,URINE SL CLOUDY; COLOR,URINE YELLOW; GLUCOSE, URINE (UA) 1+ (NEGATIVE); KETONES,URINE NEGATIVE (NEGATIVE); LEUKOCYTE ESTERASE ,URINE NEGATIVE (NEGATIVE); NITRITE,URINE POSITIVE (NEGATIVE); PROTEIN,URINE 3+ (NEGATIVE)
[2022-06-01 02:36] LABS: BACTERIA,URINE LARGE /HPF
[2022-06-01 02:38] LABS: AMPHETAMINE SCREEN, URINE NEGATIVE (NEGATIVE); BARBITURATE SCREEN URINE NEGATIVE (NEGATIVE); BENZODIAZEPINES SCREEN URINE NEGATIVE (NEGATIVE); CANNABINOID SCREEN, URINE NEGATIVE (NEGATIVE); COCAINE SCREEN URINE NEGATIVE (NEGATIVE); METHADONE STAT NEGATIVE (NEGATIVE); OPIATE SCREEN URINE NEGATIVE (NEGATIVE); OXYCODONE STAT NEGATIVE (NEGATIVE); PROPOXYPHENE STAT NEGATIVE (NEGATIVE); TRICYCLIC ANTIDEPRESSANTS SCRE NEGATIVE (NEGATIVE)
[2022-06-01] MEDS ORDERED: D5 NS 1000 ML IV SOLUTION 1,000 ML IV STA (02:52)
[2022-06-01] MEDS ORDERED: DEXTROSE 50% 50 ML (IMS) SYR IV ONE (03:00)
[2022-06-01] MEDS ORDERED: cefTRIAXone 1 GM PRE-MIX 50 ML IV STA (03:28)
--- NOTE | 2022-06-01 04:04 | Diagnostic Imaging Report ---
PROCEDURE: CT head without contrast. TECHNIQUE: Multiple contiguous axial images were obtained through the brain without the use of intravenous contrast. Auto Exposure Controls were utilized during the CT exam to meet ALARA standards for radiation dose reduction. INDICATION: Altered mental status. COMPARISON: 01/03/2020 FINDINGS: No intracranial hyperdense hemorrhage or space-occupying mass. No hydrocephalus or midline shift. No features of acute large territorial infarct. Periventricular hypoattenuation is most compatible chronic microvascular ischemic change. An ovoid focus of hypodensity in the left basal ganglia and left thalamus is most compatible with old lacunar infarct. No hyperdense vessel sign. Stable calcification in the left M1 division of the middle cerebral artery. No skull fracture. Paranasal sinuses and mastoid air cells are clear. IMPRESSION: 1. No acute intracranial process by CT. 2. Chronic lacunar infarct in the left basal ganglia and thalamus. Dictated by: Dictated on workstation # [id number]
--- NOTE | 2022-06-01 04:07 | ED General ---
General Chief Complaint: Altered Mental Status Stated Complaint: HYPERTENSION Nursing Triage Note: Pt presents via EMS with c/o altered mental status. Pt was in a vehicle with family, unresponsive. Family was attempting to get pt to the hospital with they called 911 and met EMS on the side of the road. EMS reports blood glucose of 31 mg/dL, and received D50. Pt blood glucose 187 upon arrival to ER. Pt awake, confused upon arrival. Source of Information: Patient, EMS, Family Exam Limitations: Other (Clinical condition) History of Present Illness Date Seen by Provider: Jun 01, 2022 Time Seen by Provider: 01:11 Initial Comments This 77-year-old woman presents to the emergency room via EMS after being found unresponsive by her family in bed. She was breathing with a pulse. Her blood sugar was found to be 31 by EMS. A dose of D50 was administered and blood sugar improved to 187. Last known well time was about 1500 yesterday. Patient has been reluctant to engage in healthcare recently according to family. She had been treated for severe back pain in [place] this summer and has not followed up with her routine providers after returning home. Family reports she has had severe drops in blood sugar in the middle of the night the past 2-3 nights. She has also been sleeping excessively recently. There has been no known recent trauma. They presume she has a urinary tract infection and have been trying to get her into the clinic. She reportedly had diarrhea a few nights ago. She had previously been taking opioids to control her back pain but has not required them since having an epidural. There reportedly was some type of pancreatic lesion noted on an imaging study in [place] which is supposed to be under surveillance. This has not been followed by the primary care provider since returning. They have noted some increase in generalized swelling. Patient's primary care provider is Dr. Del Toro with [facility]. She is improving in her level of alertness since receiving the D50. She is answering some questions but primarily complains that she is cold. She is noted to be hypothermic with initial temperature of 31 C. She is notably hypertensive. She seems to have global weakness and dulled cognition related to hypoglycemia, but there appear to be no other specific focal neurologic deficits. Allergies and Home Medications Allergies Coded Allergies: promethazine (Verified Allergy, Severe, SEIZURE, NAUSEA, 07/19/08) duloxetine HCl (Verified Allergy, Mild, 05/28/11) escitalopram oxalate (Verified Allergy, Unknown, 09/22/13) niacin (Verified Allergy, Unknown, 09/22/13) olanzapine (Verified Allergy, Unknown, 09/22/13) ibuprofen (Verified Adverse Reaction, Mild, UNSET STOMACH, 09/22/13) lisinopril (Verified Adverse Reaction, Mild, HEADACHE, 09/22/13) tramadol (Verified Adverse Reaction, Mild, NAUSEATED, 09/22/13) Patient Home Medication List Home Medication List Reviewed: Yes Albuterol Sulfate (Albuterol Sulfate Hfa) 8.5 Gm Hfa.aer.ad, 2 PUFF INH Q6H PRN for SHORTNESS OF BREATH, (Reported) Entered as Reported by: MEG GREEN on 11/17/11 1524 Alprazolam (Alprazolam) 1 Mg Tablet, 1 MG PO TID PRN for ANXIETY, (Reported) Entered as Reported by: SAMIR GALLOWAY on 08/28/15 0813 Amitriptyline HCl (Amitriptyline HCl) 25 Mg Tablet, 25 MG PO HS Prescribed by: KASSIE ANDREWS on 11/15/21 1028 Calcium Carbonate/Vitamin D3 (Calcium 600 + Vit D 200 Tablet) 1 Each Tablet, 1 TAB PO BID, (Reported) Entered as Reported by: SAMIR GALLOWAY on 08/28/15 0826 Cefdinir (Cefdinir) 300 Mg Capsule, 300 MG PO BID Prescribed by: KASSIE ANDREWS on 08/17/21 1814 Celecoxib (Celecoxib) 200 Mg Capsule, 200 MG PO BID, (Reported) Entered as Reported by: SAMIR GALLOWAY on 08/28/15 0823 Cephalexin (Cephalexin) 500 Mg Tablet, 500 MG PO BID Prescribed by: KIRSTEN FORD on 10/12/21 1649 Famotidine (Acid Corporate Quality Assurance Manager (FAMOTIDINE)) 10 Mg Tablet, 10 MG PO BID PRN for heartburn Prescribed by: Ritesh Wilhelm on 10/14/21 1513 Fluticasone Propionate (Flonase Nasal [place]) 16 Gm Naspr, 2 SPRAYS NS BID PRN for ALLERGIES, (Reported) Entered as Reported by: MEG GREEN on 11/17/11 1524 Furosemide (Furosemide) 40 Mg Tablet, 40 MG PO EVERY OTHER DAY, (Reported) Entered as Reported by: SAMIR GALLOWAY on 08/28/15812 Gemfibrozil (Gemfibrozil) 600 Mg Tablet, 600 MG PO BID, (Reported) Entered as Reported by: SAMIR GALLOWAY on 08/28/15812 Glimepiride (Glimepiride) 4 Mg Tablet, 4 MG PO DAILY, (Reported) Entered as Reported by: SAMIR GALLOWAY on 08/28/15822 Hydrocodone/Acetaminophen (Hydrocodone-Acetamin 5-325 mg) 1 Each Tablet, 0.5-1 TAB PO Q6H PRN for PAIN-SEVERE (8-10) Prescribed by: KASSIE ANDREWS on 08/17/211813 Insulin Glargine,Hum.rec.anlog (Toujeo Solostar) 300 Unit/1 Ml Insuln.pen, 35 UNITS SC HS, (Reported) Entered as Reported by: SAMIR GALLOWAY on 08/28/15822 Insulin Glulisine (Apidra Solostar) 100 Unit/1 Ml Insuln.pen, 10 UNITS SC BREAKFAST & LUNCH, (Reported) Entered as Reported by: SAMIR GALLOAWY on 08/28/15822 Insulin Glulisine (Apidra Solostar) 100 Unit/1 Ml Insuln.pen, 14 UNITS SC WITH EVENING MEAL, (Reported) Entered as Reported by: SAMIR GALLOWAY on 08/28/15822 Levothyroxine Sodium (Levothyroxine Sodium) 200 Mcg Tablet, 200 MCG PO DAILY, (Reported) Entered as Reported by: SAMIR GALLOWAY on 08/28/15812 Metformin HCl (Metformin HCl) 1,000 Mg Tablet, 1,000 MG PO BID, (Reported) Entered as Reported by: SAMIR GALLOWAY on 08/28/15822 Metoprolol Tartrate (Metoprolol Tartrate) 25 Mg Tablet, 25 MG PO BID, (Reported) Entered as Reported by: SAMIR GALLOWAY on 08/28/15822 Morphine Sulfate (Morphine Sulfate IR Tablet) 30 Mg Tablet, 30 MG PO Q12H PRN for PAIN-SEVERE (8-10) Prescribed by: MONET MAN on 11/28/21 1424 Naloxone HCl (Narcan) 4 Mg/Actuation [place], 2 MG NS UD Prescribed by: KASSIE ANDREWS on 11/15/21 1028 Omeprazole (Omeprazole) 20 Mg Capsule.dr, 20 MG PO DAILY PRN for heartburn Prescribed by: Ritesh Wilhelm on 10/14/21 1513 Ondansetron (Ondansetron Odt) 4 Mg Tab.rapdis, 4 MG SL Q4H PRN for NAUSEA/VOMITING Prescribed by: KASSIE ANDREWS on 11/22/21 1056 Orphenadrine Citrate (Orphenadrine Citrate) 100 Mg Tablet.er, 100 MG PO TID Prescribed by: NICOL ADAMS on 08/20/21 0208 Oxycodone HCl (Oxycodone HCl ER) 10 Mg Tab.er.12h, 10 MG PO BID Prescribed by: KASSIE ANDREWS on 11/15/21 1517 Oxycodone HCl/Acetaminophen (Percocet 5-325 mg Tablet) 1 Each Tablet, 1 TAB PO Q4H PRN for PAIN-MODERATE (5-7) Prescribed by: KASSIE ANDREWS on 11/14/21 1455 Polyethylene Glycol (Miralax 17 Gm Packet) 17 Gm Pack, 17 GM PO EVERY OTHER DAY, (Reported) Entered as Reported by: MEG GREEN on 11/17/11 1524 Tramadol HCl (Tramadol HCl) 50 Mg Tablet, 50 MG PO Q6H PRN for PAIN Prescribed by: DEBO NOVA on 06/12/18 1034 Review of Systems Review of Systems Constitutional: see HPI EENTM: no symptoms reported Respiratory: no symptoms reported Cardiovascular: no symptoms reported Gastrointestinal: no symptoms reported Genitourinary: see HPI : No Musculoskeletal: no symptoms reported Skin: other (Dry flaky skin) Psychiatric/Neurological: See HPI Hematologic/Lymphatic: No Symptoms Reported Immunological/Allergic: no symptoms reported Past Ggsqdje-Qpavaa-Rdbxzi Hx Patient Social History Tobacco Use?: No Use of E-Cig and/or Vaping dev: No Alcohol Use?: No Immunizations Up To Date Tetanus Booster (TDap): Less than 5yrs First/Initial COVID19 Vaccinat: Denies Second COVID19 Vaccination Cas: Denies Third COVID19 Vaccination Date: Denies Seasonal Allergies Seasonal Allergies: No Past Medical History Surgery/Hospitalization HX: Caregiver states that this patient had iohexoL and triamcinolone acetonide on the 25 of November. 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 Sexually Transmitted Disease: No Genitourinary: Yes (RENAL CANCER-S/P LEFT NEPHRECTOMY) UTI-Chronic Gastrointestinal: Yes (S/P COLON RESECTION/COLOSTOMY/TAKEDOWN FOR RUPTURED DIVERTICULITIS) Diverticulosis, Pancreatitis Musculoskeletal: Yes Degenerate Disk Disease, Arthritis, Chronic Back Pain Endocrine: Yes Diabetes, Insulin dep, Hypothyroidsim HEENT: Yes Cataract, Glaucoma Cancer: Yes Kidney Did You Recieve Any Treatments: Yes What Type of Treatment Did You: Surgical Intervention Psychosocial: Yes Anxiety, Depression Integumentary: No Blood Disorders: No Adverse Reaction/Blood Tranf: No Family Medical History PSH: -LEFT NEPHRECTOMY 1985 FOR CANCER -COLON RESECTION WITH COLOSTOMY AND LATER TAKEDOWN FOR PERFORATED DIVERTICULITIS -CHOLECYSTECTOMY Physical Exam-Suspected Sepsis Physical Exam Vital Signs Vital Signs - First Documented 06/01/22 01:12 Temp 35.9 Pulse 71 Resp 16 B/P (MAP) 189/122 (144) Capillary Refill : Blood Pressure Mean: 144 Height, Weight, BMI Height: 5'0.00" Weight: 160lbs. 8.0oz. [id number]; BMI Method:Stated General Appearance: No Apparent Distress, WD/WN HEENT: PERRL/EOMI, Normal ENT Inspection Neck: Normal Inspection; No JVD Respiratory: Lungs Clear, Normal Breath Sounds, No Accessory Muscle Use Cardiovascular: Regular Rate, Rhythm, No Edema, No Murmur, Other (Paced rhythm noted on monitor) Gastrointestinal: Normal Bowel Sounds, Non Tender, Soft Extremity: Non Tender, Pedal Edema Neurologic/Psychiatric: Alert, No Motor/Sensory Deficits (Generalized weakness but moves all 4 extremities equally), Disoriented Skin: normal color, warm/dry, other (Skin dry and flaky) Focused Exam Sepsis Stage: Ruled Out Reason for ruling out sepsis: Did not meet SIRS criteria Lactate Level 06/01/22 01:50: Lactic Acid Level 1.25 Time of Focused Exam: 04:29 Respiratory: Lungs Clear Cardiovascular: Regular Rate, Rhythm, No Murmur Capillary Refill: Less Than 3 Seconds Peripheral Pulses: 1+ Radial Pulses (L) Skin: normal color, warm/dry Lactic Acid Level Laboratory Tests Test 06/01/22 01:50 Lactic Acid Level 1.25 MMOL/L (0.50-2.00) Within 3hrs of presentation: Admin fluids, Admin ABX, Blood cultures prior to ABX's, Focus exam, Lactate level Progress/Results/Core Measures Suspected Sepsis SIRS Temperature: Pulse: 71 Respiratory Rate: 16 Laboratory Tests 06/01/22 01:25: White Blood Count 7.4 Blood Pressure 189 /122 Mean: 144 06/01/22 01:50: Lactic Acid Level 1.25 Laboratory Tests 06/01/22 01:25: Creatinine 1.93H, INR Comment 0.8, Platelet Count 306, Total Bilirubin 0.2 Results/Orders Lab Results Laboratory Tests Test 06/01/22 01:20 06/01/22 01:25 06/01/22 01:35 06/01/22 01:50 Range/Units Glucometer 122 H 70-110 MG/DL White Blood Count 7.4 4.3-11.0 10^3/uL Red Blood Count 4.64 3.80-5.11 10^6/uL Hemoglobin 13.4 11.5-16.0 g/dL Hematocrit 41 35-52 % Mean Corpuscular Volume 89 80-99 fL Mean Corpuscular Hemoglobin 29 25-34 pg Mean Corpuscular Hemoglobin Concent 32 32-36 g/dL Red Cell Distribution Width 14.4 10.0-14.5 % Platelet Count 306 130-400 10^3/uL Mean Platelet Volume 10.2 9.0-12.2 fL Immature Granulocyte % (Auto) 1 % Neutrophils (%) (Auto) 57 42-75 % Lymphocytes (%) (Auto) 36 12-44 % Monocytes (%) (Auto) 4 0-12 % Eosinophils (%) (Auto) 2 0-10 % Basophils (%) (Auto) 1 0-10 % Neutrophils # (Auto) 4.2 1.8-7.8 10^3/uL Lymphocytes # (Auto) 2.7 1.0-4.0 10^3/uL Monocytes # (Auto) 0.3 0.0-1.0 10^3/uL Eosinophils # (Auto) 0.1 0.0-0.3 10^3/uL Basophils # (Auto) 0.0 0.0-0.1 10^3/uL Immature Granulocyte # (Auto) 0.1 0.0-0.1 10^3/uL Prothrombin Time 12.0 L 12.2-14.7 SEC INR Comment 0.8 0.8-1.4 Activated Partial Thromboplast Time 32 24-35 SEC Sodium Level 139 135-145 MMOL/L Potassium Level 3.2 L 3.6-5.0 MMOL/L Chloride Level 101 98-107 MMOL/L Carbon Dioxide Level 23 21-32 MMOL/L Anion Gap 15 H 5-14 MMOL/L Blood Urea Nitrogen 32 H 7-18 MG/DL Creatinine 1.93 H 0.60-1.30 MG/DL Estimat Glomerular Filtration Rate 26 BUN/Creatinine Ratio 17 Glucose Level 115 H 70-105 MG/DL Calcium Level 9.7 8.5-10.1 MG/DL Corrected Calcium 9.4 8.5-10.1 MG/DL Magnesium Level 2.3 1.6-2.4 MG/DL Total Bilirubin 0.2 0.1-1.0 MG/DL Aspartate Amino Transf (AST/SGOT) 21 5-34 U/L Alanine Aminotransferase (ALT/SGPT) 13 0-55 U/L Alkaline Phosphatase 113 40-136 U/L C-Reactive Protein High Sensitivity 0.50 0.00-0.50 MG/DL B-Type Natriuretic Peptide 56.1 <100.0 PG/ML Total Protein 7.8 6.4-8.2 GM/DL Albumin 4.4 3.2-4.5 GM/DL Lipase 68 8-78 U/L Thyroid Stimulating Hormone (TSH) 38.41 H 0.35-4.94 UIU/ML Free Thyroxine < 0.40 L 0.70-1.48 NG/DL Influenza Type A (RT-PCR) Not Detected Not Detecte Influenza Type B (RT-PCR) Not Detected Not Detecte SARS-CoV-2 RNA (RT-PCR) Not Detected Not Detecte Lactic Acid Level 1.25 0.50-2.00 MMOL/L Test 06/01/22 02:20 06/01/22 02:50 06/01/22 04:27 Range/Units Urine Color YELLOW Urine Clarity SL CLOUDY Urine pH 7.0 5-9 Urine Specific [place] 1.025 H 1.016-1.022 Urine Protein 3+ H NEGATIVE Urine Glucose (UA) 1+ H NEGATIVE Urine Ketones NEGATIVE NEGATIVE Urine Nitrite POSITIVE H NEGATIVE Urine Bilirubin NEGATIVE NEGATIVE Urine Urobilinogen 0.2 < = 1.0 MG/DL Urine Leukocyte Esterase NEGATIVE NEGATIVE Urine RBC (Auto) 1+ H NEGATIVE Urine RBC 2-5 H /HPF Urine WBC 5-10 H /HPF Urine Crystals NONE /LPF Urine Bacteria LARGE H /HPF Urine Casts NONE /LPF Urine Mucus NEGATIVE /LPF Urine Culture Indicated YES Urine Opiates Screen NEGATIVE NEGATIVE Urine Oxycodone Screen NEGATIVE NEGATIVE Urine Methadone Screen NEGATIVE NEGATIVE Urine Propoxyphene Screen NEGATIVE NEGATIVE Urine Barbiturates Screen NEGATIVE NEGATIVE Ur Tricyclic Antidepressants Screen NEGATIVE NEGATIVE Urine Phencyclidine Screen NEGATIVE NEGATIVE Urine Amphetamines Screen NEGATIVE NEGATIVE Urine Methamphetamines Screen NEGATIVE NEGATIVE Urine Benzodiazepines Screen NEGATIVE NEGATIVE Urine Cocaine Screen NEGATIVE NEGATIVE Urine Cannabinoids Screen NEGATIVE NEGATIVE Glucometer 57 *L 125 H 70-110 MG/DL My Orders Orders - KASSIE SHEN MD Ed Iv/Invasive Line Start (06/01/22 01:17) Lactated Ringers (Lr 1000 Ml Iv Solution (06/01/22 01:30) Accucheck Stat ONCE (06/01/22 01:17) Ekg Tracing (06/01/22 01:17) Monitor-Rhythm Ecg Trace Only (06/01/22 01:17) Cbc With Automated Diff (06/01/22 01:17) Comprehensive Metabolic Panel (06/01/22 01:17) Hs C Reactive Protein (06/01/22 01:17) Magnesium (06/01/22 01:17) Thyroid Stimulating Hormone (06/01/22 01:17) Ua Culture If Indicated (06/01/22 01:17) Free T4 (Free Thyroxine) (06/01/22 01:17) Blood Culture (06/01/22 01:33) Sputum Culture (06/01/22 01:33) Protime With Inr (06/01/22 01:33) Partial Thromboplastin Time (06/01/22 01:33) Chest 1 View, Ap/Pa Only (06/01/22 01:33) Vital Signs Adult Sepsis Patie Q15M (06/01/22 01:33) Remove Rings In Anticipation O (06/01/22 01:33) Lactic Acid Analyzer (06/01/22 01:33) Covid 19 Inhouse Test (06/01/22 01:33) Influenza A And B By Pcr (06/01/22 01:33) Drug Screen Stat (Urine) (06/01/22 01:35) Lipase (06/01/22 01:35) Bnp Nixon (06/01/22 01:57) Ct Head Wo (06/01/22 02:16) Urine Culture (06/01/22 02:20) D50w (Emergency) Syringe (Dextrose 50% 5 (06/01/22 03:00) D5 Ns 1000 Ml Iv Solution (Dextrose 5%/0 (06/01/22 02:52) Keenan Cath (06/01/22 02:52) Ceftriaxone 1 Gm Pre-Mix (Rocephin 1 Gm (06/01/22 03:28) Accucheck Stat ONCE (06/01/22 04:08) Medications Given in ED Current Medications Medications Dose Ordered Sig/Davey Route Start Time Stop Time Status Last Admin Dose Admin Dextrose 50 ml ONCE ONCE IV 06/01/22 03:00 06/01/22 03:01 DC 06/01/22 03:00 50 ML Lactated Ringer's 1,000 ml @ 0 mls/hr Q0M ONCE IV 06/01/22 01:30 06/01/22 01:31 DC 06/01/22 01:45 0 MLS/HR Vital Signs/I&O 06/01/22 06/01/22 01:12 03:23 Temp 35.9 32.1 Pulse 71 Resp 16 B/P (MAP) 189/122 (144) Capillary Refill : Blood Pressure Mean: 144 Point of Care Testing Finger Stick Blood Glucose: 57 Blood Glucose Action Taken: RN AND PHYS NOTIFIED Progress Note #1: Time: 04:48 Progress Note Patient was hydrated with warm fluids. These were later switched to D5 normal saline to run at 100 mL/h to help combat hypoglycemia. Patient's hypoglycemia rebounded it while in the ER with a blood sugar of 57. She was treated with an additional amp of D50 and the D5 normal saline at a rate of 100 was initiated. Last blood sugar prior to admission was 125. Extensive lab evaluation was pursued. CBC was unremarkable. Chemistry revealed stable chronic kidney disease and hypokalemia. Potassium is being replaced with admission orders. Her hypothyroidism was severely dysregulated with a very high TSH and unmeasurable free T4. I suspect she has not been compliant with her levothyroxine. Patient was also found to have urinary tract infection. Blood cultures and lactic acid were obtained. She is being treated with Rocephin. Patient was noted to be severely hypothermic with an initial rectal temperature of 31 C. Warm fluids and warm blankets were provided. Bear hugger warmer was applied. Prior to admission temperature had increased to 33.1 C. Exact cause of her hypothermia is uncertain but likely is multifactorial with contributing factors being severe hypothyroidism and hypoglycemia. Patient remained responsive but confused and disoriented. CT of the head was unremarkable. Progress Note #2: Time: 05:00 Progress Note Report given to eICU ECG Initial ECG Impression Date: Jun 01, 2022 Initial ECG Impression Time: : Initial ECG Rate: 69 Comment Atrial paced rhythm with no ST elevation or depression. No abnormal intervals or axis deviation. Diagnostic Imaging Diagonstic Imaging: CT Plain Films/CT/US/NM/MRI: head Comments CT head viewed by me and radiologist report reviewed. No acute abnormalities we re appreciated. See report below: NAME: SHERI ROTHMAN [facility] REC#: [id number] PT STATUS: REG ER : 1945 PHYSICIAN: KASSIE SHEN MD ADMIT DATE: 06/01/22/ER Signed Date of Exam:06/01/22 CT HEAD WO PROCEDURE: CT head without contrast. TECHNIQUE: Multiple contiguous axial images were obtained through the brain without the use of intravenous contrast. Auto Exposure Controls were utilized during the CT exam to meet ALARA standards for radiation dose reduction. INDICATION: Altered mental status. COMPARISON: 01/03/2020 FINDINGS: No intracranial hyperdense hemorrhage or space-occupying mass. No hydrocephalus or midline shift. No features of acute large territorial infarct. Periventricular hypoattenuation is most compatible chronic microvascular ischemic change. An ovoid focus of hypodensity in the left basal ganglia and left thalamus is most compatible with old lacunar infarct. No hyperdense vessel sign. Stable calcification in the left M1 division of the middle cerebral artery. No skull fracture. Paranasal sinuses and mastoid air cells are clear. IMPRESSION: 1. No acute intracranial process by CT. 2. Chronic lacunar infarct in the left basal ganglia and thalamus. Dictated by: Dictated on workstation # [id number] Dict: 06/01/22399 Trans: 06/01/22401 [facility] [id number] Interpreted by: ANNA MALDONADO MD Electronically signed by: ANNA MALDONADO MD 06/01/22401 Diagonstic Imaging: Xray Plain Films/CT/US/NM/MRI: chest Comments Chest x-ray viewed by me and report reviewed. See report below: NAME: SHERI ROTHMAN [facility] REC#: [id number] PT STATUS: REG ER : 1945 PHYSICIAN: KASSIE SHEN MD ADMIT DATE: 06/01/22/ER Signed Date of Exam:06/01/22 CHEST 1 VIEW, AP/PA ONLY INDICATION: Altered mental status, tachycardia. EXAMINATION: Frontal chest was obtained at 1:35 a.m. COMPARISON: 01/03/2020. The heart is mildly enlarged. There is a new pacemaker device in place compared to the prior study. There is no pneumothorax or pleural fluid. There is no focal infiltrate. IMPRESSION: New pacemaker compared to the previous study. Cardiomegaly with poor inspiration. No focal infiltrate or pleural fluid. Dictated by: Dictated on workstation # [id number] Dict: 06/01/22151 Trans: 06/01/22156 [facility] [phone] Interpreted by: COOPER CHRISTIAN MD Electronically signed by: COOPER CHRISTIAN MD 06/01/22 0157 Departure Communication (Admissions) Time/Spoke to Admitting Phy: 04:10 Dr. Naylor Impression Primary Impression: Altered mental status Qualified Codes: R41.82 - Altered mental status, unspecified Additional Impressions: Hypokalemia Urinary tract infection Qualified Codes: N39.0 - Urinary tract infection, site not specified Hypothermia Qualified Codes: T68.XXXA - Hypothermia, initial encounter Severe hypothyroidism Disposition: ADMITTED INPATIENT Condition: Improved Admissions Decision to Admit Reason: Admit from ER (General) Decision to Admit/Date: Jun 01, 2022 Time/Decision to Admit Time: 04:10 Departure-Patient Inst. Referrals: NO,LOCAL PHYSICIAN (PCP) Primary Care Physician WALLY NG APRN (Family) Primary Care Physician Copy Copies To 1: ANA MARIA DEL TORO MD, JOSHUA T MD Jun 01, 2022 04:07
--- NOTE | 2022-06-01 05:04 | Tele-ICU Consult ---
History of Present Illness History of Present Illness Date Seen by Provider: Jun 01, 2022 Time Seen by Provider: 04:59 History of Present Illness 77 yo F found unresponsive at home, EMT called, found to have blood sugar of 31, reoccurred and started on IV D5W @ 100 mL/h. On arrival to ED had body temp of 31C, placed on bear hugger, went up to 33C Also found to be severely hypothyroid with TSH 38 and free thyroxine undebatable, Hx of hypothyroidism, probably not taking replacement Potassium 3.2 which has been replaced, UA shows 5-10 WBC's started on IV Rocephin UDS negative though pt has been on opioids for back pain Has PPM, has a tachyarrythmia on interrogation flu and Covid serology negative CT head shows no new changes, CXR shows PPM and cardiomegaly EKG does not show low voltage Allergies and Home Medications Allergies Coded Allergies: promethazine (Verified Allergy, Severe, SEIZURE, NAUSEA, 07/19/08) duloxetine HCl (Verified Allergy, Mild, 05/28/11) escitalopram oxalate (Verified Allergy, Unknown, 09/22/13) niacin (Verified Allergy, Unknown, 09/22/13) olanzapine (Verified Allergy, Unknown, 09/22/13) ibuprofen (Verified Adverse Reaction, Mild, UNSET STOMACH, 09/22/13) lisinopril (Verified Adverse Reaction, Mild, HEADACHE, 09/22/13) tramadol (Verified Adverse Reaction, Mild, NAUSEATED, 09/22/13) Home Medications Albuterol Sulfate 8.5 Gm Hfa.aer.ad, 2 PUFF INH Q6H PRN for SHORTNESS OF BREATH, (Reported) Alprazolam 1 Mg Tablet, 1 MG PO TID PRN for ANXIETY, (Reported) Amitriptyline HCl 25 Mg Tablet, 25 MG PO HS Prescribed by: KASSIE ANDREWS on 11/15/21 1028 Calcium Carbonate/Vitamin D3 1 Each Tablet, 1 TAB PO BID, (Reported) Cefdinir 300 Mg Capsule, 300 MG PO BID Prescribed by: KASSIE ANDREWS on 08/17/21 1814 Celecoxib 200 Mg Capsule, 200 MG PO BID, (Reported) Cephalexin 500 Mg Tablet, 500 MG PO BID Prescribed by: KIRSTEN FORD on 10/12/21 1649 Famotidine 10 Mg Tablet, 10 MG PO BID PRN for heartburn Prescribed by: Ritesh Wilhelm on 10/14/21 1513 Fluticasone Propionate 16 Gm Naspr, 2 SPRAYS NS BID PRN for ALLERGIES, (Reported) Furosemide 40 Mg Tablet, 40 MG PO EVERY OTHER DAY, (Reported) Gemfibrozil 600 Mg Tablet, 600 MG PO BID, (Reported) Glimepiride 4 Mg Tablet, 4 MG PO DAILY, (Reported) Hydrocodone/Acetaminophen 1 Each Tablet, 0.5-1 TAB PO Q6H PRN for PAIN-SEVERE (8-10) Prescribed by: KASSIE ANDREWS on 08/17/21 1814 Insulin Glargine,Hum.rec.anlog 300 Unit/1 Ml Insuln.pen, 35 UNITS SC HS, (Re ported) Insulin Glulisine 100 Unit/1 Ml Insuln.pen, 10 UNITS SC BREAKFAST & LUNCH, (Reported) Insulin Glulisine 100 Unit/1 Ml Insuln.pen, 14 UNITS SC WITH EVENING MEAL, (Reported) Levothyroxine Sodium 200 Mcg Tablet, 200 MCG PO DAILY, (Reported) Metformin HCl 1,000 Mg Tablet, 1,000 MG PO BID, (Reported) Metoprolol Tartrate 25 Mg Tablet, 25 MG PO BID, (Reported) Morphine Sulfate 30 Mg Tablet, 30 MG PO Q12H PRN for PAIN-SEVERE (8-10) Prescribed by: MONET MAN on 11/28/21 1424 Naloxone HCl 4 Mg/Actuation Enterprise, 2 MG NS UD Enterprise 1 mg in each nostril for suspected opioid overdose or respiratory suppression with low oxygen. Call 911 if given. Prescribed by: KASSIE ANDREWS on 11/15/21 1028 Omeprazole 20 Mg Capsule.dr, 20 MG PO DAILY PRN for heartburn Prescribed by: Ritesh Wilhelm on 10/14/21 1513 Ondansetron 4 Mg Tab.rapdis, 4 MG SL Q4H PRN for NAUSEA/VOMITING Prescribed by: KASSIE ANDREWS on 11/22/21 1056 Orphenadrine Citrate 100 Mg Tablet.er, 100 MG PO TID Prescribed by: NICOL ADAMS on 08/20/21 0208 Oxycodone HCl 10 Mg Tab.er.12h, 10 MG PO BID Prescribed by: KASSIE ANDREWS on 11/15/21 1517 Oxycodone HCl/Acetaminophen 1 Each Tablet, 1 TAB PO Q4H PRN for PAIN-MODERATE (5-7) Prescribed by: KASSIE ANDREWS on 11/14/21 1455 Polyethylene Glycol 17 Gm Pack, 17 GM PO EVERY OTHER DAY, (Reported) Tramadol HCl 50 Mg Tablet, 50 MG PO Q6H PRN for PAIN Prescribed by: DEBO NOVA on 06/12/18 1034 Past Medical/Social/Family Hx Immunizations Up To Date First/Initial COVID19 Vaccinat: Denies Second COVID19 Vaccination Cas: Denies Tetanus Booster (TDap): Unknown Current Status Communicates: Verbally Primary Language: Scottish Preferred Spoken Language: Scottish Is interpretation needed?: No Family Medical History Family Hx: PSH: -LEFT NEPHRECTOMY 1985 FOR CANCER -COLON RESECTION WITH COLOSTOMY AND LATER TAKEDOWN FOR PERFORATED DIVERTICULITIS -CHOLECYSTECTOMY Review of Systems Constitutional: see HPI EENTM: see HPI Respiratory: see HPI Cardiovascular: see HPI Gastrointestinal: see HPI Genitourinary: see HPI Musculoskeletal: see HPI Skin: see HPI Psychiatric/Neurological: See HPI Focused Exam Lactate Level 06/01/22 01:50: Lactic Acid Level 1.25 Height, Weight, BMI Height: 5'0.00" Weight: 160lbs. 8.0oz. 72.574537cf; BMI Method:Stated Time of Focused Exam: 04:29 Lactic Acid Level Laboratory Tests Test 06/01/22 01:50 Lactic Acid Level 1.25 MMOL/L (0.50-2.00) Exam Exam Patient acknowledged, consented, and participated in this virtual visit which was conducted using real time audio/video Vital Signs Date Time Temp Pulse Resp B/P (MAP) Pulse Ox O2 Delivery O2 Flow Rate FiO2 06/01/22 03:23 32.1 06/01/22 01:12 35.9 71 16 189/122 (144) I & O 06/01/22 07:00 Intake Total 500 ml Balance 500 ml Height & Weight Height: 5'0.00" Weight: 160lbs. 8.0oz. 72.226125kt; BMI Method:Stated General Appearance: WD/WN HEENT: Other (thyroid not felt, had thyroid removed) Neck: Other (thyroid not felt by RN) Respiratory: Lungs Clear Cardiovascular: Regular Rate, Rhythm, No Murmur Capillary Refill: Less Than 3 Seconds Peripheral Pulses: 1+ Radial Pulses (L) Gastrointestinal: normal bowel sounds, non tender, soft Extremity: No Pedal Edema Results Lab Laboratory Tests 06/01/22 01:25 Assessment/Plan Assessment/Plan severe hypothyroidism, would give next dose IV if can not swallow pills, supposed to be on 200 mcg/d, would check free cortisol, continue iV Rocephin potassium has been replaced continue to warm continue to give D5W until glucose improves Critical Care: Critically Ill Patient Time spent with patient (mins): 35 BRITTANY GAUTAM MD Jun 01, 2022 05:04
--- NOTE | 2022-06-01 05:41 | Progress Note ---
Standard Progress Note Progress Notes/Assess & Plan Date Seen by a Provider: Jun 01, 2022 Time Seen by a Provider: 05:40 Progress/Assessment & Plan potassium 3.2, not replaced, will give KCl IV over 4 hours thyroid not given, will give 200 mcg-home dose MD DAIN Matta JOSEPH K MD Jun 01, 2022 05:41
[2022-06-01] MEDS ORDERED: ONDANSETRON 4 MG/2 ML (SDV) Z0FRAN IV PRN ×2 (06:15→07:30)
[2022-06-01] MEDS: POTASSIUM CL 10MEQ/50ML IVPB 50 ML IV SCH ×4 (06:18→10:28)
[2022-06-01] MEDS ORDERED: LEVOTHYROXINE 150 MCG (LEVOTHROID) TAB PO SCH (06:30)
[2022-06-01] MEDS: LEVOTHYROXINE 50 MCG (LEVOTHROID) TAB PO SCH (06:30)
--- NOTE | 2022-06-01 07:11 | History & Physical-Hospitalist ---
History of Present Illness HPI/Chief Complaint Chief complaint: Unresponsive due to hypoglycemia and an adequate supplementation of thyroid HPI: This is a 77-year-old female who was found unresponsive by her family in bed EMS was contacted noted hypoglycemia of 31. She had no evidence of any stroke on work-up in the ER. She has been mostly bedridden. She was hy pothermic and everything was consistent with mild myxedema coma with TSH of 38 so she was given IV thyroid. Currently her blood sugars are much better but unsure about her home medication in case she was taking the oral hypoglycemic agent of glipizide which could have a long hypoglycemic effect. She is currently cold but otherwise stable. She will be moved down to the floor. ER HPI: This 77-year-old woman presents to the emergency room via EMS after being found unresponsive by her family in bed. She was breathing with a pulse. Her blood sugar was found to be 31 by EMS. A dose of D50 was administered and blood sugar improved to 187. Last known well time was about 1500 yesterday. Patient has been reluctant to engage in healthcare recently according to family. She had been treated for severe back pain in [place] this summer and has not followed up with her routine providers after returning home. Family reports she has had severe drops in blood sugar in the middle of the night the past 2-3 nights. She has also been sleeping excessively recently. There has been no known recent trauma. They presume she has a urinary tract infection and have been trying to get her into the clinic. She reportedly had diarrhea a few nights ago. She had previously been taking opioids to control her back pain but has not required them since having an epidural. There reportedly was some type of pancreatic lesion noted on an imaging study in [place] which is supposed to be under surveillance. This has not been followed by the primary care provider since returning. They have noted some increase in generalized swelling. Patient's primary care provider is Dr. Del Toro with [facility]. She is improving in her level of alertness since receiving the D50. She is answering some questions but primarily complains that she is cold. She is noted to be hypothermic with initial temperature of 31 C. She is notably hypertensive. She seems to have global weakness and dulled cognition related to hypoglycemia, but there appear to be no other specific focal neurologic deficits. Source: patient, RN/MD, old records Exam Limitations: clinical condition Date Seen 06/01/22 Time Seen by a Provider: 10:00 Attending Physician Emi,Local Physician PCP Admitting Physician: Michelle Naylor DO Attending Physician: Michelle Naylor DO Referring Physician Date of Admission Jun 01, 2022 at 04:10 Home Medications & Allergies Home Medications Reviewed patient Home Medication Reconciliation performed by pharmacy medication reconciliations residential service technician and/or nursing. Patients Allergies have been reviewed. Allergies Allergies Coded Allergies promethazine (Verified Allergy, Severe, SEIZURE, NAUSEA, 07/19/08) duloxetine HCl (Verified Allergy, Mild, 05/28/11) escitalopram oxalate (Verified Allergy, Unknown, 09/22/13) niacin (Verified Allergy, Unknown, 09/22/13) olanzapine (Verified Allergy, Unknown, 09/22/13) ibuprofen (Verified Adverse Reaction, Mild, UNSET STOMACH, 09/22/13) lisinopril (Verified Adverse Reaction, Mild, HEADACHE, 09/22/13) tramadol (Verified Adverse Reaction, Mild, NAUSEATED, 09/22/13) Past Dvuzmnx-Ltvzci-Daeuuv Hx Patient Social History Marrital Status: single Employed/Student: retired Tobacco Use?: No Smoking Status: Former Smoker Use of E-Cig and/or Vaping dev: No Substance use?: No Alcohol Use?: No Pt feels they are or have been: No Immunizations Up To Date First/Initial COVID19 Vaccinat: Denies Second COVID19 Vaccination Cas: Denies Tetanus Booster (TDap): Unknown Seasonal Allergies Seasonal Allergies: No Current Status Communicates: Verbally Primary Language: Khmer Preferred Spoken Language: Khmer Is interpretation needed?: No Past Medical History Surgeries: Abdominal, Bowel Surgery, Gallbladder, Nephrectomy, Thyroidectomy High Cholesterol, Hypertension, Peripheral Vascular 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: Menopausal Sexually Transmitted Disease: No UTI-Chronic Diverticulosis, Pancreatitis Degenerate Disk Disease, Arthritis, Chronic Back Pain Diabetes, Insulin dep, Hypothyroidsim Cataract, Glaucoma Kidney Did You Recieve Any Treatments: Yes What Type of Treatment Did You: Surgical Intervention Anxiety, Depression Blood Disorders: No Adverse Reaction/Blood Tranf: No Family Medical History PSH: -LEFT NEPHRECTOMY 1985 FOR CANCER -COLON RESECTION WITH COLOSTOMY AND LATER TAKEDOWN FOR PERFORATED DIVERTICULITIS -CHOLECYSTECTOMY Review of Systems Constitutional: see HPI, dizziness, malaise, weakness EENTM: no symptoms reported Respiratory: no symptoms reported Cardiovascular: no symptoms reported Gastrointestinal: no symptoms reported Musculoskeletal: no symptoms reported Skin: no symptoms reported Psychiatric/Neurological: No Symptoms Reported All Other Systems Reviewed Negative Unless Noted: Yes Physical Exam Physical Exam Vital Signs Vital Signs - First Documented 06/01/22 06/01/22 06/01/22 06/01/22 01:12 05:03 06:54 08:48 Temp 35.9 Pulse 71 Resp 16 B/P (MAP) 189/122 (144) Pulse Ox 97 O2 Delivery Room Air O2 Flow Rate 0.00 FiO2 21 Capillary Refill : Less Than 3 Seconds Height, Weight, BMI Height: 5'0.00" Weight: 160lbs. 8.0oz. 72.366752zk; 33.90 BMI Method:Stated General Appearance: No Apparent Distress, Chronically ill Eyes: Right Eye Normal Inspection, Right Eye PERRL HEENT: PERRL/EOMI, Normal ENT Inspection, Pharynx Normal, Moist Mucous Membranes Neck: Full Range of Motion, Normal Inspection, Non Tender Respiratory: Chest Non Tender, Lungs Clear, Normal Breath Sounds, No Accessory Muscle Use, No Respiratory Distress Cardiovascular: Regular Rate, Rhythm, No Edema, No Gallop, No JVD, No Murmur, Normal Peripheral Pulses Gastrointestinal: Normal Bowel Sounds, No Organomegaly, No Pulsatile Mass, Non Tender, Soft Back: Normal Inspection, No CVA Tenderness, No Vertebral Tenderness Extremity: Normal Capillary Refill, Normal Inspection, Normal Range of Motion, Non Tender, No Calf Tenderness, No Pedal Edema Neurologic/Psychiatric: Alert, No Motor/Sensory Deficits, medical insurance clerk II-XII Norm as Tested, Depressed Affect, Disoriented, Motor Weakness (Generalized) Skin: Normal Color, Warm/Dry Lymphatic: No Adenopathy Results Results/Procedures Labs Laboratory Tests 06/01/22 01:25 Patient resulted labs reviewed. Assessment/Plan Admission Diagnosis Assessment: Metabolic encephalopathy Myxedema coma Severe hypoglycemia due to insulin and possible oral hypoglycemic agent Hypothermia UTI Plan: Transfer to fourth floor Supportive care Monitor blood sugars Permissive hyperglycemia Oral thyroid Admission Status: Inpatient Order (span 2 midnights) Reason for Inpatient Admission: Myxedema coma Diagnosis/Problems Diagnosis/Problems (1) Myxedema coma (2) Hypothermia (3) Hypoglycemia (4) Altered mental status Status: Acute Qualifiers: Altered mental status type: unspecified Qualified Codes: R41.82 - Altered mental status, unspecified (5) Hypothermia Status: Acute Qualifiers: Encounter type: initial encounter Qualified Codes: T68.XXXA - Hypothermia, initial encounter (6) Urinary tract infection Status: Acute Qualifiers: Urinary tract infection type: site unspecified Hematuria presence: without hematuria Qualified Codes: N39.0 - Urinary tract infection, site not specified (7) Hypokalemia Status: Acute MICHELLE NAYLOR DO Jun 01, 2022 07:11
[2022-06-01] MEDS ORDERED: diphenhydrAMINE 25 MG TAB (BENADRYL) PO PRN (07:30)
[2022-06-01] MEDS ORDERED: ANTACID SUSP 30 ML UDC (MYLANTA) PO PRN (07:30)
[2022-06-01] MEDS ORDERED: ACETAMINOPHEN 325 MG TABLET PO PRN (07:30)
[2022-06-01] MEDS ORDERED: CALCIUM CARBONATE 500 MG (TUMS) TAB.CHEW PO PRN (07:30)
[2022-06-01] MEDS ORDERED: MILK OF MAGNESIA 400 MG/5 ML 30 ML UDC PO PRN (07:30)
[2022-06-01] MEDS ORDERED: diphenhydrAMINE 50 MG/ML INJ (BENADRYL) IVP PRN (07:30)
[2022-06-01] MEDS ORDERED: ONDANSETRON 4 MG (ZOFRAN) ORAL DISSOLVE TAB PO PRN (07:30)
[2022-06-01] MEDS ORDERED: BISACODYL 10 MG SUPP (DULCOLAX) PR PRN (07:30)
[2022-06-01] MEDS ORDERED: MELATONIN 3 MG TABLET PO PRN (07:30)
[2022-06-01 08:48] VITALS: BP 110/66
[2022-06-01] MEDS: ENOXAPARIN INJECTION 30 MG/0.3 ML SYR SC SCH (08:52)
[2022-06-01] MEDS: SENNOSIDES 8.6 MG (SENOKOT) TAB PO SCH ×2 (08:52→20:59)
[2022-06-01] MEDS: DOCUSATE SODIUM 100 MG (COLACE) CAP PO SCH ×2 (08:52→20:58)
[2022-06-01] MEDS ORDERED: RT-ALBUTEROL SULF 2.5 MG/3 ML PRE-MIX VIAL INH PRN (09:00)
[2022-06-01] MEDS: D5 NS 1000 ML IV SOLUTION 1,000 ML IV SCH (10:57)
[2022-06-01 16:06] VITALS: BP 140/91
[2022-06-01] MEDS: HYDROmorphone 2 MG/ML VIAL (DILAUDID) IV PRN (18:00)
[2022-06-01 19:32] VITALS: BP 189/84
[2022-06-01 23:43] VITALS: BP 159/81
[2022-06-02] VITALS (7 sets, daily range): BP systolic 143–199; BP diastolic 67–91
[2022-06-02] MEDS: D5 NS 1000 ML IV SOLUTION 1,000 ML IV SCH ×2 (03:32→04:10)
[2022-06-02] MEDS: cefTRIAXone 1 GM/50 ML (PRE-MIX) IV SCH (04:10)
[2022-06-02] MEDS: HYDROmorphone 2 MG/ML VIAL (DILAUDID) IV PRN (04:14)
[2022-06-02 06:00] LABS: BASOPHILS # (AUTO) 0.1 10^3/uL (0.0-0.1); BASOPHILS % (AUTO) 1 % (0-10); EOSINOPHILS # (AUTO) 0.1 10^3/uL (0.0-0.3); EOSINOPHILS % (AUTO) 2 % (0-10); HEMATOCRIT 33 % (35-52); HEMOGLOBIN 10.3 g/dL (11.5-16.0); LYMPHOCYTES # (AUTO) 3.9 10^3/uL (1.0-4.0); LYMPHOCYTES % (AUTO) 42 % (12-44); MEAN CORPUSCULAR HEMOGLOBIN 29 pg (25-34); MEAN CORPUSCULAR HGB CONC 31 g/dL (32-36); MEAN CORPUSCULAR VOLUME 91 fL (80-99); MEAN PLATELET VOLUME 10.8 fL (9.0-12.2); MONOCYTES # (AUTO) 0.5 10^3/uL (0.0-1.0); MONOCYTES % (AUTO) 5 % (0-12); NEUTROPHILS # (AUTO) 4.8 10^3/uL (1.8-7.8); NEUTROPHILS % (AUTO) 51 % (42-75); PLATELET COUNT 287 10^3/uL (130-400); WHITE BLOOD COUNT 9.4 10^3/uL (4.3-11.0)
[2022-06-02] MEDS: LEVOTHYROXINE 50 MCG (LEVOTHROID) TAB PO SCH (06:21)
[2022-06-02] MEDS: ENOXAPARIN INJECTION 30 MG/0.3 ML SYR SC SCH (06:21)
[2022-06-02 06:38] LABS: ALBUMIN 3.4 GM/DL (3.2-4.5); BILIRUBIN,TOTAL 0.3 MG/DL (0.1-1.0); CALCIUM 8.3 MG/DL (8.5-10.1); CREATININE SERUM 2.22 MG/DL (0.60-1.30); POTASSIUM 4.5 MMOL/L (3.6-5.0); TOTAL PROTEIN 5.9 GM/DL (6.4-8.2)
--- NOTE | 2022-06-02 08:50 | Occupational Therapy Eval ---
OT Evaluation-General/PLF Medical Diagnosis Admission Date Jun 01, 2022 at 04:10 Medical Diagnosis: c/c AMS Barbie Onset Date: Jun 01, 2022 Therapy Diagnosis Therapy Diagnosis: Weakness, debility Height/Weight Height (Feet): 5 Height (Inches): 0.00 Weight (Pounds): 160 Weight (Ounces): 8.0 Precautions Precautions/Isolations: Fall Prevention, Standard Precautions Weight Bear Status Weight Bearing Restriction: Weight Bearing/Tolerated Referral Referral Reason: Evaluation/Treatment Medical History Additional Medical History h/o LBP w/ intermitent f/u care, poorly controlled BS. HTN, PVD, DDD, DM, colon resection, Kidney CA, Cataracts, glaucoma, anxiety Current History Patient in vehicle with family and family called EMS d/t pt unresponsive. Family met EMS in route on road. Low glucose levels and admission to hospital Reviewed History: Yes Social History Current Living Status: Other Family (pt reports lives with grandson) ADL-Prior Level of Function SCALE: Activities may be completed with or without assistive devices. 2-Otxobplrdq-opegupq completes the activity by him/herself with no assistance from a helper. 5-Set-up or Clean-up Assistance-helper sets up or cleans up; patient completes activity. Butterfield assists only prior to or following the activity. 4-Supervision or Touching Assistance-helper provides verbal cues and/or touching/steadying and/or contact guard assistance as patient completes activity. Assistance may be provided throughout the activity or intermittently. 3-Partial/Moderate Assistance-helper does LESS THAN HALF the effort. Butterfield lifts, holds or supports trunk or limbs, but provides less than half the effort. 2-Substantial/Maximal Assistance-helper does MORE THAN HALF the effort. Butterfield lifts or holds trunk or limbs and provides more than half the effort. 5-Ghihcjwom-yzxver does ALL the effort. Patient does none of the effort to complete the activity. Or, the assistance of 2 or more helpers is required for the patient to complete the activity. If activity was not attempted, code reason: 7-Patient Refused. 9-Not Applicable-not attempted and the patient did not perform the activity before the current illness, exacerbation or injury. 10-Not Attempted due to Environmental Limitations-(lack of equipment, weather restraints, etc.). 88-Not Attempted due to Medical Conditions or Safety Concerns. Self Care: Independent Functional Cognition: Independent OT Current Status Subjective Reclined in bed eating breakfast and indecisive if continuing to complete Mental Status/Objective Patient Orientation: Person, Place, Situation Attachments: Keenan Catheter Current Upper Extremity ROM BUE ROM WFLS Upper Extremity Strength Refused MMT ADL-Treatment ADL-Current Eating in bed, declines OOB activity, refused standing or donning socks, agrees to sit EOB Eating (QC): 5 Education OT Patient Education: Energy conservation, Exercise program, Modified ADL techniques, Progress toward Goal/Update tx plan, Purpose of tx/functional activities, Reviewed precautions, Rehab process, Safety issues Teaching Recipient: Patient Teaching Methods: Demonstration, Discussion Response to Teaching: Verbalize Understanding, Return Demonstration, Reinforcement Needed OT Mcc Goals Supervisor Electric Goals Time Frame: Jun 02, 2022 Eating (QC): 6 Oral Hygiene (QC): 6 Toileting Hygiene (QC): 6 Shower/Bathe Self (QC): 6 Upper Body Dressing (QC): 6 Lower Body Dressing (QC): 6 On/Off Footwear (QC): 6 Additional Goals: 3-ImproveStrength/Eleonora 1=Demonstrate adherence to instructed precautions during ADL tasks. 2=Patient will verbalize/demonstrate understanding of assistive devices/modifications for ADL. 3=Patient will improve strength/tolerance for activity to enable patient to perform ADL's. OT Education/Plan Problem List/Assessment Assessment: Decreased Activ Tolerance, Decreased Safety Aware, Decreased UE Strength, Impaired Funct Balance, Impaired Self-Care Skills Discharge Recommendations Plan/Recommendations: Continue POC Therapy Discharge Recommendati: Post Acute OT Barriers to Progress Resistive to recommendations Treatment Plan/Plan of Care Treatment,Training & Education: Yes Patient would benefit from OT for education, treatment and training to promote independence in ADL's, mobility, safety and/or upper extremity function for ADL's. Plan of Care: ADL Retraining, Functional Mobility, Group Exercise/Act as Ind, UE Funct Exercise/Act Treatment Duration: Jun 14, 2022 Frequency: 3 times per week (3-5 times/week) Estimated Hrs Per Day: .25 hour per day Agreement: Yes Rehab Potential: Good Time Start Time: 08:00 Stop Time: 08:17 DATE: Jun 02, 2022 Total Time Billed (hr/min): 17 Billed Treatment Time 1 EVL 17 minutes GLORIA DYKES OT Jun 02, 2022 08:50
[2022-06-02] MEDS: SENNOSIDES 8.6 MG (SENOKOT) TAB PO SCH ×2 (09:43→22:34)
[2022-06-02] MEDS: DOCUSATE SODIUM 100 MG (COLACE) CAP PO SCH ×2 (09:43→22:35)
--- NOTE | 2022-06-02 09:50 | Physical Therapy Evaluation ---
PT Evaluation-General Medical Diagnosis Admission Date Jun 01, 2022 at 04:10 Medical Diagnosis: c/c AMS Barbie Onset Date: Jun 01, 2022 Therapy Diagnosis Therapy Diagnosis: generalized weakness/debility Height/Weight Height (Feet): 5 Height (Inches): 0.00 Weight (Pounds): 160 Weight (Ounces): 8.0 Precautions Precautions/Isolations: Fall Prevention, Standard Precautions Referral Physician: Dayday Reason for Referral: Evaluation/Treatment Medical History Pertinent Medical History: DM, HTN, Hypothroidism, PVD Additional Medical History pacemaker Current History EMS secondary to patient found unresponsive Reviewed History: Yes Social History Home: Single Level Current Living Status: Other Family (pt reports lives with grandson) Prior Prior Level of Function SCALE: Activities may be completed with or without assistive devices. 7-Cmvrjlewhm-evvcmrp completes the activity by him/herself with no assistance from a helper. 5-Set-up or Clean-up Assistance-helper sets up or cleans up; patient completes activity. Montgomery assists only prior to or following the activity. 4-Supervision or Touching Assistance-helper provides verbal cues and/or t ouching/steadying and/or contact guard assistance as patient completes activity. Assistance may be provided throughout the activity or intermittently. 3-Partial/Moderate Assistance-helper does LESS THAN HALF the effort. Montgomery lifts, holds or supports trunk or limbs, but provides less than half the effort. 2-Substantial/Maximal Assistance-helper does MORE THAN HALF the effort. Montgomery lifts or holds trunk or limbs and provides more than half the effort. 7-Tewlmusem-qkzzqg does ALL the effort. Patient does none of the effort to complete the activity. Or, the assistance of 2 or more helpers is required for the patient to complete the activity. If activity was not attempted, code reason: 7-Patient Refused. 9-Not Applicable-not attempted and the patient did not perform the activity before the current illness, exacerbation or injury. 10-Not Attempted due to Environmental Limitations-(lack of equipment, weather restraints, etc.). 88-Not Attempted due to Medical Conditions or Safety Concerns. Bed Mobility: 6 Transfers (B,C,W/C): 6 Gait: 6 Indoor Mobility (Ambulation): Independent Stairs: Independent Prior Devices Use: Walker PT Evaluation-Current Subjective Patient reports she is very tired and reluctantly agrees to PT. Objective Patient Orientation: Listless Attachments: Oxygen, Keenan Catheter, IV ROM/Strength ROM Lower Extremities bilateral LE WFL Strength Lower Extremities 3-/5 grossly bilateral all planes Integumentary/Posture Bladder Incontinence: Keenan Cath Posture WFL Neuromuscular (Tone, Coordination, Reflexes) diminished coordination due to weakness Sensory Vision: Functional Hearing: Functional Transfers Sit to Lying (QC): 3 Lying to Sitting/Side of Bed(Q: 3 Sit to Stand (QC): 3 Gait Mode of Locomotion: Walk Anticipated Mode of Locomotion: Walk Walk 10 feet (QC): 3 Walk 50 ft with 2 Turns(QC): 88 Gait Assistive Device: FWW Comments/Gait Description unsteady with PT correct Balance Sitting Static: Fair Sitting Dynamic: Fair Standing Static: Fair Standing Dynamic: Poor Assessment/Needs Patient will benefit from skilled PT to address functional strength and mobility to improve current LOF. Patient is very lethargic and declined up to recliner. Bed alarm activated for patient safety Rehab Potential: Fair PT [facility] Goals Army Ranger Goals PT [facility] Goals Time Frame: Jun 14, 2022 Roll Left & Right (QC): 6 Sit to Lying (QC): 6 Lying-Sitting on Side/Bed(QC): 6 Sit to Stand (QC): 6 Chair/Zps-wb-Bloov Xfer(QC): 6 Toilet Transfer (QC): 6 Walk 10 feet (QC): 5 Walk 50ft with 2 Turns (QC): 5 Walk 150 ft (QC): 5 PT Plan Problem List Problem List: Activity Tolerance, Functional Strength, Safety, Balance, Gait, Transfer, Bed Mobility Treatment/Plan Treatment Plan: Continue Plan of Care Treatment Plan: Bed Mobility, Education, Functional Activity Eleonora, Functional Strength, Gait, Safety, Therapeutic Exercise, Transfers Treatment Duration: Jun 14, 2022 Frequency: 6 times per week Estimated Hrs Per Day: .25 hour per day Time Time In: 853 Time Out: 903 DATE: Jun 02, 2022 Total Billed Treatment Time: 10 Total Billed Treatment 1 visit EVModC 10 min BOGDAN SALDIVAR PT Jun 02, 2022 09:50
[2022-06-02] MEDS ORDERED: LEVO175T5 PO (12:55)
[2022-06-02] MEDS ORDERED: INSU100I55 SQ (12:58)
[2022-06-02] MEDS ORDERED: GABA300C PO (12:58)
[2022-06-02] MEDS ORDERED: ATOR20TA66 PO (12:58)
[2022-06-02] MEDS ORDERED: AMIT25TA9 PO (12:58)
[2022-06-02] MEDS ORDERED: AMLO-251 PO (12:58)
[2022-06-02] MEDS ORDERED: GLUC1KIT2 SQ (12:58)
[2022-06-02] MEDS ORDERED: RT-ALBUINH PO (12:58)
[2022-06-02] MEDS ORDERED: CALC-250 PO (12:59)
[2022-06-02] MEDS ORDERED: ACET-2267 PO (12:59)
--- NOTE | 2022-06-02 16:01 | Progress Note ---
Subjective Subjective/Events-last exam Patient pleasantly confused. States that she is feeling better. Requiring assistance with ADLs except for feeding. Tolerating PO diet. Review of Systems Pulmonary: No Dyspnea, No Cough Cardiovascular: No: Chest Pain, Palpitations Gastrointestinal: No: Nausea, Vomiting, Abdominal Pain Neurological: Weakness, Incoordination, Confusion Focused Exam Lactate Level 06/01/22 01:50: Lactic Acid Level 1.25 Time of Focused Exam: 04:29 Objective Exam Last Set of Vital Signs Vital Signs Date Time Temp Pulse Resp B/P (MAP) Pulse Ox O2 Delivery O2 Flow Rate FiO2 06/02/22 15:18 36.6 75 19 143/67 (92) 96 Room Air 06/02/22 03:39 0.00 0.00 06/01/22 08:48 21 Capillary Refill : Less Than 3 Seconds I&O Intake and Output 06/02/22 00:00 Intake Total 1155 ml Output Total 700 ml Balance 455 ml Intake Oral 605 ml IV Total 550 ml Output Urine Total 700 ml Daily Weight Change No General: Alert (to person and place only), No Acute Distress Lungs: Clear to Auscultation, Normal Air Movement Heart: Regular Rate, No Murmurs Abdomen: Normal Bowel Sounds, Soft, No Tenderness, No Masses Extremities: No Tenderness/Swelling, Other (trace edema in LE bilaterally) Neuro: Normal Speech Results/Procedures Lab Laboratory Tests 06/01/22 19:28: Glucometer 228H 06/02/22 05:00: White Blood Count 9.4, Red Blood Count 3.59L, Hemoglobin 10.3#L, Hematocrit 33L, Mean Corpuscular Volume 91, Mean Corpuscular Hemoglobin 29, Mean Corpuscular Hemoglobin Concent 31L, Red Cell Distribution Width 14.7H, Platelet Count 287, Mean Platelet Volume 10.8, Immature Granulocyte % (Auto) 1, Neutrophils (%) (Auto) 51, Lymphocytes (%) (Auto) 42, Monocytes (%) (Auto) 5, Eosinophils (%) (Auto) 2, Basophils (%) (Auto) 1, Neutrophils # (Auto) 4.8, Lymphocytes # (Auto) 3.9, Monocytes # (Auto) 0.5, Eosinophils # (Auto) 0.1, Basophils # (Auto) 0.1, Immature Granulocyte # (Auto) 0.1, Sodium Level 135, Potassium Level 4.5, Chloride Level 104, Carbon Dioxide Level 19L, Anion Gap 12, Blood Urea Nitrogen 37H, Creatinine 2.22H, Estimat Glomerular Filtration Rate 22, BUN/Creatinine Ratio 17, Glucose Level 208H, Calcium Level 8.3L, Corrected Calcium 8.8, Magnesium Level 2.0, Total Bilirubin 0.3, Aspartate Amino Transf (AST/SGOT) 16, Alanine Aminotransferase (ALT/SGPT) 12, Alkaline Phosphatase 97, Total Protein 5.9L, Albumin 3.4 06/02/22 05:30: Glucometer 213H 06/02/22 09:26: Glucometer 192H 06/02/22 14:30: Glucometer 232H Microbiology 06/01/22 MRSA Screen - Final, Complete MRSA not isolated 06/01/22 Urine Culture - Preliminary, Resulted Citrobacter freundii complex Aerococcus urinaehominis Assessment/Plan Assessment/Plan (1) Altered mental status Status: Acute Assessment & Plan: 06/02: likely multi-factoral given elevated TSH and severe hypoglycemia and UTI, continue to monitor for improvement Qualifiers: Qualified Codes: R41.82 - Altered mental status, unspecified (2) Myxedema coma Status: Acute Assessment & Plan: 06/02: 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 (3) Metabolic encephalopathy Status: Acute (4) HTN (hypertension) Status: Chronic Assessment & Plan: 06/02: Restarted home meds, no signs of acute CVA Qualifiers: Qualified Codes: I10 - Essential (primary) hypertension (5) Insulin dependent diabetes mellitus Status: Chronic Assessment & Plan: 06/02: Holding insulin given severe hypoglycemia, better intake, stopping IVFs today, D/c wadsworth (6) Urinary tract infection Status: Acute Assessment & Plan: 06/02: Push oral hydration, Continue Rocephin Qualifiers: Qualified Codes: N39.0 - Urinary tract infection, site not specified (7) Hypothermia Status: Acute (8) Hypoglycemia Status: Acute AMBROSIO NIXON MD Jun 02, 2022 16:01
[2022-06-02] MEDS: polyethylene glycoL POWDER 17 GM (MIRALAX) PACK PO PRN (22:43)
[2022-06-03] VITALS (8 sets, daily range): BP systolic 134–193; BP diastolic 62–90
[2022-06-03 04:44] LABS: BASOPHILS # (AUTO) 0.1 10^3/uL (0.0-0.1); BASOPHILS % (AUTO) 1 % (0-10); EOSINOPHILS # (AUTO) 0.2 10^3/uL (0.0-0.3); EOSINOPHILS % (AUTO) 3 % (0-10); HEMATOCRIT 35 % (35-52); HEMOGLOBIN 11.5 g/dL (11.5-16.0); LYMPHOCYTES # (AUTO) 2.7 10^3/uL (1.0-4.0); LYMPHOCYTES % (AUTO) 34 % (12-44); MEAN CORPUSCULAR HEMOGLOBIN 29 pg (25-34); MEAN CORPUSCULAR HGB CONC 33 g/dL (32-36); MEAN CORPUSCULAR VOLUME 90 fL (80-99); MEAN PLATELET VOLUME 10.5 fL (9.0-12.2); MONOCYTES # (AUTO) 0.5 10^3/uL (0.0-1.0); MONOCYTES % (AUTO) 6 % (0-12); NEUTROPHILS # (AUTO) 4.6 10^3/uL (1.8-7.8); NEUTROPHILS % (AUTO) 57 % (42-75); PLATELET COUNT 287 10^3/uL (130-400); WHITE BLOOD COUNT 8.1 10^3/uL (4.3-11.0)
[2022-06-03 04:48] LABS: ALBUMIN 3.8 GM/DL (3.2-4.5); POTASSIUM 4.8 MMOL/L (3.6-5.0)
[2022-06-03 04:49] LABS: CALCIUM 8.9 MG/DL (8.5-10.1)
[2022-06-03 04:51] LABS: TOTAL PROTEIN 6.8 GM/DL (6.4-8.2)
[2022-06-03 04:52] LABS: BILIRUBIN,TOTAL 0.3 MG/DL (0.1-1.0)
[2022-06-03 04:54] LABS: CREATININE SERUM 2.15 MG/DL (0.60-1.30)
[2022-06-03] MEDS: cefTRIAXone 1 GM/50 ML (PRE-MIX) IV SCH (05:02)
[2022-06-03] MEDS: LEVOTHYROXINE 50 MCG (LEVOTHROID) TAB PO SCH (05:03)
[2022-06-03] MEDS: ENOXAPARIN INJECTION 30 MG/0.3 ML SYR SC SCH (05:09)
--- NOTE | 2022-06-03 08:25 | Occ Therapy Progress Note ---
Therapy Progress Note 1 visit w/ refusal x2. Patient declined OOB activity or functional movement and ROM, Patient reports need for pain meds and not feeling well. RN notified by OT, RN reports to OT Patient has been OOB to use bathroom GLORIA DYKES OT Jun 03, 2022 08:25
[2022-06-03] MEDS: DOCUSATE SODIUM 100 MG (COLACE) CAP PO SCH ×2 (08:27→21:17)
[2022-06-03] MEDS: SENNOSIDES 8.6 MG (SENOKOT) TAB PO SCH ×2 (08:27→21:17)
[2022-06-03] MEDS: amLODIPine 10 MG (NORVASC) TAB PO SCH (08:27)
--- NOTE | 2022-06-03 10:07 | Physical Therapy Daily Note ---
PT Daily Note-Current Subjective Patient agrees to PT. Pain Section J - Health Conditions 1. Rarely or not at all 2. Occasionally 3. Frequently 4. Almost constantly 8. Unable to answer Pain Effect on Sleep: 2 Pain Interference with Therapy: 2 Pain Interference w/Day-to-Day: 2 Mental Status Patient Orientation: Confused Transfers SCALE: Activities may be completed with or without assistive devices. 0-Xkjghsqcaa-aohqios completes the activity by him/herself with no assistance from a helper. 5-Set-up or Clean-up Assistance-helper sets up or cleans up; patient completes activity. [place] assists only prior to or following the activity. 4-Supervision or Touching Assistance-helper provides verbal cues and/or touching/steadying and/or contact guard assistance as patient completes activity. Assistance may be provided throughout the activity or intermittently. 3-Partial/Moderate Assistance-helper does LESS THAN HALF the effort. [place] lifts, holds or supports trunk or limbs, but provides less than half the effort. 2-Substantial/Maximal Assistance-helper does MORE THAN HALF the effort. [place] lifts or holds trunk or limbs and provides more than half the effort. 5-Cauemyccc-icwzel does ALL the effort. Patient does none of the effort to complete the activity. Or, the assistance of 2 or more helpers is required for the patient to complete the activity. If activity was not attempted, code reason: 7-Patient Refused. 9-Not Applicable-not attempted and the patient did not perform the activity before the current illness, exacerbation or injury. 10-Not Attempted due to Environmental Limitations-(lack of equipment, weather restraints, etc.). 88-Not Attempted due to Medical Conditions or Safety Concerns. Sit to Lying (QC): 4 Lying to Sitting/Side of Bed(Q: 4 Sit to Stand (QC): 4 Gait Training Distance: 150' Walk 10 feet (QC): 5 Walk 50 ft with 2 Turns(QC): 5 Walk 150 ft (QC): 5 Gait Assistive Device: FWW VC's for body placement in FWW/CGA for safety/very slow, steady gait sequence Assessment Patient returned to bed with bed alarm activated. Patient tolerated treatment well. Increase activity as tolerated by patient. PT Sack Maker Goals Sack Maker Goals PT Mcfp Goals Time Frame: Jun 14, 2022 Roll Left & Right (QC): 6 Sit to Lying (QC): 6 Lying-Sitting on Side/Bed(QC): 6 Sit to Stand (QC): 6 Chair/Yhv-dc-Rxnoz Xfer(QC): 6 Toilet Transfer (QC): 6 Walk 10 feet (QC): 5 Walk 50ft with 2 Turns (QC): 5 Walk 150 ft (QC): 5 PT Plan Treatment/Plan Treatment Plan: Continue Plan of Care Treatment Plan: Bed Mobility, Education, Functional Activity Eleonora, Functional Strength, Gait, Safety, Therapeutic Exercise, Transfers Treatment Duration: Jun 14, 2022 Frequency: 6 times per week Estimated Hrs Per Day: .25 hour per day Time Time In: 935 Time Out: 948 DATE: Jun 03, 2022 Total Billed Treatment Time: 13 Total Billed Treatment 1 visit GT 13 min BOGDAN SALDIVAR PT Jun 03, 2022 10:07
--- NOTE | 2022-06-03 11:33 | Progress Note ---
MARISA OGLESBY 06/03/22 1133: Subjective Subjective/Events-last exam This morning patient is complaining of abdominal pain. She says this started last night. It is specifically in the epigastric region. She says it constantly hurts and does not change with eating or drinking. She says she has never felt anything like this before. Patient also states she is constipated and she has not had a bowel movement since being in the hospital. Her mental status seems to have improved. Denies headache, chest pain, shortness of breath, dysuria or diarrhea. Focused Exam Lactate Level 06/01/22 01:50: Lactic Acid Level 1.25 Time of Focused Exam: 04:29 Objective Exam Last Set of Vital Signs Vital Signs Date Time Temp Pulse Resp B/P (MAP) Pulse Ox O2 Delivery O2 Flow Rate FiO2 06/03/22 11:05 36.1 71 18 180/84 (116) 96 Room Air 06/02/22 03:39 0.00 0.00 06/01/22 08:48 21 Capillary Refill : Less Than 3 Seconds I&O Intake and Output0 06/03/22 00:00 Intake Total 1115 ml Output Total 725 ml Balance 390 ml Intake Oral 1115 ml Output Urine Total 725 ml # Voids 1 General: Alert, Oriented X3, Cooperative, Moderate Distress, Other (Not oriented to event) HEENT: Atraumatic, EOMI Lungs: Clear to Auscultation, Normal Air Movement Heart: Regular Rate, No Murmurs Abdomen: Normal Bowel Sounds, Other (Epigastric tenderness and guarding to palpation) Extremities: No Clubbing, No Cyanosis, No Edema Neuro: Normal Speech Psych/Mental Status: Mood NL Results/Procedures Lab Laboratory Tests 06/02/22 14:30: Glucometer 232H 06/02/22 19:21: Glucometer 203H 06/03/22 04:27: White Blood Count 8.1, Red Blood Count 3.92, Hemoglobin 11.5, Hematocrit 35, Mean Corpuscular Volume 90, Mean Corpuscular Hemoglobin 29, Mean Corpuscular Hemoglobin Concent 33, Red Cell Distribution Width 14.4, Platelet Count 287, Mean Platelet Volume 10.5, Immature Granulocyte % (Auto) 1, Neutrophils (%) (Auto) 57, Lymphocytes (%) (Auto) 34, Monocytes (%) (Auto) 6, Eosinophils (%) (Auto) 3, Basophils (%) (Auto) 1, Neutrophils # (Auto) 4.6, Lymphocytes # (Auto) 2.7, Monocytes # (Auto) 0.5, Eosinophils # (Auto) 0.2, Basophils # (Auto) 0.1, Immature Granulocyte # (Auto) 0.1, Sodium Level 135, Potassium Level 4.8, Chloride Level 102, Carbon Dioxide Level 17L, Anion Gap 16H, Blood Urea Nitrogen 37H, Creatinine 2.15H, Estimat Glomerular Filtration Rate 23, BUN/Creatinine Ratio 17, Glucose Level 201H, Calcium Level 8.9, Corrected Calcium 9.1, Magnesium Level 2.0, Total Bilirubin 0.3, Aspartate Amino Transf (AST/SGOT) 17, Alanine Aminotransferase (ALT/SGPT) 14, Alkaline Phosphatase 116, Total Protein 6.8, Albumin 3.8 06/03/22 05:20: Glucometer 198H 06/03/22 09:18: Glucometer 200H Microbiology 06/01/22 MRSA Screen - Final, Complete MRSA not isolated 06/01/22 Urine Culture - Final, Complete Citrobacter freundii complex Aerococcus urinaehominis 06/01/22 Blood Culture - Preliminary, Resulted No growth Radiology 06/01: CXR 1. New pacemaker compared to the previous study. Cardiomegaly with poor inspiration. No focal infiltrate or pleural fluid. 06/01: CT Scan Head 1. No acute intracranial process by CT. 2. Chronic lacunar infarct in the left basal ganglia and thalamus. Assessment/Plan Assessment/Plan (1) Epigastric abdominal pain Status: Acute Assessment & Plan: 06/03: Concerning for pancreatitis. Ordering lipase and abdominal ultrasound. Start PPI. (2) Altered mental status Status: Acute Assessment & Plan: 06/02: likely multi-factoral given elevated TSH and severe hypoglycemia and UTI, continue to monitor for improvement 06/03: Improved. Continue levothyroxine for thyroid. Continue ceftriaxone for UTI. Continue to monitor blood glucose levels. Qualifiers: Qualified Codes: R41.82 - Altered mental status, unspecified (3) Acute kidney injury Status: Acute Assessment & Plan: 06/03: Creatinine increased to 2.15. BUN increased to 37. Continue to monitor. (4) Myxedema coma Status: Acute Assessment & Plan: 06/02: 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 06/03: Continue Levothyroxine (5) Metabolic encephalopathy Status: Acute (6) HTN (hypertension) Status: Chronic Assessment & Plan: 06/02: Restarted home meds, no signs of acute CVA 06/03: Continue Amlodipine 10mg. Start hydralazine Qualifiers: Qualified Codes: I10 - Essential (primary) hypertension (7) Insulin dependent diabetes mellitus Status: Chronic Assessment & Plan: 06/02: Holding insulin given severe hypoglycemia, better intake, stopping IVFs today, D/c wadsworth (8) Urinary tract infection Status: Acute Assessment & Plan: 06/02: Push oral hydration, Continue Rocephin Qualifiers: Qualified Codes: N39.0 - Urinary tract infection, site not specified (9) Constipation Status: Acute Assessment & Plan: 06/03: Administer Miralax for constipation relief (10) Hypothermia Status: Acute (11) Hypoglycemia Status: Acute ALETA ROBERSON MD 06/03/22 1652: Supervisory-Addendum Brief Verification & Attestation Participated in pt care: history, physical Personally performed: exam, history Care discussed with: Medical Student Procedures: n/a Verification and Attestation of Medical Student E/M Service A medical student performed and documented this service in my presence. I reviewed and verified all information documented by the medical student and made modifications to such information, when appropriate. I personally performed the physical exam and medical decision making. Aleta Roberson, Jun 03, 2022,16:49 Altered mental status Myxedema coma Metabolic encephalopathy - Continue to monitor, patient seems to be getting close to baseline Epigastric pain - Lipase, abdominal US ordered ARF UTI - Unsure of etiology, continue to monitor - Continue IV antibiotics, push oral hydration IDDM with severe hypoglycemia - holding insulin, continue to monitor blood sugars HTN MARISA OGLESBY Jun 03, 2022 11:33 ALETA ROBERSON MD Jun 03, 2022 16:52
[2022-06-03] MEDS ORDERED: amLODIPine 10 MG (NORVASC) TAB PO SCH (12:00)
[2022-06-04] VITALS (7 sets, daily range): BP systolic 122–190; BP diastolic 69–93
[2022-06-04] MEDS: cefTRIAXone 1 GM/50 ML (PRE-MIX) IV SCH (03:23)
[2022-06-04 05:51] LABS: BASOPHILS # (AUTO) 0.1 10^3/uL (0.0-0.1); BASOPHILS % (AUTO) 1 % (0-10); EOSINOPHILS # (AUTO) 0.2 10^3/uL (0.0-0.3); EOSINOPHILS % (AUTO) 3 % (0-10); HEMATOCRIT 34 % (35-52); LYMPHOCYTES % (AUTO) 29 % (12-44); MEAN CORPUSCULAR HEMOGLOBIN 29 pg (25-34); MEAN CORPUSCULAR HGB CONC 32 g/dL (32-36); MEAN CORPUSCULAR VOLUME 89 fL (80-99); MEAN PLATELET VOLUME 10.4 fL (9.0-12.2); MONOCYTES # (AUTO) 0.3 10^3/uL (0.0-1.0); MONOCYTES % (AUTO) 5 % (0-12); NEUTROPHILS # (AUTO) 4.3 10^3/uL (1.8-7.8); NEUTROPHILS % (AUTO) 62 % (42-75); PLATELET COUNT 271 10^3/uL (130-400); WHITE BLOOD COUNT 6.9 10^3/uL (4.3-11.0)
[2022-06-04] MEDS: LEVOTHYROXINE 50 MCG (LEVOTHROID) TAB PO SCH (06:07)
[2022-06-04] MEDS: ENOXAPARIN INJECTION 30 MG/0.3 ML SYR SC SCH (06:08)
[2022-06-04 06:11] LABS: ALBUMIN 3.7 GM/DL (3.2-4.5); POTASSIUM 5.1 MMOL/L (3.6-5.0)
[2022-06-04 06:13] LABS: CALCIUM 9.4 MG/DL (8.5-10.1)
[2022-06-04 06:14] LABS: TOTAL PROTEIN 6.7 GM/DL (6.4-8.2)
[2022-06-04 06:15] LABS: BILIRUBIN,TOTAL 0.2 MG/DL (0.1-1.0)
[2022-06-04 06:17] LABS: CREATININE SERUM 2.04 MG/DL (0.60-1.30)
[2022-06-04] MEDS: DOCUSATE SODIUM 100 MG (COLACE) CAP PO SCH ×2 (08:03→20:54)
[2022-06-04] MEDS: SENNOSIDES 8.6 MG (SENOKOT) TAB PO SCH ×2 (08:03→20:54)
[2022-06-04] MEDS: amLODIPine 10 MG (NORVASC) TAB PO SCH (08:04)
--- NOTE | 2022-06-04 09:25 | Physical Therapy Progress Note ---
Therapy Progress Note Attempted physical therapy tx, nurse states patient is on hold for now due to high BP, will check back this afternoon if able. CAMI HAAS PT Jun 04, 2022 09:25
[2022-06-04] MEDS ORDERED: hydrALAZINE (APESOLINE) 20 MG/ML VIAL IV NR (09:30)
--- NOTE | 2022-06-04 10:36 | Diagnostic Imaging Report ---
PROCEDURE: US Abdomen, limited. TECHNIQUE: Multiple realtime grayscale images were obtained over the abdomen in various projections. INDICATION: Epigastric pain COMPARISON: CT from 11/22/2021 FINDINGS: Imaged portions of the pancreas appear normal although the body and tail are obscured by bowel gas. Visible portions of the aorta and IVC are unremarkable. The liver demonstrates no focal lesions. Echogenicity appears normal. There is no biliary dilatation. The main portal vein is hepatopetal. The gallbladder is absent. The common bile duct is obscured and not seen. The sonographic Gautam sign is negative. The right kidney measures 10.1 cm in length. There is no hydronephrosis. The cyst seen in the superior kidney 2016 is not evident on these images. IMPRESSION: 1. Cholecystectomy. No acute abnormalities seen in the liver. Dictated by: Dictated on workstation # [id number]
--- NOTE | 2022-06-04 12:06 | Physical Therapy Progress Note ---
Therapy Progress Note Pt. in bed, nursing around bed, pt. declines Rx stating her stomach is so upset. Shauna, HARLEY TAYLOR MULTICUT LINE OPERATOR Jun 04, 2022 12:06
--- NOTE | 2022-06-04 13:38 | Progress Note ---
Subjective Subjective/Events-last exam Patient states that she is doing ok this AM. She is still having some abdominal pain, denies any BM in the last few days. Tolerating PO diet. Review of Systems General: Malaise Pulmonary: No Dyspnea, No Cough Cardiovascular: No: Chest Pain, Palpitations, Edema Gastrointestinal: Abdominal Pain, Constipation; No: Nausea, Vomiting Neurological: Weakness, Incoordination Focused Exam Time of Focused Exam: 04:29 Objective Exam Last Set of Vital Signs Vital Signs Date Time Temp Pulse Resp B/P (MAP) Pulse Ox O2 Delivery O2 Flow Rate FiO2 06/04/22 11:24 36.2 65 18 155/75 (101) 96 Room Air 06/02/22 03:39 0.00 0.00 06/01/22 08:48 21 Capillary Refill : Less Than 3 Seconds I&O Intake and Output 06/04/22 00:00 Intake Total 1940 ml Output Total 2775 ml Balance -835 ml Intake Oral 1940 ml Output Urine Total 2450 ml Stool Total 325 ml General: Alert, Oriented X3, No Acute Distress Lungs: Clear to Auscultation, Normal Air Movement Heart: Regular Rate Abdomen: Normal Bowel Sounds, Soft, Other (Epigastric and LLQ abdominal pain with palpation, no guarding or rebound) Extremities: No Edema, No Tenderness/Swelling Neuro: Normal Speech Results/Procedures Lab Laboratory Tests 06/03/22 14:25: Glucometer 254H 06/03/22 17:14: Lipase 75 06/03/22 19:14: Glucometer 213H 06/04/22 05:37: White Blood Count 6.9, Red Blood Count 3.86, Hemoglobin 11.0L, Hematocrit 34L, Mean Corpuscular Volume 89, Mean Corpuscular Hemoglobin 29, Mean Corpuscular Hemoglobin Concent 32, Red Cell Distribution Width 14.4, Platelet Count 271, Mean Platelet Volume 10.4, Immature Granulocyte % (Auto) 1, Neutrophils (%) (Auto) 62, Lymphocytes (%) (Auto) 29, Monocytes (%) (Auto) 5, Eosinophils (%) (Auto) 3, Basophils (%) (Auto) 1, Neutrophils # (Auto) 4.3, Lymphocytes # (Auto) 2.0, Monocytes # (Auto) 0.3, Eosinophils # (Auto) 0.2, Basophils # (Auto) 0.1, Immature Granulocyte # (Auto) 0.0, Sodium Level 135, Potassium Level 5.1H, Chloride Level 101, Carbon Dioxide Level 22, Anion Gap 12, Blood Urea Nitrogen 38H, Creatinine 2.04H, Estimat Glomerular Filtration Rate 25, BUN/Creatinine Ratio 19, Glucose Level 255H, Calcium Level 9.4, Corrected Calcium 9.6, Magnesium Level 2.0, Total Bilirubin 0.2, Aspartate Amino Transf (AST/SGOT) 17, Alanine Aminotransferase (ALT/SGPT) 14, Alkaline Phosphatase 116, Total Protein 6.7, Albumin 3.7 06/04/22 09:40: Glucometer 271H Microbiology 06/01/22 MRSA Screen - Final, Complete MRSA not isolated 06/01/22 Urine Culture - Final, Complete Citrobacter freundii complex Aerococcus urinaehominis 06/01/22 Blood Culture - Preliminary, Resulted No growth Radiology 06/01: CXR 1. New pacemaker compared to the previous study. Cardiomegaly with poor inspiration. No focal infiltrate or pleural fluid. 06/01: CT Scan Head 1. No acute intracranial process by CT. 2. Chronic lacunar infarct in the left basal ganglia and thalamus. Assessment/Plan Assessment/Plan (1) Epigastric abdominal pain Status: Acute Assessment & Plan: 06/03: Concerning for pancreatitis. Ordering lipase and abdominal ultrasound. Start PPI. 06/04: Normal US and Lipase (2) Altered mental status Status: Acute Assessment & Plan: 06/02: likely multi-factoral given elevated TSH and severe hypoglycemia and UTI, continue to monitor for improvement 06/03: Improved. Continue levothyroxine for thyroid. Continue ceftriaxone for UTI. Continue to monitor blood glucose levels. 06/04: Today AOx3, doing better Qualifiers: Qualified Codes: R41.82 - Altered mental status, unspecified (3) Acute kidney injury Status: Acute Assessment & Plan: 06/03: Creatinine increased to 2.15. BUN increased to 37. Continue to monitor. 06/04: Trending down, continue to push oral hydration, OOB (4) Myxedema coma Status: Acute Assessment & Plan: 06/02: 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 06/03: Continue Levothyroxine (5) Metabolic encephalopathy Status: Acute (6) HTN (hypertension) Status: Chronic Assessment & Plan: 06/02: Restarted home meds, no signs of acute CVA 06/03: Continue Amlodipine 10mg. Start hydralazine 06/04: Blood pressure seem to spike in the AM, maybe related to pain, will continue to monitor Qualifiers: Qualified Codes: I10 - Essential (primary) hypertension (7) Insulin dependent diabetes mellitus Status: Chronic Assessment & Plan: 06/02: Holding insulin given severe hypoglycemia, better intake, stopping IVFs today, D/c wadsworth (8) Urinary tract infection Status: Acute Assessment & Plan: 06/02: Push oral hydration, Continue Rocephin Qualifiers: Qualified Codes: N39.0 - Urinary tract infection, site not specified (9) Constipation Status: Acute Assessment & Plan: 06/03: Administer Miralax for constipation relief 06/04: Patient asking for enema, ordered today, Encourage out of bed and ambulation to help move bowels (10) Hypothermia Status: Acute (11) Hypoglycemia Status: Acute AMBROSIO NIXON MD Jun 04, 2022 13:38
--- NOTE | 2022-06-04 14:02 | Occupational Ther Daily Note ---
OT Current Status-Daily Note Subjective Pt alert, lying in bed. Pt c/o stomach pain though agrees to therapy. Reported pain to nrsg. Mental Status/Objective Patient Orientation: Person, Place, Time, Situation Attachments: IV ADL-Treatment Min A for supine to EOB. CGA for safety while pt transferred to [facility] using FWW. Pt completed clothing manipulation and hygiene by self then was able to complete SPT and bed mobility by self getting back to bed. After session, pt lying in bed with call light/phone in reach. All needs met. Therapy Code Descriptions/Definitions Functional [place] Measure: 0=Not Assessed/NA 4=Minimal Assistance 1=Total Assistance 5=Supervision or Setup 2=Maximal Assistance 6=Modified [place] 3=Moderate Assistance 7=Complete IndependenceSCALE: Activities may be completed with or without assistive devices. 7-Duerozvday-jxsudxl completes the activity by him/herself with no assistance from a helper. 5-Set-up or Clean-up Assistance-helper sets up or cleans up; patient completes activity. [place] assists only prior to or following the activity. 4-Supervision or Touching Assistance-helper provides verbal cues and/or touching/steadying and/or contact guard assistance as patient completes activity. Assistance may be provided throughout the activity or intermittently. 3-Partial/Moderate Assistance-helper does LESS THAN HALF the effort. [place] lifts, holds or supports trunk or limbs, but provides less than half the effort. 2-Substantial/Maximal Assistance-helper does MORE THAN HALF the effort. [place] lifts or holds trunk or limbs and provides more than half the effort. 1-Ayybmxqbw-zjulqa does ALL the effort. Patient does none of the effort to complete the activity. Or, the assistance of 2 or more helpers is required for the patient to complete the activity. If activity was not attempted, code reason: 7-Patient Refused. 9-Not Applicable-not attempted and the patient did not perform the activity be fore the current illness, exacerbation or injury. 10-Not Attempted due to Environmental Limitations-(lack of equipment, weather restraints, etc.). 88-Not Attempted due to Medical Conditions or Safety Concerns. OT Product Support Technician Goals Alf Goals Time Frame: Jun 02, 2022 Eating (QC): 6 Oral Hygiene (QC): 6 Toileting Hygiene (QC): 6 Shower/Bathe Self (QC): 6 Upper Body Dressing (QC): 6 Lower Body Dressing (QC): 6 On/Off Footwear (QC): 6 Additional Goals: 3-ImproveStrength/Eleonora 1=Demonstrate adherence to instructed precautions during ADL tasks. 2=Patient will verbalize/demonstrate understanding of assistive devices/modifications for ADL. 3=Patient will improve strength/tolerance for activity to enable patient to perform ADL's. OT Education/Plan Problem List/Assessment Assessment: Decreased Activ Tolerance Discharge Recommendations Plan/Recommendations: Continue POC Treatment Plan/Plan of Care Patient would benefit from OT for education, treatment and training to promote independence in ADL's, mobility, safety and/or upper extremity function for ADL's. Plan of Care: ADL Retraining, Functional Mobility, Group Exercise/Act as Ind, UE Funct Exercise/Act Treatment Duration: Jun 14, 2022 Frequency: 3 times per week (3-5 times/week) Estimated Hrs Per Day: .25 hour per day Agreement: Yes Rehab Potential: Fair Time Start Time: 13:42 Stop Time: 13:52 DATE: Jun 04, 2022 Total Time Billed (hr/min): 10 Billed Treatment Time 1 visit-ADL 1 (10 min) NOEL JERRY Jun 04, 2022 14:02
[2022-06-04] MEDS: LACTULOSE SYRUP 10GM/15ML (ENULOSE) 30ML UDC PO PRN ×2 (14:04→20:55)
[2022-06-04] MEDS: polyethylene glycoL POWDER 17 GM (MIRALAX) PACK PO PRN (20:54)
[2022-06-05] VITALS (7 sets, daily range): BP systolic 135–172; BP diastolic 74–94
[2022-06-05] MEDS: cefTRIAXone 1 GM/50 ML (PRE-MIX) IV SCH (04:01)
[2022-06-05 06:20] LABS: ALBUMIN 3.9 GM/DL (3.2-4.5); POTASSIUM 4.9 MMOL/L (3.6-5.0)
[2022-06-05 06:21] LABS: CALCIUM 9.4 MG/DL (8.5-10.1)
[2022-06-05 06:24] LABS: BILIRUBIN,TOTAL 0.3 MG/DL (0.1-1.0)
[2022-06-05] MEDS: ENOXAPARIN INJECTION 30 MG/0.3 ML SYR SC SCH (06:24)
[2022-06-05 06:26] LABS: CREATININE SERUM 2.11 MG/DL (0.60-1.30)
[2022-06-05 06:29] LABS: MAGNESIUM 2.3 MG/DL (1.6-2.4)
[2022-06-05] MEDS ORDERED: LEVOTHYROXINE 100 MCG (LEVOTHROID) TAB PO SCH (06:30)
[2022-06-05] MEDS ORDERED: LEVOTHYROXINE 75 MCG (LEVOTHROID) TABLET PO SCH (06:30)
[2022-06-05 08:03] LABS: BASOPHILS # (AUTO) 0.1 10^3/uL (0.0-0.1); BASOPHILS % (AUTO) 1 % (0-10); EOSINOPHILS # (AUTO) 0.2 10^3/uL (0.0-0.3); EOSINOPHILS % (AUTO) 3 % (0-10); HEMATOCRIT 35 % (35-52); HEMOGLOBIN 11.3 g/dL (11.5-16.0); LYMPHOCYTES # (AUTO) 2.2 10^3/uL (1.0-4.0); LYMPHOCYTES % (AUTO) 30 % (12-44); MEAN CORPUSCULAR HEMOGLOBIN 29 pg (25-34); MEAN CORPUSCULAR HGB CONC 32 g/dL (32-36); MEAN CORPUSCULAR VOLUME 90 fL (80-99); MEAN PLATELET VOLUME 10.6 fL (9.0-12.2); MONOCYTES # (AUTO) 0.4 10^3/uL (0.0-1.0); MONOCYTES % (AUTO) 6 % (0-12); NEUTROPHILS # (AUTO) 4.4 10^3/uL (1.8-7.8); NEUTROPHILS % (AUTO) 59 % (42-75); PLATELET COUNT 283 10^3/uL (130-400); WHITE BLOOD COUNT 7.4 10^3/uL (4.3-11.0)
[2022-06-05] MEDS: SENNOSIDES 8.6 MG (SENOKOT) TAB PO SCH (09:18)
[2022-06-05] MEDS: DOCUSATE SODIUM 100 MG (COLACE) CAP PO SCH (09:18)
[2022-06-05] MEDS: amLODIPine 10 MG (NORVASC) TAB PO SCH (09:18)
--- NOTE | 2022-06-05 10:13 | Physical Therapy Progress Note ---
Therapy Progress Note Patient adamantly declined PT on this date due to, per patient report, she has been having multiple BM's and does not want OOB at this time. RN notified. 1 ref BOGDAN SALDIVAR PT Jun 05, 2022 10:13
--- NOTE | 2022-06-05 12:50 | Discharge Summary ---
Discharge [facility] Reconcile Patient Problems Problems Reviewed?: Yes Discharge Medications New, Converted or Re-Newed RX: Transmitted to Pharmacy Continued Medications: Acetaminophen (Tylenol Extra Strength) 500 Mg Tablet 500 MG PO Q8H PRN for PAIN-MILD (1-4), TAB Albuterol Sulfate (Proventil Hfa) 6.7 Gm Hfa.aer.ad 1 PUFF PO Q8H PRN for SHORTNESS OF BREATH Alprazolam (Alprazolam) 1 Mg Tablet 1 MG PO BID PRN for ANXIETY Amitriptyline HCl (Amitriptyline HCl) 25 Mg Tablet 25 MG PO HS Amlodipine Besylate (Amlodipine Besylate) 10 Mg Tablet 10 MG PO 1200 Atorvastatin Calcium (Atorvastatin Calcium) 20 Mg Tablet 20 MG PO HS Cholecalciferol (Vitamin D3) (Vitamin D3) 125 Mcg (5000 Unit) Tablet 125 MCG PO DAILY, TAB Furosemide (Furosemide) 40 Mg Tablet 40 MG PO DAILY PRN for FLUID RETENTION Gabapentin (Neurontin) 300 Mg Capsule 300 MG PO TID, CAP Glucagon,Human Recombinant (Glucagen) 1 Mg Vial 1 MG SQ UD Insulin Aspart (Insulin Aspart Flexpen) 100 Unit/Ml (3 Ml) Insuln.pen 10 UNITS SQ TID Levothyroxine Sodium (Levothyroxine Sodium) 175 Mcg Tablet 175 MCG PO DAILY, TAB Naloxone HCl (Narcan) 4 Mg/Actuation [place] 2 MG NS UD, #1 SPRAY [place] 1 mg in each nostril for suspected opioid overdose or respiratory suppression with low oxygen. Call 911 if given. Discontinued Medications: Insulin Glargine,Hum.rec.anlog (Toujeo Solostar) 300 Unit/Ml (1.5 Ml) Insuln.pen 30 UNITS SC HS Patient Instructions Goal/Follow Up Appt: F.u with PCP 1 week Patient Instructions: - Make sure that when you take your meal time insulin that you eat, I have stopped your long acting insulin at this time until appetite improves Activity & Diet Discharge Diet: ADA Diet AMBROSIO NIXON MD Jun 05, 2022 12:50
--- NOTE | 2022-06-05 13:24 | Occ Therapy Progress Note ---
Therapy Progress Note Pt adamantly refused to participate in OT today. Pt stated that she had just gotten her diarrhea under control and did not want to have it act up again with movement. Will check on pt tomorrow. 1 refusal: [id number] NOEL JERRY Jun 05, 2022 13:24
== END 2022-06-05 14:00 | disposition home or self-care (01) | DRG 80 ==
LOC: EDUNIT# 01:08 → ER 01:11 → ICU 04:10 → 4TH 12:12
PROVIDERS: ADMIT Internal Medicine; ATTEND Family Medicine
DX: E03.5 Myxedema coma (principal); G93.41 Metabolic encephalopathy; N39.0 Urinary tract infection, site not specified; N17.9 Acute kidney failure, unspecified; E11.649 Type 2 diabetes mellitus with hypoglycemia without coma; I12.9 Hypertensive chronic kidney disease with stage 1 through stage 4 chronic kidney disease, or unspecified chronic kidney disease; E11.22 Type 2 diabetes mellitus with diabetic chronic kidney disease; N18.9 Chronic kidney disease, unspecified; R68.0 Hypothermia, not associated with low environmental temperature; Z20.822 Contact with and (suspected) exposure to COVID-19; E03.9 Hypothyroidism, unspecified; E87.6 Hypokalemia; K59.00 Constipation, unspecified; E78.00 Pure hypercholesterolemia, unspecified; M19.91 Primary osteoarthritis, unspecified site; M54.9 Dorsalgia, unspecified; Z79.4 Long term (current) use of insulin; Z79.84 Long term (current) use of oral hypoglycemic drugs; Z85.528 Personal history of other malignant neoplasm of kidney; F41.9 Anxiety disorder, unspecified; F32.A Depression, unspecified
CPT/HCPCS: 36415; 51702; 70450; 71045; 76705; 80053; 80306; 81000; 82947; 83605; 83690; 83735; 83880; 84439; 84443; 85025; 85610; 85730; 86141; 87040; 87077; 87081; 87088; 87186; 87636; 93005; 93041; 94760

== ENCOUNTER 2022-08-05 02:13 | Observation (INO) | payer MEDICAID ==
[2022-08-05] VITALS (8 sets, daily range): BP systolic 160–183; BP diastolic 68–111
[~2022-08-05] VITALS: Ht 157 cm; Wt 70.0 kg
[~2022-08-05 02:13] MED LIST changes: +ACET-2267 PO; +AMLO-251 PO; +ATOR20TA66 PO; +CALC-250 PO; +GABA300C PO; +GLUC1KIT2 SQ; +INSU100I55 SQ; +LEVO175T5 PO; +RT-ALBUINH PO
[2022-08-05 02:34] LABS: BASOPHILS % (AUTO) 0 % (0-10); EOSINOPHILS # (AUTO) 0.1 10^3/uL (0.0-0.3); EOSINOPHILS % (AUTO) 1 % (0-10); HEMATOCRIT 35 % (35-52); HEMOGLOBIN 11.4 g/dL (11.5-16.0); LYMPHOCYTES # (AUTO) 2.3 10^3/uL (1.0-4.0); LYMPHOCYTES % (AUTO) 24 % (12-44); MEAN CORPUSCULAR HEMOGLOBIN 28 pg (25-34); MEAN CORPUSCULAR HGB CONC 32 g/dL (32-36); MEAN CORPUSCULAR VOLUME 87 fL (80-99); MEAN PLATELET VOLUME 11.2 fL (9.0-12.2); MONOCYTES # (AUTO) 0.7 10^3/uL (0.0-1.0); MONOCYTES % (AUTO) 7 % (0-12); NEUTROPHILS # (AUTO) 6.4 10^3/uL (1.8-7.8); NEUTROPHILS % (AUTO) 68 % (42-75); PLATELET COUNT 304 10^3/uL (130-400); WHITE BLOOD COUNT 9.4 10^3/uL (4.3-11.0)
[2022-08-05 02:43] LABS: ALBUMIN 3.7 GM/DL (3.2-4.5); POTASSIUM 4.5 MMOL/L (3.6-5.0)
[2022-08-05 02:44] LABS: CALCIUM 9.3 MG/DL (8.5-10.1)
[2022-08-05 02:44] LABS: CLARITY,URINE CLOUDY; COLOR,URINE YELLOW; GLUCOSE, URINE (UA) TRACE (NEGATIVE); KETONES,URINE TRACE (NEGATIVE); LEUKOCYTE ESTERASE ,URINE 2+ (NEGATIVE); NITRITE,URINE NEGATIVE (NEGATIVE); PH,URINE 5.5 (5-9); PROTEIN,URINE 2+ (NEGATIVE)
[2022-08-05 02:46] LABS: TOTAL PROTEIN 6.9 GM/DL (6.4-8.2)
[2022-08-05 02:47] LABS: BILIRUBIN,TOTAL 0.6 MG/DL (0.1-1.0)
[2022-08-05 02:49] LABS: CREATININE SERUM 1.8 MG/DL (0.60-1.30)
[2022-08-05 02:52] LABS: MAGNESIUM 1.7 MG/DL (1.6-2.4)
[2022-08-05 03:13] LABS: FREE T4 (FREE THYROXINE) 1.54 NG/DL (0.70-1.48)
[2022-08-05 03:21] LABS: BACTERIA,URINE MODERATE /HPF; RBC,URINE RARE /HPF; WBC,URINE 25-50 /HPF; YEAST,URINE MODERATE /HPF
[2022-08-05 03:22] LABS: BILIRUBIN,URINE 1+ (NEGATIVE)
[2022-08-05] MEDS ORDERED: cefTRIAXone 1 GM PRE-MIX 50 ML IV STA (03:33)
--- NOTE | 2022-08-05 03:41 | ED General ---
General Chief Complaint: Altered Mental Status Stated Complaint: RESTLESS Nursing Triage Note: Pt presents from home via EMS. They report she was restless at home and family was unable to control her. Pt has had a UTI that she was supposed to go to [facility] for in the morning. Pt is alert, unable to answer questions and will not lay still on cot. Source of Information: Patient, EMS, Old Records Exam Limitations: Other (AMS, clinical condition) History of Present Illness Date Seen by Provider: Aug 05, 2022 Time Seen by Provider: 02:15 Initial Comments This 77-year-old woman presents to the emergency room via EMS from home for rather severe agitation. History was scant initially based on EMS report alone. Family did not present to the ER initially. Eventually the patient's daughter arrived to the emergency room and was asking vague questions about her cancer status. Apparently the patient had kidney cancer for which a nephrectomy was performed at one point in time. She then reportedly had cancer treatments performed at [facility] and continued to have appointments as recently as about a year ago. Patient's daughter Tereza believes that she had metastatic disease to her liver, pancreas, lungs, etc. I reviewed some more recent CT imaging from last year and found no evidence of this. 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 Eventually was able to talk with the patient's nephew, Demetrio, who is the caregiver and home. He reports her symptoms seem to start this morning and then really started to progress around 1700. She became increasingly agitated and was going to the bathroom very frequently. Patient is not speaking coherently at this time which is a change from her baseline. Jeffrey reports she never fully recovered after her admission to the hospital in mid May for UTI and hypoglycemia. She has had a significant decrease in cognitive and communication capacity since that admission. At her current baseline she is able to answer some questions. She is typically calm and relaxed, not agitated as her current state. Jeffrey reports she is compliant with her medications. Dr. Del Toro is her primary care provider. Patient is generally agitated and thrashing about the bed. She does not appear to have a focal pain. She is afebrile. Allergies and Home Medications Allergies Coded Allergies: promethazine (Verified Allergy, Severe, SEIZURE, NAUSEA, 07/19/08) duloxetine HCl (Verified Allergy, Mild, 05/28/11) escitalopram oxalate (Verified Allergy, Unknown, 09/22/13) niacin (Verified Allergy, Unknown, 09/22/13) olanzapine (Verified Allergy, Unknown, 09/22/13) ibuprofen (Verified Adverse Reaction, Mild, UNSET STOMACH, 09/22/13) lisinopril (Verified Adverse Reaction, Mild, HEADACHE, 09/22/13) tramadol (Verified Adverse Reaction, Mild, NAUSEATED, 09/22/13) Patient Home Medication List Home Medication List Reviewed: Yes Acetaminophen (Tylenol Extra Strength) 500 Mg Tablet, 500 MG PO Q8H PRN for PAIN -MILD (1-4), (Reported) Entered as Reported by: LEIGHANN CRANDALL on 06/02/22 1259 Albuterol Sulfate (Proventil Hfa) 6.7 Gm Hfa.aer.ad, 1 PUFF PO Q8H PRN for SHORTNESS OF BREATH, (Reported) Entered as Reported by: LEIGHANN CRANDALL on 06/02/22 1258 Alprazolam (Alprazolam) 1 Mg Tablet, 1 MG PO BID PRN for ANXIETY, (Reported) Entered as Reported by: SAMIR GALLOWAY on 08/28/15 0813 Amitriptyline HCl (Amitriptyline HCl) 25 Mg Tablet, 25 MG PO HS, (Reported) Entered as Reported by: LEIGHANN CRANDALL on 06/02/22 1258 Amlodipine Besylate (Amlodipine Besylate) 10 Mg Tablet, 10 MG PO 1200, (Reported) Entered as Reported by: LEIGHANN CRANDALL on 06/02/22 1258 Atorvastatin Calcium (Atorvastatin Calcium) 20 Mg Tablet, 20 MG PO HS, (Reported) Entered as Reported by: LEIGHANN CRANDALL on 06/02/22 1258 Cholecalciferol (Vitamin D3) (Vitamin D3) 125 Mcg (5000 Unit) Tablet, 125 MCG PO DAILY, (Reported) Entered as Reported by: LEIGHANN CRANDALL on 06/02/22 1259 Furosemide (Furosemide) 40 Mg Tablet, 40 MG PO DAILY PRN for FLUID RETENTION, (Reported) Entered as Reported by: SAMIR GALLOWAY on 08/28/15 0813 Gabapentin (Neurontin) 300 Mg Capsule, 300 MG PO TID, (Reported) Entered as Reported by: LEIGHANN CRANDALL on 06/02/22 1258 Glucagon,Human Recombinant (Glucagen) 1 Mg Vial, 1 MG SQ UD, (Reported) Entered as Reported by: LEIGHANN CRANDALL on 06/02/22 1258 Insulin Aspart (Insulin Aspart Flexpen) 100 Unit/Ml (3 Ml) Insuln.pen, 10 UNITS SQ TID, (Reported) Entered as Reported by: LEIGHANN CRANDALL on 06/02/22 1258 Levothyroxine Sodium (Levothyroxine Sodium) 175 Mcg Tablet, 175 MCG PO DAILY, (Reported) Entered as Reported by: LEIGHANN CRANDALL on 06/02/22 1255 Naloxone HCl (Narcan) 4 Mg/Actuation [place], 2 MG NS UD Prescribed by: KASSIE ANDREWS on 11/15/21 1028 Review of Systems Review of Systems Constitutional: see HPI EENTM: no symptoms reported Respiratory: no symptoms reported Cardiovascular: no symptoms reported Gastrointestinal: no symptoms reported Genitourinary: see HPI : No Musculoskeletal: no symptoms reported Psychiatric/Neurological: See HPI Hematologic/Lymphatic: No Symptoms Reported Immunological/Allergic: no symptoms reported Past Pythzzh-Kzoblo-Blrteo Hx Patient Social History Tobacco Use?: No Use of E-Cig and/or Vaping dev: No Substance use?: No Alcohol Use?: No Immunizations Up To Date Tetanus Booster (TDap): Less than 5yrs First/Initial COVID19 Vaccinat: Denies Second COVID19 Vaccination Cas: Denies Third COVID19 Vaccination Date: Denies Seasonal Allergies Seasonal Allergies: No Past Medical History Surgery/Hospitalization HX: Caregiver states that this patient had iohexoL and triamcinolone acetonide on the 25 of November. 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 Sexually Transmitted Disease: No Genitourinary: Yes (RENAL CANCER-S/P LEFT NEPHRECTOMY) UTI-Chronic Gastrointestinal: Yes (S/P COLON RESECTION/COLOSTOMY/TAKEDOWN FOR RUPTURED DIVERTICULITIS) Diverticulosis, Pancreatitis Musculoskeletal: Yes Degenerate Disk Disease, Arthritis, Chronic Back Pain Endocrine: Yes Diabetes, Insulin dep, Hypothyroidsim HEENT: Yes Cataract, Glaucoma Cancer: Yes Kidney Did You Recieve Any Treatments: Yes What Type of Treatment Did You: Surgical Intervention Psychosocial: Yes Anxiety, Depression Integumentary: No Blood Disorders: No Adverse Reaction/Blood Tranf: No Family Medical History PSH: -LEFT NEPHRECTOMY 1985 FOR CANCER -COLON RESECTION WITH COLOSTOMY AND LATER TAKEDOWN FOR PERFORATED DIVERTICULITIS -CHOLECYSTECTOMY Physical Exam Vital Signs Vital Signs - First Documented 08/05/22 02:20 Temp 37.7 Pulse 112 Resp 18 B/P (MAP) 123/88 (100) Capillary Refill : Less Than 3 Seconds Height, Weight, BMI Height: 5'0.00" Weight: 160lbs. 8.0oz. 72.304412se; 29.00 BMI Method:Stated General Appearance: WD/WN, Moderate Distress (Agitated) HEENT: PERRL/EOMI, Normal ENT Inspection Neck: Normal Inspection Respiratory: Lungs Clear, Normal Breath Sounds, No Accessory Muscle Use Cardiovascular: Regular Rate, Rhythm, No Edema, No Murmur Gastrointestinal: Normal Bowel Sounds, Non Tender, Soft; No Distended Extremity: Normal Inspection, No Pedal Edema Neurologic/Psychiatric: Alert, Other (Moves all extremities equally. Is alert but not communicating with comprehensible words. Agitated.) Skin: Normal Color, Warm/Dry Progress/Results/Core Measures Suspected Sepsis SIRS Temperature: Pulse: 112 Respiratory Rate: 18 Laboratory Tests 08/05/22 02:23: White Blood Count 9.4 Blood Pressure 123 /88 Mean: 100 Laboratory Tests 08/05/22 02:23: Creatinine 1.80H, Platelet Count 304, Total Bilirubin 0.6 Results/Orders Lab Results Laboratory Tests Test 08/05/22 02:23 08/05/22 02:38 08/05/22 02:41 Range/Units White Blood Count 9.4 4.3-11.0 10^3/uL Red Blood Count 4.07 3.80-5.11 10^6/uL Hemoglobin 11.4 L 11.5-16.0 g/dL Hematocrit 35 35-52 % Mean Corpuscular Volume 87 80-99 fL Mean Corpuscular Hemoglobin 28 25-34 pg Mean Corpuscular Hemoglobin Concent 32 32-36 g/dL Red Cell Distribution Width 13.1 10.0-14.5 % Platelet Count 304 130-400 10^3/uL Mean Platelet Volume 11.2 9.0-12.2 fL Immature Granulocyte % (Auto) 0 % Neutrophils (%) (Auto) 68 42-75 % Lymphocytes (%) (Auto) 24 12-44 % Monocytes (%) (Auto) 7 0-12 % Eosinophils (%) (Auto) 1 0-10 % Basophils (%) (Auto) 0 0-10 % Neutrophils # (Auto) 6.4 1.8-7.8 10^3/uL Lymphocytes # (Auto) 2.3 1.0-4.0 10^3/uL Monocytes # (Auto) 0.7 0.0-1.0 10^3/uL Eosinophils # (Auto) 0.1 0.0-0.3 10^3/uL Basophils # (Auto) 0.0 0.0-0.1 10^3/uL Immature Granulocyte # (Auto) 0.0 0.0-0.1 10^3/uL Sodium Level 138 135-145 MMOL/L Potassium Level 4.5 3.6-5.0 MMOL/L Chloride Level 102 98-107 MMOL/L Carbon Dioxide Level 20 L 21-32 MMOL/L Anion Gap 16 H 5-14 MMOL/L Blood Urea Nitrogen 27 H 7-18 MG/DL Creatinine 1.80 H 0.60-1.30 MG/DL Estimat Glomerular Filtration Rate 28 BUN/Creatinine Ratio 15 Glucose Level 233 H 70-105 MG/DL Calcium Level 9.3 8.5-10.1 MG/DL Corrected Calcium 9.5 8.5-10.1 MG/DL Magnesium Level 1.7 1.6-2.4 MG/DL Total Bilirubin 0.6 0.1-1.0 MG/DL Aspartate Amino Transf (AST/SGOT) 42 H 5-34 U/L Alanine Aminotransferase (ALT/SGPT) 34 0-55 U/L Alkaline Phosphatase 310 H 40-136 U/L C-Reactive Protein High Sensitivity 1.64 H 0.00-0.50 MG/DL Total Protein 6.9 6.4-8.2 GM/DL Albumin 3.7 3.2-4.5 GM/DL Thyroid Stimulating Hormone (TSH) 0.04 L 0.35-4.94 UIU/ML Free Thyroxine 1.54 H 0.70-1.48 NG/DL Urine Color YELLOW Urine Clarity CLOUDY Urine pH 5.5 5-9 Urine Specific Fellows >=1.030 1.016-1.022 Urine Protein 2+ H NEGATIVE Urine Glucose (UA) TRACE H NEGATIVE Urine Ketones TRACE H NEGATIVE Urine Nitrite NEGATIVE NEGATIVE Urine Bilirubin 1+ H NEGATIVE Urine Urobilinogen 0.2 < = 1.0 MG/DL Urine Leukocyte Esterase 2+ H NEGATIVE Urine RBC (Auto) TRACE-I H NEGATIVE Urine RBC RARE /HPF Urine WBC 25-50 H /HPF Urine Squamous Epithelial Cells 2-5 /HPF Urine Crystals NONE /LPF Urine Bacteria MODERATE H /HPF Urine Casts NONE /LPF Urine Mucus NEGATIVE /LPF Urine Yeast MODERATE H /HPF Urine Culture Indicated YES Glucometer 214 H 70-110 MG/DL My Orders Orders - KASSIE SHEN MD Cbc With Automated Diff (08/05/22 02:27) Comprehensive Metabolic Panel (08/05/22 02:27) Hs C Reactive Protein (08/05/22 02:27) Magnesium (08/05/22 02:27) Thyroid Stimulating Hormone (08/05/22 02:27) Ua Culture If Indicated (08/05/22 02:27) Free T4 (Free Thyroxine) (08/05/22 02:27) Ed Iv/Invasive Line Start (08/05/22 02:27) Keenan Cath (08/05/22 02:27) Urine Culture (08/05/22 02:38) Lactated Ringers (Lr 1000 Ml Iv Solution (08/05/22 03:45) Ceftriaxone 1 Gm Pre-Mix (Rocephin 1 Gm (08/05/22 03:33) Quetiapine Immediate Release (Seroquel I (08/05/22 04:57) Medications Given in ED Current Medications Medications Dose Ordered Sig/Davey Route Start Time Stop Time Status Last Admin Dose Admin Lactated Ringer's 1,000 ml @ 0 mls/hr Q0M ONCE IV 08/05/22 03:45 08/05/22 03:46 DC 08/05/22 03:45 0 MLS/HR Vital Signs/I&O 08/05/22 02:20 Temp 37.7 Pulse 112 Resp 18 B/P (MAP) 123/88 (100) Capillary Refill : Less Than 3 Seconds Blood Pressure Mean: 100 Point of Care Testing Finger Stick Blood Glucose: 214 Blood Glucose Action Taken: Physician and RN notified. Progress Note #1: Progress Note Patient was evaluated shortly after arrival. Report was received from EMS. Later report was also received from family including her daughter, Tereza Springer, and her nephew, Jeffrey. CBC, CMP, CRP, magnesium, fingerstick blood sugar, thyroid studies, and urinalysis were all reviewed in their entirety. Patient exhibited some hyperglycemia. Creatinine was elevated but at baseline for this patient. Thyroid studies indicated she may be slightly overtreated with a low TSH and a high free T4. Urinalysis suggested pyuria and UTI. Labs were otherwise relatively unremarkable. Patient was treated with a liter of IV fluid and Rocephin. Culture from her prior visit was reviewed and indicated that Rocephin would be a good choice based on the sensitivity. Patient's agitation improved some with rest, she was later treated with low-dose Seroquel to try to curb her agitation. Patient is being admitted for treatment of UTI and further observation and work-up as appropriate. Next of kin decision makers would be her daughters Sharon Perez [phone] and Tereza Springer [phone]. Progress Note #2: Time: 07:42 Progress Note Patient finally calm down and fell asleep after receiving the Seroquel and family departed. Departure Communication (Admissions) Time/Spoke to Admitting Phy: 03:45 Dr. Naylor Impression Primary Impression: UTI (urinary tract infection) Qualified Codes: N39.0 - Urinary tract infection, site not specified Additional Impressions: Altered mental status Qualified Codes: R41.82 - Altered mental status, unspecified Hypothyroidism Qualified Codes: E03.9 - Hypothyroidism, unspecified Agitation Disposition: ADMITTED INPATIENT Condition: Improved (ERASED) Admissions Decision to Admit Reason: Admit from ER (General) Decision to Admit/Date: Aug 05, 2022 Time/Decision to Admit Time: 03:45 Departure-Patient Inst. Referrals: NO,LOCAL PHYSICIAN (PCP) Primary Care Physician WALLY NG APRN (Family) Primary Care Physician Copy Copies To 1: ANA MARIA DEL TORO MD, JOSHUA T MD Aug 05, 2022 03:41
[2022-08-05] MEDS ORDERED: LACTATED RINGERS 1,000 ML IV ONE (03:45)
[2022-08-05] MEDS ORDERED: QUEtiapine 25 MG (SEROquel) TAB IMMEDIATE RELEASE PO STA (04:57)
[2022-08-05] MEDS ORDERED: ONDANSETRON 4 MG/2 ML (SDV) Z0FRAN IV PRN ×2 (08:45→09:45)
[2022-08-05] MEDS: LORazepam INJ 2 MG/ML (ATIVAN) VIAL IV PRN ×2 (09:05→12:14)
[2022-08-05] MEDS ORDERED: ONDANSETRON 4 MG (ZOFRAN) ORAL DISSOLVE TAB PO PRN (09:45)
[2022-08-05] MEDS ORDERED: HYDROmorphone 2 MG/ML VIAL (DILAUDID) IV PRN (09:45)
[2022-08-05] MEDS ORDERED: ANTACID SUSP 30 ML UDC (MYLANTA) PO PRN (09:45)
[2022-08-05] MEDS ORDERED: LACTULOSE SYRUP 10GM/15ML (ENULOSE) 30ML UDC PO PRN (09:45)
[2022-08-05] MEDS ORDERED: diphenhydrAMINE 25 MG TAB (BENADRYL) PO PRN (09:45)
[2022-08-05] MEDS ORDERED: BISACODYL 10 MG SUPP (DULCOLAX) PR PRN (09:45)
[2022-08-05] MEDS ORDERED: polyethylene glycoL POWDER 17 GM (MIRALAX) PACK PO PRN (09:45)
[2022-08-05] MEDS ORDERED: MELATONIN 3 MG TABLET PO PRN (09:45)
[2022-08-05] MEDS ORDERED: diphenhydrAMINE 50 MG/ML INJ (BENADRYL) IVP PRN (09:45)
[2022-08-05] MEDS ORDERED: ACETAMINOPHEN 325 MG TABLET PO PRN (09:45)
[2022-08-05] MEDS ORDERED: MILK OF MAGNESIA 400 MG/5 ML 30 ML UDC PO PRN (09:45)
[2022-08-05] MEDS ORDERED: CALCIUM CARBONATE 500 MG (TUMS) TAB.CHEW PO PRN (09:45)
[2022-08-05] MEDS: NS IV 1000 ML 1,000 ML IV SCH (10:09)
[2022-08-05] MEDS ORDERED: RT-ALBUTEROL HFA 8.5 GM INHALER IH PRN (10:30)
--- NOTE | 2022-08-05 13:52 | History & Physical-Hospitalist ---
KELBY MYERS 08/05/22 1352: History of Present Illness HPI/Chief Complaint This is a 77 y/o female with history significant for CAD, TIA, DM, and HTN who w as brought to the ED yesterday by EMS after a gradual change in orientation and agitation. Her caregiver at home (pt's nephew per records) reported to the ED staff that her symptoms started in the morning hours and progressively worsened upto about 5:00 p.m. when the patient became increasingly agitated. Upon arrival to the ED the patient was not oriented and not responsive to questions regarding history. She did not appear to be in any pain or focal issues per ER staff records. It was noted that she seemed very agitated and was "thrashing" in the ED bed until she was given some Seroquel which helped her calm down and eventually sleep. Workup in the ED showed a UA with +leuk esterase and pyuria with bacteria present and she was treated for presumed UTI with rocephin. She was admitted to the medicine service for continued AMS and UTI. 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 Per her caregiver she has never fully recovered from this hospitaliza tion and reports that she is normally able to answer some questions and is calm/relaxed and compliant with medications. Upon exam this morning the patient's caregivers/family are not present. Patient alerts to voice but quickly closes her eyes. She does not respond to any questions and says no words. She appears uncomfortable and keeps her knees bent toward her with her hands rubbing her thighs up and down as if can't sit still or there is discomfort but she does not withdraw to any palpation on exam and there are no obvious deformities/insults. Source: old records Exam Limitations: clinical condition (Encephalopathy) Date Seen 08/05/22 Time Seen by a Provider: 08:45 Attending Physician Diamante Cuevas Aprn PCP Admitting Physician: Michelle Naylor DO Attending Physician: Michelle Naylor DO Referring Physician Date of Admission Aug 05, 2022 at 08:25 Home Medications & Allergies Home Medications Reviewed patient Home Medication Reconciliation performed by pharmacy medication reconciliations chemistry technician and/or nursing. Patients Allergies have been reviewed. Allergies Allergies Coded Allergies promethazine (Verified Allergy, Severe, SEIZURE, NAUSEA, 07/19/08) duloxetine HCl (Verified Allergy, Mild, 05/28/11) escitalopram oxalate (Verified Allergy, Unknown, 09/22/13) niacin (Verified Allergy, Unknown, 09/22/13) olanzapine (Verified Allergy, Unknown, 09/22/13) ibuprofen (Verified Adverse Reaction, Mild, UNSET STOMACH, 09/22/13) lisinopril (Verified Adverse Reaction, Mild, HEADACHE, 09/22/13) tramadol (Verified Adverse Reaction, Mild, NAUSEATED, 09/22/13) Past Snisjgc-Tyfluo-Sinxli Hx Patient Social History Tobacco Use?: No Use of E-Cig and/or Vaping dev: No Substance use?: No Alcohol Use?: No Pt feels they are or have been: Unable to obtain Immunizations Up To Date First/Initial COVID19 Vaccinat: Denies Second COVID19 Vaccination Cas: Denies Tetanus Booster (TDap): Unknown Seasonal Allergies Seasonal Allergies: No Current Status status: No status: No Communicates: Verbally Primary Language: Syriac Preferred Spoken Language: Syriac Is interpretation needed?: No Implanted or Applied Medical D: Pacemaker Past Medical History Surgeries: Abdominal (Colon resection with colostomy and reversal), Bowel Surgery, Gallbladder, Nephrectomy (Left), Thyroidectomy High Cholesterol, Hypertension, 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 Sexually Transmitted Disease: No UTI-Chronic Diverticulosis, Pancreatitis Degenerate Disk Disease, Arthritis, Chronic Back Pain Diabetes, Insulin dep, Hypothyroidsim Cataract, Glaucoma Kidney Did You Recieve Any Treatments: Yes What Type of Treatment Did You: Surgical Intervention Anxiety, Depression Blood Disorders: No Adverse Reaction/Blood Tranf: No Family Medical History PSH: -LEFT NEPHRECTOMY 1985 FOR CANCER -COLON RESECTION WITH COLOSTOMY AND LATER TAKEDOWN FOR PERFORATED DIVERTICULITIS -CHOLECYSTECTOMY Review of Systems Other Unable to complete a review of systems at this time as patient is nonverbal and does not respond to questions. Per ER records, patient's caregiver reported increased urinary frequency on day of symptom onset. Physical Exam Physical Exam Vital Signs Vital Signs - First Documented 08/05/22 08/05/22 02:20 08:30 Temp 37.7 Pulse 112 Resp 18 B/P (MAP) 123/88 (100) Pulse Ox 93 O2 Delivery Room Air Capillary Refill : Less Than 3 Seconds Height, Weight, BMI Height: 5'0.00" Weight: 160lbs. 8.0oz. [id number]; 28.39 BMI Method:Stated General Appearance: Obese, Other (Does not appear to be in distress but does not lay still in bed. Hands rub legs as if legs are sore or hurt but no withdrawal and patient does not stop when alerted to voice.) HEENT: PERRL/EOMI Neck: Non Tender, Supple, Limited Range of Motion Respiratory: Lungs Clear, Normal Breath Sounds Cardiovascular: No Murmur, Other (Normal S1/S2. Pauses or PVC/PACs are ausculated/palpated in irregular rhythm.) Gastrointestinal: Normal Bowel Sounds, Non Tender, Soft Extremity: Normal Range of Motion, No Pedal Edema Neurologic/Psychiatric: No Oriented x3; Other (Somnolent. Alerts to verbal stimulation. Eyes do track when they open and react but quickly close. Nonverbal, no attempts seem to be made at responding to questions. ) Skin: Normal Color, Warm/Dry Lymphatic: No Adenopathy Results Results/Procedures Labs Laboratory Tests 08/05/22 02:23 Patient resulted labs reviewed. Assessment/Plan Admission Diagnosis Assessment: This is a 77 y/o female who presented to the ED and was admitted for AMS and UTI now HD#0. Plan AMS UTI, SIRS-, does not meet sepsis criteria -Likely 2/2 metabolic encephalopathy 2/2 infectious source/UTI; has history of "chronic UTI" per medical record -Baseline per previous hospital stay progress note on DC is alert and oriented x3. Per caregiver she can answer some questions and is calm but has not fully recovered from May hospitalization. -Exam is non-focal; VSS -Will monitor for return of cognitive function with UTI treatment -Seroquel BID ordered for agitation -Hospital delirium preventative measures -BGL in mid-200s -UDS negative -If no improvement will get head CT. -UA +pyuria, +leuk esterase, +bacteria -Rocephin q24 hr ordered; urine culture pending Pacemaker CAD - previous heart cath in 2019 PAD HLD -On telemetry -VSS at this time -Can continue statin once alert and PO Diabetes mellitus, insulin-dependent Hyperglycemia -Will start SSI Hypertension -BPs elevated during stay thus far upto 180s systolically -Can do PRN IV hydralazine while patient is not alert -Takes amlodipine 10mg and Lasix 40mg at home. 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 RCC s/p lt nephrectomy -Cr is 1.8 today, near baseline. -Continue to monitor, adjust medications as needed FEN/GI -N.S. 70 ml/hr maintenance at this time -Replace electrolytes as needed -NPO until alert and more oriented -Bowel regimen PRN, PPI IV for ulcer ppx DVT ppx: Heparin, SCDs Dispo: Stable. Continue cares and monitoring on the med/surg unit and continue IV antibiotics. Urine culture pending. MICHELLE NAYLOR DO 08/06/22 0519: History of Present Illness Source: patient Exam Limitations: clinical condition (Encephalopathy) Past Mouzvjy-Rxaohz-Jzgcyw Hx Patient Social History Marrital Status: single Employed/Student: retired Smoking Status: Unknown if Ever Smoked Review of Systems Constitutional: see HPI Physical Exam Physical Exam General Appearance: No Apparent Distress, Chronically ill Assessment/Plan Admission Diagnosis Admission Status: Observation Supervisory-Addendum Brief Verification & Attestation Participated in pt care: history, MDM, physical Personally performed: exam, history, MDM, supervision of care Care discussed with: Medical Student Procedures: n/a Results interpretation: Verified all documentation Verification and Attestation of Medical Student E/M Service A medical student performed and documented this service in my presence. I reviewed and verified all information documented by the medical student and made modifications to such information, when appropriate. I personally performed the physical exam and medical decision making. Michelle Naylor Aug 06, 2022,05:19 KELBY MYERS Aug 05, 2022 13:52 MICHELLE NAYLOR DO Aug 06, 2022 05:19
[2022-08-05] MEDS: QUEtiapine 25 MG (SEROquel) TAB IMMEDIATE RELEASE PO SCH ×2 (20:14→20:18)
[2022-08-05] MEDS: SENNOSIDES 8.6 MG (SENOKOT) TAB PO SCH ×2 (20:14→20:18)
[2022-08-05] MEDS: DOCUSATE SODIUM 100 MG (COLACE) CAP PO SCH ×2 (20:14→20:18)
[2022-08-05] MEDS ORDERED: NITROGLYCERIN 2% OINT 1 GM UNIT DOSE PACKET TOP PRN (20:15)
[2022-08-05] MEDS ORDERED: hydrALAZINE (APESOLINE) 20 MG/ML VIAL ONE (20:20)
[2022-08-05] MEDS: hydrALAZINE (APESOLINE) 20 MG/ML VIAL IV PRN (20:21)
[2022-08-05] MEDS ORDERED: amLODIPine 10 MG (NORVASC) TAB PO ONE (20:30)
[2022-08-05] MEDS ORDERED: amLODIPine 10 MG (NORVASC) TAB ONE (21:09)
[2022-08-05] MEDS: inSUlin ASPART (NovoLOG) 1 UNIT/0.01 ML (CHARGE PER UNIT) SC SCH (21:09)
[2022-08-06] VITALS (8 sets, daily range): BP systolic 132–173; BP diastolic 62–78
[2022-08-06] MEDS: NS IV 1000 ML 1,000 ML IV SCH ×3 (02:54→18:17)
[2022-08-06] MEDS ORDERED: cefTRIAXone 1 GM IV (PRE-MIX) 50 ML IV SCH (05:00)
[2022-08-06 05:39] LABS: BASOPHILS % (AUTO) 0 % (0-10); EOSINOPHILS # (AUTO) 0.1 10^3/uL (0.0-0.3); EOSINOPHILS % (AUTO) 1 % (0-10); HEMATOCRIT 32 % (35-52); HEMOGLOBIN 10.4 g/dL (11.5-16.0); LYMPHOCYTES # (AUTO) 1.9 10^3/uL (1.0-4.0); LYMPHOCYTES % (AUTO) 23 % (12-44); MEAN CORPUSCULAR HEMOGLOBIN 28 pg (25-34); MEAN CORPUSCULAR HGB CONC 32 g/dL (32-36); MEAN CORPUSCULAR VOLUME 86 fL (80-99); MEAN PLATELET VOLUME 11.4 fL (9.0-12.2); MONOCYTES # (AUTO) 0.6 10^3/uL (0.0-1.0); MONOCYTES % (AUTO) 8 % (0-12); NEUTROPHILS # (AUTO) 5.4 10^3/uL (1.8-7.8); NEUTROPHILS % (AUTO) 68 % (42-75); PLATELET COUNT 213 10^3/uL (130-400)
[2022-08-06 05:59] LABS: ALBUMIN 2.8 GM/DL (3.2-4.5); BILIRUBIN,TOTAL 0.4 MG/DL (0.1-1.0); CALCIUM 8.3 MG/DL (8.5-10.1); CREATININE SERUM 1.42 MG/DL (0.60-1.30); POTASSIUM 3.4 MMOL/L (3.6-5.0); TOTAL PROTEIN 5.5 GM/DL (6.4-8.2)
[2022-08-06] MEDS: inSUlin ASPART (NovoLOG) 1 UNIT/0.01 ML (CHARGE PER UNIT) SC SCH ×4 (06:01→20:48)
--- NOTE | 2022-08-06 07:17 | Progress Note - Hospitalist ---
Subjective HPI/CC On Admission Date Seen by Provider: Aug 06, 2022 Time Seen by Provider: 10:00 Subjective/Events-last exam Minimal improvement Bedridden Wakes up every once in awhile BP BS improved UCx contaminant Review of Systems Neurological: Confusion Objective Exam Vital Signs Vital Signs Date Time Temp Pulse Resp B/P (MAP) Pulse Ox O2 Delivery O2 Flow Rate FiO2 08/07/22 03:18 36.7 84 16 169/74 (105) 97 Room Air Capillary Refill : Less Than 3 Seconds General Appearance: No Apparent Distress, WD/WN, Chronically ill Respiratory: Lungs Clear, Normal Breath Sounds Cardiovascular: Regular Rate, Rhythm Neurologic/Psychiatric: Other (lethargic) Results/Procedures Lab Laboratory Tests 08/06/22 05:30 Patient resulted labs reviewed. Assessment/Plan Assessment and Plan Assess & Plan/Chief Complaint Assessment: This is a 77 y/o female who presented to the ED and was admitted for AMS and UTI now HD#0. Plan AMS UTI, SIRS-, does not meet sepsis criteria -Likely 2/2 metabolic encephalopathy 2/2 infectious source/UTI; has history of "chronic UTI" per medical record -Baseline per previous hospital stay progress note on DC is alert and oriented x3. Per caregiver she can answer some questions and is calm but has not fully recovered from May hospitalization. -Exam is non-focal; VSS -Will monitor for return of cognitive function with UTI treatment -Seroquel BID ordered for agitation -Hospital delirium preventative measures -BGL in mid-200s -UDS negative -If no improvement will get head CT. -UA +pyuria, +leuk esterase, +bacteria -Rocephin q24 hr ordered; urine culture pending Pacemaker CAD - previous heart cath in 2018 PAD HLD -On telemetry -VSS at this time -Can continue statin once alert and PO Diabetes mellitus, insulin-dependent Hyperglycemia -Will start SSI Hypertension -BPs elevated during stay thus far upto 180s systolically -Can do PRN IV hydralazine while patient is not alert -Takes amlodipine 10mg and Lasix 40mg at home. 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 RCC s/p lt nephrectomy -Cr is 1.8 today, near baseline. -Continue to monitor, adjust medications as needed FEN/GI -N.S. 70 ml/hr maintenance at this time -Replace electrolytes as needed -NPO until alert and more oriented -Bowel regimen PRN, PPI IV for ulcer ppx DVT ppx: Heparin, SCDs Dispo: Stable. Continue cares and monitoring on the med/surg unit JEFE NICHOLS DO Aug 06, 2022 07:17
[2022-08-06] MEDS: DOCUSATE SODIUM 100 MG (COLACE) CAP PO SCH ×2 (08:39→20:26)
[2022-08-06] MEDS: SENNOSIDES 8.6 MG (SENOKOT) TAB PO SCH ×2 (08:39→20:26)
[2022-08-06] MEDS: amLODIPine 10 MG (NORVASC) TAB PO SCH ×2 (08:51→08:53)
[2022-08-06] MEDS: QUEtiapine 25 MG (SEROquel) TAB IMMEDIATE RELEASE PO SCH ×3 (08:51→20:26)
[2022-08-06] MEDS: LORazepam INJ 2 MG/ML (ATIVAN) VIAL IV PRN ×2 (08:59→13:50)
[2022-08-06] MEDS: hydrALAZINE (APESOLINE) 20 MG/ML VIAL IV PRN (20:38)
[2022-08-07] VITALS (7 sets, daily range): BP systolic 139–184; BP diastolic 65–76
[2022-08-07] MEDS: hydrALAZINE (APESOLINE) 20 MG/ML VIAL IV PRN ×2 (04:18→12:55)
[2022-08-07] MEDS: LEVOTHYROXINE 150 MCG (LEVOTHROID) TAB PO SCH (05:22)
[2022-08-07] MEDS: LORazepam INJ 2 MG/ML (ATIVAN) VIAL IV PRN (05:23)
[2022-08-07] MEDS: inSUlin ASPART (NovoLOG) 1 UNIT/0.01 ML (CHARGE PER UNIT) SC SCH ×4 (05:46→21:09)
[2022-08-07 05:54] LABS: BASOPHILS % (AUTO) 1 % (0-10); EOSINOPHILS # (AUTO) 0.1 10^3/uL (0.0-0.3); EOSINOPHILS % (AUTO) 2 % (0-10); HEMATOCRIT 33 % (35-52); HEMOGLOBIN 10.5 g/dL (11.5-16.0); LYMPHOCYTES # (AUTO) 2.9 10^3/uL (1.0-4.0); LYMPHOCYTES % (AUTO) 41 % (12-44); MEAN CORPUSCULAR HEMOGLOBIN 28 pg (25-34); MEAN CORPUSCULAR HGB CONC 32 g/dL (32-36); MEAN CORPUSCULAR VOLUME 87 fL (80-99); MEAN PLATELET VOLUME 12.1 fL (9.0-12.2); MONOCYTES # (AUTO) 0.6 10^3/uL (0.0-1.0); MONOCYTES % (AUTO) 8 % (0-12); NEUTROPHILS # (AUTO) 3.4 10^3/uL (1.8-7.8); NEUTROPHILS % (AUTO) 49 % (42-75); PLATELET COUNT 218 10^3/uL (130-400)
[2022-08-07 06:13] LABS: POTASSIUM 3.5 MMOL/L (3.6-5.0)
[2022-08-07 06:15] LABS: CALCIUM 8.3 MG/DL (8.5-10.1)
[2022-08-07 06:16] LABS: TOTAL PROTEIN 5.6 GM/DL (6.4-8.2)
[2022-08-07 06:18] LABS: BILIRUBIN,TOTAL 0.4 MG/DL (0.1-1.0)
[2022-08-07 06:19] LABS: CREATININE SERUM 1.34 MG/DL (0.60-1.30)
[2022-08-07] MEDS: amLODIPine 10 MG (NORVASC) TAB PO SCH (09:03)
[2022-08-07] MEDS: QUEtiapine 25 MG (SEROquel) TAB IMMEDIATE RELEASE PO SCH ×2 (09:03→21:10)
[2022-08-07] MEDS: SENNOSIDES 8.6 MG (SENOKOT) TAB PO SCH ×2 (09:05→21:10)
[2022-08-07] MEDS: DOCUSATE SODIUM 100 MG (COLACE) CAP PO SCH ×2 (09:05→21:10)
[2022-08-07] MEDS: NS IV 1000 ML 1,000 ML IV SCH ×2 (09:06→23:12)
[2022-08-07] MEDS ORDERED: INSU100I55 SQ (12:27)
[2022-08-07] MEDS ORDERED: AMIT25TA9 PO (12:27)
[2022-08-07] MEDS ORDERED: LORA-404 PO (12:27)
[2022-08-07] MEDS ORDERED: INSU100V5 SQ (12:27)
[2022-08-07] MEDS ORDERED: LEVO150T PO (12:27)
[2022-08-07] MEDS ORDERED: AMLO-251 PO (12:27)
--- NOTE | 2022-08-07 12:28 | Discharge Inst-Skilled Nursing ---
Discharge Inst-Skilled NF Reconcile Patient Problems Problems Reviewed?: Yes Chief Complaint Patient Instructions Patient Problems: Dementia Consult/Follow Up/Orders Follow Up Appt.: PCP PR rounds [place] [facility] [place] I certify that SNF services are required to be given on an inpatient basis because of the above named patient's need for intermediate care on a continuing basis for the conditions(s) for which he/she was receiving inpatient hospital services prior to his/her transfer to the SNF. Correction Facility Order: Nursing Services, [facility]-Evaluate & Treat, Physical Therapy-Evaluate & Treat, Speech Language-Evaluate & Treat Oxygen Delivery Method: Room Air Discharge Diet: ADA Diet Resuscitation Status: Full Code New & Resume Previous Orders New Medications: Lorazepam (Ativan) 0.5 Mg Tablet 0.5 MG PO TID PRN for ANXIETY, #15 TAB Amlodipine Besylate (Amlodipine Besylate) 10 Mg Tablet 10 MG PO DAILY, #30 TAB Insulin Determir (Levemir) 100 Unit/Ml Soln 10 UNIT SQ BID, #1 EA Levothyroxine Sodium (Synthroid) 150 Mcg Tablet 150 MCG PO DAILY@0630, #30 TAB Changed Medications: Insulin Aspart (Insulin Aspart Flexpen) 100 Unit/Ml (3 Ml) Insuln.pen 3 UNITS SQ DAILY, #1 UNITS (Changed from: 10 UNITS) Continued Medications: Amitriptyline HCl (Amitriptyline HCl) 25 Mg Tablet 25 MG PO HS, #30 TAB (This prescription has been renewed) Discontinued Medications: Levothyroxine Sodium (Levothyroxine Sodium) 175 Mcg Tablet 175 MCG PO DAILY, TAB Michelle Naylor Aug 07, 2022 12:28 MICHELLE NAYLOR DO Aug 07, 2022 12:28
--- NOTE | 2022-08-07 12:29 | Discharge Summary ---
Discharge Summary Hospital Course Was the Problem List Reviewed?: Yes Problems/Dx: (1) Altered mental status Status: Acute Qualifiers: Qualified Codes: R41.82 - Altered mental status, unspecified (2) Hypothyroidism Status: Acute Qualifiers: Qualified Codes: E03.9 - Hypothyroidism, unspecified (3) Acute kidney injury Status: Acute Hospital Course Date of Admission: Aug 05, 2022 at 08:25 Admission Diagnosis : Family Physician/Provider: Diamante Cuevas Aprn Date of Discharge: 08/07/22 Discharge Diagnosis: [ ] Hospital Course: Standard course after admitted for AMS and UTI but UCx revealed normal beti so Abx stopped. Severe dementia precluded any type of good prognosis. Decision was made to DC to NH but then family changed mind and instead wanted to DC home with them and possible hospice and delayed DC by 1 day. Labs and Pending Lab Test: Laboratory Tests 08/06/22 16:21: Glucometer 122H 08/06/22 20:28: Glucometer 141H 08/07/22 05:20: White Blood Count 7.0, Red Blood Count 3.77L, Hemoglobin 10.5L, Hematocrit 33L, Mean Corpuscular Volume 87, Mean Corpuscular Hemoglobin 28, Mean Corpuscular Hemoglobin Concent 32, Red Cell Distribution Width 13.1, Platelet Count 218, Mean Platelet Volume 12.1, Immature Granulocyte % (Auto) 0, Neutrophils (%) (Auto) 49, Lymphocytes (%) (Auto) 41, Monocytes (%) (Auto) 8, Eosinophils (%) (Auto) 2, Basophils (%) (Auto) 1, Neutrophils # (Auto) 3.4, Lymphocytes # (Auto) 2.9, Monocytes # (Auto) 0.6, Eosinophils # (Auto) 0.1, Basophils # (Auto) 0.0, Immature Granulocyte # (Auto) 0.0, Sodium Level 141, Potassium Level 3.5L, Chloride Level 111H, Carbon Dioxide Level 18L, Anion Gap 12, Blood Urea Nitrogen 20H, Creatinine 1.34H, Estimat Glomerular Filtration Rate 41, BUN/Creatinine Ratio 15, Glucose Level 162H, Calcium Level 8.3L, Corrected Calcium 9.1, Total Bilirubin 0.4, Aspartate Amino Transf (AST/SGOT) 39H, Alanine Aminotransferase (ALT/SGPT) 37, Alkaline Phosphatase 251H, Total Protein 5.6L, Albumin 3.0L 08/07/22 05:31: Glucometer 161H 08/07/22 10:34: Glucometer 236H Microbiology 08/05/22 Urine Culture - Final, Complete Lactobacillus gasseri See Comments Home Meds Active Ativan (Lorazepam) 0.5 Mg Tablet 0.5 Mg PO TID PRN Synthroid (Levothyroxine Sodium) 150 Mcg Tablet 150 Mcg PO DAILY@0630 Levemir (Insulin Determir) 100 Unit/Ml Soln 10 Unit SQ BID Amlodipine Besylate 10 Mg Tablet 10 Mg PO DAILY Amitriptyline HCl 25 Mg Tablet 25 Mg PO HS Insulin Aspart Flexpen (Insulin Aspart) 100 Unit/Ml (3 Ml) Insuln.pen 3 Units SQ DAILY Reported Levothyroxine Sodium 175 Mcg Tablet 175 Mcg PO DAILY Assessment/Pt Instructions PCP 1 week Discharge Planning: <30 minutes discharge planning Discharge Instructions Discharge Diet: ADA Diet Discharge Physical Examination Vital Signs Vital Signs Date Time Temp Pulse Resp B/P (MAP) Pulse Ox O2 Delivery O2 Flow Rate FiO2 08/07/22 11:29 95 Room Air 08/07/22 11:27 36.3 80 18 172/67 (102) General Appearance: No Apparent Distress, WD/WN Allergies: Coded Allergies: promethazine (Verified Allergy, Severe, SEIZURE, NAUSEA, 07/19/08) duloxetine HCl (Verified Allergy, Mild, 05/28/11) escitalopram oxalate (Verified Allergy, Unknown, 09/22/13) niacin (Verified Allergy, Unknown, 09/22/13) olanzapine (Verified Allergy, Unknown, 09/22/13) ibuprofen (Verified Adverse Reaction, Mild, UNSET STOMACH, 09/22/13) lisinopril (Verified Adverse Reaction, Mild, HEADACHE, 09/22/13) tramadol (Verified Adverse Reaction, Mild, NAUSEATED, 09/22/13) Discharge Summary Date of Admission Aug 05, 2022 at 08:25 Date of Discharge Discharge Date: Aug 07, 2022 Admission Diagnosis Assessment: This is a 77 y/o female who presented to the ED and was admitted for AMS and UTI now HD#0. Plan AMS UTI, SIRS-, does not meet sepsis criteria -Likely 2/2 metabolic encephalopathy 2/2 infectious source/UTI; has history of "chronic UTI" per medical record -Baseline per previous hospital stay progress note on DC is alert and oriented x3. Per caregiver she can answer some questions and is calm but has not fully recovered from May hospitalization. -Exam is non-focal; VSS -Will monitor for return of cognitive function with UTI treatment -Seroquel BID ordered for agitation -Hospital delirium preventative measures -BGL in mid-200s -UDS negative -If no improvement will get head CT. -UA +pyuria, +leuk esterase, +bacteria -Rocephin q24 hr ordered; urine culture pending Pacemaker CAD - previous heart cath in 2018 PAD HLD -On telemetry -VSS at this time -Can continue statin once alert and PO Diabetes mellitus, insulin-dependent Hyperglycemia -Will start SSI Hypertension -BPs elevated during stay thus far upto 180s systolically -Can do PRN IV hydralazine while patient is not alert -Takes amlodipine 10mg and Lasix 40mg at home. 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 RCC s/p lt nephrectomy -Cr is 1.8 today, near baseline. -Continue to monitor, adjust medications as needed FEN/GI -N.S. 70 ml/hr maintenance at this time -Replace electrolytes as needed -NPO until alert and more oriented -Bowel regimen PRN, PPI IV for ulcer ppx DVT ppx: Heparin, SCDs Dispo: Stable. Continue cares and monitoring on the med/surg unit and continue IV antibiotics. Urine culture pending. Discharge Diagnosis Assessment: This is a 77 y/o female who presented to the ED and was admitted for AMS and UTI now HD#0. Plan AMS UTI, SIRS-, does not meet sepsis criteria -Likely 2/2 metabolic encephalopathy 2/2 infectious source/UTI; has history of "chronic UTI" per medical record -Baseline per previous hospital stay progress note on DC is alert and oriented x3. Per caregiver she can answer some questions and is calm but has not fully recovered from May hospitalization. -Exam is non-focal; VSS -Will monitor for return of cognitive function with UTI treatment -Seroquel BID ordered for agitation -Hospital delirium preventative measures -BGL in mid-200s -UDS negative -If no improvement will get head CT. -UA +pyuria, +leuk esterase, +bacteria -Rocephin q24 hr ordered; urine culture pending Pacemaker CAD - previous heart cath in 2019 PAD HLD -On telemetry -VSS at this time -Can continue statin once alert and PO Diabetes mellitus, insulin-dependent Hyperglycemia -Will start SSI Hypertension -BPs elevated during stay thus far upto 180s systolically -Can do PRN IV hydralazine while patient is not alert -Takes amlodipine 10mg and Lasix 40mg at home. 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 RCC s/p lt nephrectomy -Cr is 1.8 today, near baseline. -Continue to monitor, adjust medications as needed FEN/GI -N.S. 70 ml/hr maintenance at this time -Replace electrolytes as needed -NPO until alert and more oriented -Bowel regimen PRN, PPI IV for ulcer ppx DVT ppx: Heparin, SCDs Dispo: Stable. Continue cares and monitoring on the med/surg unit JEFE NICHOLS DO Aug 07, 2022 12:29
[2022-08-08 03:26] VITALS: BP 185/82
[2022-08-08] MEDS: hydrALAZINE (APESOLINE) 20 MG/ML VIAL IV PRN (03:40)
[2022-08-08] MEDS: inSUlin ASPART (NovoLOG) 1 UNIT/0.01 ML (CHARGE PER UNIT) SC SCH ×2 (05:19→11:24)
--- NOTE | 2022-08-08 06:20 | Discharge Summary ---
Discharge Summary Hospital Course Was the Problem List Reviewed?: Yes Problems/Dx: (1) Altered mental status Status: Acute Qualifiers: Qualified Codes: R41.82 - Altered mental status, unspecified (2) Hypothyroidism Status: Acute Qualifiers: Qualified Codes: E03.9 - Hypothyroidism, unspecified (3) Acute kidney injury Status: Acute Hospital Course Date of Admission: Aug 05, 2022 at 08:25 Admission Diagnosis : Family Physician/Provider: Diamante Cuevas Aprn Date of Discharge: 08/08/22 Discharge Diagnosis: [ ] Hospital Course: Long course after admitted for AMS and UTI. Standard course after admitted for AMS and UTI but UCx revealed normal beti so Abx stopped. Severe dementia precluded any type of good prognosis. Decision was made to DC to NH but then family changed mind and instead wanted to DC home with them and possible hospice and delayed DC by 1 day. Labs and Pending Lab Test: Laboratory Tests 08/07/22 10:34: Glucometer 236H 08/07/22 15:41: Glucometer 149H 08/07/22 20:26: Glucometer 229H 08/08/22 05:04: Glucometer 153H Microbiology 08/05/22 Urine Culture - Final, Complete Lactobacillus gasseri See Comments Home Meds Active Ativan (Lorazepam) 0.5 Mg Tablet 0.5 Mg PO TID PRN Synthroid (Levothyroxine Sodium) 150 Mcg Tablet 150 Mcg PO DAILY@0630 Levemir (Insulin Determir) 100 Unit/Ml Soln 10 Unit SQ BID Amlodipine Besylate 10 Mg Tablet 10 Mg PO DAILY Amitriptyline HCl 25 Mg Tablet 25 Mg PO HS Insulin Aspart Flexpen (Insulin Aspart) 100 Unit/Ml (3 Ml) Insuln.pen 3 Units SQ DAILY Reported Levothyroxine Sodium 175 Mcg Tablet 175 Mcg PO DAILY Assessment/Pt Instructions PCP in [place] Discharge Planning: <30 minutes discharge planning Discharge Instructions Discharge Diet: No Restrictions, ADA Diet Discharge Physical Examination Vital Signs Vital Signs Date Time Temp Pulse Resp B/P (MAP) Pulse Ox O2 Delivery O2 Flow Rate FiO2 08/08/22 03:26 36.5 95 20 185/82 (116) 94 Room Air General Appearance: No Apparent Distress, WD/WN, Chronically ill Allergies: Coded Allergies: promethazine (Verified Allergy, Severe, SEIZURE, NAUSEA, 07/19/08) duloxetine HCl (Verified Allergy, Mild, 05/28/11) escitalopram oxalate (Verified Allergy, Unknown, 09/22/13) niacin (Verified Allergy, Unknown, 09/22/13) olanzapine (Verified Allergy, Unknown, 09/22/13) ibuprofen (Verified Adverse Reaction, Mild, UNSET STOMACH, 09/22/13) lisinopril (Verified Adverse Reaction, Mild, HEADACHE, 09/22/13) tramadol (Verified Adverse Reaction, Mild, NAUSEATED, 09/22/13) Discharge Summary Date of Admission Aug 05, 2022 at 08:25 Date of Discharge Discharge Date: Aug 07, 2022 Admission Diagnosis Assessment: This is a 77 y/o female who presented to the ED and was admitted for AMS and UTI now HD#0. Plan AMS UTI, SIRS-, does not meet sepsis criteria -Likely 2/2 metabolic encephalopathy 2/2 infectious source/UTI; has history of "chronic UTI" per medical record -Baseline per previous hospital stay progress note on DC is alert and oriented x3. Per caregiver she can answer some questions and is calm but has not fully recovered from May hospitalization. -Exam is non-focal; VSS -Will monitor for return of cognitive function with UTI treatment -Seroquel BID ordered for agitation -Hospital delirium preventative measures -BGL in mid-200s -UDS negative -If no improvement will get head CT. -UA +pyuria, +leuk esterase, +bacteria -Rocephin q24 hr ordered; urine culture pending Pacemaker CAD - previous heart cath in 2019 PAD HLD -On telemetry -VSS at this time -Can continue statin once alert and PO Diabetes mellitus, insulin-dependent Hyperglycemia -Will start SSI Hypertension -BPs elevated during stay thus far upto 180s systolically -Can do PRN IV hydralazine while patient is not alert -Takes amlodipine 10mg and Lasix 40mg at home. 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 RCC s/p lt nephrectomy -Cr is 1.8 today, near baseline. -Continue to monitor, adjust medications as needed FEN/GI -N.S. 70 ml/hr maintenance at this time -Replace electrolytes as needed -NPO until alert and more oriented -Bowel regimen PRN, PPI IV for ulcer ppx DVT ppx: Heparin, SCDs Dispo: Stable. Continue cares and monitoring on the med/surg unit and continue IV antibiotics. Urine culture pending. Discharge Diagnosis Assessment: This is a 77 y/o female who presented to the ED and was admitted for AMS and UTI now HD#0. Plan AMS UTI, SIRS-, does not meet sepsis criteria -Likely 2/2 metabolic encephalopathy 2/2 infectious source/UTI; has history of "chronic UTI" per medical record -Baseline per previous hospital stay progress note on DC is alert and oriented x3. Per caregiver she can answer some questions and is calm but has not fully recovered from May hospitalization. -Exam is non-focal; VSS -Will monitor for return of cognitive function with UTI treatment -Seroquel BID ordered for agitation -Hospital delirium preventative measures -BGL in mid-200s -UDS negative -If no improvement will get head CT. -UA +pyuria, +leuk esterase, +bacteria -Rocephin q24 hr ordered; urine culture pending Pacemaker CAD - previous heart cath in 2019 PAD HLD -On telemetry -VSS at this time -Can continue statin once alert and PO Diabetes mellitus, insulin-dependent Hyperglycemia -Will start SSI Hypertension -BPs elevated during stay thus far upto 180s systolically -Can do PRN IV hydralazine while patient is not alert -Takes amlodipine 10mg and Lasix 40mg at home. 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 RCC s/p lt nephrectomy -Cr is 1.8 today, near baseline. -Continue to monitor, adjust medications as needed FEN/GI -N.S. 70 ml/hr maintenance at this time -Replace electrolytes as needed -NPO until alert and more oriented -Bowel regimen PRN, PPI IV for ulcer ppx DVT ppx: Heparin, SCDs Dispo: Stable. Continue cares and monitoring on the med/surg unit (1) Altered mental status Status: Acute Qualifiers: Qualified Codes: R41.82 - Altered mental status, unspecified (2) Hypothyroidism Status: Acute Qualifiers: Qualified Codes: E03.9 - Hypothyroidism, unspecified (3) Acute kidney injury Status: Acute JEFE NICHOLS DO Aug 08, 2022 06:20
[2022-08-08] MEDS: LEVOTHYROXINE 150 MCG (LEVOTHROID) TAB PO SCH (06:47)
[2022-08-08 08:06] VITALS: BP 149/69
[2022-08-08] MEDS: QUEtiapine 25 MG (SEROquel) TAB IMMEDIATE RELEASE PO SCH (08:13)
[2022-08-08] MEDS: amLODIPine 10 MG (NORVASC) TAB PO SCH (08:13)
[2022-08-08] MEDS: SENNOSIDES 8.6 MG (SENOKOT) TAB PO SCH (08:13)
[2022-08-08] MEDS: DOCUSATE SODIUM 100 MG (COLACE) CAP PO SCH (08:13)
[2022-08-08 11:20] VITALS: BP 141/67
[2022-08-08] MEDS ORDERED: AMIT25TA9 PO (11:44)
[2022-08-08] MEDS ORDERED: LORA-404 PO (11:44)
[2022-08-08] MEDS ORDERED: INSU100V5 SQ (11:44)
[2022-08-08] MEDS ORDERED: LEVO150T PO (11:44)
[2022-08-08] MEDS ORDERED: AMLO-251 PO (11:44)
[2022-08-08] MEDS ORDERED: INSU100I55 SQ (11:44)
== END 2022-08-08 09:00 | disposition home or self-care (01) ==
LOC: EDUNIT# 02:13 → ER 02:15 → 4TH 08:25 → UNDODISOB 08-07 18:00
PROVIDERS: ADMIT Internal Medicine; ATTEND Internal Medicine
DX: R41.82 Altered mental status, unspecified (principal); N39.0 Urinary tract infection, site not specified; E03.9 Hypothyroidism, unspecified; N17.9 Acute kidney failure, unspecified; R65.10 Systemic inflammatory response syndrome (SIRS) of non-infectious origin without acute organ dysfunction; I25.10 Atherosclerotic heart disease of native coronary artery without angina pectoris; I73.9 Peripheral vascular disease, unspecified; E78.5 Hyperlipidemia, unspecified; E11.65 Type 2 diabetes mellitus with hyperglycemia; I10 Essential (primary) hypertension; Z90.89 Acquired absence of other organs; Z90.5 Acquired absence of kidney; Z85.528 Personal history of other malignant neoplasm of kidney; Z79.890 Hormone replacement therapy; Z95.0 Presence of cardiac pacemaker; Z79.899 Other long term (current) drug therapy; Z79.4 Long term (current) use of insulin
CPT/HCPCS: 51702; 80053 ×3; 81000; 82947 ×4; 83735; 84439; 84443; 85025 ×3; 86141; 87077; 87088; 94760; 96361; 96366; 96372 ×4; 96375; 96376 ×4; 99284; G0378; 36415